=== PATIENT | female | born 1980 | race Caucasian/White ===

== ENCOUNTER 2022-12-28 08:02 | Emergency (ER) | payer OTHER, SELFPAY ==
[2022-12-28 08:14] VITALS: BP 117/76; PULSE 79; RESP 20; TEMP 36.6; O2SAT 96; BMI 24.5
[2022-12-28 09:24] LABS: Amphetamine Screen Urine Not Detected (Not Detect); Barbiturates, Urine Not Detected (Not Detect); Benzodiazepines Screen Urine Not Detected (Not Detect); Cannabinoid Screen Urine Not Detected (Not Detect); Cocaine Screen Urine POSITIVE (Not Detect); Fentanyl, urine POSITIVE (Not Detect); Opiate Screen Urine POSITIVE (Not Detect); Phencyclidine Screen Urine Not Detected (Not Detect)
[2022-12-28 09:25] LABS: COVID-19 Test Negative (Negative); IDNOW Serial# 55D5AD1C
[2022-12-28 09:34] LABS: Ethanol < 10 mg/dL
[2022-12-28] MEDS: Acetaminophen 325 MG TABLET 650 MG PO (10:26)
--- NOTE | 2022-12-28 10:33 | ED_ITS ---
HPI - Medical Clearance General Chief complaint: Medical Clearance Stated complaint: Medical clearance Time Seen by Provider: 12/28/22 10:23 Source: patient Mode of arrival: ambulatory Limitations: no limitations History of Present Illness HPI Narrative: Patient has a history of poly substance use. She tells me she is currently in a sober living home. Last night after a meeting she when out in used crack and he roin last night. She tells me that she was sent here for medical clearance prior to letting her return to her sober living facility. She has no complaints. Related Information Allergies Allergy/AdvReac Type Severity Reaction Status Date / Time amoxicillin Allergy Hives Verified 12/28/22 08:17 Review of Systems Review of Systems: Yes all other systems are reviewed and are negative Constitutional: Constitutional: Reports no additional constitutional complaints, Denies body ache(s), Denies chills, Denies fever(s), Denies headache(s) and Denies weakness Eyes: Eyes: Reports no additional eye complaints and Denies change in vision ENT: Reports system reviewed and no additional complaints, except as documented, Denies dizziness, Denies headache(s), Denies nasal congestion, Denies nasal discharge and Denies neck pain Cardiovascular: Cardiovascular: Reports no additional cardiovascular complaints, Denies chest pain, Denies leg edema and Denies dyspnea Respiratory: Respiratory: Reports no additional respiratory complaints, Denies cough and Denies dyspnea Gastrointestinal: Gastrointestinal: Reports no additional gastrointestinal complaints, Denies abdominal pain, Denies diarrhea, Denies nausea and Denies vomiting Genitourinary: Genitourinary: Reports no additional female genitourinary complaints and Denies urinary incontinence Musculoskeletal: Musculoskeletal: Reports no additional musculoskeletal complaints, Denies back pain, Denies arthralgias, Denies joint swelling, Denies neck pain, Denies numbness and Denies tingling Integumentary/Breasts: Skin/Breast: Reports system reviewed and no additional complaints, except as docu and Denies rash Neurologic: Reports system reviewed and no additional complaints, except as documented, Denies Abnormal speech present, Denies dizziness, Denies headache(s), Denies numbness, Denies tingling and Denies weakness PMFSH Past Medical History Attestation statement: The following information was validated with the patient. Source: old records reviewed and nursing notes reviewed Social History Social History Advance Directives: No Advance Directives Information Provided: Yes Physical Exam Vital Signs: Vital Signs: Last Vital Signs Temp 97.8 F 12/28/22 08:14 Pulse 79 12/28/22 08:14 Resp 20 12/28/22 08:14 BP 117/76 12/28/22 08:14 Pulse Ox 96 12/28/22 08:14 O2 Del Method Room Air 12/28/22 08:14 BMI result Body Mass Index 24.5 Const: General: cooperative, healthy appearing, comfortable and no acute distress Orientation/consciousness: patient oriented x3 Limitations: no limitations HEENT: Head: Yes normal to inspection Ears: hearing grossly normal bilaterally General nose exam: Normal external nose present Face and sinus: Yes normal facial exam Mouth: Normal oral and palatal mucosa present Throat: Yes posterior oropharynx normal Eyes: General: appearance normal, both eyes and all related structures Pupils: Equal, round and reactive pupils present Neck: Neck: Yes normal visual inspection Chest: Chest palpation & inspection: normal inspection of the chest Resp: Effort & Inspection: normal respiratory effort Auscultation: clear to auscultation bilaterally Cardio: Rate: regular rate Rhythm: regular rhythm Peripheral pulses: Peripheral pulses 2+ throughout GI: Inspection: Yes normal to inspection Palpation (GI): Soft to palpation and nontender Auscultation: normal bowel sounds Back/Spine/Pelvis: Thoracic/Lumbar Spine: thoracic and lumbar spine normal to inspection Skin: General skin exam: no rashes or lesions noted Neuro: General: patient oriented x3, no focal motor deficits and normal sensation to monofilament Cranial nerves: Yes Equal, round and reactive pupils present Cognition (Neuro): normal cognition Speech: No Abnormal speech present Gait exam (Neuro): Normal gait present Motor exam (neuro): 5/5 motor strength present throughout Extrem: General: Yes normal to inspection Course Course Course Narrative: Urine screen is positive for opiates (fentanyl), cocaine. Plan for discharge back to sober living Medications Administered Discontinued Medications Generic Name Dose Route Start Last Admin Trade Name Freq PRN Reason Stop Dose Admin Acetaminophen 650 mg 12/28/22 10:23 12/28/22 10:26 Acetaminophen 325 Mg Tablet PO 12/28/22 10:24 650 mg ONCE ONE Administration Medical Decision Making Medical Decision Making [facility] Narrative: 42-year-old female who is currently living in a sober living home who presents here for medical clearance Patient reports she needs drug screens prior to returning to her sober living Will obtain drug screen Differential Diagnosis Differential Diagnoses: The differential diagnosis associated with the presentation includes Lab Data MDM Lab Attestation statement: I reviewed the patient's lab results. Labs: Lab Results 12/28/22 12/28/22 12/28/22 Range/Units 08:53 08:53 08:53 Urine Opiates Screen POSITIVE H (Not Detect) Urine Fentanyl Screen POSITIVE H (Not Detect) Ur Barbiturates Screen Not Detected (Not Detect) Ur Phencyclidine Scrn Not Detected (Not Detect) Ur Amphetamines Screen Not Detected (Not Detect) U Benzodiazepines Scrn Not Detected (Not Detect) Urine Cocaine Screen POSITIVE H (Not Detect) U Marijuana (THC) Screen Not Detected (Not Detect) Ethyl Alcohol < 10 mg/dL COVID-19 (ESTELLA) Negative (Negative) COVID-19 Clin Com See Note Discharge Plan Discharge Clinical Impression: Polysubstance (including opioids) dependence, daily use Patient Disposition: Home, Self-Care Instructions: Cocaine Abuse (ED), Narcotic Use Disorder (ED) Additional Instructions: Your urine screen was positive for fentanyl and cocaine Referrals: Physician,None [Primary Care Provider] - Interventions: ED Discharge Assessment Last Done: 12/28/22 10:56 Discharge Date/Time: 12/28/22 10:56
== END 2022-12-28 10:56 | disposition home or self-care (01) ==
PROVIDERS: Emergency Provider Emergency Medicine
DX: F19.20 Other psychoactive substance dependence, uncomplicated (principal)
CPT/HCPCS: 36415; 80307; 82077; 87635; 99283

== ENCOUNTER 2023-03-13 13:02 | Inpatient (IN) | payer OTHER, SELFPAY ==
[2023-03-13 13:11] VITALS: BP 115/79; PULSE 100; RESP 18; TEMP 36.7; O2SAT 99; BMI 26.4
--- NOTE | 2023-03-13 13:29 | ED_ITS ---
HPI - General Adult General Chief complaint: Psychiatric Symptoms Stated complaint: medical clearence Time Seen by Provider: 03/13/23 16:49 Source: patient Mode of arrival: ambulatory Limitations: no limitations History of Present Illness HPI narrative: Patient with history of substance abuse cocaine came from the program where she lives for last 3 months is she feeling still depressed and has thought of SI with increased anxiety no current plan. She does not like the way she is staying as they are not helping her for depression patient used cocaine few days ago no current SI plan no hallucinations or delusions patient denies any urine complaints does have little discomfort in lower abdomen no fever no chills no hematuria no flank pain. Patient's feel more depressed as her daughter 2 months ago after overdosing herself Related Data Home Medications Medication Instructions Recorded Confirmed buspirone 10 mg tablet 10 mg PO BID 03/13/23 03/13/23 clonidine HCl 0.1 mg tablet 0.1 mg PO BID 03/13/23 03/13/23 methylphenidate HCl 20 mg tablet 60 mg PO USEASDIRECTD 03/13/23 03/13/23 (Ritalin) sertraline 100 mg tablet 200 mg PO QAM 03/13/23 03/13/23 trazodone 50 mg tablet 100 mg PO BEDTIME PRN Sleep 03/13/23 03/13/23 methadone 10 mg/mL oral 55 mg PO DAILY 03/14/23 03/14/23 concentrate (Methadone Intensol) Allergies Allergy/AdvReac Type Severity Reaction Status Date / Time amoxicillin Allergy Hives Verified 12/28/22 08:17 Review of Systems Review of Systems: Yes all other systems are reviewed and are negative PMFSH Past Medical History Medical History (Updated 03/15/23 @ 14:16 by Nagi Solano MD) Cocaine use disorder MDD (major depressive disorder), recurrent severe, without psychosis PTSD (post-traumatic stress disorder) Social History Social History Household Members: Other Housing: Assisted Living Facility Do you presently have visiting nurse or other home services: No Patient Tobacco Use Status: Never used Tobacco Smoked in Last 30 Days: No Use of substances other than those prescribed or required for medical reasons: Yes Substance Use Type: Crack/Cocaine and Heroin Substance Use Frequency: Daily Substance Use Frequency Other:: been 2 months since used last Last Used Substance: Days (ago) Currently Displaying Signs/Symptoms of Drug Intoxication Withdrawal: No Any prior treatment program specific to substance use: No Have you been hit, kicked, punched, or otherwise hurt by someone within the past year? If so, by whom?: No Do you feel safe in your current relationship?: No Current Relationship Is there a partner from a previous relationship who is making you feel unsafe now?: No Are you made to feel afraid or neglected: No Spiritual Healthcare Practices: N/A Worship Healthcare Practices: N/A Cultural Healthcare Practices: N/A Advance Directives: No Advance Directives Information Provided: No Healthcare Proxy: No Guardian: No Do you have thoughts of harming others: None Do you have a plan to hurt others: No Plan Recently lost weight without trying: No How much weight loss: Not applicable Eating poorly because of decreased appetite: No Nutrition screen score: 0 Nutrition Risks: No Nutritional Risk Patient : No : No Poor oral hygiene: No service: No Sexual orientation: Straight/Heterosexual Physical Exam ED Vital Signs: Vital Signs - 24 hr 03/13/23 22:28 03/14/23 06:49 03/14/23 08:44 Temperature 97.8 F 98.2 F 97.9 F Pulse Rate 68 69 64 Respiratory Rate 16 17 18 Blood Pressure 101/61 98/58 L 99/62 Pulse Oximetry 98 98 96 Oxygen Delivery Method Room Air Room Air Room Air BMI result Body Mass Index 26.4 Appearance: Alert. Oriented X3. No acute distress. Eyes: PERRLA, No Nystagmus ENT: Pharynx normal. Oral Mucosa moist Neck: Normal inspection. Neck supple. CVS: Normal heart rate and rhythm. Pulses normal. Respiratory: No respiratory distress. Equal air entry bilateral, no wheezing/rales/rhonchi Abdomen: Soft and nontender. Bowel sounds are present, no mass palpable, no CVA tenderness Skin: Skin warm and dry. Normal skin color. Normal skin turgor. Extremities: No lower extremity edema. No calf tenderness psych: Mood stable denied any current SI thoughts Neuro: Oriented X 3. No motor deficit. No sensory deficit.No cerebellar signs , cranial nerves II-XII intact Course Course Course Narrative: RME: patient is suicidal and hot homicidal. also wants drug test for detox progam. patient has no suicidal plan. labs ordered. care team ordered. 03/14/2023 1346: Patient to be admitted to our psychiatric unit. Reevaluation(s) Reevaluation #1: methadone dose confirmed, assumed care at 7 am, no other emergenct intervention needed at this time. Time: 09:26 Medications Administered Generic Name Dose Route Start Last Admin Trade Name Freq PRN Reason Stop Dose Admin Buspirone HCl 15 mg 03/20/23 15:00 03/23/23 20:04 Buspirone Hcl 5 Mg Tablet PO 15 mg TID ANGELA Administration Clonidine HCl 0.1 mg 03/15/23 11:28 03/23/23 20:04 Clonidine Hcl 0.1 Mg Tablet PO 0.1 mg Q4H PRN Administration anxiety Protocol Clonidine HCl 0.1 mg 03/21/23 09:00 03/23/23 08:37 Clonidine Hcl 0.1 Mg Tablet PO Not Given DAILY ANGELA Protocol Hydroxyzine HCl 25 mg 03/15/23 00:20 03/22/23 20:52 Hydroxyzine Hcl 25 Mg Tablet PO 25 mg Q6H PRN Administration Anxiety Methadone HCl 55 mg 03/14/23 09:30 03/23/23 08:28 Methadone Hcl 20 Mg/2 Ml Oral.Conc PO 55 mg DAILY ANGELA Administration Methylphenidate HCl 40 mg 03/15/23 11:25 03/23/23 08:28 Methylphenidate Hcl 10 Mg Tablet PO 40 mg DAILY ANGELA Administration Methylphenidate HCl 20 mg 03/15/23 13:00 03/23/23 13:14 Methylphenidate Hcl 10 Mg Tablet PO 20 mg DAILY@1300 ANGELA Administration Oxcarbazepine 150 mg 03/22/23 09:00 03/23/23 13:14 Oxcarbazepine 150 Mg Tablet PO 150 mg BID@0900,1400 ANGELA Administration Prazosin HCl 2 mg 03/21/23 21:00 03/23/23 20:04 Prazosin Hcl 1 Mg Capsule PO 2 mg BEDTIME ANGELA Administration Protocol Sertraline HCl 200 mg 03/14/23 09:00 03/23/23 08:29 Sertraline Hcl 100 Mg Tablet PO 200 mg DAILY ANGELA Administration Trazodone HCl 50 mg 03/15/23 00:20 03/23/23 20:04 Trazodone Hcl 50 Mg Tablet PO 50 mg BEDTIME MRX1 PRN Administration Insomnia Discontinued Medications Generic Name Dose Route Start Last Admin Trade Name Lilly PRN Reason Stop Dose Admin Buspirone HCl 10 mg 03/14/23 00:15 03/15/23 09:31 Buspirone Hcl 10 Mg Tablet PO 10 mg BID ANGELA Administration Buspirone HCl 10 mg 03/15/23 15:00 03/20/23 09:07 Buspirone Hcl 10 Mg Tablet PO 10 mg TID ANGELA Administration Cefuroxime Axetil 250 mg 03/13/23 21:00 03/19/23 08:29 Cefuroxime Axetil 250 Mg Tablet PO 03/19/23 20:59 250 mg BID ANGELA Administration Clonidine HCl 0.1 mg 03/14/23 00:15 03/15/23 09:31 Clonidine Hcl 0.1 Mg Tablet PO 0.1 mg BID ANGELA Administration Protocol Clonidine HCl 0.1 mg 03/18/23 21:00 03/18/23 19:30 Clonidine Hcl 0.1 Mg Tablet PO 0.1 mg BEDTIME ANGELA Administration Protocol Clonidine HCl 0.1 mg 03/20/23 12:30 03/20/23 14:34 Clonidine Hcl 0.1 Mg Tablet PO 03/20/23 12:31 0.1 mg ONCE ONE Administration Protocol Fluconazole 150 mg 03/20/23 13:22 03/20/23 14:34 Fluconazole 150 Mg Tablet PO 03/20/23 13:23 150 mg ONCE ONE Administration Lorazepam 1 mg 03/13/23 17:01 03/13/23 17:16 Lorazepam 1 Mg Tablet PO 03/13/23 17:02 1 mg ONCE ONE Administration Methylphenidate HCl 40 mg 03/14/23 09:00 03/14/23 09:59 Methylphenidate Hcl 10 Mg Tablet PO 40 mg DAILY ANGELA Administration Methylphenidate HCl 20 mg 03/14/23 13:00 03/14/23 15:28 Methylphenidate Hcl 10 Mg Tablet PO 20 mg DAILY@1300 ANGELA Administration Oxcarbazepine 150 mg 03/21/23 16:10 03/21/23 17:29 Oxcarbazepine 150 Mg Tablet PO 03/21/23 16:11 150 mg ONCE ONE Administration Prazosin HCl 1 mg 03/19/23 21:00 03/20/23 20:23 Prazosin Hcl 1 Mg Capsule PO 1 mg BEDTIME ANGELA Administration Protocol Quetiapine Fumarate 50 mg 03/20/23 21:00 03/20/23 20:23 Quetiapine Fumarate 50 Mg Tablet PO 50 mg BEDTIME ANGELA Administration Trazodone HCl 100 mg 03/13/23 23:53 03/19/23 19:48 Trazodone Hcl 100 Mg Tablet PO 100 mg BEDTIME PRN Administration Sleep Medical Decision Making Medical Decision Making [facility] Narrative: 1754 Patient with substance abuse and depression with SI thoughts no current plan will get care team evaluation. Patient denies any significant dysuria frequency but does have some mild suprapubic pain when she urinates urine showed nitrite positive with bacteria positive will treat her empirically with Ceftin pending urine culture Lab Data [facility] Lab Attestation statement: I reviewed the patient's lab results. 03/13/23 13:50 03/13/23 13:50 Labs: Lab Results 03/13/23 03/13/23 03/13/23 Range/Units 13:50 13:50 14:12 WBC 7.5 (4.8-10.8) X10*3/uL RBC 4.26 (4.20-5.50) X10*6/uL Hgb 12.9 (12.0-16.0) g/dl Hct 37.6 (37.0-47.0) % MCV 88.3 (80.0-98.0) fL MCH 30.3 (27.0-33.0) pg MCHC 34.3 (31.0-35.0) g/dl RDW 12.8 (11.0-16.0) % Plt Count 262 (160-400) X10*3/uL MPV 9.4 (9.4-12.3) fL Immature Gran % (Auto) 0.3 (0.0-0.4) % Neut % (Auto) 50.0 (45-73) % Lymph % (Auto) 36.2 (20-40) % [place] % (Auto) 6.4 (2-11) % Eos % (Auto) 6.3 H (0-4) % Baso % (Auto) 0.8 (0-2) % Lymph # (Auto) 2.7 (1.2-4.9) X10*3/uL [place] # (Auto) 0.5 (0.1-1.2) X10*3/uL Eos # (Auto) 0.5 H (0.0-0.4) X10*3/uL Baso # (Auto) 0.1 (0.0-0.2) X10*3/uL Abs Immat Gran (auto) 0.02 (0.00-0.03) X10*3/uL Absolute Neuts (auto) 3.7 (2.0-8.3) x10*3/uL Absolute Nucleated RBC 0.000 (0.0-0.012) X10*3/uL Nucleated RBC % (auto) 0.0 (0.0-0.2) /100WBC Sodium 145 (135-145) mmol/L Potassium 3.8 (3.3-5.1) mmol/L Chloride 108 (96-108) mmol/L Carbon Dioxide 27 (22-29) mmol/L Anion Gap 14 (12-20) BUN 14 (9-16) mg/dL Creatinine 0.82 (0.5-1.4) mg/dL Estim Creat Clear Calc 76.2 Estimated GFR > 60 Random Glucose 82 (60-115) mg/dL Calcium 9.2 (8.4-10.2) mg/dL Total Bilirubin 0.8 (0.0-1.0) mg/dL AST 15 (5-31) U/L ALT 10 (0-31) U/L Alkaline Phosphatase 51 (39-117) U/L Total Protein 7.5 (6.5-8.0) g/dL Albumin 4.3 (3.5-5.0) g/dL Urine Color Yellow Urine Appearance Cloudy Urine pH 5.5 (5.0-9.0) Ur Specific [place] 1.025 (1.005-1.025) Urine Protein Negative (Neg-Trace) mg/dL Urine Glucose (UA) Negative (Negative) mg/dL Urine Ketones Trace (Negative) mg/dL Urine Blood Negative (Negative) Urine Nitrite Positive H (Negative) Ur Leukocyte Esterase Trace H (Negative) Urine RBC 0-2 (0-2) /HPF Urine WBC 0-5 (0-5) /HPF Ur Squamous Epith Cells 0-2 (0-2) /HPF Urine Bacteria 4+ (None Seen) Hyaline Casts 0-2 (0-2) /LPF Urine Test (NEGATIVE) Urine Opiates Screen (Not Detect) Urine Fentanyl Screen (Not Detect) Ur Barbiturates Screen (Not Detect) Ur Phencyclidine Scrn (Not Detect) Ur Amphetamines Screen (Not Detect) U Benzodiazepines Scrn (Not Detect) Urine Cocaine Screen (Not Detect) U Marijuana (THC) Screen (Not Detect) Ethyl Alcohol < 10 mg/dL COVID-19 (ESTELLA) (Negative) COVID-19 Clin Com 03/13/23 03/13/23 03/14/23 Range/Units 14:12 14:12 11:39 WBC (4.8-10.8) X10*3/uL RBC (4.20-5.50) X10*6/uL Hgb (12.0-16.0) g/dl Hct (37.0-47.0) % MCV (80.0-98.0) fL MCH (27.0-33.0) pg MCHC (31.0-35.0) g/dl RDW (11.0-16.0) % Plt Count (160-400) X10*3/uL MPV (9.4-12.3) fL Immature Gran % (Auto) (0.0-0.4) % Neut % (Auto) (45-73) % Lymph % (Auto) (20-40) % [place] % (Auto) (2-11) % Eos % (Auto) (0-4) % Baso % (Auto) (0-2) % Lymph # (Auto) (1.2-4.9) X10*3/uL [place] # (Auto) (0.1-1.2) X10*3/uL Eos # (Auto) (0.0-0.4) X10*3/uL Baso # (Auto) (0.0-0.2) X10*3/uL Abs Immat Gran (auto) (0.00-0.03) X10*3/uL Absolute Neuts (auto) (2.0-8.3) x10*3/uL Absolute Nucleated RBC (0.0-0.012) X10*3/uL Nucleated RBC % (auto) (0.0-0.2) /100WBC Sodium (135-145) mmol/L Potassium (3.3-5.1) mmol/L Chloride (96-108) mmol/L Carbon Dioxide (22-29) mmol/L Anion Gap (12-20) BUN (9-16) mg/dL Creatinine (0.5-1.4) mg/dL Estim Creat Clear Calc Estimated GFR Random Glucose (60-115) mg/dL Calcium (8.4-10.2) mg/dL Total Bilirubin (0.0-1.0) mg/dL AST (5-31) U/L ALT (0-31) U/L Alkaline Phosphatase (39-117) U/L Total Protein (6.5-8.0) g/dL Albumin (3.5-5.0) g/dL Urine Color Urine Appearance Urine pH (5.0-9.0) Ur Specific [place] (1.005-1.025) Urine Protein (Neg-Trace) mg/dL Urine Glucose (UA) (Negative) mg/dL Urine Ketones (Negative) mg/dL Urine Blood (Negative) Urine Nitrite (Negative) Ur Leukocyte Esterase (Negative) Urine RBC (0-2) /HPF Urine WBC (0-5) /HPF Ur Squamous Epith Cells (0-2) /HPF Urine Bacteria (None Seen) Hyaline Casts (0-2) /LPF Urine Test NEGATIVE (NEGATIVE) Urine Opiates Screen Not Detected (Not Detect) Urine Fentanyl Screen POSITIVE H (Not Detect) Ur Barbiturates Screen Not Detected (Not Detect) Ur Phencyclidine Scrn Not Detected (Not Detect) Ur Amphetamines Screen Not Detected (Not Detect) U Benzodiazepines Scrn Not Detected (Not Detect) Urine Cocaine Screen POSITIVE H (Not Detect) U Marijuana (THC) Screen Not Detected (Not Detect) Ethyl Alcohol mg/dL COVID-19 (ESTELLA) Negative (Negative) COVID-19 Clin Com See Note Discharge Plan Discharge Clinical Impression: Polysubstance (including opioids) dependence, daily use, Suicidal ideation, Depression, UTI (urinary tract infection) Patient Disposition: Admitted As Inpatient Interventions: Admission Worksheet (ED) Last Done: 03/15/23 00:41 Discharge Date/Time: 03/15/23 00:42
[2023-03-13 13:55] LABS: MANUAL DIFF FLAG NO
[2023-03-13 13:57] LABS: Basophils Absolute Auto 0.1 X10*3/uL (0.0-0.2); Basophils Percent Auto 0.8 % (0-2); Eosinophils Absolute Auto 0.5 X10*3/uL (0.0-0.4); Eosinophils Percent Auto 6.3 % (0-4); Hematocrit 37.6 % (37.0-47.0); Hemoglobin 12.9 g/dl (12.0-16.0); Imm Gran Abs Auto 0.02 X10*3/uL (0.00-0.03); Imm Gran Pct Auto 0.3 % (0.0-0.4); Lymphocytes Absolute Auto 2.7 X10*3/uL (1.2-4.9); Lymphocytes Percent Auto 36.2 % (20-40); Mean Corpuscular HGB Conc 34.3 g/dl (31.0-35.0); Mean Corpuscular Hemoglobin 30.3 pg (27.0-33.0); Mean Corpuscular Volume 88.3 fL (80.0-98.0); Mean Platelet Volume 9.4 fL (9.4-12.3); Monocytes Absolute Auto 0.5 X10*3/uL (0.1-1.2); Monocytes Percent Auto 6.4 % (2-11); Neutrophils Absolute Auto 3.7 x10*3/uL (2.0-8.3); Platelet Count 262 X10*3/uL (160-400); Red Blood Count 4.26 X10*6/uL (4.20-5.50); Red Cell Distribution Width 12.8 % (11.0-16.0); White Blood Count 7.5 X10*3/uL (4.8-10.8)
[2023-03-13 14:20] LABS: Appearance Urine Cloudy; Color Urine Yellow; Glucose Urine UA Negative (Negative); Leukocyte Esterase Urine Trace (Negative); Nitrite Urine Positive (Negative); PH 5.5 (5.0-9.0); Specific Gravity - Urine 1.025 (1.005-1.025); UMIC TRIGGER UACC YES; Urine Blood Negative (Negative); Urine Ketones Trace mg/dL (Negative); Urine Protein Negative (Neg-Trace)
[2023-03-13 14:21] LABS: UPreg QC Valid YES; Urine Pregnancy NEGATIVE (NEGATIVE)
[2023-03-13 14:22] LABS: Bacteria Urine 4+ (None Seen); Hyaline Casts Urine 0-2 /LPF (0-2); RBC Urine 0-2 /HPF (0-2); Squamous Epithelial Cell Urine 0-2 /HPF (0-2); UACC Culture Trigger YES; WBC Urine 0-5 /HPF (0-5)
[2023-03-13 14:28] LABS: Alanine Aminotransferase 10 U/L (0-31); Albumin Level 4.3 g/dL (3.5-5.0); Alkaline Phosphatase 51 U/L (39-117); Anion Gap 14 (12-20); Aspartate Amino Transferase 15 U/L (5-31); Bilirubin Total 0.8 mg/dL (0.0-1.0); Blood Urea Nitrogen 14 mg/dL (9-16); Calcium 9.2 mg/dL (8.4-10.2); Carbon Dioxide 27 mmol/L (22-29); Chloride 108 mmol/L (96-108); Creatinine Clr Calc Pharmacy 76.2; Estimated Glomerular Filt Rate > 60; Ethanol < 10 mg/dL; Glucose Random 82 mg/dL (60-115); Potassium 3.8 mmol/L (3.3-5.1); Sodium 145 mmol/L (135-145); Total Protein 7.5 g/dL (6.5-8.0)
[2023-03-13 15:13] LABS: Amphetamine Screen Urine Not Detected (Not Detect); Barbiturates, Urine Not Detected (Not Detect); Benzodiazepines Screen Urine Not Detected (Not Detect); Cannabinoid Screen Urine Not Detected (Not Detect); Cocaine Screen Urine POSITIVE (Not Detect); Fentanyl, urine POSITIVE (Not Detect); Opiate Screen Urine Not Detected (Not Detect); Phencyclidine Screen Urine Not Detected (Not Detect)
[2023-03-13] MEDS: LORazepam 1 MG TABLET PO (17:16)
[2023-03-13 22:28] VITALS: BP 101/61; PULSE 68; RESP 16; TEMP 36.6; O2SAT 98
[2023-03-14] MEDS: cloNIDine HCL 0.1 MG TABLET PO ×3 (00:16→20:23)
[2023-03-14] MEDS: traZODone HCL 100 MG TABLET PO ×2 (00:16→20:23)
[2023-03-14] MEDS: busPIRone HCl 10 MG TABLET PO ×3 (00:16→20:23)
--- NOTE | 2023-03-14 02:48 | PC.NURSE ---
Pt sleeping at the bedside. No apparent distress noted. Breaths are even, regular, and unlabored with equal chest rises. Will continue to monitor.
[2023-03-14 06:49] VITALS: BP 98/58; PULSE 69; RESP 17; TEMP 36.8; O2SAT 98
--- NOTE | 2023-03-14 08:00 | PC.NURSE ---
Methadone Dose Verified with [facility] 55mg last dosed 03/07/23 [id number], faxed to MD Dary notified
--- NOTE | 2023-03-14 08:09 | HE.PHANOTE ---
Pharmacy has received patients methadone verification form. Confirmed at 55 mg with PB Euceda, last dose 03/07/23 but has take home bottles to take them till 03/14/23.
[2023-03-14 08:44] VITALS: BP 99/62; PULSE 64; RESP 18; TEMP 36.6; O2SAT 96
--- NOTE | 2023-03-14 09:49 | ECG_ITS ---
Test Reason : cocaine use Blood Pressure : / mmHG Vent. Rate : 066 BPM Atrial Rate : 066 BPM P-R Int : 130 ms QRS Dur : 078 ms QT Int : 446 ms P-R-T Axes : 026 044 024 degrees QTc Int : 467 ms Normal sinus rhythm with sinus arrhythmia Normal ECG No previous ECGs available Referred By: Jero Nelson Electronically Signed By:MATT CASAS MD
[2023-03-14] MEDS: methADONE HCl 20 MG/2 ML ORAL.CONC 55 MG PO (09:59)
[2023-03-14] MEDS: Methylphenidate HCl 10 MG TABLET 40 MG PO (09:59)
[2023-03-14] MEDS: Sertraline HCL 100 MG TABLET 200 MG PO (10:02)
[2023-03-14 12:09] LABS: COVID-19 Test Negative (Negative); IDNOW Serial# BCCEAD1C
--- NOTE | 2023-03-14 13:46 | MHC.EDTECH ---
Ur preg test ordered for wrong patient. RN aware
[2023-03-14] MEDS: Methylphenidate HCl 10 MG TABLET 20 MG PO (15:28)
[2023-03-14 20:42] VITALS: BP 107/72; PULSE 64; RESP 18; TEMP 36.4; O2SAT 98
[2023-03-15 00:45] VITALS: BMI 28.2
--- NOTE | 2023-03-15 01:32 | PC.ADMIT ---
Pt is a42 years old woman admitted on CV for SI with a plan to OD on substances. Pt reports that she has been increasingly depressed after her daughter from fentanyl overdose. Pt is currently living at [facility], a [facility] residential [facility] for women. Pt is alert and oriented X3. VSS, tox screen is positive for cocaine, and opioids. Speech is pressured, fast but low. Pt denies HI/AH/VH, endorsed SI with vague plan. Pt appeared tired during admission and wanted to go to bed. Admission orders obtained.
[2023-03-15 06:00] VITALS: BP 105/71; PULSE 83; RESP 16; TEMP 36.9; O2SAT 99
[2023-03-15] MEDS: cloNIDine HCL 0.1 MG TABLET PO ×2 (09:31→21:12)
[2023-03-15] MEDS: methADONE HCl 20 MG/2 ML ORAL.CONC 55 MG PO (09:31)
[2023-03-15] MEDS: busPIRone HCl 10 MG TABLET PO ×3 (09:31→21:12)
[2023-03-15] MEDS: Sertraline HCL 100 MG TABLET 200 MG PO (09:31)
--- NOTE | 2023-03-15 10:32 | HO.PSYADMNOT ---
HPI Date of Service: 03/15/23 Chief Complaint: Depression Sources of Information: patient interviewed, chart reviewed and crisis/core team assessment reviewed HPI Subjective Notes: Scales Warning and Conditional Voluntary Narrative: pt is a 42 yo female with hx of depression, PtSD, substance abuse, ADHD who self presents for worsening depression, anxiety with SI in the face coping with daughter's recent in November. Patient reports she was doing overall well at residential/program. Some situations are difficult there as there are people who were bullying, however she was coping until her daughter suddenly from an overdose this past November. Patient says she has had little time to mourn as there are mandatory groups from about 07:00 to 18:00 every day and there is no real place to be by 1 self. Patient said her depression has been increasing over the past months but got worse this past few weeks. Her outpatient doctor increased her Zoloft however this past weekend she got very distraught, not eating, feeling guilty and hopeless and felt like being . Patient relapsed with cocaine only but quickly self presented to the hospital to restabilize. Patient agrees with increasing BuSpar and adding clonidine for anxiety. Denies history of manic type episodes or behaviors; denies AVH. Past Psychiatric History: No history of previous psychiatric admissions No history of suicide attempts Medical Evaluation Reviewed: Yes [facility] Medical History (Updated 03/15/23 @ 14:16 by Nagi Solano MD) Cocaine use disorder MDD (major depressive disorder), recurrent severe, without psychosis PTSD (post-traumatic stress disorder) Family History: Both paternal and maternal family history mental illness and substance abuse Daughter: Substance abuse Social History: Single Daughter, November 2022 from accidental overdose Patient has 7-year-old son who lives with his father; patient remains in contact Substance History: History of polysubstance abuse; on methadone Crack cocaine, 1st at 16 years old Opiates 1st at 34 years old Trauma History: History of trauma; not discussed Diagnostics Vital Signs (24Hr): Vital Signs - 24 hr 03/14/23 20:42 Temperature 97.6 F Pulse Rate 64 Respiratory Rate 18 Blood Pressure 107/72 Pulse Oximetry 98 Oxygen Delivery Method Room Air BMI result Body Mass Index 28.2 Labs 03/13/23 13:50 03/13/23 13:50 Labs: Laboratory Results - last 48 hr 03/13/23 03/13/23 03/13/23 13:50 13:50 14:12 WBC 7.5 RBC 4.26 Hgb 12.9 Hct 37.6 MCV 88.3 MCH 30.3 MCHC 34.3 RDW 12.8 Plt Count 262 MPV 9.4 Immature Gran % (Auto) 0.3 Neut % (Auto) 50.0 Lymph % (Auto) 36.2 [place] % (Auto) 6.4 Eos % (Auto) 6.3 H Baso % (Auto) 0.8 Lymph # (Auto) 2.7 [place] # (Auto) 0.5 Eos # (Auto) 0.5 H Baso # (Auto) 0.1 Abs Immat Gran (auto) 0.02 Absolute Neuts (auto) 3.7 Absolute Nucleated RBC 0.000 Nucleated RBC % (auto) 0.0 Sodium 145 Potassium 3.8 Chloride 108 Carbon Dioxide 27 Anion Gap 14 BUN 14 Creatinine 0.82 Estim Creat Clear Calc 76.2 Estimated GFR > 60 Random Glucose 82 Calcium 9.2 Total Bilirubin 0.8 AST 15 ALT 10 Alkaline Phosphatase 51 Total Protein 7.5 Albumin 4.3 Urine Color Yellow Urine Appearance Cloudy Urine pH 5.5 Ur Specific [place] 1.025 Urine Protein Negative Urine Glucose (UA) Negative Urine Ketones Trace Urine Blood Negative Urine Nitrite Positive H Ur Leukocyte Esterase Trace H Urine RBC 0-2 Urine WBC 0-5 Ur Squamous Epith Cells 0-2 Urine Bacteria 4+ Hyaline Casts 0-2 Urine Test Urine Opiates Screen Urine Fentanyl Screen Ur Barbiturates Screen Ur Phencyclidine Scrn Ur Amphetamines Screen U Benzodiazepines Scrn Urine Cocaine Screen U Marijuana (THC) Screen Ethyl Alcohol < 10 COVID-19 ([facility]) COVID-19 Clin Com 03/13/23 03/13/23 03/14/23 14:12 14:12 11:39 WBC RBC Hgb Hct MCV MCH MCHC RDW Plt Count MPV Immature Gran % (Auto) Neut % (Auto) Lymph % (Auto) [place] % (Auto) Eos % (Auto) Baso % (Auto) Lymph # (Auto) [place] # (Auto) Eos # (Auto) Baso # (Auto) Abs Immat Gran (auto) Absolute Neuts (auto) Absolute Nucleated RBC Nucleated RBC % (auto) Sodium Potassium Chloride Carbon Dioxide Anion Gap BUN Creatinine Estim Creat Clear Calc Estimated GFR Random Glucose Calcium Total Bilirubin AST ALT Alkaline Phosphatase Total Protein Albumin Urine Color Urine Appearance Urine pH Ur Specific [place] Urine Protein Urine Glucose (UA) Urine Ketones Urine Blood Urine Nitrite Ur Leukocyte Esterase Urine RBC Urine WBC Ur Squamous Epith Cells Urine Bacteria Hyaline Casts Urine Test NEGATIVE Urine Opiates Screen Not Detected Urine Fentanyl Screen POSITIVE H Ur Barbiturates Screen Not Detected Ur Phencyclidine Scrn Not Detected Ur Amphetamines Screen Not Detected U Benzodiazepines Scrn Not Detected Urine Cocaine Screen POSITIVE H U Marijuana (THC) Screen Not Detected Ethyl Alcohol COVID-19 ([facility]) Negative COVID-19 Clin Com See Note Meds/Allergies Meds Home Medications Medication Instructions Recorded Confirmed Type buspirone 10 mg tablet 10 mg PO BID 03/13/23 03/13/23 History clonidine HCl 0.1 mg tablet 0.1 mg PO BID 03/13/23 03/13/23 History methylphenidate HCl 20 mg tablet 60 mg PO USEASDIRECTD 03/13/23 03/13/23 History (Ritalin) sertraline 100 mg tablet 200 mg PO QAM 03/13/23 03/13/23 History trazodone 50 mg tablet 100 mg PO BEDTIME PRN Sleep 03/13/23 03/13/23 History methadone 10 mg/mL oral 55 mg PO DAILY 03/14/23 03/14/23 History concentrate (Methadone Intensol) Allergies Allergies Allergy/AdvReac Type Severity Reaction Status Date / Time amoxicillin Allergy Hives Verified 12/28/22 08:17 Mental Status Exam Mental Status Exam Narrative: Pt is alert and oriented; behavior is cooperative, teaful; patient is in emotional distress; dressed in casual attire with unkempt hair, edentulous; adequate hygiene; mood is described as depressed and affect congruent, downcast, tearful; limited eye contact; Speech is normal rate, volume and prosody and not pressured; some psychomotor retardation present; thought process is organized and goal directed; Thought content is on sadness over her daughter's ; tx; otherwise pertinent to relevant topics and without any delusional content, paranoid ideations or grandiosity; passive intermittent SI; no HI. There is no evidence of perceptual disturbance. Patients insight and judgment are impaired Assessment & Plan Assessment & Plan (1) MDD (major depressive disorder), recurrent severe, without psychosis: Status: Acute Code(s): F33.2 - Major depressive disorder, recurrent severe without psychotic features (2) Grief at loss of child: Status: Acute Code(s): F43.21 - Adjustment disorder with depressed mood; Z63.4 - Disappearance and of family member (3) PTSD (post-traumatic stress disorder): Status: Acute Code(s): F43.10 - Post-traumatic stress disorder, unspecified (4) Cocaine use disorder: Status: Acute Code(s): F14.10 - Cocaine abuse, uncomplicated (5) Opioid use disorder, severe, in sustained remission, dependence: Status: Acute Code(s): F11.21 - Opioid dependence, in remission (6) UTI (urinary tract infection): Status: Acute Code(s): N39.0 - Urinary tract infection, site not specified Plan HPI: pt is a 42 yo female with hx of depression, PtSD, substance abuse, ADHD who self presents for worsening depression, anxiety with SI in the face coping with daughter's recent in November. Patient reports she was doing overall well at residential/program. Some situations are difficult there as there are people who were bullying, however she was coping until her daughter suddenly from an overdose this past November. Patient says she has had little time to mourn as there are mandatory groups from about 07:00 to 18:00 every day and there is no real place to be by 1 self. Patient said her depression has been increasing over the past months but got worse this past few weeks. Her outpatient doctor increased her Zoloft however this past weekend she got very distraught, not eating, feeling guilty and hopeless and felt like being . Patient relapsed with cocaine only but quickly self presented to the hospital to restabilize. Patient agrees with increasing BuSpar and adding clonidine for anxiety. Denies history of manic type episodes or behaviors; denies AVH. Admit for medication management and stability; Zoloft recently increased so will keep as is however will increase BuSpar to t.i.d.. Also adding clonidine for anxiety. Patient reported that taking clonidine did seem to resolve nightmare last night. Will continue methylphenidate IR as patient says she has been getting it for the past 14 years. She is not sure why it is immediate release other than to say that is the way it has always been prescribed Currently being treated for UTI Plan: CV Q 15 minute checks Continue Zoloft 200 mg; recently increased Increase BuSpar to 10 mg t.i.d.; up from b.i.d. Add clonidine 0.1 mg q.4 H p.r.n. for anxiety/insomnia Continue methadone Continue methylphenidate IR 40 mg daily Continue methylphenidate IR 20 mg 13:00 Milieu therapy; gather collateral Patient educated on: diagnosis, medication risk/benefits, substance abuse and therapeutic strategies Informed Consent: understands Reason for continued inpatient stay Substantial Risk for: rapid decompensation Statement Statement: I have reviewed the history and physical and performed a pertinent examination on my patient. No changes have occurred unless specified. If the History and Physical was not performed prior to admission, the Hospitalist's service will be consulted for completing the admission physical. Time Spent With Patient Time: Total time managing care of this patient today ____ minutes.
[2023-03-15] MEDS: Methylphenidate HCl 10 MG TABLET 40 MG PO (11:58)
[2023-03-15] MEDS: Methylphenidate HCl 10 MG TABLET 20 MG PO (15:15)
[2023-03-15 18:00] VITALS: BP 108/69; PULSE 76; RESP 18; TEMP 36.6; O2SAT 99
[2023-03-15] MEDS: traZODone HCL 100 MG TABLET PO (21:11)
[2023-03-16 06:00] VITALS: BP 104/65; PULSE 68; RESP 16; TEMP 36.2
[2023-03-16] MEDS: methADONE HCl 20 MG/2 ML ORAL.CONC 55 MG PO (09:34)
[2023-03-16] MEDS: Methylphenidate HCl 10 MG TABLET 40 MG PO (09:36)
[2023-03-16] MEDS: busPIRone HCl 10 MG TABLET PO ×3 (09:36→20:51)
[2023-03-16] MEDS: Sertraline HCL 100 MG TABLET 200 MG PO (09:36)
--- NOTE | 2023-03-16 10:24 | P.PNPSI_ITS ---
Subjective Subjective Date of Service: 03/16/23 Reason For Visit: Depression Interim History: Met with patient; discussed with team Patient reports that she is overall feeling better. She says she is more up today and that depression seems to have abated. Feels less anxious and more able to be social. Patient upset feeling that someone communicated information to her shelter director without her permission; senior copywriter reassured patient that it was known on her current team that did so which she accepts. Patient said that her director said that she can go to a [facility] and then can return to the program. Mental Status Exam Mental Status Exam Narrative: Pt is alert and oriented; behavior is cooperative, calm; patient is not in distress; dressed in casual attire with unkempt hair, edentulous; adequate hygiene; mood is described as more up and affect congruent, brighter; appropriate eye contact; Speech is normal rate, volume and prosody and not pressured; no psychomotor retardation present; thought process is organized and goal directed; Thought content is on situation at shelter, aftercare, treatment; otherwise pertinent to relevant topics and without any delusional content, paranoid ideations or grandiosity; no SI; no HI. There is no evidence of perceptual disturbance. Patients insight and judgment are fair. Diagnostics Vital Signs (24Hr): Vital Signs - 24 hr 03/15/23 18:00 Temperature 97.8 F Pulse Rate 76 Respiratory Rate 18 Blood Pressure 108/69 Pulse Oximetry 99 Oxygen Delivery Method Room Air BMI result Body Mass Index 28.2 Labs 03/13/23 13:50 03/13/23 13:50 Labs: Laboratory Results - last 48 hr 03/14/23 11:39 COVID-19 ([facility]) Negative COVID-19 Clin Com See Note Medications Medications Current Medications Acetaminophen (Acetaminophen 325 Mg Tablet) 650 mg PO Q6H PRN PRN Reason: Headache/Pain Mild Scale (1-3) Al Hydroxide/Mg Hydroxide (Magnesium Hydrox/Alum Hydrox 30 Ml Oral.Susp) 30 ml PO Q6H PRN PRN Reason: Heartburn/Nausea Buspirone HCl (Buspirone Hcl 10 Mg Tablet) 10 mg PO TID [facility] Last Admin: 03/16/23 09:36 Dose: 10 mg Cefuroxime Axetil (Cefuroxime Axetil 250 Mg Tablet) 250 mg PO BID [facility] Stop: 03/19/23 20:59 Last Admin: 03/16/23 09:36 Dose: 250 mg Clonidine HCl (Clonidine Hcl 0.1 Mg Tablet) 0.1 mg PO Q4H PRN; Protocol PRN Reason: anxiety Last Admin: 03/15/23 21:12 Dose: 0.1 mg Hydroxyzine HCl (Hydroxyzine Hcl 25 Mg Tablet) 25 mg PO Q6H PRN PRN Reason: Anxiety Magnesium Hydroxide (Milk Of Magnesia 30 Ml Oral.Susp) 30 ml PO DAILY PRN PRN Reason: Constipation Methadone HCl (Methadone Hcl 20 Mg/2 Ml Oral.Conc) 55 mg PO DAILY [facility] Last Admin: 03/16/23 09:34 Dose: 55 mg Methylphenidate HCl (Methylphenidate Hcl 10 Mg Tablet) 40 mg PO DAILY [facility] Last Admin: 03/16/23 09:36 Dose: 40 mg Methylphenidate HCl (Methylphenidate Hcl 10 Mg Tablet) 20 mg PO DAILY@1300 [facility] Last Admin: 03/15/23 15:15 Dose: 20 mg Nicotine Polacrilex (Nicotine Polacrilex 2 Mg Gum) 4 mg BUCCAL Q2H PRN PRN Reason: Nicotine Cravings Olanzapine (Olanzapine 5 Mg Tablet) 5 mg PO TID PRN PRN Reason: agitation Sertraline HCl (Sertraline Hcl 100 Mg Tablet) 200 mg PO DAILY [facility] Last Admin: 03/16/23 09:36 Dose: 200 mg Trazodone HCl (Trazodone Hcl 100 Mg Tablet) 100 mg PO BEDTIME PRN PRN Reason: Sleep Last Admin: 03/15/23 21:11 Dose: 100 mg Trazodone HCl (Trazodone Hcl 50 Mg Tablet) 50 mg PO BEDTIME MRX1 PRN PRN Reason: Insomnia Allergies Allergies Allergy/AdvReac Type Severity Reaction Status Date / Time amoxicillin Allergy Hives Verified 12/28/22 08:17 Assessment & Plan Assessment & Plan (1) MDD (major depressive disorder), recurrent severe, without psychosis: Status: Acute Code(s): F33.2 - Major depressive disorder, recurrent severe without psychotic features (2) Grief at loss of child: Status: Acute Code(s): F43.21 - Adjustment disorder with depressed mood; Z63.4 - Disappearance and of family member (3) PTSD (post-traumatic stress disorder): Status: Acute Code(s): F43.10 - Post-traumatic stress disorder, unspecified (4) Cocaine use disorder: Status: Acute Code(s): F14.10 - Cocaine abuse, uncomplicated (5) Opioid use disorder, severe, in sustained remission, dependence: Status: Acute Code(s): F11.21 - Opioid dependence, in remission (6) UTI (urinary tract infection): Status: Acute Code(s): N39.0 - Urinary tract infection, site not specified Plan HPI: pt is a 42 yo female with hx of depression, PtSD, substance abuse, ADHD who self presents for worsening depression, anxiety with SI in the face coping with claudio medina's recent in November. Patient reports she was doing overall well at shelter/program. Some situations are difficult there as there are people who were bullying, however she was coping until her daughter suddenly from an overdose this past November. Patient says she has had little time to mourn as there are mandatory groups from about 07:00 to 18:00 every day and there is no real place to be by 1 self. Patient said her depression has been increasing over the past months but got worse this past few weeks. Her outpatient doctor increased her Zoloft however this past weekend she got very distraught, not eating, feeling guilty and hopeless and felt like being . Patient relapsed with cocaine only but quickly self presented to the hospital to restabilize. Patient agrees with increasing BuSpar and adding clonidine for anxiety. Denies history of manic type episodes or behaviors; denies AVH. Admit for medication management and stability; Zoloft recently increased so will keep as is however will increase BuSpar to t.i.d.. Also adding clonidine for anxiety. Patient reported that taking clonidine did seem to resolve nightmare last night. Will continue methylphenidate IR as patient says she has been getting it for the past 14 years. She is not sure why it is immediate release other than to say that is the way it has always been prescribed Currently being treated for UTI Hospital course: 03/16 patient reports mood is little better and anxiety under better control with medication changes. Plan is for her to go to a [facility] and then return to shelter. Plan: CV Q 15 minute checks Continue Zoloft 200 mg; recently increased Continue BuSpar to 10 mg t.i.d.; up from b.i.d. Add clonidine 0.1 mg q.4 H p.r.n. for anxiety/insomnia Continue methadone Continue methylphenidate IR 40 mg daily Continue methylphenidate IR 20 mg 13:00 Milieu therapy; gather collateral Patient educated on: diagnosis, medication risk/benefits and substance abuse Informed Consent: understands Reason for continued inpatient stay Substantial Risk for: stable for discharge Time Spent With Patient Time: Total time managing care of this patient today ____ minutes.
[2023-03-16] MEDS: cloNIDine HCL 0.1 MG TABLET PO ×2 (13:12→20:51)
[2023-03-16] MEDS: Methylphenidate HCl 10 MG TABLET 20 MG PO (13:13)
[2023-03-16 16:47] VITALS: BP 102/67; PULSE 60; TEMP 36.1; O2SAT 95
[2023-03-16] MEDS: traZODone HCL 100 MG TABLET PO (20:51)
[2023-03-17] MEDS: Methylphenidate HCl 10 MG TABLET 40 MG PO (09:16)
[2023-03-17] MEDS: methADONE HCl 20 MG/2 ML ORAL.CONC 55 MG PO (09:16)
[2023-03-17] MEDS: Sertraline HCL 100 MG TABLET 200 MG PO (09:17)
[2023-03-17] MEDS: busPIRone HCl 10 MG TABLET PO ×3 (09:17→19:59)
[2023-03-17 09:41] VITALS: BP 111/65; PULSE 75; RESP 16; TEMP 36.7; O2SAT 97
--- NOTE | 2023-03-17 09:42 | P.PNPSI_ITS ---
Subjective Subjective Date of Service: 03/17/23 Reason For Visit: Depression Interim History: Met with patient; discussed with team Patient reports overall mood remains better; she says she is sleeping well and anxiety is lower and she is having less near panic attacks. Patient talked ab out her sobriety and how it is important to her. She is taking responsibility for her actions and agrees to go to [facility]. Of note patient reiterated to field underwriter that when she 1st came to the emergency room she never said she was planning to commit suicide with drug overdose; rather she said she had some suicidal thoughts but no intent or plans and just needed some time to let them down. Mental Status Exam Mental Status Exam Narrative: Pt is alert and oriented; behavior is cooperative, calm; patient is not in distress; dressed in casual attire with unkempt hair, edentulous; adequate hygiene; mood is described as better and affect congruent, brighter; appropriate eye contact; Speech is normal rate, volume and prosody and not pressured; no psychomotor retardation present; thought process is organized and goal directed; Thought content is on situation at nursing home, aftercare, treatment; otherwise pertinent to relevant topics and without any delusional content, paranoid ideations or grandiosity; no SI; no HI. There is no evidence of perceptual disturbance. Patients insight and judgment are fair. Diagnostics Vital Signs (24Hr): Vital Signs - 24 hr 03/16/23 16:47 Temperature 97 F Pulse Rate 60 Blood Pressure 102/67 Pulse Oximetry 95 Oxygen Delivery Method Room Air BMI result Body Mass Index 28.2 Labs 03/13/23 13:50 03/13/23 13:50 Medications Medications Current Medications Acetaminophen (Acetaminophen 325 Mg Tablet) 650 mg PO Q6H PRN PRN Reason: Headache/Pain Mild Scale (1-3) Al Hydroxide/Mg Hydroxide (Magnesium Hydrox/Alum Hydrox 30 Ml Oral.Susp) 30 ml PO Q6H PRN PRN Reason: Heartburn/Nausea Buspirone HCl (Buspirone Hcl 10 Mg Tablet) 10 mg PO TID [facility] Last Admin: 03/17/23 09:17 Dose: 10 mg Cefuroxime Axetil (Cefuroxime Axetil 250 Mg Tablet) 250 mg PO BID [facility] Stop: 03/19/23 20:59 Last Admin: 03/17/23 09:17 Dose: 250 mg Clonidine HCl (Clonidine Hcl 0.1 Mg Tablet) 0.1 mg PO Q4H PRN; Protocol PRN Reason: anxiety Last Admin: 03/16/23 20:51 Dose: 0.1 mg Hydroxyzine HCl (Hydroxyzine Hcl 25 Mg Tablet) 25 mg PO Q6H PRN PRN Reason: Anxiety Magnesium Hydroxide (Milk Of Magnesia 30 Ml Oral.Susp) 30 ml PO DAILY PRN PRN Reason: Constipation Methadone HCl (Methadone Hcl 20 Mg/2 Ml Oral.Conc) 55 mg PO DAILY [facility] Last Admin: 03/17/23 09:16 Dose: 55 mg Methylphenidate HCl (Methylphenidate Hcl 10 Mg Tablet) 40 mg PO DAILY [facility] Last Admin: 03/17/23 09:16 Dose: 40 mg Methylphenidate HCl (Methylphenidate Hcl 10 Mg Tablet) 20 mg PO DAILY@1300 [facility] Last Admin: 03/16/23 13:13 Dose: 20 mg Nicotine Polacrilex (Nicotine Polacrilex 2 Mg Gum) 4 mg BUCCAL Q2H PRN PRN Reason: Nicotine Cravings Olanzapine (Olanzapine 5 Mg Tablet) 5 mg PO TID PRN PRN Reason: agitation Sertraline HCl (Sertraline Hcl 100 Mg Tablet) 200 mg PO DAILY [facility] Last Admin: 03/17/23 09:17 Dose: 200 mg Trazodone HCl (Trazodone Hcl 100 Mg Tablet) 100 mg PO BEDTIME PRN PRN Reason: Sleep Last Admin: 03/16/23 20:51 Dose: 100 mg Trazodone HCl (Trazodone Hcl 50 Mg Tablet) 50 mg PO BEDTIME MRX1 PRN PRN Reason: Insomnia Allergies Allergies Allergy/AdvReac Type Severity Reaction Status Date / Time amoxicillin Allergy Hives Verified 12/28/22 08:17 Assessment & Plan Assessment & Plan (1) MDD (major depressive disorder), recurrent severe, without psychosis: Status: Acute Code(s): F33.2 - Major depressive disorder, recurrent severe without psychotic features (2) Grief at loss of child: Status: Acute Code(s): F43.21 - Adjustment disorder with depressed mood; Z63.4 - Disappearance and of family member (3) PTSD (post-traumatic stress disorder): Status: Acute Code(s): F43.10 - Post-traumatic stress disorder, unspecified (4) Cocaine use disorder: Status: Acute Code(s): F14.10 - Cocaine abuse, uncomplicated (5) Opioid use disorder, severe, in sustained remission, dependence: Status: Acute Code(s): F11.21 - Opioid dependence, in remission (6) UTI (urinary tract infection): Status: Acute Code(s): N39.0 - Urinary tract infection, site not specified Plan HPI: pt is a 42 yo female with hx of depression, PtSD, substance abuse, ADHD who self presents for worsening depression, anxiety with SI in the face coping with daughter's recent in November. Patient reports she was doing overall well at nursing home/program. Some situations are difficult there as there are people who were bullying, however she was coping until her daughter suddenly from an overdose this past November. Patient says she has had little time to mourn as there are mandatory groups from about 07:00 to 18:00 every day and there is no real place to be by 1 self. Patient said her depression has been increasing over the past months but got worse this past few weeks. Her outpatient doctor increased her Zoloft however this past weekend she got very distraught, not eating, feeling guilty and hopeless and felt like being . Patient relapsed with cocaine only but quickly self presented to the hospital to restabilize. Patient agrees with increasing BuSpar and adding clonidine for anxiety. Denies history of manic type episodes or behaviors; denies AVH. Admit for medication management and stability; Zoloft recently increased so will keep as is however will increase BuSpar to t.i.d.. Also adding clonidine for anxiety. Patient reported that taking clonidine did seem to resolve nightmare last night. Will continue methylphenidate IR as patient says she has been get ting it for the past 14 years. She is not sure why it is immediate release other than to say that is the way it has always been prescribed Currently being treated for UTI Hospital course: 03/16 patient reports mood is little better and anxiety under better control with medication changes. Plan is for her to go to a [facility] and then return to nursing home. 03/17 continue current treatment plan; patient remains stable, improved mood and decreased anxiety; no SI. Feels good about plan going forward Plan: CV Q 15 minute checks Continue Zoloft 200 mg; recently increased Continue BuSpar to 10 mg t.i.d.; up from b.i.d. Continue clonidine 0.1 mg q.4 H p.r.n. for anxiety/insomnia Continue methadone Continue methylphenidate IR 40 mg daily Continue methylphenidate IR 20 mg 13:00 Milieu therapy; gather collateral Patient educated on: diagnosis, medication risk/benefits, substance abuse and therapeutic strategies Informed Consent: understands Reason for continued inpatient stay Substantial Risk for: stable for discharge Time Spent With Patient Time: Total time managing care of this patient today ____ minutes.
[2023-03-17] MEDS: Methylphenidate HCl 10 MG TABLET 20 MG PO (13:25)
[2023-03-17] MEDS: cloNIDine HCL 0.1 MG TABLET PO (14:05)
[2023-03-17 16:55] VITALS: BP 96/60; PULSE 90; TEMP 36.1
[2023-03-17] MEDS: traZODone HCL 100 MG TABLET PO (20:03)
[2023-03-18 08:36] VITALS: BP 125/69; PULSE 71; RESP 16; TEMP 36.6; O2SAT 99
[2023-03-18] MEDS: Methylphenidate HCl 10 MG TABLET 40 MG PO (08:41)
[2023-03-18] MEDS: busPIRone HCl 10 MG TABLET PO ×3 (08:41→19:30)
[2023-03-18] MEDS: methADONE HCl 20 MG/2 ML ORAL.CONC 55 MG PO (08:41)
[2023-03-18] MEDS: Sertraline HCL 100 MG TABLET 200 MG PO (08:41)
--- NOTE | 2023-03-18 09:27 | HO.PSYCHPN ---
Subjective Subjective Date of Service: 03/18/23 Reason For Visit: Depression Interim History: Met with patient; discussed with team Patient says she is coming out of her shell more and getting more comfortable with being around other people; anxiety overall remains improved. Patient reports nightmare last night and asks for clonidine to be scheduled at bedtime. Shares she continues to drug dreams. Patient remains proactive in her treatment, in touch with good are staff and filling out paperwork for TSS Mental Status Exam Mental Status Exam Narrative: Pt is alert and oriented; behavior is cooperative, calm; patient is not in distress; dressed in casual attire with unkempt hair, edentulous; adequate hygiene; mood is described as better and affect congruent, brighter; appropriate eye contact; Speech is normal rate, volume and prosody and not pressured; no psychomotor retardation present; thought process is organized and goal directed; Thought content is on situation at care home, aftercare, treatment; otherwise pertinent to relevant topics and without any delusional content, paranoid ideations or grandiosity; no SI; no HI. There is no evidence of perceptual disturbance. Patients insight and judgment are fair. Diagnostics Vital Signs (24Hr): Vital Signs - 24 hr 03/17/23 09:41 03/17/23 16:55 03/18/23 08:36 Temperature 98.1 F 96.9 F 97.8 F Pulse Rate 75 90 71 Respiratory Rate 16 16 Blood Pressure 111/65 96/60 125/69 Pulse Oximetry 97 99 Oxygen Delivery Method Room Air Room Air BMI result Body Mass Index 28.2 Labs 03/13/23 13:50 03/13/23 13:50 Medications Medications Current Medications Acetaminophen (Acetaminophen 325 Mg Tablet) 650 mg PO Q6H PRN PRN Reason: Headache/Pain Mild Scale (1-3) Al Hydroxide/Mg Hydroxide (Magnesium Hydrox/Alum Hydrox 30 Ml Oral.Susp) 30 ml PO Q6H PRN PRN Reason: Heartburn/Nausea Buspirone HCl (Buspirone Hcl 10 Mg Tablet) 10 mg PO TID [facility] Last Admin: 03/18/23 08:41 Dose: 10 mg Cefuroxime Axetil (Cefuroxime Axetil 250 Mg Tablet) 250 mg PO BID [facility] Stop: 03/19/23 20:59 Last Admin: 03/18/23 08:41 Dose: 250 mg Clonidine HCl (Clonidine Hcl 0.1 Mg Tablet) 0.1 mg PO Q4H PRN; Protocol PRN Reason: anxiety Last Admin: 03/17/23 14:05 Dose: 0.1 mg Hydroxyzine HCl (Hydroxyzine Hcl 25 Mg Tablet) 25 mg PO Q6H PRN PRN Reason: Anxiety Magnesium Hydroxide (Milk Of Magnesia 30 Ml Oral.Susp) 30 ml PO DAILY PRN PRN Reason: Constipation Methadone HCl (Methadone Hcl 20 Mg/2 Ml Oral.Conc) 55 mg PO DAILY [facility] Last Admin: 03/18/23 08:41 Dose: 55 mg Methylphenidate HCl (Methylphenidate Hcl 10 Mg Tablet) 40 mg PO DAILY [facility] Last Admin: 03/18/23 08:41 Dose: 40 mg Methylphenidate HCl (Methylphenidate Hcl 10 Mg Tablet) 20 mg PO DAILY@1300 [facility] Last Admin: 03/17/23 13:25 Dose: 20 mg Nicotine Polacrilex (Nicotine Polacrilex 2 Mg Gum) 4 mg BUCCAL Q2H PRN PRN Reason: Nicotine Cravings Olanzapine (Olanzapine 5 Mg Tablet) 5 mg PO TID PRN PRN Reason: agitation Sertraline HCl (Sertraline Hcl 100 Mg Tablet) 200 mg PO DAILY [facility] Last Admin: 03/18/23 08:41 Dose: 200 mg Trazodone HCl (Trazodone Hcl 100 Mg Tablet) 100 mg PO BEDTIME PRN PRN Reason: Sleep Last Admin: 03/17/23 20:03 Dose: 100 mg Trazodone HCl (Trazodone Hcl 50 Mg Tablet) 50 mg PO BEDTIME MRX1 PRN PRN Reason: Insomnia Allergies Allergies Allergy/AdvReac Type Severity Reaction Status Date / Time amoxicillin Allergy Hives Verified 12/28/22 08:17 Assessment & Plan Assessment & Plan (1) MDD (major depressive disorder), recurrent severe, without psychosis: Status: Acute Code(s): F33.2 - Major depressive disorder, recurrent severe without psychotic features (2) Grief at loss of child: Status: Acute Code(s): F43.21 - Adjustment disorder with depressed mood; Z63.4 - Disappearance and of family member (3) PTSD (post-traumatic stress disorder): Status: Acute Code(s): F43.10 - Post-traumatic stress disorder, unspecified (4) Cocaine use disorder: Status: Acute Code(s): F14.10 - Cocaine abuse, uncomplicated (5) Opioid use disorder, severe, in sustained remission, dependence: Status: Acute Code(s): F11.21 - Opioid dependence, in remission (6) UTI (urinary tract infection): Status: Acute Code(s): N39.0 - Urinary tract infection, site not specified Plan HPI: pt is a 42 yo female with hx of depression, PtSD, substance abuse, ADHD who self presents for worsening depression, anxiety with SI in the face coping with daughter's recent in November. Patient reports she was doing overall well at care home/program. Some situations are difficult there as there are people who were bullying, however she was coping until her daughter suddenly from an overdose this past November. Patient says she has had little time to mourn as there are mandatory groups from about 07:00 to 18:00 every day and there is no real place to be by 1 self. Patient said her depression has been increasing over the past months but got worse this past few weeks. Her outpatient doctor increased her Zoloft however this past weekend she got very distraught, not eating, feeling guilty and hopeless and felt like being . Patient relapsed with cocaine only but quickly self presented to the hospital to restabilize. Patient agrees with increasing BuSpar and adding clonidine for anxiety. Denies history of manic type episodes or behaviors; denies AVH. Admit for medication management and stability; Zoloft recently increased so will keep as is however will increase BuSpar to t.i.d.. Also adding clonidine for anxiety. Patient reported that taking clonidine did seem to resolve nightmare last night. Will continue methylphenidate IR as patient says she has been getting it for the past 14 years. She is not sure why it is immediate release other than to say that is the way it has always been prescribed Currently being treated for UTI Hospital course: 03/16 patient reports mood is little better and anxiety under better control with medication changes. Plan is for her to go to a [facility] and then return to care home. 03/17 continue current treatment plan; patient remains stable, improved mood and decreased anxiety; no SI. Feels good about plan going forward 03/18 continues to stabilize; asked for clonidine to be scheduled at bedtime due to nightmares Plan: CV Q 15 minute checks Schedule clonidine 0.1 mg q.h.s. for nightmares Continue Zoloft 200 mg; recently increased Continue BuSpar to 10 mg t.i.d.; up from b.i.d. Continue clonidine 0.1 mg q.4 H p.r.n. for anxiety/insomnia Continue methadone Continue methylphenidate IR 40 mg daily Continue methylphenidate IR 20 mg 13:00 Milieu therapy; gather collateral Patient educated on: diagnosis and medication risk/benefits Informed Consent: understands Reason for continued inpatient stay Substantial Risk for: stable for discharge Time Spent With Patient Time: Total time managing care of this patient today ____ minutes.
[2023-03-18] MEDS: Methylphenidate HCl 10 MG TABLET 20 MG PO (14:13)
[2023-03-18 18:00] VITALS: BP 128/68; PULSE 81; RESP 16; TEMP 36.1; O2SAT 98
[2023-03-18] MEDS: cloNIDine HCL 0.1 MG TABLET PO ×2 (18:21→19:30)
[2023-03-18] MEDS: traZODone HCL 50 MG TABLET PO (19:31)
[2023-03-19 08:16] VITALS: BP 100/56; PULSE 65; RESP 18; TEMP 36.1; O2SAT 96
[2023-03-19] MEDS: busPIRone HCl 10 MG TABLET PO ×3 (08:29→19:35)
[2023-03-19] MEDS: Sertraline HCL 100 MG TABLET 200 MG PO (08:29)
[2023-03-19] MEDS: methADONE HCl 20 MG/2 ML ORAL.CONC 55 MG PO (08:29)
[2023-03-19] MEDS: Methylphenidate HCl 10 MG TABLET 40 MG PO (08:30)
--- NOTE | 2023-03-19 09:40 | P.PNPSI_ITS ---
Subjective Subjective Date of Service: 03/19/23 Reason For Visit: Depression Interim History: met with patient; discussed with team Patient reports nightmare last night. Patient says she has been having them for several months. Agrees to try prazosin instead of clonidine. Otherwise reports she is feeling stable hopeful about continued sobriety. Mental Status Exam Mental Status Exam Narrative: Pt is alert and oriented; behavior is cooperative, calm; patient is not in di stress; dressed in casual attire with unkempt hair, edentulous; adequate hygiene; mood is described as okay and affect congruent, overall brighter; appropriate eye contact; Speech is normal rate, volume and prosody and not pressured; no psychomotor retardation present; thought process is organized and goal directed; Thought content is on situation at longterm, aftercare, treatment; otherwise pertinent to relevant topics and without any delusional content, paranoid ideations or grandiosity; no SI; no HI. There is no evidence of perceptual disturbance. Patients insight and judgment are fair. Diagnostics Vital Signs (24Hr): Vital Signs - 24 hr 03/18/23 18:00 03/19/23 08:16 Temperature 97 F 97.0 F Pulse Rate 81 65 Respiratory Rate 16 18 Blood Pressure 128/68 100/56 L Pulse Oximetry 98 96 Oxygen Delivery Method Room Air Nasal Cannula BMI result Body Mass Index 28.2 Labs 03/13/23 13:50 03/13/23 13:50 Medications Medications Current Medications Acetaminophen (Acetaminophen 325 Mg Tablet) 650 mg PO Q6H PRN PRN Reason: Headache/Pain Mild Scale (1-3) Al Hydroxide/Mg Hydroxide (Magnesium Hydrox/Alum Hydrox 30 Ml Oral.Susp) 30 ml PO Q6H PRN PRN Reason: Heartburn/Nausea Buspirone HCl (Buspirone Hcl 10 Mg Tablet) 10 mg PO TID [facility] Last Admin: 03/19/23 08:29 Dose: 10 mg Cefuroxime Axetil (Cefuroxime Axetil 250 Mg Tablet) 250 mg PO BID [facility] Stop: 03/19/23 20:59 Last Admin: 03/19/23 08:29 Dose: 250 mg Clonidine HCl (Clonidine Hcl 0.1 Mg Tablet) 0.1 mg PO Q4H PRN; Protocol PRN Reason: anxiety Last Admin: 03/18/23 18:21 Dose: 0.1 mg Clonidine HCl (Clonidine Hcl 0.1 Mg Tablet) 0.1 mg PO BEDTIME [facility]; Protocol Last Admin: 03/18/23 19:30 Dose: 0.1 mg Hydroxyzine HCl (Hydroxyzine Hcl 25 Mg Tablet) 25 mg PO Q6H PRN PRN Reason: Anxiety Magnesium Hydroxide (Milk Of Magnesia 30 Ml Oral.Susp) 30 ml PO DAILY PRN PRN Reason: Constipation Methadone HCl (Methadone Hcl 20 Mg/2 Ml Oral.Conc) 55 mg PO DAILY [facility] Last Admin: 03/19/23 08:29 Dose: 55 mg Methylphenidate HCl (Methylphenidate Hcl 10 Mg Tablet) 40 mg PO DAILY [facility] Last Admin: 03/19/23 08:30 Dose: 40 mg Methylphenidate HCl (Methylphenidate Hcl 10 Mg Tablet) 20 mg PO DAILY@1300 [facility] Last Admin: 03/18/23 14:13 Dose: 20 mg Nicotine Polacrilex (Nicotine Polacrilex 2 Mg Gum) 4 mg BUCCAL Q2H PRN PRN Reason: Nicotine Cravings Olanzapine (Olanzapine 5 Mg Tablet) 5 mg PO TID PRN PRN Reason: agitation Sertraline HCl (Sertraline Hcl 100 Mg Tablet) 200 mg PO DAILY [facility] Last Admin: 03/19/23 08:29 Dose: 200 mg Trazodone HCl (Trazodone Hcl 100 Mg Tablet) 100 mg PO BEDTIME PRN PRN Reason: Sleep Last Admin: 03/17/23 20:03 Dose: 100 mg Trazodone HCl (Trazodone Hcl 50 Mg Tablet) 50 mg PO BEDTIME MRX1 PRN PRN Reason: Insomnia Last Admin: 03/18/23 19:31 Dose: 50 mg Allergies Allergies Allergy/AdvReac Type Severity Reaction Status Date / Time amoxicillin Allergy Hives Verified 12/28/22 08:17 Assessment & Plan Assessment & Plan (1) MDD (major depressive disorder), recurrent severe, without psychosis: Status: Acute Code(s): F33.2 - Major depressive disorder, recurrent severe without psychotic features (2) Grief at loss of child: Status: Acute Code(s): F43.21 - Adjustment disorder with depressed mood; Z63.4 - Disappearance and of family member (3) PTSD (post-traumatic stress disorder): Status: Acute Code(s): F43.10 - Post-traumatic stress disorder, unspecified (4) Cocaine use disorder: Status: Acute Code(s): F14.10 - Cocaine abuse, uncomplicated (5) Opioid use disorder, severe, in sustained remission, dependence: Status: Acute Code(s): F11.21 - Opioid dependence, in remission (6) UTI (urinary tract infection): Status: Acute Code(s): N39.0 - Urinary tract infection, site not specified Plan HPI: pt is a 42 yo female with hx of depression, PtSD, substance abuse, ADHD who self presents for worsening depression, anxiety with SI in the face coping with daughter's recent in November. Patient reports she was doing overall well at longterm/program. Some situations are difficult there as there are people who were bullying, however she was coping until her daughter suddenly from an overdose this past November. Patient says she has had little time to mourn as there are mandatory groups from about 07:00 to 18:00 every day and there is no real place to be by 1 self. Patient said her depression has been increasing over the past months but got worse this past few weeks. Her outpatient doctor increased her Zoloft however this past weekend she got very distraught, not eating, feeling guilty and hopeless and felt like being . Patient relapsed with cocaine only but quickly self presented to the hospital to restabilize. Patient agrees with increasing BuSpar and adding clonidine for anxiety. Denies history of manic type episodes or behaviors; denies AVH. Admit for medication management and stability; Zoloft recently increased so will keep as is however will increase BuSpar to t.i.d.. Also adding clonidine for anxiety. Patient reported that taking clonidine did seem to resolve nightmare last night. Will continue methylphenidate IR as patient says she has been getting it for the past 14 years. She is not sure why it is immediate release other than to say that is the way it has always been prescribed Currently being treated for UTI Hospital course: 03/16 patient reports mood is little better and anxiety under better control with medication changes. Plan is for her to go to a [facility] and then return to longterm. 03/17 continue current treatment plan; patient remains stable, improved mood and decreased anxiety; no SI. Feels good about plan going forward 03/18 continues to stabilize; asked for clonidine to be scheduled at bedtime due to nightmares Plan: CV Q 15 minute checks Schedule prazosin 1 mg q.h.s. for ongoing nightmares Continue Zoloft 200 mg; recently increased Continue BuSpar to 10 mg t.i.d.; up from b.i.d. Continue clonidine 0.1 mg q.4 H p.r.n. for anxiety/insomnia Continue methadone Continue methylphenidate IR 40 mg daily Continue methylphenidate IR 20 mg 13:00 Milieu therapy; gather collateral Patient educated on: diagnosis and medication risk/benefits Informed Consent: understands Reason for continued inpatient stay Substantial Risk for: stable for discharge and med/psych decompensation Time Spent With Patient Time: Total time managing care of this patient today ____ minutes.
[2023-03-19] MEDS: Methylphenidate HCl 10 MG TABLET 20 MG PO (13:55)
[2023-03-19] MEDS: hydrOXYzine HCL 25 MG TABLET PO ×2 (14:50→19:48)
[2023-03-19] MEDS: Prazosin HCL 1 MG CAPSULE PO (19:34)
[2023-03-19] MEDS: traZODone HCL 100 MG TABLET PO (19:48)
[2023-03-19] MEDS: cloNIDine HCL 0.1 MG TABLET PO (19:48)
[2023-03-20] MEDS: methADONE HCl 20 MG/2 ML ORAL.CONC 55 MG PO (09:06)
[2023-03-20] MEDS: Methylphenidate HCl 10 MG TABLET 40 MG PO (09:07)
[2023-03-20] MEDS: Sertraline HCL 100 MG TABLET 200 MG PO (09:07)
[2023-03-20] MEDS: busPIRone HCl 10 MG TABLET PO (09:07)
[2023-03-20 09:23] VITALS: BP 104/61; PULSE 69; RESP 18; TEMP 36.1; O2SAT 99
--- NOTE | 2023-03-20 12:03 | HO.PSYCHPN ---
Subjective Subjective Date of Service: 03/20/23 Reason For Visit: Depression Interim History: Met with patient; discussed with team Patient reports no nightmares last night and grateful for prazosin. However she does say her anxiety has been kicking up and she has been feeling much more panicky lately. Agreed to increase in BuSpar and also to add scheduled clonidine in the morning. Patient feels that trazodone is causing dry mouth and asks to be restarted on Seroquel 50 mg at bedtime; teletypewriter operator reviewed risks/side effects of Seroquel which patient understood but wants to continue with anyway. Patient reports that in itchiness started in her genitourinary area, few days after she started on antibiotics and similar to past [place] infections; agrees to fluconazole; says there is somewhat of a burning sensation when she urinates. Discussed patient's work on recovery, dealing with substance abuse, dealing with impulsivity and other behaviors; patient acknowledges that she has worked hard to get to this level of stability Mental Status Exam Mental Status Exam Narrative: Pt is alert and oriented; behavior is cooperative, calm; patient is not in distress; dressed in casual attire with unkempt hair, edentulous; adequate hygiene; mood is described as okay and affect congruent, overall brighter; appropriate eye contact; Speech is normal rate, volume and prosody and not pressured; no psychomotor retardation present; thought process is organized and goal directed; Thought content is on situation at long-term, aftercare, treatment; otherwise pertinent to relevant topics and without any delusional content, paranoid ideations or grandiosity; no SI; no HI. There is no evidence of perceptual disturbance. Patients insight and judgment are fair. Diagnostics Vital Signs (24Hr): Vital Signs - 24 hr 03/20/23 09:23 Temperature 96.9 F Pulse Rate 69 Respiratory Rate 18 Blood Pressure 104/61 Pulse Oximetry 99 Oxygen Delivery Method Room Air BMI result Body Mass Index 28.2 Labs 03/13/23 13:50 03/13/23 13:50 Medications Medications Current Medications Acetaminophen (Acetaminophen 325 Mg Tablet) 650 mg PO Q6H PRN PRN Reason: Headache/Pain Mild Scale (1-3) Al Hydroxide/Mg Hydroxide (Magnesium Hydrox/Alum Hydrox 30 Ml Oral.Susp) 30 ml PO Q6H PRN PRN Reason: Heartburn/Nausea Buspirone HCl (Buspirone Hcl 10 Mg Tablet) 10 mg PO TID [facility] Last Admin: 03/20/23 09:07 Dose: 10 mg Clonidine HCl (Clonidine Hcl 0.1 Mg Tablet) 0.1 mg PO Q4H PRN; Protocol PRN Reason: anxiety Last Admin: 03/19/23 19:48 Dose: 0.1 mg Hydroxyzine HCl (Hydroxyzine Hcl 25 Mg Tablet) 25 mg PO Q6H PRN PRN Reason: Anxiety Last Admin: 03/19/23 19:48 Dose: 25 mg Magnesium Hydroxide (Milk Of Magnesia 30 Ml Oral.Susp) 30 ml PO DAILY PRN PRN Reason: Constipation Methadone HCl (Methadone Hcl 20 Mg/2 Ml Oral.Conc) 55 mg PO DAILY [facility] Last Admin: 03/20/23 09:06 Dose: 55 mg Methylphenidate HCl (Methylphenidate Hcl 10 Mg Tablet) 40 mg PO DAILY [facility] Last Admin: 03/20/23 09:07 Dose: 40 mg Methylphenidate HCl (Methylphenidate Hcl 10 Mg Tablet) 20 mg PO DAILY@1300 [facility] Last Admin: 03/19/23 13:55 Dose: 20 mg Nicotine Polacrilex (Nicotine Polacrilex 2 Mg Gum) 4 mg BUCCAL Q2H PRN PRN Reason: Nicotine Cravings Olanzapine (Olanzapine 5 Mg Tablet) 5 mg PO TID PRN PRN Reason: agitation Prazosin HCl (Prazosin Hcl 1 Mg Capsule) 1 mg PO BEDTIME [facility]; Protocol Last Admin: 03/19/23 19:34 Dose: 1 mg Sertraline HCl (Sertraline Hcl 100 Mg Tablet) 200 mg PO DAILY [facility] Last Admin: 03/20/23 09:07 Dose: 200 mg Trazodone HCl (Trazodone Hcl 100 Mg Tablet) 100 mg PO BEDTIME PRN PRN Reason: Sleep Last Admin: 03/19/23 19:48 Dose: 100 mg Trazodone HCl (Trazodone Hcl 50 Mg Tablet) 50 mg PO BEDTIME MRX1 PRN PRN Reason: Insomnia Last Admin: 03/18/23 19:31 Dose: 50 mg Allergies Allergies Allergy/AdvReac Type Severity Reaction Status Date / Time amoxicillin Allergy Hives Verified 12/28/22 08:17 Assessment & Plan Assessment & Plan (1) MDD (major depressive disorder), recurrent severe, without psychosis: Status: Acute Code(s): F33.2 - Major depressive disorder, recurrent severe without psychotic features (2) Grief at loss of child: Status: Acute Code(s): F43.21 - Adjustment disorder with depressed mood; Z63.4 - Disappearance and of family member (3) PTSD (post-traumatic stress disorder): Status: Acute Code(s): F43.10 - Post-traumatic stress disorder, unspecified (4) Cocaine use disorder: Status: Acute Code(s): F14.10 - Cocaine abuse, uncomplicated (5) Opioid use disorder, severe, in sustained remission, dependence: Status: Acute Code(s): F11.21 - Opioid dependence, in remission (6) UTI (urinary tract infection): Status: Acute Code(s): N39.0 - Urinary tract infection, site not specified Plan HPI: pt is a 42 yo female with hx of depression, PtSD, substance abuse, ADHD who self presents for worsening depression, anxiety with SI in the face coping with daughter's recent in November. Patient reports she was doing overall well at long-term/program. Some situations are difficult there as there are people who were bullying, however she was coping until her daughter suddenly from an overdose this past November. Patient says she has had little time to mourn as there are mandatory groups from about 07:00 to 18:00 every day and there is no real place to be by 1 self. Patient said her depression has been increasing over the past months but got worse this past few weeks. Her outpatient doctor increased her Zoloft however this past weekend she got very distraught, not eating, feeling guilty and hopeless and felt like being . Patient relapsed with cocaine only but quickly self presented to the hospital to restabilize. Patient agrees with increasing BuSpar and adding clonidine for anxiety. Denies history of manic type episodes or behaviors; denies AVH. Admit for medication management and stability; Zoloft recently increased so will keep as is however will increase BuSpar to t.i.d.. Also adding clonidine for anxiety. Patient reported that taking clonidine did seem to resolve nightmare last night. Will continue methylphenidate IR as patient says she has been getting it for the past 14 years. She is not sure why it is immediate release other than to say that is the way it has always been prescribed Currently being treated for UTI Hospital course: 03/16 patient reports mood is little better and anxiety under better control with medication changes. Plan is for her to go to a [facility] and then return to long-term. 03/17 continue current treatment plan; patient remains stable, improved mood and decreased anxiety; no SI. Feels good about plan going forward 03/18 continues to stabilize; asked for clonidine to be scheduled at bedtime due to nightmares 03/20Patient reports no nightmares last night and grateful for prazosin. However she does say her anxiety has been kicking up and she has been feeling much more panicky lately. Agreed to increase in BuSpar and also to add scheduled clonidine in the morning. Patient feels that trazodone is causing dry mouth and asks to be restarted on Seroquel 50 mg at bedtime; teletypewriter operator reviewed risks/side effects of Seroquel which patient understood but wants to continue with anyway. Patient reports that in itchiness started in her genitourinary area, few days after she started on antibiotics and similar to past [place] infections; agrees to fluconazole; says there is somewhat of a burning sensation when she urinates. Plan: CV Q 15 minute checks Fluconazole 150 mg 1 time dose for yeast infection Repeat UA clean-catch; patient reports some burning sensation on urination; denies any frequency urgency; denies any recent sexual activity in the past year Start Seroquel 50 mg q.h.s. p.r.n. for insomnia; patient says she prefers this to trazodone Schedule prazosin 1 mg q.h.s. for ongoing nightmares Continue Zoloft 200 mg; recently increased INCREASE TO BuSpar to 15 mg t.i.d.; Continue clonidine 0.1 mg q.4 H p.r.n. for anxiety/insomnia Continue methadone Continue methylphenidate IR 40 mg daily Continue methylphenidate IR 20 mg 13:00 Milieu therapy; gather collateral Patient educated on: diagnosis, medication risk/benefits, substance abuse, therapeutic strategies and medical condition Informed Consent: understands Reason for continued inpatient stay Substantial Risk for: stable for discharge Time Spent With Patient Time: Total time managing care of this patient today ____ minutes.
[2023-03-20] MEDS: busPIRone HCl 5 MG TABLET 15 MG PO ×2 (14:34→20:22)
[2023-03-20] MEDS: Fluconazole 150 MG TABLET PO (14:34)
[2023-03-20] MEDS: cloNIDine HCL 0.1 MG TABLET PO (14:34)
[2023-03-20] MEDS: Methylphenidate HCl 10 MG TABLET 20 MG PO (14:34)
[2023-03-20 14:36] VITALS: BP 108/66; PULSE 79; O2SAT 94
[2023-03-20 15:35] LABS: Appearance Urine Cloudy; Color Urine Yellow; Glucose Urine UA Negative (Negative); Leukocyte Esterase Urine Large (3+) (Negative); Nitrite Urine Negative (Negative); PH 5.5 (5.0-9.0); Specific Gravity - Urine 1.025 (1.005-1.025); UMIC TRIGGER UACC YES; Urine Blood Negative (Negative); Urine Ketones Trace mg/dL (Negative); Urine Protein Negative (Neg-Trace)
[2023-03-20 15:37] LABS: Bacteria Urine 1+ (None Seen); Hyaline Casts Urine 0-2 /LPF (0-2); RBC Urine 0-2 /HPF (0-2); Squamous Epithelial Cell Urine >20 /HPF (0-2); UACC Culture Trigger YES; WBC Urine 21-50 /HPF (0-5)
[2023-03-20 18:05] VITALS: BP 99/60; PULSE 89; RESP 18; TEMP 36.7; O2SAT 97
[2023-03-20] MEDS: hydrOXYzine HCL 25 MG TABLET PO (18:08)
[2023-03-20] MEDS: Prazosin HCL 1 MG CAPSULE PO (20:23)
[2023-03-20] MEDS: QUEtiapine Fumarate 50 MG TABLET PO (20:23)
[2023-03-20] MEDS: traZODone HCL 50 MG TABLET PO (21:42)
[2023-03-21 08:00] VITALS: BP 113/66; PULSE 66; RESP 18; TEMP 36.1; O2SAT 97
[2023-03-21] MEDS: methADONE HCl 20 MG/2 ML ORAL.CONC 55 MG PO (09:04)
[2023-03-21] MEDS: Sertraline HCL 100 MG TABLET 200 MG PO (09:06)
[2023-03-21] MEDS: cloNIDine HCL 0.1 MG TABLET PO (09:06)
[2023-03-21] MEDS: Methylphenidate HCl 10 MG TABLET 40 MG PO (09:07)
[2023-03-21] MEDS: busPIRone HCl 5 MG TABLET 15 MG PO ×3 (09:08→20:42)
--- NOTE | 2023-03-21 09:39 | HO.PSYCHPN ---
Subjective Subjective Date of Service: 03/21/23 Reason For Visit: Depression Interim History: Met with patient; discussed with team Patient reports she return of anxiety saying that she is having more near panic attacks; she agrees that situational since she is not sure where she is get and up after discharge however she would like to add a medication and agrees to restart Trileptal which she has been on in the past. Patient talked about working on sobriety and different aspects of treatment plan Mental Status Exam Mental Status Exam Narrative: Pt is alert and oriented; behavior is cooperative, calm; patient is not in distress; dressed in casual attire with unkempt hair, edentulous; adequate hygiene; mood is described as anxious and affect congruent; appropriate eye contact; Speech is normal rate, volume and prosody and not pressured; no psychomotor retardation present; thought process is organized and goal directed; Thought content is on situation at intermediate, aftercare, treatment; otherwise pertinent to relevant topics and without any delusional content, paranoid ideations or grandiosity; no SI; no HI. There is no evidence of perceptual disturbance. Patients insight and judgment are fair. Diagnostics Vital Signs (24Hr): Vital Signs - 24 hr 03/20/23 14:36 03/20/23 18:05 Temperature 98.0 F Pulse Rate 79 89 Respiratory Rate 18 Blood Pressure 108/66 99/60 Pulse Oximetry 94 97 Oxygen Delivery Method Room Air Room Air BMI result Body Mass Index 28.2 Labs 03/13/23 13:50 03/13/23 13:50 Labs: Laboratory Results - last 48 hr 03/20/23 14:50 Urine Color Yellow Urine Appearance Cloudy Urine pH 5.5 Ur Specific [place] 1.025 Urine Protein Negative Urine Glucose (UA) Negative Urine Ketones Trace Urine Blood Negative Urine Nitrite Negative Ur Leukocyte Esterase Large (3+) H Urine RBC 0-2 Urine WBC 21-50 H Ur Squamous Epith Cells >20 Urine Bacteria 1+ Hyaline Casts 0-2 Medications Medications Current Medications Acetaminophen (Acetaminophen 325 Mg Tablet) 650 mg PO Q6H PRN PRN Reason: Headache/Pain Mild Scale (1-3) Al Hydroxide/Mg Hydroxide (Magnesium Hydrox/Alum Hydrox 30 Ml Oral.Susp) 30 ml PO Q6H PRN PRN Reason: Heartburn/Nausea Buspirone HCl (Buspirone Hcl 5 Mg Tablet) 15 mg PO TID [facility] Last Admin: 03/21/23 09:08 Dose: 15 mg Clonidine HCl (Clonidine Hcl 0.1 Mg Tablet) 0.1 mg PO Q4H PRN; Protocol PRN Reason: anxiety Last Admin: 03/19/23 19:48 Dose: 0.1 mg Clonidine HCl (Clonidine Hcl 0.1 Mg Tablet) 0.1 mg PO DAILY [facility]; Protocol Last Admin: 03/21/23 09:06 Dose: 0.1 mg Hydroxyzine HCl (Hydroxyzine Hcl 25 Mg Tablet) 25 mg PO Q6H PRN PRN Reason: Anxiety Last Admin: 03/20/23 18:08 Dose: 25 mg Magnesium Hydroxide (Milk Of Magnesia 30 Ml Oral.Susp) 30 ml PO DAILY PRN PRN Reason: Constipation Methadone HCl (Methadone Hcl 20 Mg/2 Ml Oral.Conc) 55 mg PO DAILY [facility] Last Admin: 03/21/23 09:04 Dose: 55 mg Methylphenidate HCl (Methylphenidate Hcl 10 Mg Tablet) 40 mg PO DAILY [facility] Last Admin: 03/21/23 09:07 Dose: 40 mg Methylphenidate HCl (Methylphenidate Hcl 10 Mg Tablet) 20 mg PO DAILY@1300 [facility] Last Admin: 03/20/23 14:34 Dose: 20 mg Nicotine Polacrilex (Nicotine Polacrilex 2 Mg Gum) 4 mg BUCCAL Q2H PRN PRN Reason: Nicotine Cravings Prazosin HCl (Prazosin Hcl 1 Mg Capsule) 1 mg PO BEDTIME [facility]; Protocol Last Admin: 03/20/23 20:23 Dose: 1 mg Quetiapine Fumarate (Quetiapine Fumarate 50 Mg Tablet) 50 mg PO BEDTIME [facility] Last Admin: 03/20/23 20:23 Dose: 50 mg Sertraline HCl (Sertraline Hcl 100 Mg Tablet) 200 mg PO DAILY [facility] Last Admin: 03/21/23 09:06 Dose: 200 mg Trazodone HCl (Trazodone Hcl 50 Mg Tablet) 50 mg PO BEDTIME MRX1 PRN PRN Reason: Insomnia Last Admin: 03/20/23 21:42 Dose: 50 mg Allergies Allergies Allergy/AdvReac Type Severity Reaction Status Date / Time amoxicillin Allergy Hives Verified 12/28/22 08:17 Assessment & Plan Assessment & Plan (1) MDD (major depressive disorder), recurrent severe, without psychosis: Status: Acute Code(s): F33.2 - Major depressive disorder, recurrent severe without psychotic features (2) Grief at loss of child: Status: Acute Code(s): F43.21 - Adjustment disorder with depressed mood; Z63.4 - Disappearance and of family member (3) PTSD (post-traumatic stress disorder): Status: Acute Code(s): F43.10 - Post-traumatic stress disorder, unspecified (4) Cocaine use disorder: Status: Acute Code(s): F14.10 - Cocaine abuse, uncomplicated (5) Opioid use disorder, severe, in sustained remission, dependence: Status: Acute Code(s): F11.21 - Opioid dependence, in remission (6) UTI (urinary tract infection): Status: Acute Code(s): N39.0 - Urinary tract infection, site not specified Plan HPI: pt is a 42 yo female with hx of depression, PtSD, substance abuse, ADHD who self presents for worsening depression, anxiety with SI in the face coping with daughter's recent in November. Patient reports she was doing overall well at intermediate/program. Some situations are difficult there as there are people who were bullying, however she was coping until her daughter suddenly from an overdose this past November. Patient says she has had little time to mourn as there are mandatory groups from about 07:00 to 18:00 every day and there is no real place to be by 1 self. Patient said her depression has been increasing over the past months but got worse this past few weeks. Her outpatient doctor increased her Zoloft however this past weekend she got very distraught, not eating, feeling guilty and hopeless and felt like being . Patient relapsed with cocaine only but quickly self presented to the hospital to restabilize. Patient agrees with increasing BuSpar and adding clonidine for anxiety. Denies history of manic type episodes or behaviors; denies AVH. Admit for medication management and stability; Zoloft recently increased so will keep as is however will increase BuSpar to t.i.d.. Also adding clonidine for anxiety. Patient reported that taking clonidine did seem to resolve nightmare last night. Will continue methylphenidate IR as patient says she has been getting it for the past 14 years. She is not sure why it is immediate release other than to say that is the way it has always been prescribed Currently being treated for UTI Hospital course: 03/16 patient reports mood is little better and anxiety under better control with medication changes. Plan is for her to go to a [facility] and then return to intermediate. 03/17 continue current treatment plan; patient remains stable, improved mood and decreased anxiety; no SI. Feels good about plan going forward 03/18 continues to stabilize; asked for clonidine to be scheduled at bedtime due to nightmares 03/20Patient reports no nightmares last night and grateful for prazosin. However she does say her anxiety has been kicking up and she has been feeling much more panicky lately. Agreed to increase in BuSpar and also to add scheduled clonidine in the morning. Patient feels that trazodone is causing dry mouth and asks to be restarted on Seroquel 50 mg at bedtime; freelance writer reviewed risks/side effects of Seroquel which patient understood but wants to continue with anyway. Patient reports that in itchiness started in her genitourinary area, few days after she started on antibiotics and similar to past [place] infections; agrees to fluconazole; says there is somewhat of a burning sensation when she urinates. 03/21 will start Trileptal for anxiety; UDS return however not clean-catch; ordered repeat Plan: CV Q 15 minute checks Start Trileptal 150 mg b.i.d.; for continued anxiety; patient has been on before Patient received Fluconazole 150 mg 1 time dose for yeast infection Repeat UA clean-catch; patient reports some burning sensation on urination; denies any frequency urgency; denies any recent sexual activity in the past year DC Seroquel at bedtime; not helpful; rather use trazodone Schedule prazosin 1 mg q.h.s. for ongoing nightmares Continue Zoloft 200 mg; recently increased Continue BuSpar to 15 mg t.i.d.; Continue clonidine 0.1 mg q.4 H p.r.n. for anxiety/insomnia Continue methadone Continue methylphenidate IR 40 mg daily Continue methylphenidate IR 20 mg 13:00 Milieu therapy; gather collateral Patient educated on: diagnosis, medication risk/benefits and substance abuse Informed Consent: understands Reason for continued inpatient stay Substantial Risk for: stable for discharge Time Spent With Patient Time: Total time managing care of this patient today ____ minutes.
[2023-03-21 10:55] LABS: Appearance Urine Cloudy; Color Urine Yellow; Glucose Urine UA Negative (Negative); Leukocyte Esterase Urine Moderate (2+) (Negative); Nitrite Urine Negative (Negative); PH 5.5 (5.0-9.0); UMIC TRIGGER UACC YES; Urine Blood Negative (Negative); Urine Ketones Negative (Negative); Urine Protein Negative (Neg-Trace)
[2023-03-21 11:04] LABS: Bacteria Urine Trace (None Seen); Hyaline Casts Urine 0-2 /LPF (0-2); RBC Urine 0-2 /HPF (0-2); Squamous Epithelial Cell Urine >20 /HPF (0-2); UACC Culture Trigger YES
[2023-03-21] MEDS: hydrOXYzine HCL 25 MG TABLET PO ×2 (13:43→20:38)
[2023-03-21] MEDS: Methylphenidate HCl 10 MG TABLET 20 MG PO (13:46)
[2023-03-21] MEDS: OXcarbazepine 150 MG TABLET PO (17:29)
[2023-03-21 20:35] VITALS: BP 103/63; PULSE 75; TEMP 36.6
[2023-03-21] MEDS: traZODone HCL 50 MG TABLET PO (20:38)
[2023-03-21] MEDS: Prazosin HCL 1 MG CAPSULE 2 MG PO (20:39)
[2023-03-22 06:00] VITALS: BP 110/60; PULSE 64; RESP 18
[2023-03-22] MEDS: OXcarbazepine 150 MG TABLET PO ×2 (09:25→13:09)
[2023-03-22] MEDS: cloNIDine HCL 0.1 MG TABLET PO ×2 (09:25→20:56)
[2023-03-22] MEDS: busPIRone HCl 5 MG TABLET 15 MG PO ×3 (09:25→20:52)
[2023-03-22] MEDS: Sertraline HCL 100 MG TABLET 200 MG PO (09:26)
[2023-03-22] MEDS: methADONE HCl 20 MG/2 ML ORAL.CONC 55 MG PO (09:26)
[2023-03-22] MEDS: Methylphenidate HCl 10 MG TABLET 40 MG PO (09:26)
--- NOTE | 2023-03-22 09:48 | HO.PSYCHPN ---
Subjective Subjective Date of Service: 03/22/23 Reason For Visit: Depression Interim History: Met with patient; discussed with team Patient says she is doing better today and feeling less anxious. Resigned to go to [facility] or [facility]. Feels medications are helpful. No nightmares Mental Status Exam Mental Status Exam Narrative: Pt is alert and oriented; behavior is cooperative, calm; patient is not in distress; dressed in casual attire with unkempt hair, edentulous; adequate hygiene; mood is described as better today and affect congruent; appropriate eye contact; Speech is normal rate, volume and prosody and not pressured; no psychomotor retardation present; thought process is organized and goal directed; Thought content is on situation at skilled nursing, aftercare, treatment; otherwise pertinent to relevant topics and without any delusional content, paranoid ideations or grandiosity; no SI; no HI. There is no evidence of perceptual disturbance. Patients insight and judgment are fair. Diagnostics Vital Signs (24Hr): Vital Signs - 24 hr 03/21/23 20:35 03/22/23 06:00 Temperature 97.9 F Pulse Rate 75 64 Respiratory Rate 18 Blood Pressure 103/63 110/60 Oxygen Delivery Method Room Air BMI result Body Mass Index 28.2 Labs 03/13/23 13:50 03/13/23 13:50 Labs: Laboratory Results - last 48 hr 03/20/23 03/21/23 14:50 10:44 Urine Color Yellow Yellow Urine Appearance Cloudy Cloudy Urine pH 5.5 5.5 Ur Specific [place] 1.025 1.020 Urine Protein Negative Negative Urine Glucose (UA) Negative Negative Urine Ketones Trace Negative Urine Blood Negative Negative Urine Nitrite Negative Negative Ur Leukocyte Esterase Large (3+) H Moderate (2+) H Urine RBC 0-2 0-2 Urine WBC 21-50 H 11-20 H Ur Squamous Epith Cells >20 >20 Urine Bacteria 1+ Trace Hyaline Casts 0-2 0-2 Medications Medications Current Medications Acetaminophen (Acetaminophen 325 Mg Tablet) 650 mg PO Q6H PRN PRN Reason: Headache/Pain Mild Scale (1-3) Al Hydroxide/Mg Hydroxide (Magnesium Hydrox/Alum Hydrox 30 Ml Oral.Susp) 30 ml PO Q6H PRN PRN Reason: Heartburn/Nausea Buspirone HCl (Buspirone Hcl 5 Mg Tablet) 15 mg PO TID [facility] Last Admin: 03/22/23 09:25 Dose: 15 mg Clonidine HCl (Clonidine Hcl 0.1 Mg Tablet) 0.1 mg PO Q4H PRN; Protocol PRN Reason: anxiety Last Admin: 03/19/23 19:48 Dose: 0.1 mg Clonidine HCl (Clonidine Hcl 0.1 Mg Tablet) 0.1 mg PO DAILY [facility]; Protocol Last Admin: 03/22/23 09:25 Dose: 0.1 mg Hydroxyzine HCl (Hydroxyzine Hcl 25 Mg Tablet) 25 mg PO Q6H PRN PRN Reason: Anxiety Last Admin: 03/21/23 20:38 Dose: 25 mg Magnesium Hydroxide (Milk Of Magnesia 30 Ml Oral.Susp) 30 ml PO DAILY PRN PRN Reason: Constipation Methadone HCl (Methadone Hcl 20 Mg/2 Ml Oral.Conc) 55 mg PO DAILY [facility] Last Admin: 03/22/23 09:26 Dose: 55 mg Methylphenidate HCl (Methylphenidate Hcl 10 Mg Tablet) 40 mg PO DAILY [facility] Last Admin: 03/22/23 09:26 Dose: 40 mg Methylphenidate HCl (Methylphenidate Hcl 10 Mg Tablet) 20 mg PO DAILY@1300 [facility] Last Admin: 03/21/23 13:46 Dose: 20 mg Nicotine Polacrilex (Nicotine Polacrilex 2 Mg Gum) 4 mg BUCCAL Q2H PRN PRN Reason: Nicotine Cravings Oxcarbazepine (Oxcarbazepine 150 Mg Tablet) 150 mg PO BID@0900,1400 [facility] Last Admin: 03/22/23 09:25 Dose: 150 mg Prazosin HCl (Prazosin Hcl 1 Mg Capsule) 2 mg PO BEDTIME [facility]; Protocol Last Admin: 03/21/23 20:39 Dose: 2 mg Sertraline HCl (Sertraline Hcl 100 Mg Tablet) 200 mg PO DAILY [facility] Last Admin: 03/22/23 09:26 Dose: 200 mg Trazodone HCl (Trazodone Hcl 50 Mg Tablet) 50 mg PO BEDTIME MRX1 PRN PRN Reason: Insomnia Last Admin: 03/21/23 20:38 Dose: 50 mg Allergies Allergies Allergy/AdvReac Type Severity Reaction Status Date / Time amoxicillin Allergy Hives Verified 12/28/22 08:17 Assessment & Plan Assessment & Plan (1) MDD (major depressive disorder), recurrent severe, without psychosis: Status: Acute Code(s): F33.2 - Major depressive disorder, recurrent severe without psychotic features (2) Grief at loss of child: Status: Acute Code(s): F43.21 - Adjustment disorder with depressed mood; Z63.4 - Disappearance and of family member (3) PTSD (post-traumatic stress disorder): Status: Acute Code(s): F43.10 - Post-traumatic stress disorder, unspecified (4) Cocaine use disorder: Status: Acute Code(s): F14.10 - Cocaine abuse, uncomplicated (5) Opioid use disorder, severe, in sustained remission, dependence: Status: Acute Code(s): F11.21 - Opioid dependence, in remission (6) UTI (urinary tract infection): Status: Acute Code(s): N39.0 - Urinary tract infection, site not specified Plan HPI: pt is a 42 yo female with hx of depression, PtSD, substance abuse, ADHD who self presents for worsening depression, anxiety with SI in the face coping with daughter's recent in November. Patient reports she was doing overall well at skilled nursing/program. Some situations are difficult there as there are people who were bullying, however she was coping until her daughter suddenly from an overdose this past November. Patient says she has had little time to mourn as there are mandatory groups from about 07:00 to 18:00 every day and there is no real place to be by 1 self. Patient said her depression has been increasing over the past months but got worse this past few weeks. Her outpatient doctor increased her Zoloft however this past weekend she got very distraught, not eating, feeling guilty and hopeless and felt like being . Patient relapsed with cocaine only but quickly self presented to the hospital to restabilize. Patient agrees with increasing BuSpar and adding clonidine for anxiety. Denies history of manic type episodes or behaviors; denies AVH. Admit for medication management and stability; Zoloft recently increased so will keep as is however will increase BuSpar to t.i.d.. Also adding clonidine for anxiety. Patient reported that taking clonidine did seem to resolve nightmare last night. Will continue methylphenidate IR as patient says she has been getting it for the past 14 years. She is not sure why it is immediate release other than to say that is the way it has always been prescribed Currently being treated for UTI Hospital course: 03/16 patient reports mood is little better and anxiety under better control with medication changes. Plan is for her to go to a [facility] and then return to skilled nursing. 03/17 continue current treatment plan; patient remains stable, improved mood and decreased anxiety; no SI. Feels good about plan going forward 03/18 continues to stabilize; asked for clonidine to be scheduled at bedtime due to nightmares 03/20Patient reports no nightmares last night and grateful for prazosin. However she does say her anxiety has been kicking up and she has been feeling much more panicky lately. Agreed to increase in BuSpar and also to add scheduled clonidine in the morning. Patient feels that trazodone is causing dry mouth and asks to be restarted on Seroquel 50 mg at bedtime; information writer reviewed risks/side effects of Seroquel which patient understood but wants to continue with anyway. Patient reports that in itchiness started in her genitourinary area, few days after she started on antibiotics and similar to past [place] infections; agrees to fluconazole; says there is somewhat of a burning sensation when she urinates. 03/21 will start Trileptal for anxiety; UDS return however not clean-catch; ordered repeat 03/22 continue current treatment plan Reviewed hospitalist PA note and currently no recommendations for further antibiotic treatment; repeat fluconazole in 72hours if symptoms persist Plan: CV Q 15 minute checks continue Trileptal 150 mg b.i.d.; for continued anxiety; patient has been on before Patient received Fluconazole 150 mg 1 time dose for yeast infection Repeat UA clean-catch; patient reports some burning sensation on urination; denies any frequency urgency; denies any recent sexual activity in the past year DC Seroquel at bedtime; not helpful; rather use trazodone Schedule prazosin 1 mg q.h.s. for ongoing nightmares Continue Zoloft 200 mg; recently increased Continue BuSpar to 15 mg t.i.d.; Continue clonidine 0.1 mg q.4 H p.r.n. for anxiety/insomnia Continue methadone Continue methylphenidate IR 40 mg daily Continue methylphenidate IR 20 mg 13:00 Milieu therapy; gather collateral Patient educated on: diagnosis and medication risk/benefits Informed Consent: understands Reason for continued inpatient stay Substantial Risk for: stable for discharge Time Spent With Patient Time: Total time managing care of this patient today ____ minutes.
[2023-03-22] MEDS: Methylphenidate HCl 10 MG TABLET 20 MG PO (13:09)
--- NOTE | 2023-03-22 15:10 | PM.EVENT ---
Event Note Date of Service: 03/22/23 Event Note: Pt recently treated with ceftin for UTI dx 03/13. Patient continues to experience vulvovaginal irritation and itch. NO vaginal d/c bleeding, increased frequency of urinary, or urgency. Repeat U/A, UC consistent with contamination, no UTI. Given single dose diflucan 150mg with some improvement in symptoms. Can repeat diflucan 150mg at 72 hours if needed if symptoms persist. Time Spent With Patient Time: Total time managing care of this patient today ____ minutes.
[2023-03-22 20:45] VITALS: BP 105/62; PULSE 71; TEMP 36.3; O2SAT 97
[2023-03-22] MEDS: Prazosin HCL 1 MG CAPSULE 2 MG PO (20:51)
[2023-03-22] MEDS: traZODone HCL 50 MG TABLET PO (20:51)
[2023-03-22] MEDS: hydrOXYzine HCL 25 MG TABLET PO (20:52)
[2023-03-23] MEDS: methADONE HCl 20 MG/2 ML ORAL.CONC 55 MG PO (08:28)
[2023-03-23] MEDS: busPIRone HCl 5 MG TABLET 15 MG PO ×3 (08:28→20:04)
[2023-03-23] MEDS: Methylphenidate HCl 10 MG TABLET 40 MG PO (08:28)
[2023-03-23] MEDS: OXcarbazepine 150 MG TABLET PO ×2 (08:29→13:14)
[2023-03-23] MEDS: Sertraline HCL 100 MG TABLET 200 MG PO (08:29)
[2023-03-23 08:35] VITALS: BP 96/55; PULSE 69; RESP 18; TEMP 36.4; O2SAT 98
--- NOTE | 2023-03-23 09:54 | HO.PSYCHPN ---
Subjective Subjective Date of Service: 03/23/23 Reason For Visit: Depression Interim History: Met with patient; discussed with team Patient reports that she slept well and no nightmares; she says she is definitely feeling anxious today but it situational and because she is not sure what is going to happen after discharge. 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 She says she still try and get into a TSS/[facility]. Reviewed medications and patient does not want any med changes. Otherwise she remains in good behavioral and impulse control, appropriate with peers and staff and engaged in treatment, attending all groups. Mental Status Exam Mental Status Exam Narrative: Pt is alert and oriented; behavior is cooperative, calm; patient is not in distress; dressed in casual attire; edentulous; adequate hygiene; mood is described as anxious and affect congruent; appropriate eye contact; Speech is normal rate, volume and prosody and not pressured; no psychomotor retardation present; thought process is organized and goal directed; Thought content is on situation at nursing home, aftercare, treatment; otherwise pertinent to relevant topics and without any delusional content, paranoid ideations or grandiosity; no SI; no HI. There is no evidence of perceptual disturbance. Patients insight and judgment are fair. Diagnostics Vital Signs (24Hr): Vital Signs - 24 hr 03/22/23 20:45 03/23/23 08:35 Temperature 97.3 F 97.5 F Pulse Rate 71 69 Respiratory Rate 18 Blood Pressure 105/62 96/55 L Pulse Oximetry 97 98 Oxygen Delivery Method Room Air Room Air BMI result Body Mass Index 28.2 Labs 03/13/23 13:50 03/13/23 13:50 Labs: Laboratory Results - last 48 hr 03/21/23 10:44 Urine Color Yellow Urine Appearance Cloudy Urine pH 5.5 Ur Specific [place] 1.020 Urine Protein Negative Urine Glucose (UA) Negative Urine Ketones Negative Urine Blood Negative Urine Nitrite Negative Ur Leukocyte Esterase Moderate (2+) H Urine RBC 0-2 Urine WBC 11-20 H Ur Squamous Epith Cells >20 Urine Bacteria Trace Hyaline Casts 0-2 Medications Medications Current Medications Acetaminophen (Acetaminophen 325 Mg Tablet) 650 mg PO Q6H PRN PRN Reason: Headache/Pain Mild Scale (1-3) Al Hydroxide/Mg Hydroxide (Magnesium Hydrox/Alum Hydrox 30 Ml Oral.Susp) 30 ml PO Q6H PRN PRN Reason: Heartburn/Nausea Buspirone HCl (Buspirone Hcl 5 Mg Tablet) 15 mg PO TID [facility] Last Admin: 03/23/23 08:28 Dose: 15 mg Clonidine HCl (Clonidine Hcl 0.1 Mg Tablet) 0.1 mg PO Q4H PRN; Protocol PRN Reason: anxiety Last Admin: 03/22/23 20:56 Dose: 0.1 mg Clonidine HCl (Clonidine Hcl 0.1 Mg Tablet) 0.1 mg PO DAILY [facility]; Protocol Last Admin: 03/23/23 08:37 Dose: Not Given Hydroxyzine HCl (Hydroxyzine Hcl 25 Mg Tablet) 25 mg PO Q6H PRN PRN Reason: Anxiety Last Admin: 03/22/23 20:52 Dose: 25 mg Magnesium Hydroxide (Milk Of Magnesia 30 Ml Oral.Susp) 30 ml PO DAILY PRN PRN Reason: Constipation Methadone HCl (Methadone Hcl 20 Mg/2 Ml Oral.Conc) 55 mg PO DAILY [facility] Last Admin: 03/23/23 08:28 Dose: 55 mg Methylphenidate HCl (Methylphenidate Hcl 10 Mg Tablet) 40 mg PO DAILY [facility] Last Admin: 03/23/23 08:28 Dose: 40 mg Methylphenidate HCl (Methylphenidate Hcl 10 Mg Tablet) 20 mg PO DAILY@1300 [facility] Last Admin: 03/22/23 13:09 Dose: 20 mg Nicotine Polacrilex (Nicotine Polacrilex 2 Mg Gum) 4 mg BUCCAL Q2H PRN PRN Reason: Nicotine Cravings Oxcarbazepine (Oxcarbazepine 150 Mg Tablet) 150 mg PO BID@0900,1400 [facility] Last Admin: 03/23/23 08:29 Dose: 150 mg Prazosin HCl (Prazosin Hcl 1 Mg Capsule) 2 mg PO BEDTIME [facility]; Protocol Last Admin: 03/22/23 20:51 Dose: 2 mg Sertraline HCl (Sertraline Hcl 100 Mg Tablet) 200 mg PO DAILY [facility] Last Admin: 03/23/23 08:29 Dose: 200 mg Trazodone HCl (Trazodone Hcl 50 Mg Tablet) 50 mg PO BEDTIME MRX1 PRN PRN Reason: Insomnia Last Admin: 03/22/23 20:51 Dose: 50 mg Allergies Allergies Allergy/AdvReac Type Severity Reaction Status Date / Time amoxicillin Allergy Hives Verified 12/28/22 08:17 Assessment & Plan Assessment & Plan (1) MDD (major depressive disorder), recurrent severe, without psychosis: Status: Acute Code(s): F33.2 - Major depressive disorder, recurrent severe without psychotic features (2) Grief at loss of child: Status: Acute Code(s): F43.21 - Adjustment disorder with depressed mood; Z63.4 - Disappearance and of family member (3) PTSD (post-traumatic stress disorder): Status: Acute Code(s): F43.10 - Post-traumatic stress disorder, unspecified (4) Cocaine use disorder: Status: Acute Code(s): F14.10 - Cocaine abuse, uncomplicated (5) Opioid use disorder, severe, in sustained remission, dependence: Status: Acute Code(s): F11.21 - Opioid dependence, in remission (6) UTI (urinary tract infection): Status: Acute Code(s): N39.0 - Urinary tract infection, site not specified Plan HPI: pt is a 42 yo female with hx of depression, PtSD, substance abuse, ADHD who self presents for worsening depression, anxiety with SI in the face coping with daughter's recent in November. Patient reports she was doing overall well at nursing home/program. Some situations are difficult there as there are people who were bullying, however she was coping until her daughter suddenly from an overdose this past November. Patient says she has had little time to mourn as there are mandatory groups from about 07:00 to 18:00 every day and there is no real place to be by 1 self. Patient said her depression has been increasing over the past months but got worse this past few weeks. Her outpatient doctor increased her Zoloft however this past weekend she got very distraught, not eating, feeling guilty and hopeless and felt like being . Patient relapsed with cocaine only but quickly self presented to the hospital to restabilize. Patient agrees with increasing BuSpar and adding clonidine for anxiety. Denies history of manic type episodes or behaviors; denies AVH. Admit for medication management and stability; Zoloft recently increased so will keep as is however will increase BuSpar to t.i.d.. Also adding clonidine for anxiety. Patient reported that taking clonidine did seem to resolve nightmare last night. Will continue methylphenidate IR as patient says she has been getting it for the past 14 years. She is not sure why it is immediate release other than to say that is the way it has always been prescribed Currently being treated for UTI Hospital course: 03/16 patient reports mood is little better and anxiety under better control with medication changes. Plan is for her to go to a [facility] and then return to nursing home. 03/17 continue current treatment plan; patient remains stable, improved mood and decreased anxiety; no SI. Feels good about plan going forward 03/18 continues to stabilize; asked for clonidine to be scheduled at bedtime due to nightmares 03/20Patient reports no nightmares last night and grateful for prazosin. However she does say her anxiety has been kicking up and she has been feeling much more panicky lately. Agreed to increase in BuSpar and also to add scheduled clonidine in the morning. Patient feels that trazodone is causing dry mouth and asks to be restarted on Seroquel 50 mg at bedtime; insurance writer reviewed risks/side effects of Seroquel which patient understood but wants to continue with anyway. Patient reports that in itchiness started in her genitourinary area, few days after she started on antibiotics and similar to past [place] infections; agrees to fluconazole; says there is somewhat of a burning sensation when she urinates. 03/21 will start Trileptal for anxiety; UDS return however not clean-catch; ordered repeat 03/22 continue current treatment plan Reviewed hospitalist PA note and currently no recommendations for further antibiotic treatment; repeat fluconazole in 72hours if symptoms persist 03/23 continue current treatment plan; working on aftercare options; remains in good behavioral and impulse control, appropriate with peers and staff and engaged in treatment, attending all groups. Plan: CV Q 15 minute checks continue Trileptal 150 mg b.i.d.; for continued anxiety; patient has been on before Patient received Fluconazole 150 mg 1 time dose for yeast infection Repeat UA clean-catch; patient reports some burning sensation on urination; denies any frequency urgency; denies any recent sexual activity in the past year DC Seroquel at bedtime; not helpful; rather use trazodone Schedule prazosin 1 mg q.h.s. for ongoing nightmares Continue Zoloft 200 mg; recently increased Continue BuSpar to 15 mg t.i.d.; Continue clonidine 0.1 mg q.4 H p.r.n. for anxiety/insomnia Continue methadone Continue methylphenidate IR 40 mg daily Continue methylphenidate IR 20 mg 13:00 Milieu therapy; gather collateral Patient educated on: diagnosis and medication risk/benefits Informed Consent: understands Reason for continued inpatient stay Substantial Risk for: stable for discharge Time Spent With Patient Time: Total time managing care of this patient today ____ minutes.
[2023-03-23] MEDS: Methylphenidate HCl 10 MG TABLET 20 MG PO (13:14)
[2023-03-23 18:00] VITALS: BP 122/78; PULSE 84; RESP 16; TEMP 36.6; O2SAT 98
[2023-03-23] MEDS: cloNIDine HCL 0.1 MG TABLET PO (20:04)
[2023-03-23] MEDS: Prazosin HCL 1 MG CAPSULE 2 MG PO (20:04)
[2023-03-23] MEDS: traZODone HCL 50 MG TABLET PO (20:04)
[2023-03-24] MEDS: methADONE HCl 20 MG/2 ML ORAL.CONC 55 MG PO (08:23)
[2023-03-24] MEDS: Sertraline HCL 100 MG TABLET 200 MG PO (08:24)
[2023-03-24] MEDS: OXcarbazepine 150 MG TABLET PO ×2 (08:25→14:40)
[2023-03-24] MEDS: Methylphenidate HCl 10 MG TABLET 40 MG PO (08:26)
[2023-03-24 08:31] VITALS: BP 91/65; PULSE 68; RESP 16; TEMP 37.2; O2SAT 98
[2023-03-24] MEDS: busPIRone HCl 5 MG TABLET 15 MG PO ×3 (08:40→19:53)
[2023-03-24] MEDS: hydrOXYzine HCL 25 MG TABLET PO (08:40)
--- NOTE | 2023-03-24 09:55 | HO.PSYCHPN ---
Subjective Subjective Date of Service: 03/24/23 Reason For Visit: Depression Interim History: Met with patient; discussed with team Patient reports doing well today; said she slept well and no nightmares; anxiety and depression under control. She did however ask for trazodone to be at 50 mg and if she can have a lidocaine patch for her lower back. Patient excited about getting into TSS program and plans to discharge once bed is available. Mental Status Exam Mental Status Exam Narrative: Pt is alert and oriented; behavior is cooperative, calm; patient is not in distress; dressed in casual attire; edentulous; adequate hygiene; mood is described as good and affect congruent; appropriate eye contact; Speech is normal rate, volume and prosody and not pressured; no psychomotor retardation present; thought process is organized and goal directed; Thought content is on situation at detention, aftercare, treatment; otherwise pertinent to relevant topics and without any delusional content, paranoid ideations or grandiosity; no SI; no HI. There is no evidence of perceptual disturbance. Patients insight and judgment are fair. Diagnostics Vital Signs (24Hr): Vital Signs - 24 hr 03/23/23 18:00 03/24/23 08:31 Temperature 97.9 F 98.9 F Pulse Rate 84 68 Respiratory Rate 16 16 Blood Pressure 122/78 91/65 Pulse Oximetry 98 98 Oxygen Delivery Method Room Air Room Air BMI result Body Mass Index 28.2 Labs 03/13/23 13:50 03/13/23 13:50 Medications Medications Current Medications Acetaminophen (Acetaminophen 325 Mg Tablet) 650 mg PO Q6H PRN PRN Reason: Headache/Pain Mild Scale (1-3) Al Hydroxide/Mg Hydroxide (Magnesium Hydrox/Alum Hydrox 30 Ml Oral.Susp) 30 ml PO Q6H PRN PRN Reason: Heartburn/Nausea Buspirone HCl (Buspirone Hcl 5 Mg Tablet) 15 mg PO TID [facility] Last Admin: 03/24/23 08:40 Dose: 15 mg Clonidine HCl (Clonidine Hcl 0.1 Mg Tablet) 0.1 mg PO Q4H PRN; Protocol PRN Reason: anxiety Last Admin: 03/23/23 20:04 Dose: 0.1 mg Clonidine HCl (Clonidine Hcl 0.1 Mg Tablet) 0.1 mg PO DAILY [facility]; Protocol Last Admin: 03/24/23 08:46 Dose: Not Given Hydroxyzine HCl (Hydroxyzine Hcl 25 Mg Tablet) 25 mg PO Q6H PRN PRN Reason: Anxiety Last Admin: 03/24/23 08:40 Dose: 25 mg Magnesium Hydroxide (Milk Of Magnesia 30 Ml Oral.Susp) 30 ml PO DAILY PRN PRN Reason: Constipation Methadone HCl (Methadone Hcl 20 Mg/2 Ml Oral.Conc) 55 mg PO DAILY [facility] Last Admin: 03/24/23 08:23 Dose: 55 mg Methylphenidate HCl (Methylphenidate Hcl 10 Mg Tablet) 40 mg PO DAILY [facility] Last Admin: 03/24/23 08:26 Dose: 40 mg Methylphenidate HCl (Methylphenidate Hcl 10 Mg Tablet) 20 mg PO DAILY@1300 [facility] Last Admin: 03/23/23 13:14 Dose: 20 mg Nicotine Polacrilex (Nicotine Polacrilex 2 Mg Gum) 4 mg BUCCAL Q2H PRN PRN Reason: Nicotine Cravings Oxcarbazepine (Oxcarbazepine 150 Mg Tablet) 150 mg PO BID@0900,1400 [facility] Last Admin: 03/24/23 08:25 Dose: 150 mg Prazosin HCl (Prazosin Hcl 1 Mg Capsule) 2 mg PO BEDTIME [facility]; Protocol Last Admin: 03/23/23 20:04 Dose: 2 mg Sertraline HCl (Sertraline Hcl 100 Mg Tablet) 200 mg PO DAILY [facility] Last Admin: 03/24/23 08:24 Dose: 200 mg Trazodone HCl (Trazodone Hcl 50 Mg Tablet) 50 mg PO BEDTIME MRX1 PRN PRN Reason: Insomnia Last Admin: 03/23/23 20:04 Dose: 50 mg Allergies Allergies Allergy/AdvReac Type Severity Reaction Status Date / Time amoxicillin Allergy Hives Verified 12/28/22 08:17 Assessment & Plan Assessment & Plan (1) MDD (major depressive disorder), recurrent severe, without psychosis: Status: Acute Code(s): F33.2 - Major depressive disorder, recurrent severe without psychotic features (2) Grief at loss of child: Status: Acute Code(s): F43.21 - Adjustment disorder with depressed mood; Z63.4 - Disappearance and of family member (3) PTSD (post-traumatic stress disorder): Status: Acute Code(s): F43.10 - Post-traumatic stress disorder, unspecified (4) Cocaine use disorder: Status: Acute Code(s): F14.10 - Cocaine abuse, uncomplicated (5) Opioid use disorder, severe, in sustained remission, dependence: Status: Acute Code(s): F11.21 - Opioid dependence, in remission (6) UTI (urinary tract infection): Status: Acute Code(s): N39.0 - Urinary tract infection, site not specified Plan HPI: pt is a 42 yo female with hx of depression, PtSD, substance abuse, ADHD who self presents for worsening depression, anxiety with SI in the face coping with daughter's recent in November. Patient reports she was doing overall well at detention/program. Some situations are difficult there as there are people who were bullying, however she was coping until her daughter suddenly from an overdose this past November. Patient says she has had little time to mourn as there are mandatory groups from about 07:00 to 18:00 every day and there is no real place to be by 1 self. Patient said her depression has been increasing over the past months but got worse this past few weeks. Her outpatient doctor increased her Zoloft however this past weekend she got very distraught, not eating, feeling guilty and hopeless and felt like being . Patient relapsed with cocaine only but quickly self presented to the hospital to restabilize. Patient agrees with increasing BuSpar and adding clonidine for anxiety. Denies history of manic type episodes or behaviors; denies AVH. Admit for medication management and stability; Zoloft recently increased so will keep as is however will increase BuSpar to t.i.d.. Also adding clonidine for anxiety. Patient reported that taking clonidine did seem to resolve nightmare last night. Will continue methylphenidate IR as patient says she has been getting it for the past 14 years. She is not sure why it is immediate release other than to say that is the way it has always been prescribed Currently being treated for UTI Hospital course: 03/16 patient reports mood is little better and anxiety under better control with medication changes. Plan is for her to go to a [facility] and then return to detention. 03/17 continue current treatment plan; patient remains stable, improved mood and decreased anxiety; no SI. Feels good about plan going forward 03/18 continues to stabilize; asked for clonidine to be scheduled at bedtime due to nightmares 03/20Patient reports no nightmares last night and grateful for prazosin. However she does say her anxiety has been kicking up and she has been feeling much more panicky lately. Agreed to increase in BuSpar and also to add scheduled clonidine in the morning. Patient feels that trazodone is causing dry mouth and asks to be restarted on Seroquel 50 mg at bedtime; video game script writer reviewed risks/side effects of Seroquel which patient understood but wants to continue with anyway. Patient reports that in itchiness started in her genitourinary area, few days after she started on antibiotics and similar to past [place] infections; agrees to fluconazole; says there is somewhat of a burning sensation when she urinates. 03/21 will start Trileptal for anxiety; UDS return however not clean-catch; ordered repeat 03/22 continue current treatment plan Reviewed hospitalist PA note and currently no recommendations for further antibiotic treatment; repeat fluconazole in 72hours if symptoms persist 03/23 continue current treatment plan; working on aftercare options; remains in good behavioral and impulse control, appropriate with peers and staff and engaged in treatment, attending all groups. 03/24 good mood, future oriented and feeling that anxiety depression are under control. Except TSS program and will discharge once bed is available, likely Tuesday morning. Patient has remained stable, is future oriented and appropriate to continue treatment in the community. Depression and SI fully resolved. She is optimistic about staying sober and will discharge to structured environment. Patient is not in imminent risk for harm to self or others. Plan: CV Q 15 minute checks continue Trileptal 150 mg b.i.d.; for continued anxiety; patient has been on before Patient received Fluconazole 150 mg 1 time dose for yeast infection Repeat UA clean-catch; patient reports some burning sensation on urination; denies any frequency urgency; denies any recent sexual activity in the past year DC Seroquel at bedtime; not helpful; rather use trazodone Schedule prazosin 1 mg q.h.s. for ongoing nightmares Continue Zoloft 200 mg; recently increased Continue BuSpar to 15 mg t.i.d.; Continue clonidine 0.1 mg q.4 H p.r.n. for anxiety/insomnia Continue methadone Continue methylphenidate IR 40 mg daily Continue methylphenidate IR 20 mg 13:00 Milieu therapy; gather collateral Add lidocaine patch for lower back Patient educated on: diagnosis, medication risk/benefits and medical condition Informed Consent: understands Reason for continued inpatient stay Substantial Risk for: stable for discharge Time Spent With Patient Time: Total time managing care of this patient today ____ minutes.
[2023-03-24] MEDS: Methylphenidate HCl 10 MG TABLET 20 MG PO (12:34)
--- NOTE | 2023-03-24 16:22 | PM.PSYDC ---
DS: Providers Provider Date of Service: 03/28/23 Date of admission: 03/15/23 00:17 Date of discharge: 03/28/23 Primary care physician: None Physician Attending physician on admission: Nagi Solano Consults: 03/21/23 16:44 Consult to Hospitalist Routine Comment: still dysuria s/p abx for UTI Consulting Provider: Hospitalist Reason For Exam: Curb side recs +repeat UA, but w/ squamous cells Attending physician on discharge: Nagi Solano DS: Diagnosis Discharge Diagnosis (1) MDD (major depressive disorder), recurrent severe, without psychosis: Status: Acute (2) Grief at loss of child: Status: Acute (3) PTSD (post-traumatic stress disorder): Status: Acute (4) Cocaine use disorder: Status: Acute (5) Opioid use disorder, severe, in sustained remission, dependence: Status: Acute (6) UTI (urinary tract infection): Status: Acute DS: Medications Discharge Medications Home Medications: Home Medications Medication Instructions Recorded Confirmed methadone 10 mg/mL oral 55 mg PO DAILY 03/14/23 03/14/23 concentrate (Methadone Intensol) Previous Rx's Medication Instructions Recorded Ritalin 20 mg tablet See Rx Instructions .Route 03/24/23 (methylphenidate HCl) .COMPLEX 30 days #90 tabs buspirone 15 mg tablet 15 mg PO TID 30 days #90 tabs 03/24/23 clonidine HCl 0.1 mg tablet 0.1 mg PO DAILY 30 days #30 tabs 03/24/23 clonidine HCl 0.1 mg tablet 0.1 mg PO Q4H PRN anxiety 30 days 03/24/23 #90 tabs hydroxyzine HCl 25 mg tablet 25 mg PO Q6H PRN Anxiety 30 days 03/24/23 #90 tabs oxcarbazepine 150 mg tablet 150 mg PO BID@0900,1400 30 days 03/24/23 #60 tabs prazosin 2 mg capsule 2 mg PO BEDTIME 30 days #30 caps 03/24/23 sertraline 100 mg tablet 200 mg PO QAM 30 days #60 tabs 03/24/23 trazodone 50 mg tablet See Rx Instructions .Route 03/24/23 .COMPLEX PRN Sleep 30 days #60 tabs Mental Status Exam Mental Status Exam Narrative: Pt is alert and oriented; behavior is cooperative, calm; patient is not in distress; dressed in casual attire; edentulous; adequate hygiene; mood is described as good and affect congruent; appropriate eye contact; Speech is normal rate, volume and prosody and not pressured; no psychomotor retardation present; thought process is organized and goal directed; Thought content is on situation at senior living, aftercare, treatment; otherwise pertinent to relevant topics and without any delusional content, paranoid ideations or grandiosity; no SI; no HI. There is no evidence of perceptual disturbance. Patients insight and judgment are fair. Data Data Completed and Pending Completed studies during hospitalization [Text1]: 03/20/23 03/21/23 14:50 10:44 Urine Color Yellow Yellow Urine Appearance Cloudy Cloudy Urine pH 5.5 5.5 Ur Specific Moss 1.025 1.020 Urine Protein Negative Negative Urine Glucose (UA) Negative Negative Urine Ketones Trace Negative Urine Blood Negative Negative Urine Nitrite Negative Negative Ur Leukocyte Esterase Large (3+) H Moderate (2+) H Urine RBC 0-2 0-2 Urine WBC 21-50 H 11-20 H Ur Squamous Epith Cells >20 >20 Urine Bacteria 1+ Trace Hyaline Casts 0-2 0-2 03/20/23 14:50 Urine clean catch - Urine gonzáles top Urine Culture - Final 03/13/23 22:38 Urine clean catch - Urine gonzáles top Urine Culture - Final Escherichia coli DS: Summary Hospital Course Hospital Course: pt is a 42 yo female with hx of depression, PtSD, substance abuse, and opiate dependence, on methadone, ADHD who self presents for worsening depression, anxiety with SI in the face coping with daughter's recent in November.? Patient reports she was doing overall well at senior living/program.? Some situations are difficult there as there are people who were bullying, however she was coping until her daughter suddenly from an overdose this past November.? Patient says she has had little time to mourn as there are mandatory groups from about 07:00 to 18:00 every day and there is no real place to be by 1 self.? Patient said her depression has been increasing over the past months but got worse this past few weeks.?This past weekend she got very distraught, not eating, feeling guilty and hopeless and felt like being .? Patient relapsed with cocaine only but self presented to the hospital to restabilize.?Denies history of manic type episodes or behaviors; denies AV. Hospital course: On admission patient was depressed and anxious however SI fully resolved. Her Zoloft recently increased to 200mg so will keep as is however increased BuSpar to t.i.d..? Also added clonidine for anxiety.?Eventually added Prazosin for nightmares, to good effect. -she was Continued methylphenidate IR as patient says she has been getting it for the past 14 years.? She is not sure why it is immediate release other than to say that is the way it has always been prescribed -treated for UTI with abx and then for East infection. -patient soon stabilized and overall anxiety significantly reduced. However she would continue to have near panic attacks and so agreed to start Trileptal which proved helpful. Patient was engaged in treatment, attending all groups, forthcoming in individual sessions and proactive in helping set up aftercare. She was appropriate with peers and staff and demonstrated good behaviors and impulse control throughout her stay on the unit. Patient was accepted to a TSS program for which she was grateful and afterwards was invited to return back to the [facility]. Patient was future oriented, in a good mood, symptoms significantly reduced and optimistic about her staying stable and pursuing sobriety. Patient was not in imminent risk for harm to self or others and was appropriate to continue treatment in the outpatient community. Time spent discussing smoking cessation with patient: 3 to 10 minutes Status at Discharge Functional status at discharge: independent ambulation Overall status at discharge: patient is back to baseline Time Spent with Patient Time attestation: Total time managing care of this patient today ____ minutes. Time spent: Less than 30 minutes Discharge Plan Discharge Anticipated Discharge Date/Time: 03/28/23 10:00 Patient Disposition: Home, Self-Care Discharge Diagnosis: MDD, recurrent, severe w/out psychosis in full remission Referrals: Physician,None [Primary Care Provider] - 1 Week Discharge Medications: New clonidine HCl 0.1 mg Tablet 0.1 mg PO DAILY 30 Days Qty: 30 0RF Protocol: Hold for SBP< HOLD for SBP < : 90 prazosin 2 mg capsule 2 mg PO BEDTIME 30 Days Qty: 30 0RF buspirone 15 mg tablet 15 mg PO TID 30 Days Qty: 90 0RF hydroxyzine HCl 25 mg Tablet 25 mg PO Q6H PRN (Reason: Anxiety) 30 Days Qty: 90 0RF oxcarbazepine 150 mg Tablet 150 mg PO BID@0900,1400 30 Days Qty: 60 0RF lidocaine 4 % Adhesive Patch,Medicated 1 patch transdermal Q24H PRN (Reason: lower back pain) 30 Days Qty: 30 1RF Protocol: Apply to: Apply to: lower back Rx Instructions: apply to lower back as needed Continued methadone [Methadone Intensol] 10 mg/mL Concentrate 55 mg PO DAILY sertraline 100 mg tablet 200 mg PO QAM 30 Days Qty: 60 0RF Changed clonidine HCl 0.1 mg tablet 0.1 mg PO Q4H PRN (Reason: anxiety) 30 Days Qty: 90 0RF trazodone 50 mg tablet See Rx Instructions .ROUTE .COMPLEX PRN (Reason: Sleep) 30 Days Qty: 60 0RF Rx Instructions: take 1-2 tabs at bedtime as needed for insomnia methylphenidate HCl [Ritalin] 20 mg tablet See Rx Instructions .ROUTE .COMPLEX 30 Days Qty: 90 0RF Rx Instructions: take 2 tabs in the AM and take 1 tab at 3pm Discontinued buspirone 10 mg tablet 10 mg PO BID Discharge Orders: Discharge Order (Routine); Ordered 03/28/23 Ordered By: Nagi Solano Diet: Regular diet Activity on Discharge: As tolerated Stand Alone Forms: Patient Portal Discharge page, Community Support Care Plan Goals: Maintain mood and safe behaviors Take medications as prescribed Continue to pursue sobriety Practice coping skills Continue with outpatient providers and reach out to them as needed Health Concerns: Mood stability and behaviors Sobriety Plan of Treatment: Follow up with your PCP, psychiatric provider and other outpatient providers regarding above concerns Take medications as prescribed Assessment: Risk assessment at time of discharge:? Patient was interviewed prior to discharge and found to be fully oriented and without any SI or HI. Patient has insight and demonstrates good judgment in terms of wanting to pursue treatment. Patient is not in imminent risk of harm to self or others and has a safety plan that includes presenting to the closest ER or calling 911 if feeling unsafe.? Patient has been observed closely by nursing and unit staff throughout admission; patient has not engaged in any behaviors that suggest dangerousness to self or others and has demonstrated appropriate behaviors and impulse control
[2023-03-24 18:00] VITALS: BP 109/58; PULSE 78; RESP 16; TEMP 36.6; O2SAT 99
[2023-03-24] MEDS: Prazosin HCL 1 MG CAPSULE 2 MG PO (19:53)
[2023-03-24] MEDS: cloNIDine HCL 0.1 MG TABLET PO (20:05)
[2023-03-24] MEDS: traZODone HCL 50 MG TABLET PO (20:06)
[2023-03-25] MEDS: Methylphenidate HCl 10 MG TABLET 40 MG PO (08:46)
[2023-03-25] MEDS: Sertraline HCL 100 MG TABLET 200 MG PO (08:46)
[2023-03-25] MEDS: methADONE HCl 20 MG/2 ML ORAL.CONC 55 MG PO (08:46)
[2023-03-25] MEDS: OXcarbazepine 150 MG TABLET PO ×2 (08:46→13:23)
[2023-03-25] MEDS: busPIRone HCl 5 MG TABLET 15 MG PO ×3 (08:46→20:03)
[2023-03-25 08:50] VITALS: BP 106/64; PULSE 75; RESP 16; TEMP 36.7; O2SAT 97
--- NOTE | 2023-03-25 09:28 | P.PNPSI_ITS ---
Subjective Subjective Date of Service: 03/24/23 Reason For Visit: Depression Subjective Notes: Conditional Voluntary Interim History: Met with patient; discussed with team Pt reports feeling less depressed. She reports still struggling with panic attacks and understand that benzo not prescribed as she continues to work on recovery. Pt has been visible on the unit, no behavioral concerns. will be discharged to dual residential tx this coming Tuesday. Medication Compliance: Yes Side effects from medications: No Review of Systems Review of Systems Yes all other systems are reviewed and are negative Mental Status Exam Mental Status Exam Narrative: Pt is alert and oriented; behavior is cooperative, calm; patient is not in distress; dressed in casual attire; edentulous; adequate hygiene; mood is described as good and affect congruent; appropriate eye contact; Speech is normal rate, volume and prosody and not pressured; no psychomotor retardation present; thought process is organized and goal directed; Thought content is on situation at shelter, aftercare, treatment; otherwise pertinent to relevant topics and without any delusional content, paranoid ideations or grandiosity; no SI; no HI. There is no evidence of perceptual disturbance. Patients insight and judgment are fair. Diagnostics Vital Signs (24Hr): Vital Signs - 24 hr 03/24/23 18:00 03/25/23 08:50 Temperature 97.8 F 98.0 F Pulse Rate 78 75 Respiratory Rate 16 16 Blood Pressure 109/58 L 106/64 Pulse Oximetry 99 97 Oxygen Delivery Method Room Air Room Air BMI result Body Mass Index 28.2 Labs 03/13/23 13:50 03/13/23 13:50 Medications Medications Current Medications Acetaminophen (Acetaminophen 325 Mg Tablet) 650 mg PO Q6H PRN PRN Reason: Headache/Pain Mild Scale (1-3) Al Hydroxide/Mg Hydroxide (Magnesium Hydrox/Alum Hydrox 30 Ml Oral.Susp) 30 ml PO Q6H PRN PRN Reason: Heartburn/Nausea Buspirone HCl (Buspirone Hcl 5 Mg Tablet) 15 mg PO TID ANGELA Last Admin: 03/25/23 08:46 Dose: 15 mg Clonidine HCl (Clonidine Hcl 0.1 Mg Tablet) 0.1 mg PO Q4H PRN; Protocol PRN Reason: anxiety Last Admin: 03/24/23 20:05 Dose: 0.1 mg Clonidine HCl (Clonidine Hcl 0.1 Mg Tablet) 0.1 mg PO DAILY ANGELA; Protocol Last Admin: 03/25/23 09:11 Dose: Not Given Hydroxyzine HCl (Hydroxyzine Hcl 25 Mg Tablet) 25 mg PO Q6H PRN PRN Reason: Anxiety Last Admin: 03/24/23 08:40 Dose: 25 mg Lidocaine (Lidocaine 4 % Patch Adh..Patch) 1 patch TRANSDERMA DAILY PRN; Pro tocol PRN Reason: lower back pain Magnesium Hydroxide (Milk Of Magnesia 30 Ml Oral.Susp) 30 ml PO DAILY PRN PRN Reason: Constipation Methadone HCl (Methadone Hcl 20 Mg/2 Ml Oral.Conc) 55 mg PO DAILY [facility] Last Admin: 03/25/23 08:46 Dose: 55 mg Methylphenidate HCl (Methylphenidate Hcl 10 Mg Tablet) 40 mg PO DAILY [facility] Last Admin: 03/25/23 08:46 Dose: 40 mg Methylphenidate HCl (Methylphenidate Hcl 10 Mg Tablet) 20 mg PO DAILY@1300 [facility] Last Admin: 03/24/23 12:34 Dose: 20 mg Naloxone HCl (Naloxone Hcl Nasal Take Home 4 Mg [place]) 8 mg NOSTRILALT ONCE ONE Stop: 03/28/23 09:01 Nicotine Polacrilex (Nicotine Polacrilex 2 Mg Gum) 4 mg BUCCAL Q2H PRN PRN Reason: Nicotine Cravings Oxcarbazepine (Oxcarbazepine 150 Mg Tablet) 150 mg PO BID@0900,1400 [facility] Last Admin: 03/25/23 08:46 Dose: 150 mg Prazosin HCl (Prazosin Hcl 1 Mg Capsule) 2 mg PO BEDTIME [facility]; Protocol Last Admin: 03/24/23 19:53 Dose: 2 mg Sertraline HCl (Sertraline Hcl 100 Mg Tablet) 200 mg PO DAILY [facility] Last Admin: 03/25/23 08:46 Dose: 200 mg Trazodone HCl (Trazodone Hcl 50 Mg Tablet) 50 mg PO BEDTIME MRX1 PRN PRN Reason: Insomnia Last Admin: 03/24/23 20:06 Dose: 50 mg Allergies Allergies Allergy/AdvReac Type Severity Reaction Status Date / Time amoxicillin Allergy Hives Verified 12/28/22 08:17 Assessment & Plan Assessment & Plan (1) MDD (major depressive disorder), recurrent severe, without psychosis: Status: Acute Code(s): F33.2 - Major depressive disorder, recurrent severe without psychotic features (2) Grief at loss of child: Status: Acute Code(s): F43.21 - Adjustment disorder with depressed mood; Z63.4 - Disappearance and of family member (3) PTSD (post-traumatic stress disorder): Status: Acute Code(s): F43.10 - Post-traumatic stress disorder, unspecified (4) Cocaine use disorder: Status: Acute Code(s): F14.10 - Cocaine abuse, uncomplicated (5) Opioid use disorder, severe, in sustained remission, dependence: Status: Acute Code(s): F11.21 - Opioid dependence, in remission (6) UTI (urinary tract infection): Status: Acute Code(s): N39.0 - Urinary tract infection, site not specified Plan HPI: pt is a 42 yo female with hx of depression, PtSD, substance abuse, ADHD who self presents for worsening depression, anxiety with SI in the face coping with daughter's recent in November. Patient reports she was doing overall well at shelter/program. Some situations are difficult there as there are people who were bullying, however she was coping until her daughter suddenly from an overdose this past November. Patient says she has had little time to mourn as there are mandatory groups from about 07:00 to 18:00 every day and there is no real place to be by 1 self. Patient said her depression has been increasing over the past months but got worse this past few weeks. Her outpatient doctor increased her Zoloft however this past weekend she got very distraught, not eating, feeling guilty and hopeless and felt like being . Patient relapsed with cocaine only but quickly self presented to the hospital to restabilize. Patient agrees with increasing BuSpar and adding clonidine for anxiety. Denies history of manic type episodes or behaviors; denies AVH. Admit for medication management and stability; Zoloft recently increased so will keep as is however will increase BuSpar to t.i.d.. Also adding clonidine for anxiety. Patient reported that taking clonidine did seem to resolve nightmare last night. Will continue methylphenidate IR as patient says she has been getting it for the past 14 years. She is not sure why it is immediate release other than to say that is the way it has always been prescribed Currently being treated for UTI Hospital course: 03/16 patient reports mood is little better and anxiety under better control with medication changes. Plan is for her to go to a [facility] and then return to shelter. 03/17 continue current treatment plan; patient remains stable, improved mood and decreased anxiety; no SI. Feels good about plan going forward 03/18 continues to stabilize; asked for clonidine to be scheduled at bedtime due to nightmares 03/20Patient reports no nightmares last night and grateful for prazosin. However she does say her anxiety has been kicking up and she has been feeling much more panicky lately. Agreed to increase in BuSpar and also to add scheduled clonidine in the morning. Patient feels that trazodone is causing dry mouth and asks to be restarted on Seroquel 50 mg at bedtime; com writer reviewed risks/side effects of Seroquel which patient understood but wants to continue with anyway. Patient reports that in itchiness started in her genitourinary area, few days after she started on antibiotics and similar to past East infections; agrees to fluconazole; says there is somewhat of a burning sensation when she urinates. 03/21 will start Trileptal for anxiety; UDS return however not clean-catch; ord ered repeat 03/22 continue current treatment plan Reviewed hospitalist PA note and currently no recommendations for further antibiotic treatment; repeat fluconazole in 72hours if symptoms persist 03/23 continue current treatment plan; working on aftercare options; remains in good behavioral and impulse control, appropriate with peers and staff and engaged in treatment, attending all groups. 03/24 good mood, future oriented and feeling that anxiety depression are under control. Except TSS program and will discharge once bed is available, likely Tuesday. Patient has remained stable, is future oriented and appropriate to continue treatment in the community. Depression and SI fully resolved. She is optimistic about staying sober and will discharge to structured environment. Patient is not in imminent risk for harm to self or others. 03/25 continue tx. Plan: CV Q 15 minute checks continue Trileptal 150 mg b.i.d.; for continued anxiety; patient has been on before Patient received Fluconazole 150 mg 1 time dose for yeast infection Repeat UA clean-catch; patient reports some burning sensation on urination; denies any frequency urgency; denies any recent sexual activity in the past year DC Seroquel at bedtime; not helpful; rather use trazodone Schedule prazosin 1 mg q.h.s. for ongoing nightmares Continue Zoloft 200 mg; recently increased Continue BuSpar to 15 mg t.i.d.; Continue clonidine 0.1 mg q.4 H p.r.n. for anxiety/insomnia Continue methadone Continue methylphenidate IR 40 mg daily Continue methylphenidate IR 20 mg 13:00 Milieu therapy; gather collateral Add lidocaine patch for lower back Reason for continued inpatient stay Substantial Risk for: inability to function Time Spent With Patient Time: Total time managing care of this patient today ____ minutes.
[2023-03-25] MEDS: Methylphenidate HCl 10 MG TABLET 20 MG PO (13:24)
[2023-03-25] MEDS: hydrOXYzine HCL 25 MG TABLET PO (14:14)
[2023-03-25] MEDS: cloNIDine HCL 0.1 MG TABLET PO (17:28)
[2023-03-25 17:30] VITALS: BP 128/58; PULSE 94; TEMP 36.2; O2SAT 96
[2023-03-25] MEDS: Prazosin HCL 1 MG CAPSULE 2 MG PO (20:03)
[2023-03-25] MEDS: traZODone HCL 50 MG TABLET PO (20:03)
[2023-03-25] MEDS: Lidocaine 4 % Patch ADH..PATCH 1 PATCH TRANSDERMA (20:04)
--- NOTE | 2023-03-25 20:34 | MHC.RECOVSUP ---
? Reason for consult:OPI o? Current location:[facility]? o? Identified substance use concern:? -? Support ? Intervention: o? Community resources provided o? Harm reduction discussion ? Plan:Pt wants to go to a [facility] treatment then try to get back in to [facility] on [facility] in [place]. ? Additional information:[facility] met with this pt and discussed harm reduction strategies as well as treatment options. Pt stated she has a bed at a [facility] and wants to continue with her recovery at the [facility] is currently receiving treatment in. TIFF provided this pt with recovery resources also business card and pamphlet.
[2023-03-26 08:25] VITALS: BP 100/57; PULSE 74; RESP 16; TEMP 36.8; O2SAT 95
[2023-03-26] MEDS: Methylphenidate HCl 10 MG TABLET 40 MG PO (08:27)
[2023-03-26] MEDS: busPIRone HCl 5 MG TABLET 15 MG PO ×3 (08:27→19:53)
[2023-03-26] MEDS: OXcarbazepine 150 MG TABLET PO ×2 (08:28→14:15)
[2023-03-26] MEDS: Sertraline HCL 100 MG TABLET 200 MG PO (08:28)
[2023-03-26] MEDS: methADONE HCl 20 MG/2 ML ORAL.CONC 55 MG PO (08:28)
--- NOTE | 2023-03-26 11:34 | HO.PSYCHPN ---
Subjective Subjective Date of Service: 03/26/23 Reason For Visit: Depression Interim History: Met with patient; discussed with team She continues to feel improved since admission. Says the Lidocaine patches helped and wants to continue wearing at bedtime. Asking for flonase for her allergies. She sounds a bit nasal when speaking. Visible on the unit. Denies SI. Denies AVH. Review of Systems Review of Systems Yes all other systems are reviewed and are negative Mental Status Exam Mental Status Exam Narrative: Pt is alert and oriented; behavior is cooperative, calm; patient is not in distress; dressed in casual attire; edentulous; adequate hygiene; mood is described as good and affect congruent; appropriate eye contact; Speech is normal rate, volume and prosody and not pressured; no psychomotor retardation present; thought process is organized and goal directed; Thought content is on situation at care home, aftercare, treatment; otherwise pertinent to relevant topics and without any delusional content, paranoid ideations or grandiosity; no SI; no HI. There is no evidence of perceptual disturbance. Patients insight and judgment are fair. Diagnostics Vital Signs (24Hr): Vital Signs - 24 hr 03/25/23 17:30 03/26/23 08:25 Temperature 97.1 F 98.2 F Pulse Rate 94 74 Respiratory Rate 16 Blood Pressure 128/58 L 100/57 L Pulse Oximetry 96 95 Oxygen Delivery Method Room Air Room Air BMI result Body Mass Index 28.2 Labs 03/13/23 13:50 03/13/23 13:50 Medications Medications Current Medications Acetaminophen (Acetaminophen 325 Mg Tablet) 650 mg PO Q6H PRN PRN Reason: Headache/Pain Mild Scale (1-3) Al Hydroxide/Mg Hydroxide (Magnesium Hydrox/Alum Hydrox 30 Ml Oral.Susp) 30 ml PO Q6H PRN PRN Reason: Heartburn/Nausea Buspirone HCl (Buspirone Hcl 5 Mg Tablet) 15 mg PO TID ANGELA Last Admin: 03/26/23 08:27 Dose: 15 mg Clonidine HCl (Clonidine Hcl 0.1 Mg Tablet) 0.1 mg PO Q4H PRN; Protocol PRN Reason: anxiety Last Admin: 03/25/23 17:28 Dose: 0.1 mg Clonidine HCl (Clonidine Hcl 0.1 Mg Tablet) 0.1 mg PO DAILY ANGELA; Protocol Last Admin: 03/26/23 08:30 Dose: Not Given Hydroxyzine HCl (Hydroxyzine Hcl 25 Mg Tablet) 25 mg PO Q6H PRN PRN Reason: Anxiety Last Admin: 03/25/23 14:14 Dose: 25 mg Lidocaine (Lidocaine 4 % Patch Adh..Patch) 1 patch TRANSDERMA DAILY PRN; Protocol PRN Reason: lower back pain Last Admin: 03/25/23 20:04 Dose: 1 patch Magnesium Hydroxide (Milk Of Magnesia 30 Ml Oral.Susp) 30 ml PO DAILY PRN PRN Reason: Constipation Methadone HCl (Methadone Hcl 20 Mg/2 Ml Oral.Conc) 55 mg PO DAILY [facility] Last Admin: 03/26/23 08:28 Dose: 55 mg Methylphenidate HCl (Methylphenidate Hcl 10 Mg Tablet) 40 mg PO DAILY [facility] Last Admin: 03/26/23 08:27 Dose: 40 mg Methylphenidate HCl (Methylphenidate Hcl 10 Mg Tablet) 20 mg PO DAILY@1300 [facility] Last Admin: 03/25/23 13:24 Dose: 20 mg Naloxone HCl (Naloxone Hcl Nasal Take Home 4 Mg [place]) 8 mg NOSTRILALT ONCE ONE Stop: 03/28/23 09:01 Nicotine Polacrilex (Nicotine Polacrilex 2 Mg Gum) 4 mg BUCCAL Q2H PRN PRN Reason: Nicotine Cravings Oxcarbazepine (Oxcarbazepine 150 Mg Tablet) 150 mg PO BID@0900,1400 [facility] Last Admin: 03/26/23 08:28 Dose: 150 mg Prazosin HCl (Prazosin Hcl 1 Mg Capsule) 2 mg PO BEDTIME [facility]; Protocol Last Admin: 03/25/23 20:03 Dose: 2 mg Sertraline HCl (Sertraline Hcl 100 Mg Tablet) 200 mg PO DAILY [facility] Last Admin: 03/26/23 08:28 Dose: 200 mg Trazodone HCl (Trazodone Hcl 50 Mg Tablet) 50 mg PO BEDTIME MRX1 PRN PRN Reason: Insomnia Last Admin: 03/25/23 20:03 Dose: 50 mg Allergies Allergies Allergy/AdvReac Type Severity Reaction Status Date / Time amoxicillin Allergy Hives Verified 12/28/22 08:17 Assessment & Plan Assessment & Plan (1) MDD (major depressive disorder), recurrent severe, without psychosis: Status: Acute Code(s): F33.2 - Major depressive disorder, recurrent severe without psychotic features (2) Grief at loss of child: Status: Acute Code(s): F43.21 - Adjustment disorder with depressed mood; Z63.4 - Disappearance and of family member (3) PTSD (post-traumatic stress disorder): Status: Acute Code(s): F43.10 - Post-traumatic stress disorder, unspecified (4) Cocaine use disorder: Status: Acute Code(s): F14.10 - Cocaine abuse, uncomplicated (5) Opioid use disorder, severe, in sustained remission, dependence: Status: Acute Code(s): F11.21 - Opioid dependence, in remission (6) UTI (urinary tract infection): Status: Acute Code(s): N39.0 - Urinary tract infection, site not specified Plan HPI: pt is a 42 yo female with hx of depression, PtSD, substance abuse, ADHD who self presents for worsening depression, anxiety with SI in the face coping with daughter's recent in November. Patient reports she was doing overall well at care home/program. Some situations are difficult there as there are people who were bullying, however she was coping until her daughter suddenly from an overdose this past November. Patient says she has had little time to mourn as there are mandatory groups from about 07:00 to 18:00 every day and there is no real place to be by 1 self. Patient said her depression has been increasing over the past months but got worse this past few weeks. Her outpatient doctor increased her Zoloft however this past weekend she got very distraught, not eating, feeling guilty and hopeless and felt like being . Patient relapsed with cocaine only but quickly self presented to the hospital to restabilize. Patient agrees with increasing BuSpar and adding clonidine for anxiety. Denies history of manic type episodes or behaviors; denies AVH. Admit for medication management and stability; Zoloft recently increased so will keep as is however will increase BuSpar to t.i.d.. Also adding clonidine for anxiety. Patient reported that taking clonidine did seem to resolve nightmare last night. Will continue methylphenidate IR as patient says she has been getting it for the past 14 years. She is not sure why it is immediate release other than to say that is the way it has always been prescribed Currently being treated for UTI Hospital course: 03/16 patient reports mood is little better and anxiety under better control with medication changes. Plan is for her to go to a TSS and then return to care home. 03/17 continue current treatment plan; patient remains stable, improved mood and decreased anxiety; no SI. Feels good about plan going forward 03/18 continues to stabilize; asked for clonidine to be scheduled at bedtime due to nightmares 03/20Patient reports no nightmares last night and grateful for prazosin. However she does say her anxiety has been kicking up and she has been feeling much more panicky lately. Agreed to increase in BuSpar and also to add scheduled clonidine in the morning. Patient feels that trazodone is causing dry mouth and asks to be restarted on Seroquel 50 mg at bedtime; magazine writer reviewed risks/side effects of Seroquel which patient understood but wants to continue with anyway. Patient reports that in itchiness started in her genitourinary area, few days after she started on antibiotics and similar to past [place] infections; agrees to fluconazole; says there is somewhat of a burning sensation when she urinates. 03/21 will start Trileptal for anxiety; UDS return however not clean-catch; ordered repeat 03/22 continue current treatment plan Reviewed hospitalist PA note and currently no recommendations for further antibiotic treatment; repeat fluconazole in 72hours if symptoms persist 03/23 continue current treatment plan; working on aftercare options; remains in good behavioral and impulse control, appropriate with peers and staff and engaged in treatment, attending all groups. 03/24 good mood, future oriented and feeling that anxiety depression are under control. Except TSS program and will discharge once bed is available, likely Tuesday. Patient has remained stable, is future oriented and appropriate to continue treatment in the community. Depression and SI fully resolved. She is optimistic about staying sober and will discharge to structured environment. Patient is not in imminent risk for harm to self or others. 03/25 continue tx. 03/26: Continue current plan of care. Flonase added. Lidocaine ordered as scheduled rather than PRN. Plan: CV Q 15 minute checks continue Trileptal 150 mg b.i.d.; for continued anxiety; patient has been on before Patient received Fluconazole 150 mg 1 time dose for yeast infection Repeat UA clean-catch; patient reports some burning sensation on urination; denies any frequency urgency; denies any recent sexual activity in the past year DC Seroquel at bedtime; not helpful; rather use trazodone Schedule prazosin 1 mg q.h.s. for ongoing nightmares Continue Zoloft 200 mg; recently increased Continue BuSpar to 15 mg t.i.d.; Continue clonidine 0.1 mg q.4 H p.r.n. for anxiety/insomnia Continue methadone Continue methylphenidate IR 40 mg daily Continue methylphenidate IR 20 mg 13:00 Milieu therapy; gather collateral Add lidocaine patch for lower back Reason for continued inpatient stay Substantial Risk for: harm to self, inability to function and rapid decompensation Time Spent With Patient Time: Total time managing care of this patient today ____ minutes.
[2023-03-26] MEDS: Methylphenidate HCl 10 MG TABLET 20 MG PO (12:49)
[2023-03-26] MEDS: Fluticasone Propionate Nasal 16 GM SPRAY 1 SPRAY NOSTRIL-B (18:39)
[2023-03-26] MEDS: traZODone HCL 50 MG TABLET PO (19:53)
[2023-03-26] MEDS: cloNIDine HCL 0.1 MG TABLET PO (19:53)
[2023-03-26 19:54] VITALS: BP 111/63; PULSE 80
[2023-03-26] MEDS: Prazosin HCL 1 MG CAPSULE 2 MG PO (19:54)
[2023-03-26] MEDS: Lidocaine 4 % Patch ADH..PATCH 1 PATCH TRANSDERMA (19:54)
[2023-03-27 06:00] VITALS: BP 100/61; PULSE 71; RESP 18
[2023-03-27] MEDS: methADONE HCl 20 MG/2 ML ORAL.CONC 55 MG PO (08:43)
[2023-03-27] MEDS: Methylphenidate HCl 10 MG TABLET 40 MG PO (08:44)
[2023-03-27] MEDS: Sertraline HCL 100 MG TABLET 200 MG PO (08:44)
[2023-03-27] MEDS: OXcarbazepine 150 MG TABLET PO ×2 (08:44→13:57)
[2023-03-27] MEDS: busPIRone HCl 5 MG TABLET 15 MG PO ×3 (08:44→20:32)
[2023-03-27] MEDS: cloNIDine HCL 0.1 MG TABLET PO ×2 (08:44→20:38)
[2023-03-27] MEDS: Fluticasone Propionate Nasal 16 GM SPRAY 1 SPRAY NOSTRIL-B (08:48)
[2023-03-27] MEDS: LORazepam 1 MG TABLET PO (12:31)
[2023-03-27] MEDS: Methylphenidate HCl 10 MG TABLET 20 MG PO (13:57)
[2023-03-27] MEDS: Acetaminophen 325 MG TABLET 650 MG PO (17:35)
--- NOTE | 2023-03-27 19:39 | P.PNPSI_ITS ---
Subjective Subjective Date of Service: 03/27/23 Reason For Visit: Depression Interim History: Met with patient; discussed with team Patient has been experiencing increased anxiety today. She was seen in bed and was on 4's. She was under the covers. She had a hard time explaining her anxiety but said she had a nightmare about her sister. She received an ice pack which helped. She received Ativan 1 mg x 1. Both interventions were helpful. Denies SI. Denies AVH. Review of Systems Review of Systems Yes all other systems are reviewed and are negative Mental Status Exam Mental Status Exam Narrative: Pt is alert and oriented; behavior is cooperative, calm; patient is not in distress; dressed in casual attire; edentulous; adequate hygiene; mood is described as good and affect congruent; appropriate eye contact; Speech is normal rate, volume and prosody and not pressured; no psychomotor retardation present; thought process is organized and goal directed; Thought content is on situation at snf, aftercare, treatment; otherwise pertinent to relevant topics and without any delusional content, paranoid ideations or grandiosity; no SI; no HI. There is no evidence of perceptual disturbance. Patients insight and judgment are fair. Diagnostics Vital Signs (24Hr): Vital Signs - 24 hr 03/26/23 19:54 03/27/23 06:00 Pulse Rate 80 71 Respiratory Rate 18 Blood Pressure 111/63 100/61 BMI result Body Mass Index 28.2 Labs 03/13/23 13:50 03/13/23 13:50 Medications Medications Current Medications Acetaminophen (Acetaminophen 325 Mg Tablet) 650 mg PO Q6H PRN PRN Reason: Headache/Pain Mild Scale (1-3) Last Admin: 03/27/23 17:35 Dose: 650 mg Al Hydroxide/Mg Hydroxide (Magnesium Hydrox/Alum Hydrox 30 Ml Oral.Susp) 30 ml PO Q6H PRN PRN Reason: Heartburn/Nausea Buspirone HCl (Buspirone Hcl 5 Mg Tablet) 15 mg PO TID ANGELA Last Admin: 03/27/23 13:58 Dose: 15 mg Clonidine HCl (Clonidine Hcl 0.1 Mg Tablet) 0.1 mg PO Q4H PRN; Protocol PRN Reason: anxiety Last Admin: 03/26/23 19:53 Dose: 0.1 mg Clonidine HCl (Clonidine Hcl 0.1 Mg Tablet) 0.1 mg PO DAILY ANGELA; Protocol Last Admin: 03/27/23 08:44 Dose: 0.1 mg Fluticasone Propionate (Fluticasone Propionate Nasal 16 Gm [place]) 1 spray NOSTRIL-B DAILY [facility] Last Admin: 03/27/23 08:48 Dose: 1 spray Hydroxyzine HCl (Hydroxyzine Hcl 50 Mg Tablet) 50 mg PO Q6H PRN PRN Reason: Anxiety Lidocaine (Lidocaine 4 % Patch Adh..Patch) 1 patch TRANSDERMA BEDTIME [facility]; Protocol Last Admin: 03/26/23 19:54 Dose: 1 patch Magnesium Hydroxide (Milk Of Magnesia 30 Ml Oral.Susp) 30 ml PO DAILY PRN PRN Reason: Constipation Methadone HCl (Methadone Hcl 20 Mg/2 Ml Oral.Conc) 55 mg PO DAILY [facility] Last Admin: 03/27/23 08:43 Dose: 55 mg Methylphenidate HCl (Methylphenidate Hcl 10 Mg Tablet) 40 mg PO DAILY [facility] Last Admin: 03/27/23 08:44 Dose: 40 mg Methylphenidate HCl (Methylphenidate Hcl 10 Mg Tablet) 20 mg PO DAILY@1300 [facility] Last Admin: 03/27/23 13:57 Dose: 20 mg Naloxone HCl (Naloxone Hcl Nasal Take Home 4 Mg [place]) 8 mg NOSTRILALT ONCE ONE Stop: 03/28/23 09:01 Nicotine Polacrilex (Nicotine Polacrilex 2 Mg Gum) 4 mg BUCCAL Q2H PRN PRN Reason: Nicotine Cravings Oxcarbazepine (Oxcarbazepine 150 Mg Tablet) 150 mg PO BID@0900,1400 [facility] Last Admin: 03/27/23 13:57 Dose: 150 mg Prazosin HCl (Prazosin Hcl 1 Mg Capsule) 2 mg PO BEDTIME [facility]; Protocol Last Admin: 03/26/23 19:54 Dose: 2 mg Sertraline HCl (Sertraline Hcl 100 Mg Tablet) 200 mg PO DAILY [facility] Last Admin: 03/27/23 08:44 Dose: 200 mg Trazodone HCl (Trazodone Hcl 50 Mg Tablet) 50 mg PO BEDTIME MRX1 PRN PRN Reason: Insomnia Last Admin: 03/26/23 19:53 Dose: 50 mg Allergies Allergies Allergy/AdvReac Type Severity Reaction Status Date / Time amoxicillin Allergy Hives Verified 12/28/22 08:17 Assessment & Plan Assessment & Plan (1) MDD (major depressive disorder), recurrent severe, without psychosis: Status: Acute Code(s): F33.2 - Major depressive disorder, recurrent severe without psychotic features (2) Grief at loss of child: Status: Acute Code(s): F43.21 - Adjustment disorder with depressed mood; Z63.4 - Disappearance and of family member (3) PTSD (post-traumatic stress disorder): Status: Acute Code(s): F43.10 - Post-traumatic stress disorder, unspecified (4) Cocaine use disorder: Status: Acute Code(s): F14.10 - Cocaine abuse, uncomplicated (5) Opioid use disorder, severe, in sustained remission, dependence: Status: Acute Code(s): F11.21 - Opioid dependence, in remission (6) UTI (urinary tract infection): Status: Acute Code(s): N39.0 - Urinary tract infection, site not specified Plan HPI: pt is a 42 yo female with hx of depression, PtSD, substance abuse, ADHD who self presents for worsening depression, anxiety with SI in the face coping with daughter's recent in November. Patient reports she was doing overall well at snf/program. Some situations are difficult there as there are people who were bullying, however she was coping until her daughter suddenly from an overdose this past November. Patient says she has had little time to mourn as there are mandatory groups from about 07:00 to 18:00 every day and there is no real place to be by 1 self. Patient said her depression has been increasing over the past months but got worse this past few weeks. Her outpatient doctor increased her Zoloft however this past weekend she got very distraught, not eating, feeling guilty and hopeless and felt like being . Patient relapsed with cocaine only but quickly self presented to the hospital to restabilize. Patient agrees with increasing BuSpar and adding clonidine for anxiety. Denies history of manic type episodes or behaviors; denies AVH. Admit for medication management and stability; Zoloft recently increased so will keep as is however will increase BuSpar to t.i.d.. Also adding clonidine for anxiety. Patient reported that taking clonidine did seem to resolve nightmare last night. Will continue methylphenidate IR as patient says she has been getting it for the past 14 years. She is not sure why it is immediate release other than to say that is the way it has always been prescribed Currently being treated for UTI Hospital course: 03/16 patient reports mood is little better and anxiety under better control with medication changes. Plan is for her to go to a TSS and then return to snf. 03/17 continue current treatment plan; patient remains stable, improved mood and decreased anxiety; no SI. Feels good about plan going forward 03/18 continues to stabilize; asked for clonidine to be scheduled at bedtime due to nightmares 03/20Patient reports no nightmares last night and grateful for prazosin. However she does say her anxiety has been kicking up and she has been feeling much more panicky lately. Agreed to increase in BuSpar and also to add scheduled clon idine in the morning. Patient feels that trazodone is causing dry mouth and asks to be restarted on Seroquel 50 mg at bedtime; literary writer reviewed risks/side effects of Seroquel which patient understood but wants to continue with anyway. Patient reports that in itchiness started in her genitourinary area, few days after she started on antibiotics and similar to past [place] infections; agrees to fluconazole; says there is somewhat of a burning sensation when she urinates. 03/21 will start Trileptal for anxiety; UDS return however not clean-catch; ordered repeat 03/22 continue current treatment plan Reviewed hospitalist PA note and currently no recommendations for further antibiotic treatment; repeat fluconazole in 72hours if symptoms persist 03/23 continue current treatment plan; working on aftercare options; remains in good behavioral and impulse control, appropriate with peers and staff and eng aged in treatment, attending all groups. 03/24 good mood, future oriented and feeling that anxiety depression are under control. Except TSS program and will discharge once bed is available, likely Tuesday. Patient has remained stable, is future oriented and appropriate to continue treatment in the community. Depression and SI fully resolved. She is optimistic about staying sober and will discharge to structured environment. Patient is not in imminent risk for harm to self or others. 03/25 continue tx. 03/26: Continue current plan of care. Flonase added. Lidocaine ordered as scheduled rather than PRN. 03/27: Increased Hydroxyzine to 50 mg PRN. Continue current treatment plan. Plan: CV Q 15 minute checks continue Trileptal 150 mg b.i.d.; for continued anxiety; patient has been on before Patient received Fluconazole 150 mg 1 time dose for yeast infection Repeat UA clean-catch; patient reports some burning sensation on urination; denies any frequency urgency; denies any recent sexual activity in the past year DC Seroquel at bedtime; not helpful; rather use trazodone Schedule prazosin 1 mg q.h.s. for ongoing nightmares Continue Zoloft 200 mg; recently increased Continue BuSpar to 15 mg t.i.d.; Continue clonidine 0.1 mg q.4 H p.r.n. for anxiety/insomnia Continue methadone Continue methylphenidate IR 40 mg daily Continue methylphenidate IR 20 mg 13:00 Milieu therapy; gather collateral Add lidocaine patch for lower back Reason for continued inpatient stay Substantial Risk for: inability to function and rapid decompensation Time Spent With Patient Time: Total time managing care of this patient today ____ minutes.
[2023-03-27 20:05] VITALS: BP 108/64; PULSE 89
[2023-03-27] MEDS: Prazosin HCL 1 MG CAPSULE 2 MG PO (20:32)
[2023-03-27] MEDS: Lidocaine 4 % Patch ADH..PATCH 1 PATCH TRANSDERMA (20:33)
[2023-03-27] MEDS: traZODone HCL 50 MG TABLET PO (20:33)
[2023-03-28] MEDS: Naloxone HCl Nasal TAKE HOME 4 MG SPRAY 8 MG NOSTRILALT (08:19)
[2023-03-28] MEDS: busPIRone HCl 5 MG TABLET 15 MG PO (08:55)
[2023-03-28] MEDS: methADONE HCl 20 MG/2 ML ORAL.CONC 55 MG PO (08:55)
[2023-03-28] MEDS: Methylphenidate HCl 10 MG TABLET 40 MG PO (08:56)
[2023-03-28] MEDS: OXcarbazepine 150 MG TABLET PO (08:56)
[2023-03-28] MEDS: Sertraline HCL 100 MG TABLET 200 MG PO (08:56)
[2023-03-28] MEDS: Fluticasone Propionate Nasal 16 GM SPRAY 1 SPRAY NOSTRIL-B (09:06)
[2023-03-28 09:10] VITALS: BP 103/58; PULSE 82; RESP 18; O2SAT 98
[2023-03-28 09:25] LABS: COVID-19 Test Negative (Negative); IDNOW Serial# BCCEAD1C
== END 2023-03-28 10:30 | disposition home or self-care (01) | DRG 751 ==
LOC: HO.ED 03-14 17:24 → HO.PM5 03-15 00:20
PROVIDERS: Emergency Medicine; Physician Assistant; Admitting Provider Psychiatry & Neurology Psychiatry; Emergency Provider Internal Medicine; Visit Provider Psychiatry & Neurology Psychiatry
DX: F33.2 Major depressive disorder, recurrent severe without psychotic features (principal); F11.20 Opioid dependence, uncomplicated; F90.9 Attention-deficit hyperactivity disorder, unspecified type; F43.10 Post-traumatic stress disorder, unspecified; Z20.822 Contact with and (suspected) exposure to COVID-19; N39.0 Urinary tract infection, site not specified; F14.10 Cocaine abuse, uncomplicated; F43.21 Adjustment disorder with depressed mood; Z63.4 Disappearance and death of family member
CPT/HCPCS: 36415; 80053; 80307; 81001; 81025; 85025; 87086; 87088; 87186; 87635; 93005; 99285; S9485

== ENCOUNTER 2023-06-20 22:01 | Inpatient (IN) | payer OTHER, SELFPAY ==
[2023-06-20 22:12] VITALS: BP 136/73; PULSE 72; RESP 16; TEMP 36.4; O2SAT 98; BMI 25.5
[2023-06-20 23:16] LABS: Hematocrit 35.1 % (37.0-47.0); Hemoglobin 12.1 g/dl (12.0-16.0); Mean Corpuscular HGB Conc 34.5 g/dl (31.0-35.0); Mean Corpuscular Hemoglobin 29.4 pg (27.0-33.0); Mean Corpuscular Volume 85.4 fL (80.0-98.0); Mean Platelet Volume 9.9 fL (9.4-12.3); Platelet Count 284 X10*3/uL (160-400); Red Blood Count 4.11 X10*6/uL (4.20-5.50); Red Cell Distribution Width 12.8 % (11.0-16.0); White Blood Count 8.4 X10*3/uL (4.8-10.8)
[2023-06-20 23:24] LABS: COVID-19 Test Negative (Negative); IDNOW Serial# 08D9AD1C
[2023-06-20 23:30] LABS: Alanine Aminotransferase 11 U/L (0-31); Albumin Level 3.8 g/dL (3.5-5.0); Alkaline Phosphatase 40 U/L (39-117); Anion Gap 15 (12-20); Aspartate Amino Transferase 17 U/L (5-31); Bilirubin Total 0.6 mg/dL (0.0-1.0); Blood Urea Nitrogen 12 mg/dL (9-16); Calcium 8.8 mg/dL (8.4-10.2); Carbon Dioxide 27 mmol/L (22-29); Chloride 102 mmol/L (96-108); Creatinine Clr Calc Pharmacy 84.2; Estimated Glomerular Filt Rate > 60; Ethanol < 10 mg/dL; Glucose Random 86 mg/dL (60-115); Potassium 2.9 mmol/L (3.3-5.1); Sodium 141 mmol/L (135-145)
[2023-06-20 23:35] VITALS: BP 107/69; PULSE 70; RESP 16; O2SAT 97
--- NOTE | 2023-06-20 23:36 | MHC.EDTECH ---
Pt given crackers juice and turkey sandwich
[2023-06-21 01:23] LABS: Amphetamine Screen Urine Not Detected (Not Detect); Barbiturates, Urine Not Detected (Not Detect); Benzodiazepines Screen Urine POSITIVE (Not Detect); Cannabinoid Screen Urine Not Detected (Not Detect); Cocaine Screen Urine POSITIVE (Not Detect); Fentanyl, urine POSITIVE (Not Detect); Opiate Screen Urine POSITIVE (Not Detect); Phencyclidine Screen Urine Not Detected (Not Detect)
--- NOTE | 2023-06-21 01:56 | ED_ITS ---
HPI - Psych General Chief Complaint: Psychiatric Symptoms Stated Complaint: Crisis Time Seen by Provider: 06/21/23 01:50 Source: patient Mode of arrival: ambulatory Limitations: no limitations History of Present Illness HPI Narrative: Patient has history of depression substance abuse cocaine and heroin was in rehab just released, comes here as feeling more depressed and wants to kill herself by slicing her wrist thinking of her mother says that she has a bad week Related Data Home Medications Medication Instructions Recorded Confirmed methadone 10 mg/mL oral 55 mg PO DAILY 03/14/23 03/14/23 concentrate (Methadone Intensol) Previous Rx's Medication Instructions Recorded Ritalin 20 mg tablet See Rx Instructions .Route 03/24/23 (methylphenidate HCl) .COMPLEX 30 days #90 tabs buspirone 15 mg tablet 15 mg PO TID 30 days #90 tabs 03/24/23 clonidine HCl 0.1 mg tablet 0.1 mg PO DAILY 30 days #30 tabs 03/24/23 clonidine HCl 0.1 mg tablet 0.1 mg PO Q4H PRN anxiety 30 days 03/24/23 #90 tabs hydroxyzine HCl 25 mg tablet 25 mg PO Q6H PRN Anxiety 30 days 03/24/23 #90 tabs oxcarbazepine 150 mg tablet 150 mg PO BID@0900,1400 30 days 03/24/23 #60 tabs prazosin 2 mg capsule 2 mg PO BEDTIME 30 days #30 caps 03/24/23 sertraline 100 mg tablet 200 mg (2 x 100 mg) PO QAM 30 days 03/24/23 #60 tabs trazodone 50 mg tablet See Rx Instructions .Route 03/24/23 .COMPLEX PRN Sleep 30 days #60 tabs lidocaine 4 % topical patch 1 patch transdermal Q24H PRN lower 03/28/23 back pain 30 days #30 ea Allergies Allergy/AdvReac Type Severity Reaction Status Date / Time amoxicillin Allergy Hives Verified 12/28/22 08:17 Review of Systems 2 Review of Systems: Yes all other systems are reviewed and are negative PMFSH Past Medical History Medical History (Updated 06/21/23 @ 02:03 by Luis Fernando Berkowitz MD) Cocaine use disorder PTSD (post-traumatic stress disorder) MDD (major depressive disorder), recurrent severe, without psychosis Polysubstance (including opioids) dependence, daily use Social History Social History Household Members: Other Housing: Assisted Living Facility Do you presently have visiting nurse or other home services: No Patient Tobacco Use Status: Never used Tobacco Substance Use Type: Crack/Cocaine and Heroin Advance Directives: No Advance Directives Information Provided: No service: No Sexual orientation: Straight/Heterosexual Physical Exam 2 Vital Signs: Vital Signs: Last Vital Signs Temp 97.6 F 06/20/23 22:12 Pulse 70 06/20/23 23:35 Resp 16 06/20/23 23:35 BP 107/69 06/20/23 23:35 Pulse Ox 97 06/20/23 23:35 O2 Del Method Room Air 06/20/23 23:35 BMI result Body Mass Index 25.5 Appearance: Alert. Oriented X3. No acute distress. Eyes: PERRLA, No Nystagmus ENT: Pharynx normal. Oral Mucosa moist Neck: Normal inspection. Neck supple. CVS: Normal heart rate and rhythm. Pulses normal. Respiratory: No respiratory distress. Equal air entry bilateral, no wheezing/rales/rhonchi Abdomen: Soft and nontender. Bowel sounds are present, no mass palpable, no CVA tenderness Skin: Skin warm and dry. Normal skin color. Normal skin turgor. Extremities: No lower extremity edema. No calf tenderness psych: Depressed mood with suicidal ideation with plan no hallucination delusion Neuro: Oriented X 3. No motor deficit. No sensory deficit.No cerebellar signs , cranial nerves II-XII intact Medical Decision Making Medical Decision Making MDM Narrative: Patient polysubstance abuse depression SI will get care team evaluation also noticed to have incidental potassium of 2.9 will replace potassium recheck the level Lab Data 06/20/23 23:03 06/20/23 23:03 Labs: Lab Results 06/20/23 06/21/23 Range/Units 23:03 01:09 WBC 8.4 (4.8-10.8) X10*3/uL RBC 4.11 L (4.20-5.50) X10*6/uL Hgb 12.1 (12.0-16.0) g/dl Hct 35.1 L (37.0-47.0) % MCV 85.4 (80.0-98.0) fL MCH 29.4 (27.0-33.0) pg MCHC 34.5 (31.0-35.0) g/dl RDW 12.8 (11.0-16.0) % Plt Count 284 (160-400) X10*3/uL MPV 9.9 (9.4-12.3) fL Absolute Nucleated RBC 0.000 (0.0-0.012) X10*3/uL Nucleated RBC % (auto) 0.0 (0.0-0.2) /100WBC Sodium 141 (135-145) mmol/L Potassium 2.9 L D (3.3-5.1) mmol/L Chloride 102 (96-108) mmol/L Carbon Dioxide 27 (22-29) mmol/L Anion Gap 15 (12-20) BUN 12 (9-16) mg/dL Creatinine 0.73 (0.5-1.4) mg/dL Estim Creat Clear Calc 84.2 Estimated GFR > 60 Random Glucose 86 (60-115) mg/dL Calcium 8.8 (8.4-10.2) mg/dL Total Bilirubin 0.6 (0.0-1.0) mg/dL AST 17 (5-31) U/L ALT 11 (0-31) U/L Alkaline Phosphatase 40 (39-117) U/L Total Protein 7.0 (6.5-8.0) g/dL Albumin 3.8 (3.5-5.0) g/dL Urine Opiates Screen POSITIVE H (Not Detect) Urine Fentanyl Screen POSITIVE H (Not Detect) Ur Barbiturates Screen Not Detected (Not Detect) Ur Phencyclidine Scrn Not Detected (Not Detect) Ur Amphetamines Screen Not Detected (Not Detect) U Benzodiazepines Scrn POSITIVE H (Not Detect) Urine Cocaine Screen POSITIVE H (Not Detect) U Marijuana (THC) Screen Not Detected (Not Detect) Ethyl Alcohol < 10 mg/dL COVID-19 ([facility]) Negative (Negative) COVID-19 Clin Com See Note Discharge Plan Discharge Clinical Impression: PTSD (post-traumatic stress disorder), Suicidal ideation, Depression, Polysubstance abuse, Acute hypokalemia Patient Disposition: Still a Patient Prescriptions: No Action methadone [Methadone Intensol] 10 mg/mL Concentrate 55 mg PO DAILY clonidine HCl 0.1 mg Tablet 0.1 mg PO DAILY 30 Days Qty: 30 0RF Protocol: Hold for SBP< HOLD for SBP < : 90 prazosin 2 mg capsule 2 mg PO BEDTIME 30 Days Qty: 30 0RF buspirone 15 mg tablet 15 mg PO TID 30 Days Qty: 90 0RF hydroxyzine HCl 25 mg Tablet 25 mg PO Q6H PRN (Reason: Anxiety) 30 Days Qty: 90 0RF oxcarbazepine 150 mg Tablet 150 mg PO BID@0900,1400 30 Days Qty: 60 0RF clonidine HCl 0.1 mg tablet 0.1 mg PO Q4H PRN (Reason: anxiety) 30 Days Qty: 90 0RF trazodone 50 mg tablet See Rx Instructions .ROUTE .COMPLEX PRN (Reason: Sleep) 30 Days Qty: 60 0RF Rx Instructions: take 1-2 tabs at bedtime as needed for insomnia methylphenidate HCl [Ritalin] 20 mg tablet See Rx Instructions .ROUTE .COMPLEX 30 Days Qty: 90 0RF Rx Instructions: take 2 tabs in the AM and take 1 tab at 3pm sertraline 100 mg tablet 200 mg PO QAM 30 Days Qty: 60 0RF lidocaine 4 % Adhesive Patch,Medicated 1 patch transdermal Q24H PRN (Reason: lower back pain) 30 Days Qty: 30 1RF Protocol: Apply to: Apply to: lower back Rx Instructions: apply to lower back as needed Interventions: [place]-Suicide Risk Severity Scale Last Done: 06/21/23 00:20
--- NOTE | 2023-06-21 02:02 | ECG_ITS ---
Test Reason : LOW K Blood Pressure : / mmHG Vent. Rate : 051 BPM Atrial Rate : 051 BPM P-R Int : 114 ms QRS Dur : 086 ms QT Int : 516 ms P-R-T Axes : 021 033 029 degrees QTc Int : 475 ms Sinus bradycardia Otherwise normal ECG When compared with ECG of 14-MAR-2023 10:16, Heart rate has decreased Referred By: Luis Fernando Berkowitz Electronically Signed By:WANDER VARGAS
[2023-06-21 02:25] VITALS: BP 116/64; PULSE 62; RESP 17; O2SAT 96
[2023-06-21] MEDS: diphenhydrAMINE HCL 25 MG CAPSULE 50 MG PO (03:39)
[2023-06-21] MEDS: Potassium Bicarbonate/Cit AC 25 MEQ TABLET.EFF 50 MEQ PO (03:44)
[2023-06-21 05:15] VITALS: BP 103/65; PULSE 51; RESP 16; O2SAT 97
[2023-06-21 05:23] LABS: Anion Gap 12 (12-20); Carbon Dioxide 29 mmol/L (22-29); Chloride 106 mmol/L (96-108); Potassium 3.4 mmol/L (3.3-5.1); Sodium 144 mmol/L (135-145)
--- NOTE | 2023-06-21 09:30 | PC.NURSE ---
care team at bedside in private room to speak with pt.
[2023-06-21 09:56] VITALS: BP 110/78; PULSE 62; RESP 18; TEMP 36.4; O2SAT 99
--- NOTE | 2023-06-21 10:00 | PC.NURSE ---
pt a&ox3. respirations even and unlabored. pt denies chest pain and shortness of breath. lung sounds clear bilaterally. pt denies abdominal pain. abdomen soft non tender to touch. pt skin warm pink and moist. pt reports doing crack/cocaine last night and is now not feeling well. pt reports thoughts of self harm but expresses she has no plan. pt states i just don't want to be here when asked about SI thoughts. pt reports the conversation she had with care team was great . pt states she feels safe here in the ED. pt requesting food, this RN gave pt ice cream. pt reports SI but no HI. pt has 1:1 sitter present.
[2023-06-21 15:30] VITALS: BP 121/72; PULSE 56; RESP 16; TEMP 36.8; O2SAT 98
--- NOTE | 2023-06-21 15:30 | PC.NURSE ---
During skin check pt noted to have a cut at the base of her left great toe, bruises on the backs of her legs, 2 cuts on her right leg, and an infected cut on her left lower cheek
--- NOTE | 2023-06-21 15:33 | PC.NURSE ---
this rn came on- pt was admitted by robson raphael rn. this rn taking out of system.
[2023-06-21 18:00] VITALS: BP 135/71; PULSE 61; RESP 16; TEMP 36.7; O2SAT 98
--- NOTE | 2023-06-21 20:56 | PM.EVENT ---
Event Note Date of Service: 06/21/23 Event Note: 42-year-old female with history of polysubstance abuse, opioid dependence on methadone admitted to Psychiatry consult placed to hospitalist service for evaluation of ulceration on the left side of the face. While there is no known history of MRSA, she does have history of IV drug abuse. She reports of 3 days ago she developed a lesion on the left side of the face. She is unsure how this appeared but she does report picking at her skin at times. On exam, there is a superficial ulceration at the left lower jaw line measuring about 1 cm x 8 mm without any active purulent drainage. There is faint surrounding erythema. She has been afebrile vital signs were stable. Will treat mild cellulitis with Keflex 500 mg q.i.d. and doxycycline 100 mg b.i.d. x7 days. Administer medications with plenty of water and food. She is advised to keep the wound covered with the bandage during waking hours and wash her hands frequently and avoid touching the lesion. Thank you for allowing me to participate in this consult. Signing off at this time. Please do not hesitate to call for further questions. Time Spent With Patient Time: Total time managing care of this patient today ____ minutes.
[2023-06-21] MEDS: Cyclobenzaprine HCl 5 MG TABLET PO (21:14)
[2023-06-21] MEDS: cloNIDine HCL 0.1 MG TABLET PO (21:14)
[2023-06-21] MEDS: Doxycycline Monohydrate 100 MG CAPSULE PO (21:14)
[2023-06-21] MEDS: cephALEXin 500 MG CAPSULE PO (21:14)
[2023-06-21] MEDS: methADONE HCl 20 MG/2 ML ORAL.CONC PO (21:40)
[2023-06-21] MEDS: traZODone HCL 50 MG TABLET PO (21:44)
--- NOTE | 2023-06-21 23:29 | PC.ADMIT ---
Patient is a 42 yyear old Greek speaking single female admitted as a CV admissiobn t
--- NOTE | 2023-06-21 23:30 | PC.ADMIT ---
Patient is a 42 year old [facility] Mongolian speaking female, admitted as a CV admission to at 1520 and placed on 15 minute safety checks. Patient was medically cleared in the [facility], evaluated by CARE tem and deemed in need of IPLOC secondary to reporting a relapse on heroin and cocaine after leaving rehab last week. She said she had SI with a plan to cut her wrists. Precip appears to be that she is currently homeless and does not have any providers. She has a long history of substance use and has not been compliant with medications. Patient repr
--- NOTE | 2023-06-21 23:36 | PC.ADMIT ---
Patient is a 42 year old British speaking single female admitted as a CV admission to at 1520 and put on 15 minute safety checks. Patient had apparently relapsed on heroin and cocaine after being discharged from rehab last week. She is currently homeless and has been staying with friends. She has no providers and a long history of substance use and noncompliance with medications. She was medically cleared, evaluated by the CARE team and deemed in need of IPLOC, secondary to her SI to cut her wrists or jump in front of a car. Patient reported that she was having withdrawal symptoms during her admission assessment but denied any SI or HI. She did admit to a lot of anxiety and depression. She was able to sign legals and answer admission questions. Diane Otoole, provider test automation architect was notified of patient's admission and her withdrawal symptoms as well as the red swollen area on her left jaw line. Order for a routine hospitalist was done and patient was seen tonight. Antibiotics, two different ones were ordered. A one time dose of Methadone 20 mg po was also ordered for patient's withdrawals. Patient resting in NAD at shift change.
[2023-06-22] MEDS: cephALEXin 500 MG CAPSULE PO ×3 (06:16→17:55)
[2023-06-22 08:00] VITALS: PULSE 72
[2023-06-22 08:14] LABS: Alanine Aminotransferase 8 U/L (0-31); Albumin Level 3.1 g/dL (3.5-5.0); Alkaline Phosphatase 37 U/L (39-117); Anion Gap 12 (12-20); Aspartate Amino Transferase 11 U/L (5-31); Bilirubin Total 0.3 mg/dL (0.0-1.0); Blood Urea Nitrogen 17 mg/dL (9-16); Calcium 8.7 mg/dL (8.4-10.2); Carbon Dioxide 26 mmol/L (22-29); Chloride 108 mmol/L (96-108); Cholesterol 110 mg/dL (<200); Creatinine Clr Calc Pharmacy 84.2; Estimated Glomerular Filt Rate > 60; Glucose Fasting 119 mg/dL (60-99); HDL Cholesterol 38 mg/dL (>40); LDL Cholesterol Calculated 55 mg/dL (<100); Potassium 3.7 mmol/L (3.3-5.1); Sodium 142 mmol/L (135-145); Total Protein 5.8 g/dL (6.5-8.0); Triglycerides 87 mg/dL (<150)
[2023-06-22 08:38] VITALS: BP 84/50; PULSE 60; RESP 16; TEMP 36.7; O2SAT 97
[2023-06-22 08:52] VITALS: BP 103/57
[2023-06-22] MEDS: Doxycycline Monohydrate 100 MG CAPSULE PO ×2 (09:07→21:17)
--- NOTE | 2023-06-22 13:10 | HO.PSYADMNOT ---
HPI Date of Service: 06/22/23 Chief Complaint: si depression abuse Sources of Information: patient interviewed, chart reviewed and crisis/core team assessment reviewed HPI Subjective Notes: Conditional Voluntary and 3 Day Narrative: pt is a 42 yo female with hx of depression, PtSD, substance abuse, opioid dependence on methadone, ADHD who self presents for worsening depression, anxiety with SI in the face coping with mother's's recent this past week. Patient was last admitted following her daughter's overdose . Patient reports she has remained at the program, [facility] and was doing well, taking her medications, sober, engaged and only got distraught when she found her mother had passed. Patient became very depressed and relapsed with cocaine and opiates and stop taking her medications. Patient became suicidal with plan to overdose and wanting to engage in self-harm, however she asked a friend to bring her to the emergency room, wanting to stay safe and return to sobriety. Patient has been off her medications for a week but said there were helpful and wants to get back on them. Wants to have methadone titrated back as well since she found it helpful. Patient still endorses intermittent SI however said she is trying to process her feelings and become future oriented again. Past Psychiatric History: No history of previous psychiatric admissions No history of suicide attempts Medical Evaluation Reviewed: Yes [facility] Medical History (Updated 06/23/23 @ 11:53 by Nagi Solano MD) Cocaine use disorder PTSD (post-traumatic stress disorder) MDD (major depressive disorder), recurrent severe, without psychosis Polysubstance (including opioids) dependence, daily use Family History: Both paternal and maternal family history mental illness and substance abuse Daughter: Substance abuse Social History: Single Daughter, November 2022 from accidental overdose Patient has 7-year-old son who lives with his father; patient remains in contact Substance History: Opioid dependence, on methadone; relapse this past week; relapsed with cocaine Trauma History: History of trauma; not discussed Diagnostics Vital Signs (24Hr): Vital Signs - 24 hr 06/21/23 15:30 06/21/23 18:00 06/22/23 08:38 Temperature 98.2 F 98.1 F 98.0 F Pulse Rate 56 61 60 Respiratory Rate 16 16 16 Blood Pressure 121/72 135/71 84/50 L Pulse Oximetry 98 98 97 Oxygen Delivery Method Room Air Room Air Room Air 06/22/23 08:52 Temperature Pulse Rate Respiratory Rate Blood Pressure 103/57 L Pulse Oximetry Oxygen Delivery Method BMI result Body Mass Index 25.5 Labs 06/20/23 23:03 06/22/23 07:08 Labs: Laboratory Results - last 48 hr 06/20/23 06/21/23 06/21/23 23:03 01:09 05:08 WBC 8.4 RBC 4.11 L Hgb 12.1 Hct 35.1 L MCV 85.4 MCH 29.4 MCHC 34.5 RDW 12.8 Plt Count 284 MPV 9.9 Absolute Nucleated RBC 0.000 Nucleated RBC % (auto) 0.0 Sodium 141 144 Potassium 2.9 L D 3.4 Chloride 102 106 Carbon Dioxide 27 29 Anion Gap 15 12 BUN 12 Creatinine 0.73 Estim Creat Clear Calc 84.2 Estimated GFR > 60 Random Glucose 86 Fasting Glucose Calcium 8.8 Total Bilirubin 0.6 AST 17 ALT 11 Alkaline Phosphatase 40 Total Protein 7.0 Albumin 3.8 Triglycerides Cholesterol LDL Cholesterol, Calc HDL Cholesterol Urine Opiates Screen POSITIVE H Urine Fentanyl Screen POSITIVE H Ur Barbiturates Screen Not Detected Ur Phencyclidine Scrn Not Detected Ur Amphetamines Screen Not Detected U Benzodiazepines Scrn POSITIVE H Urine Cocaine Screen POSITIVE H U Marijuana (THC) Screen Not Detected Ethyl Alcohol < 10 COVID-19 ([facility]) Negative COVID-19 [employer] See Note 06/22/23 07:08 WBC RBC Hgb Hct MCV MCH MCHC RDW Plt Count MPV Absolute Nucleated RBC Nucleated RBC % (auto) Sodium 142 Potassium 3.7 Chloride 108 Carbon Dioxide 26 Anion Gap 12 BUN 17 H Creatinine 0.73 Estim Creat Clear Calc 84.2 Estimated GFR > 60 Random Glucose Fasting Glucose 119 H Calcium 8.7 Total Bilirubin 0.3 AST 11 ALT 8 Alkaline Phosphatase 37 L Total Protein 5.8 L Albumin 3.1 L Triglycerides 87 Cholesterol 110 LDL Cholesterol, Calc 55 HDL Cholesterol 38 L Urine Opiates Screen Urine Fentanyl Screen Ur Barbiturates Screen Ur Phencyclidine Scrn Ur Amphetamines Screen U Benzodiazepines Scrn Urine Cocaine Screen U Marijuana (THC) Screen Ethyl Alcohol COVID-19 ([facility]) COVID-19 [employer] Meds/Allergies Meds Home Medications Medication Instructions Recorded Confirmed Type methadone 10 mg/mL oral 55 mg PO DAILY 03/14/23 03/14/23 History concentrate (Methadone Intensol) Allergies Allergies Allergy/AdvReac Type Severity Reaction Status Date / Time amoxicillin Allergy Hives Verified 12/28/22 08:17 Mental Status Exam Mental Status Exam Narrative: Pt is alert and oriented; behavior is cooperative, but reticent, tearful, isolative; patient is not in distress; dressed in casual attire with unkempt hair, disheveled; mood is described as depressed and affect congruent, downcast and tearful; eye contact limited; Speech is a little slowed rate, soft volume, normal prosody; psychomotor retardation present; thought process is organized and goal directed; Thought content is on mourning the loss of her mother; otherwise pertinent to relevant topics and without any delusional content, paranoid ideations or grandiosity; intermittent SI; no HI. There is no evidence of perceptual disturbance. Denies AVH Patients insight and judgment impaired Assessment & Plan Assessment & Plan (1) MDD (major depressive disorder), recurrent severe, without psychosis: Status: Acute Code(s): F33.2 - Major depressive disorder, recurrent severe without psychotic features (2) PTSD (post-traumatic stress disorder): Status: Acute Code(s): F43.10 - Post-traumatic stress disorder, unspecified (3) Cocaine use disorder: Status: Acute Code(s): F14.10 - Cocaine abuse, uncomplicated (4) Opioid use disorder, severe, in sustained remission, dependence: Status: Acute Code(s): F11.21 - Opioid dependence, in remission (5) Cellulitis: Status: Acute Code(s): L03.90 - Cellulitis, unspecified Plan pt is a 42 yo female with hx of depression, PtSD, substance abuse, opioid dependence on methadone, ADHD who self presents for worsening depression, anxiety with SI in the face coping with mother's's recent this past week. Patient was last admitted following her daughter's overdose . Patient reports she has remained at the program, [facility] and was doing well, taking her medications, sober, engaged and only got distraught when she found her mother had passed. Patient became very depressed and relapsed with cocaine and opiates and stop taking her medications. Patient became suicidal with plan to overdose and wanting to engage in self-harm, however she asked a friend to bring her to the emergency room, wanting to stay safe and return to sobriety. Patient has been off her medications for a week but said there were helpful and wants to get back on them. Wants to have methadone titrated back as well since she found it helpful. Patient still endorses intermittent SI however said she is trying to process her feelings and become future oriented again. Plan: CV Q 15 minute checks Restart home medication Patient no longer taking Trileptal Will titrate methadone; patient only off methadone for week and is much more stable on home dose. Hospitalist AMY saw patient: She reports of 3 days ago she developed a lesion on the left side of the face. superficial ulceration at the left lower jaw line measuring about 1 cm x 8 mm without any active purulent drainage. faint surrounding erythema; afebrile; vital signs stable. Plan: Will treat mild cellulitis with Keflex 500 mg q.i.d. and doxycycline 100 mg b.i.d. x7 days. -keep the wound covered with the bandage during waking hours and wash her hands frequently and avoid touching the lesion. Patient educated on: diagnosis, medication risk/benefits, substance abuse and therapeutic strategies Informed Consent: understands Reason for continued inpatient stay Substantial Risk for: harm to self and rapid decompensation Statement Statement: I have reviewed the history and physical and performed a pertinent examination on my patient. No changes have occurred unless specified. If the History and Physical was not performed prior to admission, the Hospitalist's service will be consulted for completing the admission physical. Time Spent With Patient Time: Total time managing care of this patient today ____ minutes.
[2023-06-22 16:00] VITALS: PULSE 73
[2023-06-22] MEDS: busPIRone HCl 5 MG TABLET 15 MG PO ×2 (16:40→21:14)
[2023-06-22] MEDS: Methylphenidate HCl 10 MG TABLET 40 MG PO (16:41)
[2023-06-22] MEDS: methADONE HCl 20 MG/2 ML ORAL.CONC 5 MG PO (16:43)
[2023-06-22 21:15] VITALS: BP 145/70; PULSE 77; TEMP 36.7
[2023-06-22] MEDS: Cyclobenzaprine HCl 5 MG TABLET PO (21:15)
[2023-06-22] MEDS: traZODone HCL 50 MG TABLET PO (21:15)
[2023-06-22] MEDS: Prazosin HCL 1 MG CAPSULE 2 MG PO (21:16)
[2023-06-22] MEDS: cloNIDine HCL 0.1 MG TABLET PO (21:17)
[2023-06-23] MEDS: cephALEXin 500 MG CAPSULE PO ×4 (01:20→18:10)
[2023-06-23 08:00] VITALS: PULSE 67
[2023-06-23] MEDS: methADONE HCl 20 MG/2 ML ORAL.CONC 35 MG PO (08:32)
[2023-06-23] MEDS: Doxycycline Monohydrate 100 MG CAPSULE PO ×2 (08:34→19:52)
[2023-06-23] MEDS: Methylphenidate HCl 10 MG TABLET 40 MG PO (08:34)
[2023-06-23] MEDS: cloNIDine HCL 0.1 MG TABLET PO ×2 (08:34→19:50)
[2023-06-23] MEDS: busPIRone HCl 5 MG TABLET 15 MG PO ×3 (08:35→19:51)
[2023-06-23] MEDS: Sertraline HCL 100 MG TABLET 200 MG PO (08:37)
[2023-06-23 08:50] VITALS: BP 111/70; PULSE 67; RESP 18; TEMP 36.3; O2SAT 96
--- NOTE | 2023-06-23 11:54 | P.PNPSI_ITS ---
Subjective Subjective Date of Service: 06/23/23 Reason For Visit: si depression abuse Interim History: Met with patient; discussed with team Patient continues to lie in bed and remains isolative. She says she still very depressed but then adds I will get over it... Patient asks to have Abilify restarted. She said it was started a few months ago but she never refilled it however found it helpful for her mood. Mental Status Exam Mental Status Exam Narrative: Pt is alert and oriented; behavior is cooperative, but reticent, tearful, isolative; patient is not in distress; dressed in casual attire with unkempt hair, disheveled; mood is described as depressed and affect congruent, downcast and tearful; eye contact limited; Speech is a little slowed rate, soft volume, normal prosody; psychomotor retardation present; thought process is organized and goal directed; Thought content is on mourning the loss of her mother; otherwise pertinent to relevant topics and without any delusional content, paranoid ideations or grandiosity; no SI; no HI. There is no evidence of perceptual disturbance. Denies AVH Patients insight and judgment impaired but improving Diagnostics Vital Signs (24Hr): Vital Signs - 24 hr 06/22/23 21:15 06/23/23 08:50 Temperature 98.1 F 97.4 F Pulse Rate 77 67 Respiratory Rate 18 Blood Pressure 145/70 H 111/70 Pulse Oximetry 96 Oxygen Delivery Method Room Air BMI result Body Mass Index 25.5 Labs 06/20/23 23:03 06/22/23 07:08 Labs: Laboratory Results - last 48 hr 06/22/23 07:08 Sodium 142 Potassium 3.7 Chloride 108 Carbon Dioxide 26 Anion Gap 12 BUN 17 H Creatinine 0.73 Estim Creat Clear Calc 84.2 Estimated GFR > 60 Fasting Glucose 119 H Calcium 8.7 Total Bilirubin 0.3 AST 11 ALT 8 Alkaline Phosphatase 37 L Total Protein 5.8 L Albumin 3.1 L Triglycerides 87 Cholesterol 110 LDL Cholesterol, Calc 55 HDL Cholesterol 38 L Medications Medications Current Medications Acetaminophen (Acetaminophen 325 Mg Tablet) 650 mg PO Q6H PRN PRN Reason: Headache/Pain Mild Scale (1-3) Al Hydroxide/Mg Hydroxide (Magnesium Hydrox/Alum Hydrox 30 Ml Oral.Susp) 30 ml PO Q6H PRN PRN Reason: Heartburn/Nausea Buspirone HCl (Buspirone Hcl 5 Mg Tablet) 15 mg PO TID ANGELA Last Admin: 06/23/23 08:35 Dose: 15 mg Cephalexin HCl (Cephalexin 500 Mg Capsule) 500 mg PO Q6H ANGELA Stop: 06/28/23 18:01 Last Admin: 06/23/23 11:10 Dose: 500 mg Clonidine HCl (Clonidine Hcl 0.1 Mg Tablet) 0.1 mg PO TID PRN; Protocol PRN Reason: opioid withdrawal Last Admin: 06/22/23 21:17 Dose: 0.1 mg Clonidine HCl (Clonidine Hcl 0.1 Mg Tablet) 0.1 mg PO DAILY ANGELA; Protocol Last Admin: 06/23/23 08:34 Dose: 0.1 mg Clonidine HCl (Clonidine Hcl 0.1 Mg Tablet) 0.1 mg PO Q4H PRN; Protocol PRN Reason: anxiety Cyclobenzaprine HCl (Cyclobenzaprine Hcl 5 Mg Tablet) 5 mg PO TID PRN PRN Reason: muscle cramps Last Admin: 06/22/23 21:15 Dose: 5 mg Doxycycline Monohydrate (Doxycycline Monohydrate 100 Mg Capsule) 100 mg PO Q12H ANGELA Stop: 06/28/23 09:16 Last Admin: 06/23/23 08:34 Dose: 100 mg Lidocaine (Lidocaine 4 % Patch Adh..Patch) 1 patch TRANSDERMA DAILY PRN; Protocol PRN Reason: musculoskelteal pain Loperamide HCl (Loperamide Hcl 2 Mg Capsule) 2 mg PO Q4H PRN PRN Reason: Loose Stool Magnesium Hydroxide (Milk Of Magnesia 30 Ml Oral.Susp) 30 ml PO DAILY PRN PRN Reason: Constipation Methadone HCl (Methadone Hcl 20 Mg/2 Ml Oral.Conc) 35 mg PO DAILY COUNTS INCLUDE 234 BEDS AT THE [facility] Last Admin: 06/23/23 08:32 Dose: 35 mg Methylphenidate HCl (Methylphenidate Hcl 10 Mg Tablet) 40 mg PO DAILY ANGELA Last Admin: 06/23/23 08:34 Dose: 40 mg Methylphenidate HCl (Methylphenidate Hcl 10 Mg Tablet) 20 mg PO DAILY@1300 ANGELA Prazosin HCl (Prazosin Hcl 1 Mg Capsule) 2 mg PO BEDTIME ANGELA; Protocol Last Admin: 06/22/23 21:16 Dose: 2 mg Sertraline HCl (Sertraline Hcl 100 Mg Tablet) 200 mg PO DAILY COUNTS INCLUDE 234 BEDS AT THE [facility] Last Admin: 06/23/23 08:37 Dose: 200 mg Trazodone HCl (Trazodone Hcl 50 Mg Tablet) 50 mg PO BEDTIME MRX1 PRN PRN Reason: Insomnia Last Admin: 06/22/23 21:15 Dose: 50 mg Allergies Allergies Allergy/AdvReac Type Severity Reaction Status Date / Time amoxicillin Allergy Hives Verified 12/28/22 08:17 Assessment & Plan Assessment & Plan (1) MDD (major depressive disorder), recurrent severe, without psychosis: Status: Acute Code(s): F33.2 - Major depressive disorder, recurrent severe without psychotic features (2) PTSD (post-traumatic stress disorder): Status: Acute Code(s): F43.10 - Post-traumatic stress disorder, unspecified (3) Cocaine use disorder: Status: Acute Code(s): F14.10 - Cocaine abuse, uncomplicated (4) Opioid use disorder, severe, in sustained remission, dependence: Status: Acute Code(s): F11.21 - Opioid dependence, in remission (5) Cellulitis: Status: Acute Code(s): L03.90 - Cellulitis, unspecified Plan pt is a 42 yo female with hx of depression, PtSD, substance abuse, opioid dependence on methadone, ADHD who self presents for worsening depression, anxiety with SI in the face coping with mother's's recent this past week. Patient was last admitted following her daughter's overdose . Patient reports she has remained at the program, [facility] and was doing well, taking her medications, sober, engaged and only got distraught when she found her mother had passed. Patient became very depressed and relapsed with cocaine and opiates and stop taking her medications. Patient became suicidal with plan to overdose and wanting to engage in self-harm, however she asked a friend to bring her to the emergency room, wanting to stay safe and return to sobriety. Patient has been off her medications for a week but said there were helpful and wants to get back on them. Wants to have methadone titrated back as well since she found it helpful. Patient still endorses intermittent SI however said she is trying to process her feelings and become future oriented again. Hospital course: 06/22 patient remains depressed, tearful and isolative however she is regaining some hope that she will overcome this. In her life. Asks to be restarted on Abilify. Plan: CV Q 15 minute checks Add Abilify 5 mg daily; patient said it was started few months ago which she found helpful for her mood Restart home medication Patient no longer taking Trileptal Increase methadone to 50 mg daily; patient only off methadone for week and is much more stable on home dose. Hospitalist AMY saw patient: She reports of 3 days ago she developed a lesion on the left side of the face. superficial ulceration at the left lower jaw line measuring about 1 cm x 8 mm without any active purulent drainage. faint surrounding erythema; afebrile; vital signs stable. Plan: Will treat mild cellulitis with Keflex 500 mg q.i.d. and doxycycline 100 mg b.i.d. x7 days. -keep the wound covered with the bandage during waking hours and wash her hands frequently and avoid touching the lesion. Patient educated on: diagnosis, medication risk/benefits, substance abuse and therapeutic strategies Informed Consent: understands Reason for continued inpatient stay Substantial Risk for: rapid decompensation Time Spent With Patient Time: Total time managing care of this patient today ____ minutes.
[2023-06-23] MEDS: Methylphenidate HCl 10 MG TABLET 20 MG PO (14:12)
[2023-06-23 16:00] VITALS: PULSE 72
[2023-06-23 18:00] VITALS: BP 104/51; PULSE 62; RESP 17; TEMP 36.6; O2SAT 97
[2023-06-23] MEDS: Prazosin HCL 1 MG CAPSULE 2 MG PO (19:49)
[2023-06-23] MEDS: methADONE HCl 20 MG/2 ML ORAL.CONC 5 MG PO (19:50)
[2023-06-23] MEDS: traZODone HCL 50 MG TABLET PO (19:52)
[2023-06-23] MEDS: Cyclobenzaprine HCl 5 MG TABLET PO (19:52)
[2023-06-23 23:55] VITALS: PULSE 60
[2023-06-24] MEDS: cephALEXin 500 MG CAPSULE PO ×4 (00:55→18:06)
[2023-06-24 08:00] VITALS: PULSE 73
[2023-06-24 08:30] VITALS: BP 126/68; PULSE 73; RESP 18; TEMP 36.4; O2SAT 97
[2023-06-24] MEDS: methADONE HCl 20 MG/2 ML ORAL.CONC 50 MG PO (08:39)
[2023-06-24] MEDS: Sertraline HCL 100 MG TABLET 200 MG PO (08:40)
[2023-06-24] MEDS: cloNIDine HCL 0.1 MG TABLET PO ×2 (08:41→20:46)
[2023-06-24] MEDS: Doxycycline Monohydrate 100 MG CAPSULE PO ×2 (08:41→20:45)
[2023-06-24] MEDS: busPIRone HCl 5 MG TABLET 15 MG PO ×3 (08:41→20:45)
[2023-06-24] MEDS: Methylphenidate HCl 10 MG TABLET 40 MG PO (08:42)
--- NOTE | 2023-06-24 10:04 | HO.PSYCHPN ---
Subjective Subjective Date of Service: 06/24/23 Reason For Visit: si depression abuse Interim History: met with patient; discussed with team pt remains depressed but no SI. not attending to ADL's and malodorous but says she knows it's time to bath and start attending to ADL's. Pt having trouble sleeping. Mental Status Exam Mental Status Exam Narrative: Pt is alert and oriented; behavior is cooperative, but reticent, less tearful but isolative; patient is not in distress; dressed in casual attire with unkempt hair, disheveled and malodorous; mood is described as depressed and affect congruent, downcast; eye contact limited; Speech is a little slowed rate, soft volume, normal prosody; psychomotor retardation present; thought process is organized and goal directed; Thought content is on mourning the loss of her mother; otherwise pertinent to relevant topics and without any delusional content, paranoid ideations or grandiosity; no SI; no HI. There is no evidence of perceptual disturbance. Denies AVH Patients insight and judgment impaired but improving Diagnostics Vital Signs (24Hr): Vital Signs - 24 hr 06/23/23 18:00 06/24/23 08:30 Temperature 97.8 F 97.5 F Pulse Rate 62 73 Respiratory Rate 17 18 Blood Pressure 104/51 L 126/68 Pulse Oximetry 97 97 Oxygen Delivery Method Room Air Room Air BMI result Body Mass Index 25.5 Labs 06/20/23 23:03 06/22/23 07:08 Medications Medications Current Medications Acetaminophen (Acetaminophen 325 Mg Tablet) 650 mg PO Q6H PRN PRN Reason: Headache/Pain Mild Scale (1-3) Al Hydroxide/Mg Hydroxide (Magnesium Hydrox/Alum Hydrox 30 Ml Oral.Susp) 30 ml PO Q6H PRN PRN Reason: Heartburn/Nausea Buspirone HCl (Buspirone Hcl 5 Mg Tablet) 15 mg PO TID ANGELA Last Admin: 06/24/23 08:41 Dose: 15 mg Cephalexin HCl (Cephalexin 500 Mg Capsule) 500 mg PO Q6H ANGELA Stop: 06/28/23 18:01 Last Admin: 06/24/23 06:10 Dose: 500 mg Clonidine HCl (Clonidine Hcl 0.1 Mg Tablet) 0.1 mg PO TID PRN; Protocol PRN Reason: opioid withdrawal Last Admin: 06/23/23 19:50 Dose: 0.1 mg Clonidine HCl (Clonidine Hcl 0.1 Mg Tablet) 0.1 mg PO DAILY ANGELA; Protocol Last Admin: 06/24/23 08:41 Dose: 0.1 mg Clonidine HCl (Clonidine Hcl 0.1 Mg Tablet) 0.1 mg PO Q4H PRN; Protocol PRN Reason: anxiety Cyclobenzaprine HCl (Cyclobenzaprine Hcl 5 Mg Tablet) 5 mg PO TID PRN PRN Reason: muscle cramps Last Admin: 06/23/23 19:52 Dose: 5 mg Doxycycline Monohydrate (Doxycycline Monohydrate 100 Mg Capsule) 100 mg PO Q12H ANGELA Stop: 06/28/23 09:16 Last Admin: 06/24/23 08:41 Dose: 100 mg Lidocaine (Lidocaine 4 % Patch Adh..Patch) 1 patch TRANSDERMA DAILY PRN; Protocol PRN Reason: musculoskelteal pain Loperamide HCl (Loperamide Hcl 2 Mg Capsule) 2 mg PO Q4H PRN PRN Reason: Loose Stool Magnesium Hydroxide (Milk Of Magnesia 30 Ml Oral.Susp) 30 ml PO DAILY PRN PRN Reason: Constipation Methadone HCl (Methadone Hcl 20 Mg/2 Ml Oral.Conc) 50 mg PO DAILY ANGELA Last Admin: 06/24/23 08:39 Dose: 50 mg Methylphenidate HCl (Methylphenidate Hcl 10 Mg Tablet) 40 mg PO DAILY ANGELA Last Admin: 06/24/23 08:42 Dose: 40 mg Methylphenidate HCl (Methylphenidate Hcl 10 Mg Tablet) 20 mg PO DAILY@[facility] Last Admin: 06/23/23 14:12 Dose: 20 mg Prazosin HCl (Prazosin Hcl 1 Mg Capsule) 2 mg PO BEDTIME ANGELA; Protocol Last Admin: 06/23/23 19:49 Dose: 2 mg Sertraline HCl (Sertraline Hcl 100 Mg Tablet) 200 mg PO DAILY [facility] Last Admin: 06/24/23 08:40 Dose: 200 mg Trazodone HCl (Trazodone Hcl 50 Mg Tablet) 50 mg PO BEDTIME MRX1 PRN PRN Reason: Insomnia Last Admin: 06/23/23 19:52 Dose: 50 mg Allergies Allergies Allergy/AdvReac Type Severity Reaction Status Date / Time amoxicillin Allergy Hives Verified 12/28/22 08:17 Assessment & Plan Assessment & Plan (1) MDD (major depressive disorder), recurrent severe, without psychosis: Status: Acute Code(s): F33.2 - Major depressive disorder, recurrent severe without psychotic features (2) PTSD (post-traumatic stress disorder): Status: Acute Code(s): F43.10 - Post-traumatic stress disorder, unspecified (3) Cocaine use disorder: Status: Acute Code(s): F14.10 - Cocaine abuse, uncomplicated (4) Opioid use disorder, severe, in sustained remission, dependence: Status: Acute Code(s): F11.21 - Opioid dependence, in remission (5) Cellulitis: Status: Acute Code(s): L03.90 - Cellulitis, unspecified Plan pt is a 42 yo female with hx of depression, PtSD, substance abuse, opioid dependence on methadone, ADHD who self presents for worsening depression, anxiety with SI in the face coping with mother's's recent this past week. Patient was last admitted following her daughter's overdose . Patient reports she has remained at the program, [facility] and was doing well, taking her medications, sober, engaged and only got distraught when she found her mother had passed. Patient became very depressed and relapsed with cocaine and opiates and stop taking her medications. Patient became suicidal with plan to overdose and wanting to engage in self-harm, however she asked a friend to bring her to the emergency room, wanting to stay safe and return to sobriety. Patient has been off her medications for a week but said there were helpful and wants to get back on them. Wants to have methadone titrated back as well since she found it helpful. Patient still endorses intermittent SI however said she is trying to process her feelings and become future oriented again. Hospital course: 06/22 patient remains depressed, tearful and isolative however she is regaining some hope that she will overcome this. In her life. Asks to be restarted on Abilify. 06/24 pt remains depressed but no SI. not attending to ADL's and malodorous but says she knows it's time to bath and start attending to ADL's. Pt having trouble sleeping; increased Trazodone (Seroquel not helpful last admission). Plan: CV Q 15 minute checks continue Abilify 5 mg daily; patient said it was started few months ago which she found helpful for her mood Increased Trazodone to 100mg for continued insomnia (Seroquel not effective last time took) Restart home medication Patient no longer taking Trileptal Increase methadone to 60 mg daily; patient only off methadone for week and is much more stable on home dose. Hospitalist AMY saw patient: She reports of 3 days ago she developed a lesion on the left side of the face. superficial ulceration at the left lower jaw line measuring about 1 cm x 8 mm without any active purulent drainage. faint surrounding erythema; afebrile; vital signs stable. Plan: Will treat mild cellulitis with Keflex 500 mg q.i.d. and doxycycline 100 mg b.i.d. x7 days. -keep the wound covered with the bandage during waking hours and wash her hands frequently and avoid touching the lesion. Patient educated on: diagnosis, medication risk/benefits and substance abuse Informed Consent: understands Reason for continued inpatient stay Substantial Risk for: rapid decompensation Time Spent With Patient Time: Total time managing care of this patient today ____ minutes.
[2023-06-24] MEDS: Methylphenidate HCl 10 MG TABLET 20 MG PO (13:05)
[2023-06-24] MEDS: ARIPiprazole 5 MG TABLET PO (13:05)
[2023-06-24 16:00] VITALS: PULSE 73
[2023-06-24 20:00] VITALS: BP 107/60; PULSE 64; RESP 18; TEMP 36.4; O2SAT 98
[2023-06-24] MEDS: Prazosin HCL 1 MG CAPSULE 2 MG PO (20:44)
[2023-06-24] MEDS: methADONE HCl 20 MG/2 ML ORAL.CONC 5 MG PO (20:44)
[2023-06-24] MEDS: Cyclobenzaprine HCl 5 MG TABLET PO (20:45)
[2023-06-24] MEDS: traZODone HCL 50 MG TABLET PO (20:45)
[2023-06-24] MEDS: traZODone HCL 100 MG TABLET PO (20:45)
[2023-06-25] MEDS: cephALEXin 500 MG CAPSULE PO ×4 (00:39→18:55)
[2023-06-25 08:00] VITALS: PULSE 62
[2023-06-25 08:20] VITALS: BP 101/51; PULSE 62; RESP 18; TEMP 36; O2SAT 95
[2023-06-25] MEDS: methADONE HCl 20 MG/2 ML ORAL.CONC 60 MG PO (09:09)
[2023-06-25] MEDS: Doxycycline Monohydrate 100 MG CAPSULE PO ×2 (09:09→20:36)
[2023-06-25] MEDS: Sertraline HCL 100 MG TABLET 200 MG PO (09:10)
[2023-06-25] MEDS: ARIPiprazole 5 MG TABLET PO (09:10)
[2023-06-25] MEDS: busPIRone HCl 5 MG TABLET 15 MG PO ×3 (09:11→20:35)
[2023-06-25] MEDS: Methylphenidate HCl 10 MG TABLET 40 MG PO (09:11)
--- NOTE | 2023-06-25 11:19 | P.PNPSI_ITS ---
Subjective Subjective Date of Service: 06/25/23 Reason For Visit: si depression abuse Interim History: met with patient; discussed with team pt remains depressed but no SI. She is hopeful restarting her antidepressants will be helpful. She denies side effects. Remains mostly isolative. Reports she would like to restart Seroquel to help with sleep and her mood. Reports she is eating well. Denies other complaints. Review of Systems Review of Systems Yes all other systems are reviewed and are negative Mental Status Exam Mental Status Exam Narrative: Pt is alert and oriented; behavior is cooperative, but reticent, less tearful but isolative; patient is not in distress; dressed in casual attire with unkempt hair, disheveled and malodorous; mood is described as depressed and affect congruent, downcast; eye contact limited; Speech is a little slowed rate, soft volume, normal prosody; psychomotor retardation present; thought process is organized and goal directed; Thought content is on mourning the loss of her mother; otherwise pertinent to relevant topics and without any delusional content, paranoid ideations or grandiosity; no SI; no HI. There is no evidence of perceptual disturbance. Denies AVH Patients insight and judgment impaired but improving Diagnostics Vital Signs (24Hr): Vital Signs - 24 hr 06/24/23 20:00 06/25/23 08:20 Temperature 97.6 F 96.8 F Pulse Rate 64 62 Respiratory Rate 18 18 Blood Pressure 107/60 101/51 L Pulse Oximetry 98 95 Oxygen Delivery Method Room Air Room Air BMI result Body Mass Index 25.5 Labs 06/20/23 23:03 06/22/23 07:08 Medications Medications Current Medications Acetaminophen (Acetaminophen 325 Mg Tablet) 650 mg PO Q6H PRN PRN Reason: Headache/Pain Mild Scale (1-3) Al Hydroxide/Mg Hydroxide (Magnesium Hydrox/Alum Hydrox 30 Ml Oral.Susp) 30 ml PO Q6H PRN PRN Reason: Heartburn/Nausea Aripiprazole (Aripiprazole 5 Mg Tablet) 5 mg PO DAILY [facility] Last Admin: 06/25/23 09:10 Dose: 5 mg Buspirone HCl (Buspirone Hcl 5 Mg Tablet) 15 mg PO TID ANGELA Last Admin: 06/25/23 09:11 Dose: 15 mg Cephalexin HCl (Cephalexin 500 Mg Capsule) 500 mg PO Q6H ANGELA Stop: 06/28/23 18:01 Last Admin: 06/25/23 06:23 Dose: 500 mg Clonidine HCl (Clonidine Hcl 0.1 Mg Tablet) 0.1 mg PO TID PRN; Protocol PRN Reason: opioid withdrawal Last Admin: 06/24/23 20:46 Dose: 0.1 mg Clonidine HCl (Clonidine Hcl 0.1 Mg Tablet) 0.1 mg PO DAILY ANGELA; Protocol Last Admin: 06/25/23 09:12 Dose: Not Given Clonidine HCl (Clonidine Hcl 0.1 Mg Tablet) 0.1 mg PO Q4H PRN; Protocol PRN Reason: anxiety Cyclobenzaprine HCl (Cyclobenzaprine Hcl 5 Mg Tablet) 5 mg PO TID PRN PRN Reason: muscle cramps Last Admin: 06/24/23 20:45 Dose: 5 mg Doxycycline Monohydrate (Doxycycline Monohydrate 100 Mg Capsule) 100 mg PO Q12H ANGELA Stop: 06/28/23 09:16 Last Admin: 06/25/23 09:09 Dose: 100 mg Lidocaine (Lidocaine 4 % Patch Adh..Patch) 1 patch TRANSDERMA DAILY PRN; Protocol PRN Reason: musculoskelteal pain Loperamide HCl (Loperamide Hcl 2 Mg Capsule) 2 mg PO Q4H PRN PRN Reason: Loose Stool Magnesium Hydroxide (Milk Of Magnesia 30 Ml Oral.Susp) 30 ml PO DAILY PRN PRN Reason: Constipation Methadone HCl (Methadone Hcl 20 Mg/2 Ml Oral.Conc) 60 mg PO DAILY [facility] Last Admin: 06/25/23 09:09 Dose: 60 mg Methylphenidate HCl (Methylphenidate Hcl 10 Mg Tablet) 40 mg PO DAILY [facility] Last Admin: 06/25/23 09:11 Dose: 40 mg Methylphenidate HCl (Methylphenidate Hcl 10 Mg Tablet) 20 mg PO DAILY@1300 [facility] Last Admin: 06/24/23 13:05 Dose: 20 mg Prazosin HCl (Prazosin Hcl 1 Mg Capsule) 2 mg PO BEDTIME ANGELA; Protocol Last Admin: 06/24/23 20:44 Dose: 2 mg Sertraline HCl (Sertraline Hcl 100 Mg Tablet) 200 mg PO DAILY [facility] Last Admin: 06/25/23 09:10 Dose: 200 mg Trazodone HCl (Trazodone Hcl 100 Mg Tablet) 100 mg PO BEDTIME ANGELA Last Admin: 06/24/23 20:45 Dose: 100 mg Trazodone HCl (Trazodone Hcl 50 Mg Tablet) 50 mg PO BEDTIME PRN PRN Reason: continued insomnia Last Admin: 06/24/23 20:45 Dose: 50 mg Allergies Allergies Allergy/AdvReac Type Severity Reaction Status Date / Time amoxicillin Allergy Hives Verified 12/28/22 08:17 Assessment & Plan Assessment & Plan (1) MDD (major depressive disorder), recurrent severe, without psychosis: Status: Acute Code(s): F33.2 - Major depressive disorder, recurrent severe without psychotic features (2) PTSD (post-traumatic stress disorder): Status: Acute Code(s): F43.10 - Post-traumatic stress disorder, unspecified (3) Cocaine use disorder: Status: Acute Code(s): F14.10 - Cocaine abuse, uncomplicated (4) Opioid use disorder, severe, in sustained remission, dependence: Status: Acute Code(s): F11.21 - Opioid dependence, in remission (5) Cellulitis: Status: Acute Code(s): L03.90 - Cellulitis, unspecified Plan pt is a 42 yo female with hx of depression, PtSD, substance abuse, opioid dependence on methadone, ADHD who self presents for worsening depression, anxiety with SI in the face coping with mother's's recent this past week. Patient was last admitted following her daughter's overdose . Patient reports she has remained at the program, [facility] and was doing well, taking her medications, sober, engaged and only got distraught when she found her mother had passed. Patient became very depressed and relapsed with cocaine and opiates and stop taking her medications. Patient became suicidal with plan to overdose and wanting to engage in self-harm, however she asked a friend to bring her to the emergency room, wanting to stay safe and return to sobriety. Patient has been off her medications for a week but said there were helpful and wants to get back on them. Wants to have methadone titrated back as well since she found it helpful. Patient still endorses intermittent SI however said she is trying to process her feelings and become future oriented again. Hospital course: 06/22 patient remains depressed, tearful and isolative however she is regaining some hope that she will overcome this. In her life. Asks to be restarted on Abilify. 06/24 pt remains depressed but no SI. not attending to ADL's and malodorous but says she knows it's time to bath and start attending to ADL's. Pt having trouble sleeping; increased Trazodone (Seroquel not helpful last admission). 06/25: Seroquel 50 mg HS. Plan: CV Q 15 minute checks continue Abilify 5 mg daily; patient said it was started few months ago which she found helpful for her mood Increased Trazodone to 100mg for continued insomnia (Seroquel not effective last time took) Restart home medication Patient no longer taking Trileptal Increase methadone to 60 mg daily; patient only off methadone for week and is much more stable on home dose. Hospitalist AMY saw patient: She reports of 3 days ago she developed a lesion on the left side of the face. superficial ulceration at the left lower jaw line measuring about 1 cm x 8 mm without any active purulent drainage. faint surrounding erythema; afebrile; vital signs stable. Plan: Will treat mild cellulitis with Keflex 500 mg q.i.d. and doxycycline 100 mg b.i.d. x7 days. -keep the wound covered with the bandage during waking hours and wash her hands frequently and avoid touching the lesion. Reason for continued inpatient stay Substantial Risk for: harm to self, inability to function and rapid decompensation Time Spent With Patient Time: Total time managing care of this patient today ____ minutes.
[2023-06-25] MEDS: Methylphenidate HCl 10 MG TABLET 20 MG PO (13:23)
[2023-06-25] MEDS: QUEtiapine Fumarate 50 MG TABLET PO (20:35)
[2023-06-25] MEDS: Prazosin HCL 1 MG CAPSULE 2 MG PO (20:35)
[2023-06-25] MEDS: cloNIDine HCL 0.1 MG TABLET PO (20:39)
[2023-06-26] MEDS: cephALEXin 500 MG CAPSULE PO ×5 (00:15→23:50)
[2023-06-26 07:55] VITALS: BP 91/52; PULSE 62; RESP 18; TEMP 37.2; O2SAT 96
[2023-06-26] MEDS: methADONE HCl 20 MG/2 ML ORAL.CONC 60 MG PO (08:14)
[2023-06-26] MEDS: Sertraline HCL 100 MG TABLET 200 MG PO (08:15)
[2023-06-26] MEDS: Doxycycline Monohydrate 100 MG CAPSULE PO ×2 (08:15→20:31)
[2023-06-26] MEDS: busPIRone HCl 5 MG TABLET 15 MG PO (08:16)
[2023-06-26] MEDS: ARIPiprazole 5 MG TABLET PO (08:16)
[2023-06-26] MEDS: Methylphenidate HCl 10 MG TABLET 40 MG PO (08:16)
--- NOTE | 2023-06-26 13:15 | HO.PSYCHPN ---
Subjective Subjective Date of Service: 06/26/23 Reason For Visit: si depression abuse Interim History: met with patient; discussed with team Patient reports she slept better and is thankful for restarting the Seroquel. She denied side effects with her medications. pt remains depressed but no SI. She is hopeful restarting her antidepressants will be helpful. Remains mostly isolative. Reports she is eating well. Denies other complaints. Review of Systems Review of Systems Yes all other systems are reviewed and are negative Mental Status Exam Mental Status Exam Narrative: Pt is alert and oriented; behavior is cooperative, but reticent, less tearful but isolative; patient is not in distress; dressed in casual attire with unkempt hair, disheveled and malodorous; mood is described as depressed and affect congruent, downcast; eye contact limited; Speech is a little slowed rate, soft volume, normal prosody; psychomotor retardation present; thought process is organized and goal directed; Thought content is on mourning the loss of her mother; otherwise pertinent to relevant topics and without any delusional content, paranoid ideations or grandiosity; no SI; no HI. There is no evidence of perceptual disturbance. Denies AVH Patients insight and judgment impaired but improving Diagnostics Vital Signs (24Hr): Vital Signs - 24 hr 06/26/23 07:55 Temperature 98.9 F Pulse Rate 62 Respiratory Rate 18 Blood Pressure 91/52 L Pulse Oximetry 96 Oxygen Delivery Method Room Air BMI result Body Mass Index 25.5 Labs 06/20/23 23:03 06/22/23 07:08 Medications Medications Current Medications Acetaminophen (Acetaminophen 325 Mg Tablet) 650 mg PO Q6H PRN PRN Reason: Headache/Pain Mild Scale (1-3) Al Hydroxide/Mg Hydroxide (Magnesium Hydrox/Alum Hydrox 30 Ml Oral.Susp) 30 ml PO Q6H PRN PRN Reason: Heartburn/Nausea Aripiprazole (Aripiprazole 5 Mg Tablet) 5 mg PO DAILY [facility] Last Admin: 06/26/23 08:16 Dose: 5 mg Buspirone HCl (Buspirone Hcl 5 Mg Tablet) 15 mg PO TID [facility] Last Admin: 06/26/23 08:16 Dose: 15 mg Cephalexin HCl (Cephalexin 500 Mg Capsule) 500 mg PO Q6H [facility] Stop: 06/28/23 18:01 Last Admin: 06/26/23 11:31 Dose: 500 mg Clonidine HCl (Clonidine Hcl 0.1 Mg Tablet) 0.1 mg PO TID PRN; Protocol PRN Reason: opioid withdrawal Last Admin: 06/25/23 20:39 Dose: 0.1 mg Clonidine HCl (Clonidine Hcl 0.1 Mg Tablet) 0.1 mg PO DAILY [facility]; Protocol Last Admin: 06/26/23 08:17 Dose: Not Given Clonidine HCl (Clonidine Hcl 0.1 Mg Tablet) 0.1 mg PO Q4H PRN; Protocol PRN Reason: anxiety Cyclobenzaprine HCl (Cyclobenzaprine Hcl 5 Mg Tablet) 5 mg PO TID PRN PRN Reason: muscle cramps Last Admin: 06/24/23 20:45 Dose: 5 mg Doxycycline Monohydrate (Doxycycline Monohydrate 100 Mg Capsule) 100 mg PO Q12H [facility] Stop: 06/28/23 09:16 Last Admin: 06/26/23 08:15 Dose: 100 mg Lidocaine (Lidocaine 4 % Patch Adh..Patch) 1 patch TRANSDERMA DAILY PRN; Protocol PRN Reason: musculoskelteal pain Loperamide HCl (Loperamide Hcl 2 Mg Capsule) 2 mg PO Q4H PRN PRN Reason: Loose Stool Magnesium Hydroxide (Milk Of Magnesia 30 Ml Oral.Susp) 30 ml PO DAILY PRN PRN Reason: Constipation Methadone HCl (Methadone Hcl 20 Mg/2 Ml Oral.Conc) 60 mg PO DAILY [facility] Last Admin: 06/26/23 08:14 Dose: 60 mg Methylphenidate HCl (Methylphenidate Hcl 10 Mg Tablet) 40 mg PO DAILY [facility] Last Admin: 06/26/23 08:16 Dose: 40 mg Methylphenidate HCl (Methylphenidate Hcl 10 Mg Tablet) 20 mg PO DAILY@1300 [facility] Last Admin: 06/25/23 13:23 Dose: 20 mg Prazosin HCl (Prazosin Hcl 1 Mg Capsule) 2 mg PO BEDTIME [facility]; Protocol Last Admin: 06/25/23 20:35 Dose: 2 mg Quetiapine Fumarate (Quetiapine Fumarate 50 Mg Tablet) 50 mg PO BEDTIME [facility] Last Admin: 06/25/23 20:35 Dose: 50 mg Sertraline HCl (Sertraline Hcl 100 Mg Tablet) 200 mg PO DAILY [facility] Last Admin: 06/26/23 08:15 Dose: 200 mg Trazodone HCl (Trazodone Hcl 100 Mg Tablet) 100 mg PO BEDTIME [facility] Last Admin: 06/25/23 20:36 Dose: Not Given Trazodone HCl (Trazodone Hcl 50 Mg Tablet) 50 mg PO BEDTIME PRN PRN Reason: continued insomnia Last Admin: 06/24/23 20:45 Dose: 50 mg Allergies Allergies Allergy/AdvReac Type Severity Reaction Status Date / Time amoxicillin Allergy Hives Verified 12/28/22 08:17 Assessment & Plan Assessment & Plan (1) MDD (major depressive disorder), recurrent severe, without psychosis: Status: Acute Code(s): F33.2 - Major depressive disorder, recurrent severe without psychotic features (2) PTSD (post-traumatic stress disorder): Status: Acute Code(s): F43.10 - Post-traumatic stress disorder, unspecified (3) Cocaine use disorder: Status: Acute Code(s): F14.10 - Cocaine abuse, uncomplicated (4) Opioid use disorder, severe, in sustained remission, dependence: Status: Acute Code(s): F11.21 - Opioid dependence, in remission (5) Cellulitis: Status: Acute Code(s): L03.90 - Cellulitis, unspecified Plan pt is a 42 yo female with hx of depression, PtSD, substance abuse, opioid dependence on methadone, ADHD who self presents for worsening depression, anxiety with SI in the face coping with mother's's recent this past week. Patient was last admitted following her daughter's overdose . Patient reports she has remained at the program, [facility] and was doing well, taking her medications, sober, engaged and only got distraught when she found her mother had passed. Patient became very depressed and relapsed with cocaine and opiates and stop taking her medications. Patient became suicidal with plan to overdose and wanting to engage in self-harm, however she asked a friend to bring her to the emergency room, wanting to stay safe and return to sobriety. Patient has been off her medications for a week but said there were helpful and wants to get back on them. Wants to have methadone titrated back as well since she found it helpful. Patient still endorses intermittent SI however said she is trying to process her feelings and become future oriented again. Hospital course: 06/22 patient remains depressed, tearful and isolative however she is regaining some hope that she will overcome this. In her life. Asks to be restarted on Abilify. 06/24 pt remains depressed but no SI. not attending to ADL's and malodorous but says she knows it's time to bath and start attending to ADL's. Pt having trouble sleeping; increased Trazodone (Seroquel not helpful last admission). 06/25: Seroquel 50 mg HS. 06/26: Continue current treatment plan Plan: CV Q 15 minute checks continue Abilify 5 mg daily; patient said it was started few months ago which she found helpful for her mood Increased Trazodone to 100mg for continued insomnia (Seroquel not effective last time took) Restart home medication Patient no longer taking Trileptal Increase methadone to 60 mg daily; patient only off methadone for week and is much more stable on home dose. Hospitalist AMY saw patient: She reports of 3 days ago she developed a lesion on the left side of the face. superficial ulceration at the left lower jaw line measuring about 1 cm x 8 mm without any active purulent drainage. faint surrounding erythema; afebrile; vital signs stable. Plan: Will treat mild cellulitis with Keflex 500 mg q.i.d. and doxycycline 100 mg b.i.d. x7 days. -keep the wound covered with the bandage during waking hours and wash her hands frequently and avoid touching the lesion. Reason for continued inpatient stay Substantial Risk for: inability to function and rapid decompensation Time Spent With Patient Time: Total time managing care of this patient today ____ minutes.
[2023-06-26] MEDS: Methylphenidate HCl 10 MG TABLET 20 MG PO (13:54)
[2023-06-26] MEDS: busPIRone HCl 10 MG TABLET 15 MG PO ×2 (15:59→20:28)
[2023-06-26 18:00] VITALS: BP 105/59; PULSE 99; TEMP 36.6; O2SAT 97
[2023-06-26] MEDS: cloNIDine HCL 0.1 MG TABLET PO (20:27)
[2023-06-26] MEDS: Prazosin HCL 1 MG CAPSULE 2 MG PO (20:29)
[2023-06-26] MEDS: QUEtiapine Fumarate 50 MG TABLET PO (20:32)
[2023-06-27 06:00] VITALS: BP 102/65; PULSE 95; RESP 18; TEMP 37; O2SAT 96
[2023-06-27] MEDS: cephALEXin 500 MG CAPSULE PO ×3 (06:08→17:15)
[2023-06-27] MEDS: methADONE HCl 20 MG/2 ML ORAL.CONC 60 MG PO (08:39)
[2023-06-27] MEDS: cloNIDine HCL 0.1 MG TABLET PO (08:40)
[2023-06-27] MEDS: ARIPiprazole 5 MG TABLET PO (08:40)
[2023-06-27] MEDS: Doxycycline Monohydrate 100 MG CAPSULE PO ×2 (08:41→21:09)
[2023-06-27] MEDS: Sertraline HCL 100 MG TABLET 200 MG PO (08:41)
[2023-06-27] MEDS: Methylphenidate HCl 10 MG TABLET 40 MG PO (08:42)
[2023-06-27] MEDS: busPIRone HCl 10 MG TABLET 15 MG PO ×3 (08:42→21:09)
--- NOTE | 2023-06-27 10:10 | P.PNPSI_ITS ---
Subjective Subjective Date of Service: 06/27/23 Reason For Visit: si depression abuse Interim History: met with patient; discussed with team; reviewed notes pt says not a lot of anxiety, but still feels very depressed; she is wondering if Zoloft is no longer working however agrees that it's probably been at least partially helpful. Discussed med hx and pt agrees to start trial of Wellbutrin (discussed risks/side-effects including with stimulant). Mental Status Exam Mental Status Exam Narrative: Pt is alert and oriented; behavior is cooperative, calm, polite; less isolative; patient is not in distress; dressed in casual attire with unkempt hair, but improved hygiene; mood is described as depressed and affect congruent, downcast; eye contact appropriate; Speech is regular rate, volume and prosody; some psychomotor retardation present; thought process is organized and goal directed; Thought content is on mourning the loss of her mother dealing with depression, aftercare options; otherwise pertinent to relevant topics and without any delusional content, paranoid ideations or grandiosity; no SI; no HI. There is no evidence of perceptual disturbance. Denies AVH Patients insight and judgment fair. Diagnostics Vital Signs (24Hr): Vital Signs - 24 hr 06/26/23 18:00 06/27/23 06:00 Temperature 98 F 98.6 F Pulse Rate 99 95 Respiratory Rate 18 Blood Pressure 105/59 L 102/65 Pulse Oximetry 97 96 Oxygen Delivery Method Room Air Room Air BMI result Body Mass Index 25.5 Labs 06/20/23 23:03 06/22/23 07:08 Medications Medications Current Medications Acetaminophen (Acetaminophen 325 Mg Tablet) 650 mg PO Q6H PRN PRN Reason: Headache/Pain Mild Scale (1-3) Al Hydroxide/Mg Hydroxide (Magnesium Hydrox/Alum Hydrox 30 Ml Oral.Susp) 30 ml PO Q6H PRN PRN Reason: Heartburn/Nausea Aripiprazole (Aripiprazole 5 Mg Tablet) 5 mg PO DAILY [facility] Last Admin: 06/27/23 08:40 Dose: 5 mg Buspirone HCl (Buspirone Hcl 10 Mg Tablet) 15 mg PO TID [facility] Last Admin: 06/27/23 08:42 Dose: 15 mg Cephalexin HCl (Cephalexin 500 Mg Capsule) 500 mg PO Q6H [facility] Stop: 06/28/23 18:01 Last Admin: 06/27/23 06:08 Dose: 500 mg Clonidine HCl (Clonidine Hcl 0.1 Mg Tablet) 0.1 mg PO TID PRN; Protocol PRN Reason: opioid withdrawal Last Admin: 06/25/23 20:39 Dose: 0.1 mg Clonidine HCl (Clonidine Hcl 0.1 Mg Tablet) 0.1 mg PO DAILY [facility]; Protocol Last Admin: 06/27/23 08:40 Dose: 0.1 mg Clonidine HCl (Clonidine Hcl 0.1 Mg Tablet) 0.1 mg PO Q4H PRN; Protocol PRN Reason: anxiety Last Admin: 06/26/23 20:27 Dose: 0.1 mg Cyclobenzaprine HCl (Cyclobenzaprine Hcl 5 Mg Tablet) 5 mg PO TID PRN PRN Reason: muscle cramps Last Admin: 06/24/23 20:45 Dose: 5 mg Doxycycline Monohydrate (Doxycycline Monohydrate 100 Mg Capsule) 100 mg PO Q12H [facility] Stop: 06/28/23 09:16 Last Admin: 06/27/23 08:41 Dose: 100 mg Lidocaine (Lidocaine 4 % Patch Adh..Patch) 1 patch TRANSDERMA DAILY PRN; Protocol PRN Reason: musculoskelteal pain Loperamide HCl (Loperamide Hcl 2 Mg Capsule) 2 mg PO Q4H PRN PRN Reason: Loose Stool Magnesium Hydroxide (Milk Of Magnesia 30 Ml Oral.Susp) 30 ml PO DAILY PRN PRN Reason: Constipation Methadone HCl (Methadone Hcl 20 Mg/2 Ml Oral.Conc) 60 mg PO DAILY [facility] Last Admin: 06/27/23 08:39 Dose: 60 mg Methylphenidate HCl (Methylphenidate Hcl 10 Mg Tablet) 40 mg PO DAILY [facility] Last Admin: 06/27/23 08:42 Dose: 40 mg Methylphenidate HCl (Methylphenidate Hcl 10 Mg Tablet) 20 mg PO DAILY@1300 [facility] Last Admin: 06/26/23 13:54 Dose: 20 mg Prazosin HCl (Prazosin Hcl 1 Mg Capsule) 2 mg PO BEDTIME [facility]; Protocol Last Admin: 06/26/23 20:29 Dose: 2 mg Quetiapine Fumarate (Quetiapine Fumarate 50 Mg Tablet) 50 mg PO BEDTIME [facility] Last Admin: 06/26/23 20:32 Dose: 50 mg Sertraline HCl (Sertraline Hcl 100 Mg Tablet) 200 mg PO DAILY [facility] Last Admin: 06/27/23 08:41 Dose: 200 mg Trazodone HCl (Trazodone Hcl 100 Mg Tablet) 100 mg PO BEDTIME [facility] Last Admin: 06/26/23 20:32 Dose: Not Given Trazodone HCl (Trazodone Hcl 50 Mg Tablet) 50 mg PO BEDTIME PRN PRN Reason: continued insomnia Last Admin: 06/24/23 20:45 Dose: 50 mg Allergies Allergies Allergy/AdvReac Type Severity Reaction Status Date / Time amoxicillin Allergy Hives Verified 12/28/22 08:17 Assessment & Plan Assessment & Plan (1) MDD (major depressive disorder), recurrent severe, without psychosis: Status: Acute Code(s): F33.2 - Major depressive disorder, recurrent severe without psychotic features (2) PTSD (post-traumatic stress disorder): Status: Acute Code(s): F43.10 - Post-traumatic stress disorder, unspecified (3) Cocaine use disorder: Status: Acute Code(s): F14.10 - Cocaine abuse, uncomplicated (4) Opioid use disorder, severe, in sustained remission, dependence: Status: Acute Code(s): F11.21 - Opioid dependence, in remission (5) Cellulitis: Status: Acute Code(s): L03.90 - Cellulitis, unspecified Plan pt is a 42 yo female with hx of depression, PtSD, substance abuse, opioid dependence on methadone, ADHD who self presents for worsening depression, anxiety with SI in the face coping with mother's's recent this past week. Patient was last admitted following her daughter's overdose . Patient reports she has remained at the program, [facility] and was doing well, taking her medications, sober, engaged and only got distraught when she found her mother had passed. Patient became very depressed and relapsed with cocaine and opiates and stop taking her medications. Patient became suicidal with plan to overdose and wanting to engage in self-harm, however she asked a friend to bring her to the emergency room, wanting to stay safe and return to sobriety. Patient has been off her medications for a week but said there were helpful and wants to get back on them. Wants to have methadone titrated back as well since she found it helpful. Patient still endorses intermittent SI however said she is trying to process her feelings and become future oriented again. Hospital course: 06/22 patient remains depressed, tearful and isolative however she is regaining some hope that she will overcome this. In her life. Asks to be restarted on Abilify. 06/24 pt remains depressed but no SI. not attending to ADL's and malodorous but says she knows it's time to bath and start attending to ADL's. Pt having trouble sleeping; increased Trazodone (Seroquel not helpful last admission). 06/25: Seroquel 50 mg HS. 06/26: Continue current treatment plan 06/27 pt improving but still quite depressed; agrees to trial of Wellbutrin. -says trazodone not so helpful, only wants 50mg as prn; prefers seroquel for sleep Plan: CV Q 15 minute checks Conitnue Zoloft 200mg daily START Wellbutrin XL 150mg daily for continued depression continue Abilify 5 mg daily; patient said it was started few months ago which she found helpful for her mood decrease back to Trazodon 50mg prn for continued insomnia (Seroquel not effective last time took) continue SEroquel 50mg qhs for insomnia Continue methadone to 60 mg daily continue Stimulant/methylphenidate Continue Prazosin continue Buspirone HCl 15 mg PO TID [facility] Cephalexin HCl 500 mg PO Q6H [facility] Doxycycline Monohydrate 100 mg PO Q12H [facility] Patient no longer taking Trileptal Hospitalist AMY saw patient: She reports of 3 days ago she developed a lesion on the left side of the face. superficial ulceration at the left lower jaw line measuring about 1 cm x 8 mm without any active purulent drainage. faint surrounding erythema; afebrile; vital signs stable. Plan: Will treat mild cellulitis with Keflex 500 mg q.i.d. and doxycycline 100 mg b.i.d. x7 days. -keep the wound covered with the bandage during waking hours and wash her hands frequently and avoid touching the lesion. Patient educated on: diagnosis and medication risk/benefits Informed Consent: understands Reason for continued inpatient stay Substantial Risk for: rapid decompensation Time Spent With Patient Time: Total time managing care of this patient today ____ minutes.
[2023-06-27] MEDS: Methylphenidate HCl 10 MG TABLET 20 MG PO (12:30)
[2023-06-27 18:00] VITALS: BP 110/70; PULSE 83; RESP 16; TEMP 36.2; O2SAT 94
[2023-06-27] MEDS: Prazosin HCL 1 MG CAPSULE 2 MG PO (21:08)
[2023-06-27] MEDS: QUEtiapine Fumarate 50 MG TABLET PO (21:09)
[2023-06-28] MEDS: cephALEXin 500 MG CAPSULE PO ×4 (01:31→17:55)
[2023-06-28 08:25] VITALS: BP 102/60; PULSE 81; RESP 16; TEMP 36.6; O2SAT 100
[2023-06-28] MEDS: methADONE HCl 20 MG/2 ML ORAL.CONC 60 MG PO (08:45)
[2023-06-28] MEDS: Methylphenidate HCl 10 MG TABLET 40 MG PO (08:46)
[2023-06-28] MEDS: Doxycycline Monohydrate 100 MG CAPSULE PO (08:47)
[2023-06-28] MEDS: Sertraline HCL 100 MG TABLET 200 MG PO (08:47)
[2023-06-28] MEDS: ARIPiprazole 5 MG TABLET PO (08:47)
[2023-06-28] MEDS: busPIRone HCl 10 MG TABLET 15 MG PO ×3 (08:48→21:12)
[2023-06-28] MEDS: buPROPion HCl XL 150 MG TAB.ER.24H PO (08:48)
--- NOTE | 2023-06-28 09:52 | P.PNPSI_ITS ---
Subjective Subjective Date of Service: 06/28/23 Reason For Visit: si depression abuse Interim History: Met with patient; discussed with team Patient reports he still depressed and and not sure yet if Wellbutrin is helping since today is a 1st day; denies any side effects Mental Status Exam Mental Status Exam Narrative: Pt is alert and oriented; behavior is cooperative, calm, polite; less isolative; patient is not in distress; dressed in casual attire with unkempt hair, but improved hygiene; mood is described as depressed and affect congruent, downcast; eye contact appropriate; Speech is regular rate, volume and prosody; some psychomotor retardation present; thought process is organized and goal directed; Thought content is on mourning the loss of her mother dealing with depression, aftercare options; otherwise pertinent to relevant topics and without any delusional content, paranoid ideations or grandiosity; no SI; no HI. There is no evidence of perceptual disturbance. Denies AVH Patients insight and judgment fair. Diagnostics Vital Signs (24Hr): Vital Signs - 24 hr 06/27/23 18:00 06/28/23 08:25 Temperature 97.1 F 97.9 F Pulse Rate 83 81 Respiratory Rate 16 16 Blood Pressure 110/70 102/60 Pulse Oximetry 94 100 Oxygen Delivery Method Room Air Room Air BMI result Body Mass Index 25.5 Labs 06/20/23 23:03 06/22/23 07:08 Medications Medications Current Medications Acetaminophen (Acetaminophen 325 Mg Tablet) 650 mg PO Q6H PRN PRN Reason: Headache/Pain Mild Scale (1-3) Al Hydroxide/Mg Hydroxide (Magnesium Hydrox/Alum Hydrox 30 Ml Oral.Susp) 30 ml PO Q6H PRN PRN Reason: Heartburn/Nausea Aripiprazole (Aripiprazole 5 Mg Tablet) 5 mg PO DAILY [facility] Last Admin: 06/28/23 08:47 Dose: 5 mg Bupropion HCl (Bupropion Hcl Xl 150 Mg Tab.Er.24h) 150 mg PO DAILY [facility] Last Admin: 06/28/23 08:48 Dose: 150 mg Buspirone HCl (Buspirone Hcl 10 Mg Tablet) 15 mg PO TID [facility] Last Admin: 06/28/23 08:48 Dose: 15 mg Cephalexin HCl (Cephalexin 500 Mg Capsule) 500 mg PO Q6H [facility] Stop: 06/28/23 18:01 Last Admin: 06/28/23 06:17 Dose: 500 mg Clonidine HCl (Clonidine Hcl 0.1 Mg Tablet) 0.1 mg PO TID PRN; Protocol PRN Reason: opioid withdrawal Last Admin: 06/25/23 20:39 Dose: 0.1 mg Clonidine HCl (Clonidine Hcl 0.1 Mg Tablet) 0.1 mg PO DAILY [facility]; Protocol Last Admin: 06/28/23 08:51 Dose: Not Given Clonidine HCl (Clonidine Hcl 0.1 Mg Tablet) 0.1 mg PO Q4H PRN; Protocol PRN Reason: anxiety Last Admin: 06/26/23 20:27 Dose: 0.1 mg Cyclobenzaprine HCl (Cyclobenzaprine Hcl 5 Mg Tablet) 5 mg PO TID PRN PRN Reason: muscle cramps Last Admin: 06/24/23 20:45 Dose: 5 mg Lidocaine (Lidocaine 4 % Patch Adh..Patch) 1 patch TRANSDERMA DAILY PRN; Protocol PRN Reason: musculoskelteal pain Loperamide HCl (Loperamide Hcl 2 Mg Capsule) 2 mg PO Q4H PRN PRN Reason: Loose Stool Magnesium Hydroxide (Milk Of Magnesia 30 Ml Oral.Susp) 30 ml PO DAILY PRN PRN Reason: Constipation Methadone HCl (Methadone Hcl 20 Mg/2 Ml Oral.Conc) 60 mg PO DAILY [facility] Last Admin: 06/28/23 08:45 Dose: 60 mg Methylphenidate HCl (Methylphenidate Hcl 10 Mg Tablet) 40 mg PO DAILY [facility] Last Admin: 06/28/23 08:46 Dose: 40 mg Methylphenidate HCl (Methylphenidate Hcl 10 Mg Tablet) 20 mg PO DAILY@1300 [facility] Last Admin: 06/27/23 12:30 Dose: 20 mg Prazosin HCl (Prazosin Hcl 1 Mg Capsule) 2 mg PO BEDTIME [facility]; Protocol Last Admin: 06/27/23 21:08 Dose: 2 mg Quetiapine Fumarate (Quetiapine Fumarate 50 Mg Tablet) 50 mg PO BEDTIME [facility] Last Admin: 06/27/23 21:09 Dose: 50 mg Sertraline HCl (Sertraline Hcl 100 Mg Tablet) 200 mg PO DAILY [facility] Last Admin: 06/28/23 08:47 Dose: 200 mg Trazodone HCl (Trazodone Hcl 50 Mg Tablet) 50 mg PO BEDTIME PRN PRN Reason: continued insomnia Last Admin: 06/24/23 20:45 Dose: 50 mg Allergies Allergies Allergy/AdvReac Type Severity Reaction Status Date / Time amoxicillin Allergy Hives Verified 12/28/22 08:17 Assessment & Plan Assessment & Plan (1) MDD (major depressive disorder), recurrent severe, without psychosis: Status: Acute Code(s): F33.2 - Major depressive disorder, recurrent severe without psychotic features (2) PTSD (post-traumatic stress disorder): Status: Acute Code(s): F43.10 - Post-traumatic stress disorder, unspecified (3) Cocaine use disorder: Status: Acute Code(s): F14.10 - Cocaine abuse, uncomplicated (4) Opioid use disorder, severe, in sustained remission, dependence: Status: Acute Code(s): F11.21 - Opioid dependence, in remission (5) Cellulitis: Status: Acute Code(s): L03.90 - Cellulitis, unspecified Plan pt is a 42 yo female with hx of depression, PtSD, substance abuse, opioid dependence on methadone, ADHD who self presents for worsening depression, anxiety with SI in the face coping with mother's's recent this past week. Patient was last admitted following her daughter's overdose . Patient reports she has remained at the program, [facility] and was doing well, taking her medications, sober, engaged and only got distraught when she found her mother had passed. Patient became very depressed and relapsed with cocaine and opiates and stop taking her medications. Patient became suicidal with plan to overdose and wanting to engage in self-harm, however she asked a friend to bring her to the emergency room, wanting to stay safe and return to sobriety. Patient has been off her medications for a week but said there were helpful and wants to get back on them. Wants to have methadone titrated back as well since she found it helpful. Patient still endorses intermittent SI however said she is trying to process her feelings and become future oriented again. Hospital course: 06/22 patient remains depressed, tearful and isolative however she is regaining some hope that she will overcome this. In her life. Asks to be restarted on Abilify. 06/24 pt remains depressed but no SI. not attending to ADL's and malodorous but says she knows it's time to bath and start attending to ADL's. Pt having trouble sleeping; increased Trazodone (Seroquel not helpful last admission). 06/25: Seroquel 50 mg HS. 06/26: Continue current treatment plan 06/27 pt improving but still quite depressed; agrees to trial of Wellbutrin. -says trazodone not so helpful, only wants 50mg as prn; prefers seroquel for sleep 06/28 still depressed Plan: CV Q 15 minute checks Conitnue Zoloft 200mg daily Continue Wellbutrin XL 150mg daily for continued depression continue Abilify 5 mg daily; patient said it was started few months ago which she found helpful for her mood decrease back to Trazodon 50mg prn for continued insomnia (Seroquel not effective last time took) continue SEroquel 50mg qhs for insomnia Continue methadone to 60 mg daily continue Stimulant/methylphenidate Continue Prazosin continue Buspirone HCl 15 mg PO TID [facility] Cephalexin HCl 500 mg PO Q6H [facility] Doxycycline Monohydrate 100 mg PO Q12H [facility] Patient no longer taking Trileptal Hospitalist AMY saw patient: She reports of 3 days ago she developed a lesion on the left side of the face. superficial ulceration at the left lower jaw line measuring about 1 cm x 8 mm without any active purulent drainage. faint surrounding erythema; afebrile; vital signs stable. Plan: Will treat mild cellulitis with Keflex 500 mg q.i.d. and doxycycline 100 mg b.i.d. x7 days. -keep the wound covered with the bandage during waking hours and wash her hands frequently and avoid touching the lesion. Patient educated on: diagnosis and medication risk/benefits Informed Consent: understands Reason for continued inpatient stay Substantial Risk for: rapid decompensation Time Spent With Patient Time: Total time managing care of this patient today ____ minutes.
[2023-06-28] MEDS: Methylphenidate HCl 10 MG TABLET 20 MG PO (13:30)
[2023-06-28] MEDS: Prazosin HCL 1 MG CAPSULE 2 MG PO (21:13)
[2023-06-28] MEDS: QUEtiapine Fumarate 50 MG TABLET PO (21:14)
[2023-06-28 21:40] VITALS: BP 122/66; PULSE 75; TEMP 35.9
[2023-06-29] MEDS: Methylphenidate HCl 10 MG TABLET 40 MG PO (08:37)
[2023-06-29] MEDS: Sertraline HCL 100 MG TABLET 200 MG PO (08:37)
[2023-06-29] MEDS: ARIPiprazole 5 MG TABLET PO (08:38)
[2023-06-29] MEDS: busPIRone HCl 10 MG TABLET 15 MG PO ×3 (08:38→20:03)
[2023-06-29] MEDS: buPROPion HCl XL 150 MG TAB.ER.24H PO (08:38)
[2023-06-29] MEDS: methADONE HCl 20 MG/2 ML ORAL.CONC 60 MG PO (08:39)
[2023-06-29 10:57] VITALS: BP 100/55; PULSE 68; RESP 16; TEMP 36.7; O2SAT 99
[2023-06-29] MEDS: Methylphenidate HCl 10 MG TABLET 20 MG PO (14:01)
--- NOTE | 2023-06-29 16:08 | HO.PSYCHPN ---
Subjective Subjective Date of Service: 06/29/23 Reason For Visit: si depression abuse Interim History: Met with patient; discussed with team Patient reports she is feeling much better today and she thinks Wellbutrin is making a significant difference. She says she has much more energy and has found herself out of bed, interacting with others, even going to groups and coloring which she says she only does when she is feeling better. She did not have insomnia last night but did have a nightmare. She said that she would like to leave prazosin at current dose and see if he gets any better. Mental Status Exam Mental Status Exam Narrative: Pt is alert and oriented; behavior is cooperative, calm, polite; patient is not in distress; dressed in casual attire with unkempt hair, but improved hygiene; mood is described as better and affect congruent, brighter; eye contact appropriate; Speech is regular rate, volume and prosody; no psychomotor retardation present; thought process is organized and goal directed; Thought content is on mourning the loss of her mother dealing with depression, aftercare options; otherwise pertinent to relevant topics and without any delusional content, paranoid ideations or grandiosity; no SI; no HI. There is no evidence of perceptual disturbance. Denies [facility] Patients insight and judgment fair. Diagnostics Vital Signs (24Hr): Vital Signs - 24 hr 06/28/23 21:40 06/29/23 10:57 Temperature 96.6 F L 98.1 F Pulse Rate 75 68 Respiratory Rate 16 Blood Pressure 122/66 100/55 L Pulse Oximetry 99 Oxygen Delivery Method Room Air BMI result Body Mass Index 25.5 Labs 06/20/23 23:03 06/22/23 07:08 Medications Medications Current Medications Acetaminophen (Acetaminophen 325 Mg Tablet) 650 mg PO Q6H PRN PRN Reason: Headache/Pain Mild Scale (1-3) Al Hydroxide/Mg Hydroxide (Magnesium Hydrox/Alum Hydrox 30 Ml Oral.Susp) 30 ml PO Q6H PRN PRN Reason: Heartburn/Nausea Aripiprazole (Aripiprazole 5 Mg Tablet) 5 mg PO DAILY [facility] Last Admin: 06/29/23 08:38 Dose: 5 mg Bupropion HCl (Bupropion Hcl Xl 150 Mg Tab.Er.24h) 150 mg PO DAILY [facility] Last Admin: 06/29/23 08:38 Dose: 150 mg Buspirone HCl (Buspirone Hcl 10 Mg Tablet) 15 mg PO TID [facility] Last Admin: 06/29/23 14:01 Dose: 15 mg Clonidine HCl (Clonidine Hcl 0.1 Mg Tablet) 0.1 mg PO TID PRN; Protocol PRN Reason: opioid withdrawal Last Admin: 06/25/23 20:39 Dose: 0.1 mg Clonidine HCl (Clonidine Hcl 0.1 Mg Tablet) 0.1 mg PO DAILY [facility]; Protocol Last Admin: 06/29/23 10:46 Dose: Not Given Clonidine HCl (Clonidine Hcl 0.1 Mg Tablet) 0.1 mg PO Q4H PRN; Protocol PRN Reason: anxiety Last Admin: 06/26/23 20:27 Dose: 0.1 mg Cyclobenzaprine HCl (Cyclobenzaprine Hcl 5 Mg Tablet) 5 mg PO TID PRN PRN Reason: muscle cramps Last Admin: 06/24/23 20:45 Dose: 5 mg Lidocaine (Lidocaine 4 % Patch Adh..Patch) 1 patch TRANSDERMA DAILY PRN; Protocol PRN Reason: musculoskelteal pain Loperamide HCl (Loperamide Hcl 2 Mg Capsule) 2 mg PO Q4H PRN PRN Reason: Loose Stool Magnesium Hydroxide (Milk Of Magnesia 30 Ml Oral.Susp) 30 ml PO DAILY PRN PRN Reason: Constipation Methadone HCl (Methadone Hcl 20 Mg/2 Ml Oral.Conc) 60 mg PO DAILY [facility] Last Admin: 06/29/23 08:39 Dose: 60 mg Methylphenidate HCl (Methylphenidate Hcl 10 Mg Tablet) 40 mg PO DAILY [facility] Last Admin: 06/29/23 08:37 Dose: 40 mg Methylphenidate HCl (Methylphenidate Hcl 10 Mg Tablet) 20 mg PO DAILY@1300 [facility] Last Admin: 06/29/23 14:01 Dose: 20 mg Prazosin HCl (Prazosin Hcl 1 Mg Capsule) 2 mg PO BEDTIME [facility]; Protocol Last Admin: 06/28/23 21:13 Dose: 2 mg Quetiapine Fumarate (Quetiapine Fumarate 50 Mg Tablet) 50 mg PO BEDTIME [facility] Last Admin: 06/28/23 21:14 Dose: 50 mg Sertraline HCl (Sertraline Hcl 100 Mg Tablet) 200 mg PO DAILY [facility] Last Admin: 06/29/23 08:37 Dose: 200 mg Trazodone HCl (Trazodone Hcl 50 Mg Tablet) 50 mg PO BEDTIME PRN PRN Reason: continued insomnia Last Admin: 06/24/23 20:45 Dose: 50 mg Allergies Allergies Allergy/AdvReac Type Severity Reaction Status Date / Time amoxicillin Allergy Hives Verified 12/28/22 08:17 Assessment & Plan Assessment & Plan (1) MDD (major depressive disorder), recurrent severe, without psychosis: Status: Acute Code(s): F33.2 - Major depressive disorder, recurrent severe without psychotic features (2) PTSD (post-traumatic stress disorder): Status: Acute Code(s): F43.10 - Post-traumatic stress disorder, unspecified (3) Cocaine use disorder: Status: Acute Code(s): F14.10 - Cocaine abuse, uncomplicated (4) Opioid use disorder, severe, in sustained remission, dependence: Status: Acute Code(s): F11.21 - Opioid dependence, in remission (5) Cellulitis: Status: Acute Code(s): L03.90 - Cellulitis, unspecified Plan pt is a 42 yo female with hx of depression, PtSD, substance abuse, opioid dependence on methadone, ADHD who self presents for worsening depression, anxiety with SI in the face coping with mother's's recent this past week. Patient was last admitted following her daughter's overdose . Patient reports she has remained at the program, [facility] and was doing well, taking her medications, sober, engaged and only got distraught when she found her mother had passed. Patient became very depressed and relapsed with cocaine and opiates and stop taking her medications. Patient became suicidal with plan to overdose and wanting to engage in self-harm, however she asked a friend to bring her to the emergency room, wanting to stay safe and return to sobriety. Patient has been off her medications for a week but said there were helpful and wants to get back on them. Wants to have methadone titrated back as well since she found it helpful. Patient still endorses intermittent SI however said she is trying to process her feelings and become future oriented again. Hospital course: 06/22 patient remains depressed, tearful and isolative however she is regaining some hope that she will overcome this. In her life. Asks to be restarted on Abilify. 06/24 pt remains depressed but no SI. not attending to ADL's and malodorous but says she knows it's time to bath and start attending to ADL's. Pt having trouble sleeping; increased Trazodone (Seroquel not helpful last admission). 06/25: Seroquel 50 mg HS. 06/26: Continue current treatment plan 06/27 pt improving but still quite depressed; agrees to trial of Wellbutrin. -says trazodone not so helpful, only wants 50mg as prn; prefers seroquel for sleep 06/28 still depressed 06/29 depression seems to be improved with having added Wellbutrin; patient able to sleep at night although still with some nightmares. Will continue monitoring. Plan: CV Q 15 minute checks Conitnue Zoloft 200mg daily Continue Wellbutrin XL 150mg daily for continued depression continue Abilify 5 mg daily; patient said it was started few months ago which she found helpful for her mood decrease back to Trazodon 50mg prn for continued insomnia (Seroquel not effective last time took) continue SEroquel 50mg qhs for insomnia Continue methadone to 60 mg daily continue Stimulant/methylphenidate Continue Prazosin continue Buspirone HCl 15 mg PO TID [facility] Cephalexin HCl 500 mg PO Q6H [facility] Doxycycline Monohydrate 100 mg PO Q12H [facility] Patient no longer taking Trileptal Hospitalist AMY saw patient: She reports of 3 days ago she developed a lesion on the left side of the face. superficial ulceration at the left lower jaw line measuring about 1 cm x 8 mm without any active purulent drainage. faint surrounding erythema; afebrile; vital signs stable. Plan: Will treat mild cellulitis with Keflex 500 mg q.i.d. and doxycycline 100 mg b.i.d. x7 days. -keep the wound covered with the bandage during waking hours and wash her hands frequently and avoid touching the lesion. Patient educated on: diagnosis and medication risk/benefits Informed Consent: understands Reason for continued inpatient stay Substantial Risk for: rapid decompensation Time Spent With Patient Time: Total time managing care of this patient today ____ minutes.
[2023-06-29] MEDS: QUEtiapine Fumarate 50 MG TABLET PO (20:03)
[2023-06-29] MEDS: Prazosin HCL 1 MG CAPSULE 2 MG PO (20:03)
[2023-06-29] MEDS: cloNIDine HCL 0.1 MG TABLET PO (20:03)
[2023-06-29 20:04] VITALS: BP 101/61; PULSE 74; RESP 16; TEMP 36.6; O2SAT 99
[2023-06-30 07:00] VITALS: BMI 26.5
[2023-06-30 08:00] VITALS: BP 97/54; PULSE 63; RESP 16; TEMP 36.6; O2SAT 98
[2023-06-30] MEDS: methADONE HCl 20 MG/2 ML ORAL.CONC 60 MG PO (08:48)
[2023-06-30] MEDS: busPIRone HCl 10 MG TABLET 15 MG PO ×3 (08:50→21:36)
[2023-06-30] MEDS: buPROPion HCl XL 150 MG TAB.ER.24H PO (08:50)
[2023-06-30] MEDS: ARIPiprazole 5 MG TABLET PO (08:51)
[2023-06-30] MEDS: Sertraline HCL 100 MG TABLET 200 MG PO (08:51)
[2023-06-30] MEDS: Methylphenidate HCl 10 MG TABLET 40 MG PO (08:51)
[2023-06-30 11:54] LABS: COVID-19 Test Negative (Negative); IDNOW Serial# 9DB6401D
[2023-06-30] MEDS: Methylphenidate HCl 10 MG TABLET 20 MG PO (12:46)
--- NOTE | 2023-06-30 13:14 | HO.PSYCHPN ---
Subjective Subjective Date of Service: 06/30/23 Reason For Visit: si depression abuse Interim History: Met?with?patient;?discussed?with?team? Patient?was?accepted?to?[facility]?program?which?starts?tomorrow.??She?said?she?is?anxious?about?it,?thinking?she?needed?a?few?more?days On?the?unit?however,?does?not?want?to?lose?the?open?bed?opportunity?and?says?she?will?be?able?to?manage.??Overall?her?depression?is?better And?she?feels?that?the?medications?have?been?working?well. Mental Status Exam Mental Status Exam Narrative: Pt is alert and oriented; behavior is cooperative, calm, polite; patient is not in distress; dressed in casual attire with unkempt hair, but improved hygiene; mood is described as anxious and affect congruent; eye contact appropriate; Speech is regular rate, volume and prosody; no psychomotor retardation present; thought process is organized and goal directed; Thought content is discharging?to?new?program;mourning the loss of her mother; aftercare options; otherwise pertinent to relevant topics and without any delusional content, paranoid ideations or grandiosity; no SI; no HI. There is no evidence of perceptual disturbance. Denies [facility] Patients insight and judgment fair. Diagnostics Vital Signs (24Hr): Vital Signs - 24 hr 06/29/23 20:04 06/30/23 08:00 Temperature 97.9 F 98 F Pulse Rate 74 63 Respiratory Rate 16 16 Blood Pressure 101/61 97/54 L Pulse Oximetry 99 98 Oxygen Delivery Method Room Air Room Air BMI result Body Mass Index 26.5 Labs 06/20/23 23:03 06/22/23 07:08 Labs: Laboratory Results - last 48 hr 06/30/23 10:52 COVID-19 ([facility]) Negative COVID-19 Clin Com See Note Medications Medications Current Medications Acetaminophen (Acetaminophen 325 Mg Tablet) 650 mg PO Q6H PRN PRN Reason: Headache/Pain Mild Scale (1-3) Al Hydroxide/Mg Hydroxide (Magnesium Hydrox/Alum Hydrox 30 Ml Oral.Susp) 30 ml PO Q6H PRN PRN Reason: Heartburn/Nausea Aripiprazole (Aripiprazole 5 Mg Tablet) 5 mg PO DAILY [facility] Last Admin: 06/30/23 08:51 Dose: 5 mg Bupropion HCl (Bupropion Hcl Xl 150 Mg Tab.Er.24h) 150 mg PO DAILY [facility] Last Admin: 06/30/23 08:50 Dose: 150 mg Buspirone HCl (Buspirone Hcl 10 Mg Tablet) 15 mg PO TID [facility] Last Admin: 06/30/23 08:50 Dose: 15 mg Clonidine HCl (Clonidine Hcl 0.1 Mg Tablet) 0.1 mg PO TID PRN; Protocol PRN Reason: opioid withdrawal Last Admin: 06/29/23 20:03 Dose: 0.1 mg Clonidine HCl (Clonidine Hcl 0.1 Mg Tablet) 0.1 mg PO DAILY [facility]; Protocol Last Admin: 06/30/23 08:52 Dose: Not Given Clonidine HCl (Clonidine Hcl 0.1 Mg Tablet) 0.1 mg PO Q4H PRN; Protocol PRN Reason: anxiety Last Admin: 06/26/23 20:27 Dose: 0.1 mg Cyclobenzaprine HCl (Cyclobenzaprine Hcl 5 Mg Tablet) 5 mg PO TID PRN PRN Reason: muscle cramps Last Admin: 06/24/23 20:45 Dose: 5 mg Lidocaine (Lidocaine 4 % Patch Adh..Patch) 1 patch TRANSDERMA DAILY PRN; Protocol PRN Reason: musculoskelteal pain Loperamide HCl (Loperamide Hcl 2 Mg Capsule) 2 mg PO Q4H PRN PRN Reason: Loose Stool Magnesium Hydroxide (Milk Of Magnesia 30 Ml Oral.Susp) 30 ml PO DAILY PRN PRN Reason: Constipation Methadone HCl (Methadone Hcl 20 Mg/2 Ml Oral.Conc) 60 mg PO DAILY [facility] Last Admin: 06/30/23 08:48 Dose: 60 mg Methylphenidate HCl (Methylphenidate Hcl 10 Mg Tablet) 40 mg PO DAILY [facility] Last Admin: 06/30/23 08:51 Dose: 40 mg Methylphenidate HCl (Methylphenidate Hcl 10 Mg Tablet) 20 mg PO DAILY@1300 [facility] Last Admin: 06/30/23 12:46 Dose: 20 mg Prazosin HCl (Prazosin Hcl 1 Mg Capsule) 2 mg PO BEDTIME [facility]; Protocol Last Admin: 06/29/23 20:03 Dose: 2 mg Quetiapine Fumarate (Quetiapine Fumarate 50 Mg Tablet) 50 mg PO BEDTIME [facility] Last Admin: 06/29/23 20:03 Dose: 50 mg Sertraline HCl (Sertraline Hcl 100 Mg Tablet) 200 mg PO DAILY [facility] Last Admin: 06/30/23 08:51 Dose: 200 mg Trazodone HCl (Trazodone Hcl 50 Mg Tablet) 50 mg PO BEDTIME PRN PRN Reason: continued insomnia Last Admin: 06/24/23 20:45 Dose: 50 mg Allergies Allergies Allergy/AdvReac Type Severity Reaction Status Date / Time amoxicillin Allergy Hives Verified 12/28/22 08:17 Assessment & Plan Assessment & Plan (1) MDD (major depressive disorder), recurrent severe, without psychosis: Status: Acute Code(s): F33.2 - Major depressive disorder, recurrent severe without psychotic features (2) PTSD (post-traumatic stress disorder): Status: Acute Code(s): F43.10 - Post-traumatic stress disorder, unspecified (3) Cocaine use disorder: Status: Acute Code(s): F14.10 - Cocaine abuse, uncomplicated (4) Opioid use disorder, severe, in sustained remission, dependence: Status: Acute Code(s): F11.21 - Opioid dependence, in remission (5) Cellulitis: Status: Acute Code(s): L03.90 - Cellulitis, unspecified Plan pt is a 42 yo female with hx of depression, PtSD, substance abuse, opioid dependence on methadone, ADHD who self presents for worsening depression, anxiety with SI in the face coping with mother's's recent this past week. Patient was last admitted following her daughter's overdose . Patient reports she has remained at the program, [facility] and was doing well, taking her medications, sober, engaged and only got distraught when she found her mother had passed. Patient became very depressed and relapsed with cocaine and opiates and stop taking her medications. Patient became suicidal with plan to overdose and wanting to engage in self-harm, however she asked a friend to bring her to the emergency room, wanting to stay safe and return to sobriety. Patient has been off her medications for a week but said there were helpful and wants to get back on them. Wants to have methadone titrated back as well since she found it helpful. Patient still endorses intermittent SI however said she is trying to process her feelings and become future oriented again. Hospital course: 06/22 patient remains depressed, tearful and isolative however she is regaining some hope that she will overcome this. In her life. Asks to be restarted on Abilify. 06/24 pt remains depressed but no SI. not attending to ADL's and malodorous but says she knows it's time to bath and start attending to ADL's. Pt having trouble sleeping; increased Trazodone (Seroquel not helpful last admission). 06/25: Seroquel 50 mg HS. 06/26: Continue current treatment plan 06/27 pt improving but still quite depressed; agrees to trial of Wellbutrin. -says trazodone not so helpful, only wants 50mg as prn; prefers seroquel for sleep 06/28 still depressed 06/29 depression seems to be improved with having added Wellbutrin; patient able to sleep at night although still with some nightmares. Will continue monitoring. 06/30?patient?remains?with?improved?mood;?she?is?anxious?about?going?to?this?new?program?tomorrow,?wishing?she?could?stay On?the?unit?a?little?longer?however?she?feels?stable?and?safe?and?does?not?want?to?lose?the?bed?at?this?time?[facility]?program.??She?agrees?depression?is?much?better?and She?is?optimistic?about?getting?back?to?being?sober.??Patient?is?not?in?imminent?risk?for?harm?to?self?or?others?and?appropriate?to?return?to?the?community?for?treatment. Plan: CV Q 15 minute checks Conitnue Zoloft 200mg daily Continue Wellbutrin XL 150mg daily for continued depression continue Abilify 5 mg daily; patient said it was started few months ago which she found helpful for her mood decrease back to Trazodon 50mg prn for continued insomnia (Seroquel not effective last time took) continue SEroquel 50mg qhs for insomnia Continue methadone to 60 mg daily continue Stimulant/methylphenidate Continue Prazosin continue Buspirone HCl 15 mg PO TID [facility] Cephalexin HCl 500 mg PO Q6H [facility] Doxycycline Monohydrate 100 mg PO Q12H [facility] Patient no longer taking Trileptal Hospitalist AMY saw patient: She reports of 3 days ago she developed a lesion on the left side of the face. superficial ulceration at the left lower jaw line measuring about 1 cm x 8 mm without any active purulent drainage. faint surrounding erythema; afebrile; vital signs stable. Plan: Will treat mild cellulitis with Keflex 500 mg q.i.d. and doxycycline 100 mg b.i.d. x7 days. -keep the wound covered with the bandage during waking hours and wash her hands frequently and avoid touching the lesion. Patient educated on: diagnosis, medication risk/benefits and therapeutic strategies Informed Consent: understands Reason for continued inpatient stay Substantial Risk for: stable for discharge Time Spent With Patient Time: Total time managing care of this patient today ____ minutes.
--- NOTE | 2023-06-30 18:00 | P.DS_ITS ---
DS: Providers Provider Date of Service: 07/01/23 Date of admission: 06/21/23 15:15 Date of discharge: 07/01/23 Primary care physician: Unknown Physician Attending physician on admission: Nagi Solano Consults: 06/21/23 20:14 Consult to Hospitalist Routine Comment: Consulting Provider: Hospitalist Reason For Exam: ulcer on face Attending physician on discharge: Nagi Solano DS: Diagnosis Discharge Diagnosis (1) MDD (major depressive disorder), recurrent severe, without psychosis: Status: Acute (2) PTSD (post-traumatic stress disorder): Status: Acute (3) Cocaine use disorder: Status: Acute (4) Opioid use disorder, severe, in sustained remission, dependence: Status: Acute (5) Cellulitis: Status: Resolved DS: Medications Discharge Medications Home Medications: Previous Rx's Medication Instructions Recorded Ritalin 20 mg tablet See Rx Instructions .Route 06/30/23 (methylphenidate HCl) .COMPLEX 30 days #90 tabs aripiprazole 5 mg tablet (Abilify) 5 mg PO DAILY 30 days #30 tabs 06/30/23 bupropion HCl 150 mg 24 hr tablet, 150 mg PO DAILY 30 days #30 tabs 06/30/23 extended release buspirone 15 mg tablet 15 mg PO TID 30 days #90 tabs 06/30/23 clonidine HCl 0.1 mg tablet 0.1 mg PO DAILY 30 days #30 tabs 06/30/23 clonidine HCl 0.1 mg tablet 0.1 mg PO Q4H PRN anxiety 30 days 06/30/23 #90 tabs methadone 10 mg/mL oral 60 mg (6 mL) PO DAILY #0 mL 06/30/23 concentrate (Methadose) prazosin 2 mg capsule 2 mg PO BEDTIME 30 days #30 caps 06/30/23 quetiapine 50 mg tablet 50 mg PO BEDTIME PRN insomnia 30 06/30/23 days #30 tabs sertraline 100 mg tablet 200 mg (2 x 100 mg) PO QAM 30 days 06/30/23 #60 tabs trazodone 50 mg tablet 50 mg PO BEDTIME PRN continued 06/30/23 insomnia 30 days #30 tabs Mental Status Exam Mental Status Exam Narrative: Pt is alert and oriented; behavior is cooperative, calm, polite; patient is not in distress; dressed in casual attire with unkempt hair, but improved hygiene; mood is described as ok and affect congruent; eye contact appropriate; Speech is regular rate, volume and prosody; no psychomotor retardation present; thought process is organized and goal directed; Thought content is on discharging?to?new?program; mourning the loss of her mother; otherwise pertinent to relevant topics and without any delusional content, paranoid ideations or grandiosity; no SI; no HI. There is no evidence of perceptual disturbance. Denies [facility] Patients insight and judgment fair. Data Data Completed and Pending Completed studies during hospitalization [Text1]: 06/30/23 10:52 COVID-19 (ESTELLA) Negative COVID-19 Clin Com See Note DS: Summary Hospital Course Hospital Course: HPI: pt is a 42 yo female with hx of depression, PtSD, substance abuse, opioid dependence on methadone, ADHD who self presents for worsening depression, anxiety with SI in the face coping with mother's's recent this past week. Patient was last admitted following her daughter's overdose . Patient reports she has remained at the program, [facility] and was doing well, taking her medications, sober, engaged and only got distraught when she found her mother had passed. Patient became very depressed and relapsed with cocaine and opiates and stop taking her medications. Patient became suicidal with plan to overdose and wanting to engage in self-harm, however she asked a friend to bring her to the emergency room, wanting to stay safe and return to sobriety. Patient has been off her medications for a week but said there were helpful and wants to get back on them. Wants to have methadone titrated back as well since she found it helpful. Patient still endorses intermittent SI however said she is trying to process her feelings and become future oriented again. -on admission, hospitalist called to examine lesion on left side of face. Patient treated with antibiotics without incident. Hospital course: 06/22 patient remains depressed, tearful and isolative however she is regaining some hope that she will overcome this. In her life. Asks to be restarted on Abilify. 06/24 pt remains depressed but no SI. not attending to ADL's and malodorous but says she knows it's time to bath and start attending to ADL's. Pt having trouble sleeping; increased Trazodone (Seroquel not helpful last admission). 06/25: Seroquel 50 mg HS. 06/26: Continue current treatment plan 06/27 pt improving but still quite depressed; agrees to trial of Wellbutrin. -says trazodone not so helpful, only wants 50mg as prn; prefers seroquel for sleep 06/28 still depressed 06/29 depression seems to be improved with having added Wellbutrin; patient able to sleep at night although still with some nightmares. Will continue monitoring. 06/30?patient?remains?with?improved?mood;?she?is?anxious?about?going?to?this?new? program?tomorrow,?wishing?she?could?stay on?the?unit?a?little?longer?however?she?feels?stable?and?safe?and?does?not?want? to?lose?the?bed?at?this?time?TSS?program.??She?agrees?depression?is?much?better? and She?is?optimistic?about?getting?back?to?being?sober.??Patient has demonstrated good behavioral and impulse control throughout her time in the unit; she has remained engaged in treatment, attending groups and getting a chance to process her grief; she has remained appropriate with peers and staff getting along well with others. While she remains at risk for relapse and decompensation, this is a chronic issue that will not resolve with longer inpatient stay and one of which patient is well aware and continues to work on in the outpatient setting. Patient?is?not?in?imminent?risk?for?harm?to?self?or?others?and?appropriate ?to?return?to?the?community?for?treatment. Time spent discussing smoking cessation with patient: 3 to 10 minutes Status at Discharge Functional status at discharge: independent ambulation Overall status at discharge: patient is progressing back to baseline Time Spent with Patient Time attestation: Total time managing care of this patient today ____ minutes. Time spent: Less than 30 minutes Discharge Plan Discharge Anticipated Discharge Date/Time: 07/01/23 09:00 Patient Disposition: Xfer to Respite Facility Discharge Diagnosis: MDD, recurrent, severe w/out psychosis, in partial remission Referrals: [facility] [Other] (walk in if needed) Discharge Medications: New aripiprazole [Abilify] 5 mg Tablet 5 mg PO DAILY 30 Days Qty: 30 1RF bupropion HCl 150 mg Tablet Extended Release 24 Hr 150 mg PO DAILY 30 Days Qty: 30 1RF methadone [Methadose] 10 mg/mL Concentrate 60 mg PO DAILY Qty: 0 0RF Rx Instructions: Partial Fill upon patient request. quetiapine 50 mg Tablet 50 mg PO BEDTIME PRN (Reason: insomnia) 30 Days Qty: 30 1RF trazodone 50 mg Tablet 50 mg PO BEDTIME PRN (Reason: continued insomnia) 30 Days Qty: 30 1RF Continued clonidine HCl 0.1 mg tablet 0.1 mg PO Q4H PRN (Reason: anxiety) 30 Days Qty: 90 1RF clonidine HCl 0.1 mg Tablet 0.1 mg PO DAILY 30 Days Qty: 30 1RF Protocol: Hold for SBP< HOLD for SBP < : 90 sertraline 100 mg tablet 200 mg PO QAM 30 Days Qty: 60 1RF prazosin 2 mg capsule 2 mg PO BEDTIME 30 Days Qty: 30 1RF buspirone 15 mg tablet 15 mg PO TID 30 Days Qty: 90 1RF Changed methylphenidate HCl [Ritalin] 20 mg tablet See Rx Instructions .ROUTE .COMPLEX 30 Days Qty: 90 0RF Rx Instructions: take 2 tabs in the AM and take 1 tab at 1pm Discontinued methadone [Methadone Intensol] 10 mg/mL Concentrate 55 mg PO DAILY hydroxyzine HCl 25 mg Tablet 25 mg PO Q6H PRN (Reason: Anxiety) 30 Days Qty: 90 0RF oxcarbazepine 150 mg Tablet 150 mg PO BID@0900,1400 30 Days Qty: 60 0RF trazodone 50 mg tablet See Rx Instructions .ROUTE .COMPLEX PRN (Reason: Sleep) 30 Days Qty: 60 0RF Rx Instructions: take 1-2 tabs at bedtime as needed for insomnia lidocaine 4 % Adhesive Patch,Medicated 1 patch transdermal Q24H PRN (Reason: lower back pain) 30 Days Qty: 30 1RF Protocol: Apply to: Apply to: lower back Rx Instructions: apply to lower back as needed Discharge Orders: Discharge Order (Routine); Ordered 07/01/23 Ordered By: Nagi Solano Diet: Regular diet Activity on Discharge: As tolerated Stand Alone Forms: Patient Portal Discharge page, Community Support Care Plan Goals: Maintain mood and safe behaviors Take medications as prescribed Continue to pursue sobriety Practice coping skills Continue with outpatient providers and reach out to them as needed Health Concerns: Mood stability and behaviors Sobriety Plan of Treatment: Follow up with your PCP, psychiatric provider and other outpatient providers regarding above concerns Take medications as prescribed Assessment: Risk assessment at time of discharge:? Patient was interviewed prior to discharge and found to be fully oriented and without any SI or HI. Patient has insight and demonstrates good judgment in terms of wanting to pursue treatment. Patient is not in imminent risk of harm to self or others and has a safety plan that includes presenting to the closest ER or calling 911 if feeling unsafe.? Patient has been observed closely by nursing and unit staff throughout admission; patient has not engaged in any behaviors that suggest dangerousness to self or others and has demonstrated appropriate behaviors and impulse control Discharge Date/Time: 07/01/23 10:16
[2023-06-30 20:52] VITALS: BP 104/71; PULSE 62; RESP 16; TEMP 36.1; O2SAT 100
[2023-06-30] MEDS: Prazosin HCL 1 MG CAPSULE 2 MG PO (21:36)
[2023-06-30] MEDS: QUEtiapine Fumarate 50 MG TABLET PO (21:36)
[2023-06-30] MEDS: cloNIDine HCL 0.1 MG TABLET PO (21:37)
[2023-07-01] MEDS: methADONE HCl 20 MG/2 ML ORAL.CONC 60 MG PO (08:37)
[2023-07-01] MEDS: buPROPion HCl XL 150 MG TAB.ER.24H PO (08:38)
[2023-07-01] MEDS: ARIPiprazole 5 MG TABLET PO (08:38)
[2023-07-01] MEDS: Methylphenidate HCl 10 MG TABLET 40 MG PO (08:38)
[2023-07-01] MEDS: Sertraline HCL 100 MG TABLET 200 MG PO (08:38)
[2023-07-01] MEDS: cloNIDine HCL 0.1 MG TABLET PO (08:38)
[2023-07-01] MEDS: busPIRone HCl 10 MG TABLET 15 MG PO (08:38)
[2023-07-01] MEDS: Naloxone HCl Nasal TAKE HOME 4 MG SPRAY 8 MG NOSTRILALT (08:39)
[2023-07-01 08:43] VITALS: BP 104/59; PULSE 72; RESP 18; TEMP 37.1; O2SAT 99
== END 2023-07-01 10:16 | DRG 751 ==
LOC: HO.ED 06-21 14:27 → HO.PM5 06-21 15:16
PROVIDERS: Admitting Provider Psychiatry & Neurology Psychiatry; Emergency Provider Internal Medicine; Visit Provider Psychiatry & Neurology Psychiatry
DX: F33.2 Major depressive disorder, recurrent severe without psychotic features (principal); R45.851 Suicidal ideations; F90.9 Attention-deficit hyperactivity disorder, unspecified type; L03.211 Cellulitis of face; F11.20 Opioid dependence, uncomplicated; E87.6 Hypokalemia; F14.10 Cocaine abuse, uncomplicated; F43.10 Post-traumatic stress disorder, unspecified; Z20.822 Contact with and (suspected) exposure to COVID-19; Z79.899 Other long term (current) drug therapy
CPT/HCPCS: 36415; 80051; 80053; 80061; 80307; 85027; 87635; 93005; 99285; S9485

== ENCOUNTER → 2023-06-21 15:15 | Outpatient (BNV) | payer OTHER, SELFPAY | PROVIDERS: Admitting Provider Psychiatry & Neurology Psychiatry; Emergency Provider Internal Medicine; Visit Provider Psychiatry & Neurology Psychiatry | DX: F33.2 Major depressive disorder, recurrent severe without psychotic features (principal); F43.11 Post-traumatic stress disorder, acute; F14.10 Cocaine abuse, uncomplicated; F11.21 Opioid dependence, in remission; L03.90 Cellulitis, unspecified | CPT/HCPCS: 99231; 99232 ==

== ENCOUNTER 2023-09-26 13:21 | Inpatient (IN) | payer OTHER, SELFPAY ==
--- NOTE | 2023-09-26 | ECG_ITS ---
Test Reason : TACHYCARDIA Blood Pressure : / mmHG Vent. Rate : 078 BPM Atrial Rate : 078 BPM P-R Int : 122 ms QRS Dur : 084 ms QT Int : 394 ms P-R-T Axes : 046 054 028 degrees QTc Int : 449 ms Normal sinus rhythm with sinus arrhythmia Normal ECG When compared with ECG of 21-JUN-2023 02:14, Vent. rate has increased BY 27 BPM T inversion no longer seen in V2 Referred By: Generic ED Physician Electronically Signed By:LORI GONZALEZ
[2023-09-26 13:31] VITALS: BP 168/89; PULSE 129; RESP 18; TEMP 36.6; O2SAT 99; BMI 29.3
--- NOTE | 2023-09-26 13:56 | PC.NURSE ---
pt arrived agitated, elopement risk from waiting room, elevated HR, other vss. pt a&ox4, reports SI thoughts w plan to OD, pt reports that she had been clean for a few months relapsed today due to increased life stressors d/t first [place] alone since mother and daughter passed. pt used crack and heroin shortly before arriving in ED. pt denies ETOH use. pt gets methadone from [facility] in [place], has been taking 65mg. labs ordered per standing protocol. pt pending ED provider. no new orders at this time.
--- NOTE | 2023-09-26 14:35 | ED.GENADULT ---
HPI - General Adult General Chief complaint: Psychiatric Symptoms Stated complaint: crisis Time Seen by Provider: 09/26/23 14:27 History of Present Illness HPI narrative: The patient is a 42-year-old woman with a history of substance use disorder and mental health issues. She says that she spent the last 3 months at a program called [facility] which is associated with [facility]. She says that she ?graduated? from the program 2 days ago on Tuesday. She says the program was intended to get her into some kind of a senior living house or other longer-term program but no facilities were available and so she was discharged from the program to return home. She says that since she has she left the program she resumed substance use including crack and heroin. She says that she also feels very depressed because it is [place] and she says this will be the 1st [place] since her mother and her daughter . She therefore came to the emergency department because she was feeling depressed. Related Data Home Medications Medication Instructions Recorded Confirmed buspirone 10 mg tablet 10 mg PO TID 09/26/23 09/26/23 trazodone 50 mg tablet 100 mg PO BEDTIME PRN Insomnia 09/26/23 09/26/23 Previous Rx's Medication Instructions Recorded Ritalin 20 mg tablet See Rx Instructions .Route 06/30/23 (methylphenidate HCl) .COMPLEX 30 days #90 tabs aripiprazole 5 mg tablet (Abilify) 5 mg PO DAILY 30 days #30 tabs 06/30/23 bupropion HCl 150 mg 24 hr tablet, 150 mg PO DAILY 30 days #30 tabs 06/30/23 extended release clonidine HCl 0.1 mg tablet 0.1 mg PO DAILY 30 days #30 tabs 06/30/23 methadone 10 mg/mL oral 60 mg (6 mL) PO DAILY #0 mL 06/30/23 concentrate (Methadose) prazosin 2 mg capsule 2 mg PO BEDTIME 30 days #30 caps 06/30/23 quetiapine 50 mg tablet 50 mg PO BEDTIME PRN insomnia 30 06/30/23 days #30 tabs sertraline 100 mg tablet 200 mg (2 x 100 mg) PO QAM 30 days 06/30/23 #60 tabs Allergies Allergy/AdvReac Type Severity Reaction Status Date / Time amoxicillin Allergy Hives Verified 12/28/22 08:17 Review of Systems Review of Systems: Yes all other systems are reviewed and are negative [facility] Past Medical History Medical History (Updated 09/26/23 @ 20:51 by Daniel Gallego MD) Cocaine use disorder PTSD (post-traumatic stress disorder) MDD (major depressive disorder), recurrent severe, without psychosis Polysubstance (including opioids) dependence, daily use Social History Social History Household Members: Other Housing: Homeless Do you presently have visiting nurse or other home services: No Alcohol intake: current Alcohol intake frequency: does not drink Comment: prior rn admitted Patient Tobacco Use Status: Never used Tobacco Smoked in Last 30 Days: No Use of substances other than those prescribed or required for medical reasons: Yes Substance Use Type: Crack/Cocaine and Heroin Substance Use Frequency: Recent Binge Advance Directives: No Advance Directives Information Provided: No Healthcare Proxy: No Guardian: No Patient : No service: No Sexual orientation: Straight/Heterosexual Physical Exam ED Vital Signs: Vital Signs - 24 hr 09/26/23 13:31 09/26/23 19:55 Temperature 97.8 F 97.3 F Pulse Rate 129 H 66 Respiratory Rate 18 16 Blood Pressure 168/89 H 94/53 L Pulse Oximetry 99 96 Oxygen Delivery Method Room Air Room Air BMI result Body Mass Index 29.3 Const Other: Patient is awake and alert. The patient is pleasant cooperative. The patient does not seem acutely ill or in distress. HENMT Other: Mucous membranes are moist. Face is symmetrical. Eyes Other: Pupils are round equal, conjunctivae are clear, extraocular movements were intact Neck Other: Moving her neck easily without discomfort. Neck is benign. Resp Other: Lungs are clear bilaterally. No respiratory embarrassment Cardio Other: The patient has a regular rate and rhythm no murmur GI Other: Abdomen is soft and nontender Skin Other: Skin is dry and unremarkable Neuro Other: The patient is awake, alert, oriented, appropriate. Cranial nerves are intact. Moving all 4 extremities symmetrically. Grossly neurologically intact. Extrem Other: No calf swelling or tenderness. No asymmetry. Medications Administered Generic Name Dose Route Start Last Admin Trade Name Freq PRN Reason Stop Dose Admin Aripiprazole 5 mg 09/26/23 14:45 09/26/23 14:59 Aripiprazole 5 Mg Tablet PO 5 mg DAILY ANGELA Administration Buspirone HCl 10 mg 09/26/23 15:00 09/26/23 14:59 Buspirone Hcl 10 Mg Tablet PO 10 mg TID ANGELA Administration Clonidine HCl 0.1 mg 09/26/23 14:45 09/26/23 14:59 Clonidine Hcl 0.1 Mg Tablet PO 0.1 mg DAILY ANGELA Administration Protocol Sertraline HCl 200 mg 09/26/23 14:45 09/26/23 14:59 Sertraline Hcl 100 Mg Tablet PO 200 mg DAILY ANGELA Administration Discontinued Medications Generic Name Dose Route Start Last Admin Trade Name Lilly PRN Reason Stop Dose Admin Diphenhydramine HCl 25 mg 09/26/23 17:32 09/26/23 17:35 Diphenhydramine Hcl 25 Mg Capsule PO 09/26/23 17:33 25 mg ONCE ONE Administration Medical Decision Making Medical Decision Making [facility] Narrative: The patient is a 42-year-old female with a history of substance use disorder who recently got out of a drug rehab program and relapsed on cocaine and narcotics. She is feeling depressed. Her workup today is positive for cocaine and fentanyl. Labs are otherwise unremarkable and I think the patient is medically clear for evaluation and disposition according to the crisis team. Patient will therefore be signed out to the oncoming provider. Lab Data 09/26/23 14:54 09/26/23 14:54 Labs: Lab Results 09/26/23 09/26/23 Range/Units 14:54 17:05 WBC 12.2 H (4.8-10.8) X10*3/uL RBC 4.01 L (4.20-5.50) X10*6/uL Hgb 12.3 (12.0-16.0) g/dl Hct 34.6 L (37.0-47.0) % MCV 86.3 (80.0-98.0) fL MCH 30.7 (27.0-33.0) pg MCHC 35.5 H (31.0-35.0) g/dl RDW 13.3 (11.0-16.0) % Plt Count 285 (160-400) X10*3/uL MPV 9.5 (9.4-12.3) fL Immature Gran % (Auto) 0.3 (0.0-0.4) % Neut % (Auto) 56.1 (45-73) % Lymph % (Auto) 30.0 (20-40) % [place] % (Auto) 7.5 (2-11) % Eos % (Auto) 5.4 H (0-4) % Baso % (Auto) 0.7 (0-2) % Lymph # (Auto) 3.7 (1.2-4.9) X10*3/uL [place] # (Auto) 0.9 (0.1-1.2) X10*3/uL Eos # (Auto) 0.7 H (0.0-0.4) X10*3/uL Baso # (Auto) 0.1 (0.0-0.2) X10*3/uL Abs Immat Gran (auto) 0.04 H (0.00-0.03) X10*3/uL Absolute Neuts (auto) 6.9 (2.0-8.3) x10*3/uL Absolute Nucleated RBC 0.000 (0.0-0.012) X10*3/uL Nucleated RBC % (auto) 0.0 (0.0-0.2) /100WBC Sodium 142 (135-145) mmol/L Potassium 3.2 L (3.3-5.1) mmol/L Chloride 109 H (96-108) mmol/L Carbon Dioxide 24 (22-29) mmol/L Anion Gap 12 (12-20) BUN 26 H (9-16) mg/dL Creatinine 0.90 (0.5-1.4) mg/dL Estim Creat Clear Calc 73.0 Estimated GFR > 60 Random Glucose 156 H (60-115) mg/dL Calcium 8.5 (8.4-10.2) mg/dL Total Bilirubin 0.7 (0.0-1.0) mg/dL AST 30 (5-31) U/L ALT 14 (0-31) U/L Alkaline Phosphatase 50 (39-117) U/L Total Protein 7.2 (6.5-8.0) g/dL Albumin 4.1 (3.5-5.0) g/dL Urine Color Dark Yellow Urine Appearance Cloudy Urine pH 5.5 (5.0-9.0) Ur Specific [place] >= 1.030 H (1.005-1.025) Urine Protein 30 (1+) H (Neg-Trace) mg/dL Urine Glucose (UA) Negative (Negative) mg/dL Urine Ketones Negative (Negative) mg/dL Urine Blood Large (3+) H (Negative) Urine Nitrite Negative (Negative) Ur Leukocyte Esterase Small (1+) H (Negative) Urine RBC 6-10 H (0-2) /HPF Urine WBC 11-20 H (0-5) /HPF Ur Squamous Epith Cells >20 (0-2) /HPF Urine Bacteria 4+ (None Seen) Hyaline Casts 0-2 (0-2) /LPF Urine Opiates Screen Not Detected (Not Detect) Urine Fentanyl Screen POSITIVE H (Not Detect) Ur Barbiturates Screen Not Detected (Not Detect) Ur Phencyclidine Scrn Not Detected (Not Detect) Ur Amphetamines Screen Not Detected (Not Detect) U Benzodiazepines Scrn Not Detected (Not Detect) Urine Cocaine Screen POSITIVE H (Not Detect) U Marijuana (THC) Screen Not Detected (Not Detect) Ethyl Alcohol < 10 mg/dL COVID-19 (ESTELLA) Negative (Negative) COVID-19 Clin Com See Note Discharge Plan Discharge Clinical Impression: Depression, Substance use disorder Patient Disposition: Still a Patient Prescriptions: No Action aripiprazole [Abilify] 5 mg Tablet 5 mg PO DAILY 30 Days Qty: 30 1RF bupropion HCl 150 mg Tablet Extended Release 24 Hr 150 mg PO DAILY 30 Days Qty: 30 1RF methadone [Methadose] 10 mg/mL Concentrate 60 mg PO DAILY Qty: 0 0RF Rx Instructions: Partial Fill upon patient request. quetiapine 50 mg Tablet 50 mg PO BEDTIME PRN (Reason: insomnia) 30 Days Qty: 30 1RF clonidine HCl 0.1 mg Tablet 0.1 mg PO DAILY 30 Days Qty: 30 1RF Protocol: Hold for SBP< HOLD for SBP < : 90 sertraline 100 mg tablet 200 mg PO QAM 30 Days Qty: 60 1RF prazosin 2 mg capsule 2 mg PO BEDTIME 30 Days Qty: 30 1RF methylphenidate HCl [Ritalin] 20 mg tablet See Rx Instructions .ROUTE .COMPLEX 30 Days Qty: 90 0RF Rx Instructions: take 2 tabs in the AM and take 1 tab at 1pm trazodone 50 mg tablet 100 mg PO BEDTIME PRN (Reason: Insomnia) buspirone 10 mg tablet 10 mg PO TID Interventions: [place]-Suicide Risk Severity Scale Last Done: 09/26/23 13:43
--- NOTE | 2023-09-26 14:54 | PC.NURSE ---
attempted to verify pt's methadone from [facility], per call center it is unlikely that anyone will be available today to verify but will leave a message for them to call the ED with information.
[2023-09-26 14:58] LABS: MANUAL DIFF FLAG NO
[2023-09-26 14:59] LABS: Basophils Absolute Auto 0.1 X10*3/uL (0.0-0.2); Basophils Percent Auto 0.7 % (0-2); Eosinophils Absolute Auto 0.7 X10*3/uL (0.0-0.4); Eosinophils Percent Auto 5.4 % (0-4); Hematocrit 34.6 % (37.0-47.0); Hemoglobin 12.3 g/dl (12.0-16.0); Imm Gran Abs Auto 0.04 X10*3/uL (0.00-0.03); Imm Gran Pct Auto 0.3 % (0.0-0.4); Lymphocytes Absolute Auto 3.7 X10*3/uL (1.2-4.9); Mean Corpuscular HGB Conc 35.5 g/dl (31.0-35.0); Mean Corpuscular Hemoglobin 30.7 pg (27.0-33.0); Mean Corpuscular Volume 86.3 fL (80.0-98.0); Mean Platelet Volume 9.5 fL (9.4-12.3); Monocytes Absolute Auto 0.9 X10*3/uL (0.1-1.2); Monocytes Percent Auto 7.5 % (2-11); Neutrophils Absolute Auto 6.9 x10*3/uL (2.0-8.3); Neutrophils Percent Auto 56.1 % (45-73); Platelet Count 285 X10*3/uL (160-400); Red Blood Count 4.01 X10*6/uL (4.20-5.50); Red Cell Distribution Width 13.3 % (11.0-16.0); White Blood Count 12.2 X10*3/uL (4.8-10.8)
[2023-09-26] MEDS: busPIRone HCl 10 MG TABLET PO ×2 (14:59→20:58)
[2023-09-26] MEDS: ARIPiprazole 5 MG TABLET PO (14:59)
[2023-09-26] MEDS: cloNIDine HCL 0.1 MG TABLET PO (14:59)
[2023-09-26] MEDS: Sertraline HCL 100 MG TABLET 200 MG PO (14:59)
--- NOTE | 2023-09-26 15:01 | PC.NURSE ---
pt medicated per MAR.
[2023-09-26 15:15] LABS: COVID-19 Test Negative (Negative); IDNOW Serial# BCCEAD1C
[2023-09-26 15:22] LABS: Alanine Aminotransferase 14 U/L (0-31); Albumin Level 4.1 g/dL (3.5-5.0); Alkaline Phosphatase 50 U/L (39-117); Anion Gap 12 (12-20); Aspartate Amino Transferase 30 U/L (5-31); Bilirubin Total 0.7 mg/dL (0.0-1.0); Blood Urea Nitrogen 26 mg/dL (9-16); Calcium 8.5 mg/dL (8.4-10.2); Carbon Dioxide 24 mmol/L (22-29); Chloride 109 mmol/L (96-108); Estimated Glomerular Filt Rate > 60; Ethanol < 10 mg/dL; Glucose Random 156 mg/dL (60-115); Potassium 3.2 mmol/L (3.3-5.1); Sodium 142 mmol/L (135-145); Total Protein 7.2 g/dL (6.5-8.0)
[2023-09-26 17:15] LABS: Appearance Urine Cloudy; Color Urine Dark Yellow; Glucose Urine UA Negative (Negative); Leukocyte Esterase Urine Small (1+) (Negative); Nitrite Urine Negative (Negative); PH 5.5 (5.0-9.0); Specific Gravity - Urine >= 1.030 (1.005-1.025); UMIC TRIGGER UACC YES; Urine Blood Large (3+) (Negative); Urine Ketones Negative (Negative); Urine Protein 30 (1+) mg/dL (Neg-Trace)
[2023-09-26 17:17] LABS: Bacteria Urine 4+ (None Seen); Hyaline Casts Urine 0-2 /LPF (0-2); Squamous Epithelial Cell Urine >20 /HPF (0-2); UACC Culture Trigger YES
[2023-09-26 17:20] LABS: Amphetamine Screen Urine Not Detected (Not Detect); Barbiturates, Urine Not Detected (Not Detect); Benzodiazepines Screen Urine Not Detected (Not Detect); Cannabinoid Screen Urine Not Detected (Not Detect); Cocaine Screen Urine POSITIVE (Not Detect); Fentanyl, urine POSITIVE (Not Detect); Opiate Screen Urine Not Detected (Not Detect); Phencyclidine Screen Urine Not Detected (Not Detect)
[2023-09-26] MEDS: diphenhydrAMINE HCL 25 MG CAPSULE PO (17:35)
--- NOTE | 2023-09-26 19:04 | PC.NURSE ---
patient appears to remain at rest at present respirations are even and unlabored patient appears in no distress.
[2023-09-26 19:55] VITALS: BP 94/53; PULSE 66; RESP 16; TEMP 36.3; O2SAT 96
[2023-09-26] MEDS: traZODone HCL 100 MG TABLET PO (20:58)
[2023-09-26] MEDS: QUEtiapine Fumarate 50 MG TABLET PO (20:58)
[2023-09-26 23:33] VITALS: BP 94/56; PULSE 78; RESP 16
--- NOTE | 2023-09-27 08:59 | HE.PHANOTE ---
METHADONE CONFIRMATION FORM 65 MG LAST TAKEN 09/24 FROM VIOLETTE WARD
[2023-09-27] MEDS: methADONE HCl 20 MG/2 ML ORAL.CONC 65 MG PO (09:18)
[2023-09-27] MEDS: busPIRone HCl 10 MG TABLET PO ×3 (09:19→21:12)
[2023-09-27] MEDS: buPROPion HCl XL 150 MG TAB.ER.24H PO (09:19)
[2023-09-27] MEDS: cloNIDine HCL 0.1 MG TABLET PO (09:19)
[2023-09-27] MEDS: Methylphenidate HCl 10 MG TABLET 40 MG PO (09:19)
[2023-09-27] MEDS: Sertraline HCL 100 MG TABLET 200 MG PO (09:19)
[2023-09-27] MEDS: ARIPiprazole 5 MG TABLET PO (09:19)
[2023-09-27 09:24] VITALS: BP 101/62; PULSE 66; RESP 16; TEMP 36.2; O2SAT 98
--- NOTE | 2023-09-27 09:25 | PC.NURSE ---
Methadone verified and administered. Pt is asleep but awakes easily. Ate breakfast. Pt admits to continues depression with SI treasure, plan to use a knife. Last attempt 5 months ago per pt. Pt not offering much information when asked, quickly laying back down during this writers interaction. Calm and cooperative. Denies A/V hallucinations. Denies pain. VSS. Dispo pending
--- NOTE | 2023-09-27 12:20 | PHA.MEDREC ---
Pharmacy Consult ? Medication Reconciliation Pharmacy has reviewed the medication reconciliation done by RN.
[2023-09-27] MEDS: Methylphenidate HCl 10 MG TABLET 20 MG PO (13:25)
[2023-09-27 14:53] VITALS: BP 94/48; PULSE 67; RESP 16; TEMP 36.4; O2SAT 98
[2023-09-27] MEDS: Prazosin HCL 1 MG CAPSULE 2 MG PO (21:12)
[2023-09-27 21:18] VITALS: BP 108/67; PULSE 61; TEMP 36.4; O2SAT 98
[2023-09-27 23:35] VITALS: BP 119/63; PULSE 71; RESP 18; TEMP 36.1; O2SAT 99
[2023-09-28] MEDS: traZODone HCL 100 MG TABLET PO ×2 (00:27→21:13)
[2023-09-28] MEDS: QUEtiapine Fumarate 50 MG TABLET PO ×2 (00:27→21:13)
[2023-09-28 01:33] VITALS: BMI 30.4
--- NOTE | 2023-09-28 05:02 | PC.ADMIT ---
Maryan Mcgowan is a 42yo female, admitted to the unit from ED [facility] [facility] on CV for treatment of SI, Unspecified mood disorder and MANJEET. She self presented to [facility] ED due to SI with a plan to OD on opiates. Pt recently d/c from [facility] and relapsed the same day.She states that I am triggered by the of my Mom and daughter. Pt continues to endorses SI with no plan. She reports that she has been noncompliant with her Meds for 3 days. Pt was calm and cooperative, affect is anxious and mood is flat during the admission process. She reports taking cocaine and heroine, states that I am homeless and hopeless , all her belongings[6 bags] are in [place] . She denies any medical conditions, denies HI but endorses SI and AH, said she hears voices telling her to hurt herself but reported safe on the unit. She declined to sign authorization forms, skin check done. Treatment plan and safety tools initiated but yet to be sign.
[2023-09-28 08:09] VITALS: BP 94/51; PULSE 93; RESP 14; TEMP 36.7; O2SAT 97
[2023-09-28] MEDS: methADONE HCl 20 MG/2 ML ORAL.CONC 65 MG PO (08:33)
[2023-09-28] MEDS: Sertraline HCL 100 MG TABLET 200 MG PO (08:35)
[2023-09-28] MEDS: busPIRone HCl 10 MG TABLET PO ×3 (08:35→21:11)
[2023-09-28] MEDS: buPROPion HCl XL 150 MG TAB.ER.24H PO (08:35)
[2023-09-28] MEDS: ARIPiprazole 5 MG TABLET PO (08:36)
[2023-09-28] MEDS: Methylphenidate HCl 10 MG TABLET 40 MG PO (08:36)
--- NOTE | 2023-09-28 09:44 | P.HPPS_ITS ---
HPI Date of Service: 09/28/23 Chief Complaint: PTSD, Major Depression, Polysubstance Use Disorder Sources of Information: patient interviewed, chart reviewed and crisis/core team assessment reviewed HPI Subjective Notes: Scales Warning and Conditional Voluntary Narrative: Patient is a 42 year old female with hx of MDD, PTSD, Cocaine abuse, Opiate abuse with hx of multiple inpatient hospitalizations who self presented to ER d/t suicidal ideation with plan to overdose on opiates secondary to increased depression, mediation non-compliance and relapse on substances. During admission assessment, pt presents calm and cooperative. Pt reports feeling depressed ; pt stated, I was having suicidal thoughts because of the holidays. This is the first one without my mom and daughter. I just got out of [facility] and relapsed on heroin and crack. I didn't take my meds for three days and then came here . Patient reports she would like help to get back on track and would like to return to a program once discharged from hospital. pt reports suicidal ideation with no plan at this time. denies HI/VH/AH. pt denies any withdrawal symptoms. Past Psychiatric History: [facility] [place] and 03/2023 [facility] Unit- 06/2023 Prescriber/therapist: Maria Guadalupe Steiner) [facility] program Medical Evaluation Reviewed: Yes [facility] [place] Medical History (Updated 09/26/23 @ 20:51 by Daniel Gallego MD) Cocaine use disorder PTSD (post-traumatic stress disorder) MDD (major depressive disorder), recurrent severe, without psychosis Polysubstance (including opioids) dependence, daily use Family History: Both paternal and maternal family history mental illness and substance abuse Daughter: Substance abuse Social History: Single Daughter, November 2022 from accidental overdose Patient has 7-year-old son who lives with his father; patient remains in contact Substance History: hx of crack and heroin use. Trauma History: History of trauma; not discussed Diagnostics Vital Signs (24Hr): Vital Signs - 24 hr 09/27/23 14:53 09/27/23 21:18 09/27/23 23:35 Temperature 97.5 F 97.6 F 97 F Pulse Rate 67 61 71 Respiratory Rate 16 18 Blood Pressure 94/48 L 108/67 119/63 Pulse Oximetry 98 98 99 Oxygen Delivery Method Room Air Room Air Room Air 09/28/23 08:09 Temperature 98.1 F Pulse Rate 93 Respiratory Rate 14 Blood Pressure 94/51 L Pulse Oximetry 97 Oxygen Delivery Method Room Air BMI result Body Mass Index 30.4 Labs 09/26/23 14:54 09/26/23 14:54 Labs: Laboratory Results - last 48 hr 09/26/23 09/26/23 14:54 17:05 WBC 12.2 H RBC 4.01 L Hgb 12.3 Hct 34.6 L MCV 86.3 MCH 30.7 MCHC 35.5 H RDW 13.3 Plt Count 285 MPV 9.5 Immature Gran % (Auto) 0.3 Neut % (Auto) 56.1 Lymph % (Auto) 30.0 [place] % (Auto) 7.5 Eos % (Auto) 5.4 H Baso % (Auto) 0.7 Lymph # (Auto) 3.7 [place] # (Auto) 0.9 Eos # (Auto) 0.7 H Baso # (Auto) 0.1 Abs Immat Gran (auto) 0.04 H Absolute Neuts (auto) 6.9 Absolute Nucleated RBC 0.000 Nucleated RBC % (auto) 0.0 Sodium 142 Potassium 3.2 L Chloride 109 H Carbon Dioxide 24 Anion Gap 12 BUN 26 H Creatinine 0.90 Estim Creat Clear Calc 73.0 Estimated GFR > 60 Random Glucose 156 H Calcium 8.5 Total Bilirubin 0.7 AST 30 ALT 14 Alkaline Phosphatase 50 Total Protein 7.2 Albumin 4.1 Urine Color Dark Yellow Urine Appearance Cloudy Urine pH 5.5 Ur Specific Cranks >= 1.030 H Urine Protein 30 (1+) H Urine Glucose (UA) Negative Urine Ketones Negative Urine Blood Large (3+) H Urine Nitrite Negative Ur Leukocyte Esterase Small (1+) H Urine RBC 6-10 H Urine WBC 11-20 H Ur Squamous Epith Cells >20 Urine Bacteria 4+ Hyaline Casts 0-2 Urine Opiates Screen Not Detected Urine Fentanyl Screen POSITIVE H Ur Barbiturates Screen Not Detected Ur Phencyclidine Scrn Not Detected Ur Amphetamines Screen Not Detected U Benzodiazepines Scrn Not Detected Urine Cocaine Screen POSITIVE H U Marijuana (THC) Screen Not Detected Ethyl Alcohol < 10 COVID-19 ([facility]) Negative COVID-19 Clin Com See Note Meds/Allergies Meds Home Medications Medication Instructions Recorded Confirmed Type buspirone 10 mg tablet 10 mg PO TID 09/26/23 09/26/23 History trazodone 50 mg tablet 100 mg PO BEDTIME PRN Insomnia 12/25/23 12/25/23 History methadone 10 mg/mL oral 65 mg PO DAILY 09/27/23 09/27/23 History concentrate (Methadose) Allergies Allergies Allergy/AdvReac Type Severity Reaction Status Date / Time amoxicillin Allergy Hives Verified 12/28/22 08:17 Mental Status Exam Mental Status Exam Narrative: Pt is alert and oriented; behavior is cooperative and calm; dressed in casual attire; mood is described as depressed ; eye contact appropriate; Speech is normal rate, volume and prosody and not pressured; thought process is organized and goal directed; Thought content is on tx; otherwise pertinent to relevant topics and without any delusional content, paranoid ideations or grandiosity; denies HI. Pt reports suicidal ideation with no plan. There is no evidence of perceptual disturbance. Patients insight and judgment are poor. Assessment & Plan Assessment & Plan (1) MDD (major depressive disorder), recurrent severe, without psychosis: Status: Acute Code(s): F33.2 - Major depressive disorder, recurrent severe without psychotic features (2) PTSD (post-traumatic stress disorder): Status: Acute Code(s): F43.10 - Post-traumatic stress disorder, unspecified (3) Cocaine use disorder: Status: Acute Code(s): F14.10 - Cocaine abuse, uncomplicated (4) Opioid use disorder, severe, in sustained remission, dependence: Status: Acute Code(s): F11.21 - Opioid dependence, in remission Plan Patient is a 42 year old female with hx of MDD, PTSD, Cocaine abuse, Opiate abuse with hx of multiple inpatient hospitalizations who self presented to ER d/t suicidal ideation with plan to overdose on opiates secondary to increased depression, mediation non-compliance and relapse on substances. Plan: CV 15 minute safety checks Continue home medications Possible referral to outpatient program Discharge planning Patient educated on: diagnosis, medication risk/benefits, substance abuse and therapeutic strategies Informed Consent: understands Reason for continued inpatient stay Substantial Risk for: harm to self and med/psych decompensation Statement Statement: I have reviewed the history and physical and performed a pertinent examination on my patient. No changes have occurred unless specified. If the History and Physical was not performed prior to admission, the Hospitalist's service will be consulted for completing the admission physical. Time Spent With Patient Time: Total time managing care of this patient today _60___ minutes.
[2023-09-28] MEDS: Methylphenidate HCl 10 MG TABLET 20 MG PO (14:23)
[2023-09-28 18:00] VITALS: BP 117/60; PULSE 59; RESP 18; TEMP 36.6; O2SAT 99
[2023-09-28] MEDS: Prazosin HCL 1 MG CAPSULE 2 MG PO (21:11)
[2023-09-29 07:00] VITALS: BMI 30.6
[2023-09-29 08:08] VITALS: BP 100/65; PULSE 62; RESP 18; TEMP 36.8; O2SAT 95
[2023-09-29] MEDS: methADONE HCl 20 MG/2 ML ORAL.CONC 65 MG PO (09:03)
[2023-09-29] MEDS: Methylphenidate HCl 10 MG TABLET 40 MG PO (09:04)
[2023-09-29] MEDS: busPIRone HCl 10 MG TABLET PO ×3 (09:05→21:19)
[2023-09-29] MEDS: ARIPiprazole 5 MG TABLET PO (09:05)
[2023-09-29] MEDS: Sertraline HCL 100 MG TABLET 200 MG PO (09:05)
[2023-09-29] MEDS: buPROPion HCl XL 150 MG TAB.ER.24H PO (09:05)
--- NOTE | 2023-09-29 09:19 | P.PNPSI_ITS ---
Subjective Subjective Date of Service: 09/29/23 Reason For Visit: PTSD, Major Depression, Polysubstance Use Disorder Subjective Notes: Conditional Voluntary Interim History: Reviewed with . Pt reports feeling anxious and depressed today; pt stated, I'm just used to being on M5 and not down here. I'm waiting to see if I can get back into a program . pt denies SI/HI/VH/AH. Medication Compliance: Yes Side effects from medications: No Attending Groups: Yes Review of Systems Constitutional: Reports as per HPI Eyes: Reports as per HPI Reports as per HPI Cardiovascular: Reports as per HPI Respiratory: Reports as per HPI Gastrointestinal: Reports as per HPI Genitourinary: Reports as per HPI Musculoskeletal: Reports as per HPI Skin/Breast: Reports as per HPI Reports as per HPI Psychiatric: Reports as per HPI Endocrine: Reports as per HPI Hematologic/Lymphatic: Reports as per HPI Allergic/Immunologic: Reports as per HPI Mental Status Exam Mental Status Exam Narrative: Pt is alert and oriented; behavior is cooperative and calm; dressed in casual attire; mood is described as depressed ; eye contact appropriate; Speech is normal rate, volume and prosody and not pressured; thought process is organized and goal directed; Thought content is on tx; otherwise pertinent to relevant topics and without any delusional content, paranoid ideations or grandiosity; denies SI/HI. There is no evidence of perceptual disturbance. Diagnostics Vital Signs (24Hr): Vital Signs - 24 hr 09/28/23 18:00 09/29/23 08:08 Temperature 97.8 F 98.3 F Pulse Rate 59 62 Respiratory Rate 18 18 Blood Pressure 117/60 100/65 Pulse Oximetry 99 95 Oxygen Delivery Method Room Air Room Air BMI result Body Mass Index 30.4 Labs 09/26/23 14:54 09/26/23 14:54 Medications Medications Current Medications Acetaminophen (Acetaminophen 325 Mg Tablet) 650 mg PO Q6H PRN PRN Reason: Headache/Pain Mild Scale (1-3) Al Hydroxide/Mg Hydroxide (Magnesium Hydrox/Alum Hydrox 30 Ml Oral.Susp) 30 ml PO Q6H PRN PRN Reason: Heartburn/Nausea Aripiprazole (Aripiprazole 5 Mg Tablet) 5 mg PO DAILY [facility] Last Admin: 09/29/23 09:05 Dose: 5 mg Bupropion HCl (Bupropion Hcl Xl 150 Mg Tab.Er.24h) 150 mg PO DAILY [facility] Last Admin: 09/29/23 09:05 Dose: 150 mg Buspirone HCl (Buspirone Hcl 10 Mg Tablet) 10 mg PO TID [facility] Last Admin: 09/29/23 09:05 Dose: 10 mg Clonidine HCl (Clonidine Hcl 0.1 Mg Tablet) 0.1 mg PO DAILY [facility]; Protocol Last Admin: 09/29/23 09:08 Dose: Not Given Hydroxyzine HCl (Hydroxyzine Hcl 25 Mg Tablet) 25 mg PO Q6H PRN PRN Reason: Anxiety Magnesium Hydroxide (Milk Of Magnesia 30 Ml Oral.Susp) 30 ml PO DAILY PRN PRN Reason: Constipation Methadone HCl (Methadone Hcl 20 Mg/2 Ml Oral.Conc) 65 mg PO DAILY [facility] Last Admin: 09/29/23 09:03 Dose: 65 mg Methylphenidate HCl (Methylphenidate Hcl 10 Mg Tablet) 40 mg PO DAILY [facility] Last Admin: 09/29/23 09:04 Dose: 40 mg Methylphenidate HCl (Methylphenidate Hcl 10 Mg Tablet) 20 mg PO DAILY@1300 [facility] Last Admin: 09/28/23 14:23 Dose: 20 mg Prazosin HCl (Prazosin Hcl 1 Mg Capsule) 2 mg PO BEDTIME [facility]; Protocol Last Admin: 09/28/23 21:11 Dose: 2 mg Quetiapine Fumarate (Quetiapine Fumarate 50 Mg Tablet) 50 mg PO BEDTIME PRN PRN Reason: insomnia Last Admin: 09/28/23 21:13 Dose: 50 mg Sertraline HCl (Sertraline Hcl 100 Mg Tablet) 200 mg PO DAILY [facility] Last Admin: 09/29/23 09:05 Dose: 200 mg Trazodone HCl (Trazodone Hcl 100 Mg Tablet) 100 mg PO BEDTIME PRN PRN Reason: Insomnia Last Admin: 09/28/23 21:13 Dose: 100 mg Allergies Allergies Allergy/AdvReac Type Severity Reaction Status Date / Time amoxicillin Allergy Hives Verified 12/28/22 08:17 Assessment & Plan Assessment & Plan (1) MDD (major depressive disorder), recurrent severe, without psychosis: Status: Acute Code(s): F33.2 - Major depressive disorder, recurrent severe without psychotic features (2) PTSD (post-traumatic stress disorder): Status: Acute Code(s): F43.10 - Post-traumatic stress disorder, unspecified (3) Cocaine use disorder: Status: Acute Code(s): F14.10 - Cocaine abuse, uncomplicated (4) Opioid use disorder, severe, in sustained remission, dependence: Status: Acute Code(s): F11.21 - Opioid dependence, in remission Plan Patient is a 42 year old female with hx of MDD, PTSD, Cocaine abuse, Opiate abuse with hx of multiple inpatient hospitalizations who self presented to ER d/t suicidal ideation with plan to overdose on opiates secondary to increased depression, mediation non-compliance and relapse on substances. Plan: CV 15 minute safety checks Continue home medications Possible referral to outpatient program Discharge planning 09/29: Pt reports feeling anxious and depressed today; pt stated, I'm just used to being on M5 and not down here. I'm waiting to see if I can get back into a program . pt denies SI/HI/VH/AH. Continue current tx plan. Patient educated on: diagnosis, medication risk/benefits, substance abuse and therapeutic strategies Informed Consent: understands Reason for continued inpatient stay Substantial Risk for: med/psych decompensation Time Spent With Patient Time: Total time managing care of this patient today _30___ minutes.
[2023-09-29] MEDS: Methylphenidate HCl 10 MG TABLET 20 MG PO (14:04)
[2023-09-29 20:40] VITALS: BP 109/58; PULSE 87; RESP 18; TEMP 36.8; O2SAT 98
[2023-09-29] MEDS: Prazosin HCL 1 MG CAPSULE 2 MG PO (21:19)
[2023-09-29] MEDS: QUEtiapine Fumarate 50 MG TABLET PO (21:22)
[2023-09-29] MEDS: traZODone HCL 100 MG TABLET PO (21:22)
[2023-09-30 07:35] VITALS: BP 87/50; PULSE 53; RESP 16; TEMP 36.8; O2SAT 95
[2023-09-30] MEDS: methADONE HCl 20 MG/2 ML ORAL.CONC 65 MG PO (08:37)
[2023-09-30] MEDS: Sertraline HCL 100 MG TABLET 200 MG PO (08:39)
[2023-09-30] MEDS: busPIRone HCl 10 MG TABLET PO ×3 (08:39→20:52)
[2023-09-30] MEDS: ARIPiprazole 5 MG TABLET PO (08:40)
[2023-09-30] MEDS: buPROPion HCl XL 150 MG TAB.ER.24H PO (08:40)
[2023-09-30] MEDS: Methylphenidate HCl 10 MG TABLET 40 MG PO (08:58)
--- NOTE | 2023-09-30 09:12 | P.PNPSI_ITS ---
Subjective Subjective Date of Service: 09/30/23 Reason For Visit: PTSD, Major Depression, Polysubstance Use Disorder Subjective Notes: Conditional Voluntary Interim History: Reviewed with . Pt reports feeling better today; pt stated, I'm not so depressed and my anxiety went down . showered. keeping to self. Hoping to get into program. denies SI/HI/VH/AH. Medication Compliance: Yes Side effects from medications: No Review of Systems Constitutional: Reports as per HPI Eyes: Reports as per HPI Reports as per HPI Cardiovascular: Reports as per HPI Respiratory: Reports as per HPI Gastrointestinal: Reports as per HPI Genitourinary: Reports as per HPI Musculoskeletal: Reports as per HPI Skin/Breast: Reports as per HPI Reports as per HPI Psychiatric: Reports as per HPI Endocrine: Reports as per HPI Hematologic/Lymphatic: Reports as per HPI Allergic/Immunologic: Reports as per HPI Mental Status Exam Mental Status Exam Narrative: Pt is alert and oriented; behavior is cooperative and calm; dressed in casual attire; mood is described as better ; eye contact appropriate; Speech is normal rate, volume and prosody and not pressured; thought process is organized and goal directed; Thought content is on tx; otherwise pertinent to relevant topics and without any delusional content, paranoid ideations or grandiosity; denies SI/HI. There is no evidence of perceptual disturbance. Diagnostics Vital Signs (24Hr): Vital Signs - 24 hr 09/29/23 20:40 09/30/23 07:35 Temperature 98.2 F 98.3 F Pulse Rate 87 53 Respiratory Rate 18 16 Blood Pressure 109/58 L 87/50 L Pulse Oximetry 98 95 Oxygen Delivery Method Room Air Room Air BMI result Body Mass Index 30.6 Labs 09/26/23 14:54 09/26/23 14:54 Medications Medications Current Medications Acetaminophen (Acetaminophen 325 Mg Tablet) 650 mg PO Q6H PRN PRN Reason: Headache/Pain Mild Scale (1-3) Al Hydroxide/Mg Hydroxide (Magnesium Hydrox/Alum Hydrox 30 Ml Oral.Susp) 30 ml PO Q6H PRN PRN Reason: Heartburn/Nausea Aripiprazole (Aripiprazole 5 Mg Tablet) 5 mg PO DAILY [facility] Last Admin: 09/30/23 08:40 Dose: 5 mg Bupropion HCl (Bupropion Hcl Xl 150 Mg Tab.Er.24h) 150 mg PO DAILY [facility] Last Admin: 09/30/23 08:40 Dose: 150 mg Buspirone HCl (Buspirone Hcl 10 Mg Tablet) 10 mg PO TID [facility] Last Admin: 09/30/23 08:39 Dose: 10 mg Clonidine HCl (Clonidine Hcl 0.1 Mg Tablet) 0.1 mg PO DAILY [facility]; Protocol Last Admin: 09/30/23 08:42 Dose: Not Given Hydroxyzine HCl (Hydroxyzine Hcl 25 Mg Tablet) 25 mg PO Q6H PRN PRN Reason: Anxiety Magnesium Hydroxide (Milk Of Magnesia 30 Ml Oral.Susp) 30 ml PO DAILY PRN PRN Reason: Constipation Methadone HCl (Methadone Hcl 20 Mg/2 Ml Oral.Conc) 65 mg PO DAILY [facility] Last Admin: 09/30/23 08:37 Dose: 65 mg Methylphenidate HCl (Methylphenidate Hcl 10 Mg Tablet) 40 mg PO DAILY [facility] Last Admin: 09/30/23 08:58 Dose: 40 mg Methylphenidate HCl (Methylphenidate Hcl 10 Mg Tablet) 20 mg PO DAILY@1300 [facility] Last Admin: 09/29/23 14:04 Dose: 20 mg Prazosin HCl (Prazosin Hcl 1 Mg Capsule) 2 mg PO BEDTIME [facility]; Protocol Last Admin: 09/29/23 21:19 Dose: 2 mg Quetiapine Fumarate (Quetiapine Fumarate 50 Mg Tablet) 50 mg PO BEDTIME PRN PRN Reason: insomnia Last Admin: 09/29/23 21:22 Dose: 50 mg Sertraline HCl (Sertraline Hcl 100 Mg Tablet) 200 mg PO DAILY [facility] Last Admin: 09/30/23 08:39 Dose: 200 mg Trazodone HCl (Trazodone Hcl 100 Mg Tablet) 100 mg PO BEDTIME PRN PRN Reason: Insomnia Last Admin: 09/29/23 21:22 Dose: 100 mg Allergies Allergies Allergy/AdvReac Type Severity Reaction Status Date / Time amoxicillin Allergy Hives Verified 12/28/22 08:17 Assessment & Plan Assessment & Plan (1) MDD (major depressive disorder), recurrent severe, without psychosis: Status: Acute Code(s): F33.2 - Major depressive disorder, recurrent severe without psychotic features (2) PTSD (post-traumatic stress disorder): Status: Acute Code(s): F43.10 - Post-traumatic stress disorder, unspecified (3) Cocaine use disorder: Status: Acute Code(s): F14.10 - Cocaine abuse, uncomplicated (4) Opioid use disorder, severe, in sustained remission, dependence: Status: Acute Code(s): F11.21 - Opioid dependence, in remission Plan Patient is a 42 year old female with hx of MDD, PTSD, Cocaine abuse, Opiate abuse with hx of multiple inpatient hospitalizations who self presented to ER d/t suicidal ideation with plan to overdose on opiates secondary to increased depression, mediation non-compliance and relapse on substances. Plan: CV 15 minute safety checks Continue home medications Possible referral to outpatient program Discharge planning 09/29: Pt reports feeling anxious and depressed today; pt stated, I'm just used to being on M5 and not down here. I'm waiting to see if I can get back into a program . pt denies SI/HI/VH/AH. Continue current tx plan. 09/30: Pt reports feeling better today; pt stated, I'm not so depressed and my anxiety went down . showered. keeping to self. Hoping to get into program. denies SI/HI/VH/AH. Continue current tx plan. Patient educated on: diagnosis, medication risk/benefits, substance abuse and therapeutic strategies Informed Consent: understands Reason for continued inpatient stay Substantial Risk for: med/psych decompensation Time Spent With Patient Time: Total time managing care of this patient today _20___ minutes.
[2023-09-30] MEDS: Methylphenidate HCl 10 MG TABLET 20 MG PO (13:17)
[2023-09-30 14:29] LABS: Estimated Average Glucose 80 mg/dL; Hemoglobin A1c % 4.4 % (<6.0)
[2023-09-30 14:40] LABS: Cholesterol 148 mg/dL (<200); HDL Cholesterol 56 mg/dL (>40); LDL Cholesterol Calculated 62 mg/dL (<100); Magnesium 1.9 mg/dL (1.6-2.6); Triglycerides 153 mg/dL (<150)
[2023-09-30 14:55] LABS: Free T4 (Free Thyroxine) 1.01 ng/dL (0.71-1.85)
[2023-09-30 15:08] LABS: Folate 7.8 ng/mL (> or = 4.0); Vitamin B12 227 pg/mL (200-900)
[2023-09-30 20:25] VITALS: BP 112/65; PULSE 76; TEMP 36.5; O2SAT 99
[2023-09-30] MEDS: QUEtiapine Fumarate 50 MG TABLET PO (20:52)
[2023-09-30] MEDS: traZODone HCL 100 MG TABLET PO (20:52)
[2023-09-30] MEDS: Prazosin HCL 1 MG CAPSULE 2 MG PO (20:52)
[2023-10-01 07:40] VITALS: BP 111/64; PULSE 74; RESP 16; TEMP 36.2; O2SAT 97
--- NOTE | 2023-10-01 08:08 | P.PNPSI_ITS ---
Subjective Subjective Date of Service: 10/01/23 Reason For Visit: PTSD, Major Depression, Polysubstance Use Disorder Subjective Notes: Conditional Voluntary Interim History: Pt drawing in side room on unit- was on phone much of afternoon- Pt reports has found a placement and is doing fine on current treatment- denies current si/hi- Asked me if we had found out the thing that helps stop cravings that they could take while on MAT...began with a b Medication Compliance: Yes Side effects from medications: No Attending Groups: Intermittent Review of Systems Acute medical concerns: No Medical Review of Systems: unchanged Mental Status Exam Mental Status Exam Patient Appearance: Unkempt Patient Orientation: Person, Place, Time and Situation Level of Consciousness: Awake and Alert Patient Behavior: Hyperactive, Cooperative (somewhat- ), Impulsive and Poor Eye Contact Mood Description: Apathetic Affect Description: Blunted Patient Cognition Impaired: No Ability to Follow Directions: Fair Speech Pattern: Clear Hallucinations: None Delusions: Not Present Thought Process: Intact and Goal Oriented Thought Content: positive for Goal Oriented and positive for Suicidal Ideation (denies) Judgement: Fair Diagnostics Vital Signs (24Hr): Vital Signs - 24 hr 09/30/23 20:25 Temperature 97.7 F Pulse Rate 76 Blood Pressure 112/65 Pulse Oximetry 99 Oxygen Delivery Method Room Air BMI result Body Mass Index 30.6 Labs 09/26/23 14:54 09/26/23 14:54 Labs: Laboratory Results - last 48 hr 09/30/23 14:12 Estimat Average Glucose 80 Hemoglobin A1c % 4.4 Magnesium 1.9 Triglycerides 153 H Cholesterol 148 LDL Cholesterol, Calc 62 HDL Cholesterol 56 Vitamin B12 227 Folate 7.8 TSH 0.80 Free T4 1.01 Medications Medications Current Medications Acetaminophen (Acetaminophen 325 Mg Tablet) 650 mg PO Q6H PRN PRN Reason: Headache/Pain Mild Scale (1-3) Al Hydroxide/Mg Hydroxide (Magnesium Hydrox/Alum Hydrox 30 Ml Oral.Susp) 30 ml PO Q6H PRN PRN Reason: Heartburn/Nausea Aripiprazole (Aripiprazole 5 Mg Tablet) 5 mg PO DAILY [facility] Last Admin: 09/30/23 08:40 Dose: 5 mg Bupropion HCl (Bupropion Hcl Xl 150 Mg Tab.Er.24h) 150 mg PO DAILY [facility] Last Admin: 09/30/23 08:40 Dose: 150 mg Buspirone HCl (Buspirone Hcl 10 Mg Tablet) 10 mg PO TID [facility] Last Admin: 09/30/23 20:52 Dose: 10 mg Clonidine HCl (Clonidine Hcl 0.1 Mg Tablet) 0.1 mg PO DAILY [facility]; Protocol Last Admin: 09/30/23 08:42 Dose: Not Given Hydroxyzine HCl (Hydroxyzine Hcl 25 Mg Tablet) 25 mg PO Q6H PRN PRN Reason: Anxiety Magnesium Hydroxide (Milk Of Magnesia 30 Ml Oral.Susp) 30 ml PO DAILY PRN PRN Reason: Constipation Methadone HCl (Methadone Hcl 20 Mg/2 Ml Oral.Conc) 65 mg PO DAILY [facility] Last Admin: 09/30/23 08:37 Dose: 65 mg Methylphenidate HCl (Methylphenidate Hcl 10 Mg Tablet) 40 mg PO DAILY [facility] Last Admin: 09/30/23 08:58 Dose: 40 mg Methylphenidate HCl (Methylphenidate Hcl 10 Mg Tablet) 20 mg PO DAILY@1300 [facility] Last Admin: 09/30/23 13:17 Dose: 20 mg Prazosin HCl (Prazosin Hcl 1 Mg Capsule) 2 mg PO BEDTIME [facility]; Protocol Last Admin: 09/30/23 20:52 Dose: 2 mg Quetiapine Fumarate (Quetiapine Fumarate 50 Mg Tablet) 50 mg PO BEDTIME PRN PRN Reason: insomnia Last Admin: 09/30/23 20:52 Dose: 50 mg Sertraline HCl (Sertraline Hcl 100 Mg Tablet) 200 mg PO DAILY [facility] Last Admin: 09/30/23 08:39 Dose: 200 mg Trazodone HCl (Trazodone Hcl 100 Mg Tablet) 100 mg PO BEDTIME PRN PRN Reason: Insomnia Last Admin: 09/30/23 20:52 Dose: 100 mg Allergies Allergies Allergy/AdvReac Type Severity Reaction Status Date / Time amoxicillin Allergy Hives Verified 12/28/22 08:17 Assessment & Plan Assessment & Plan (1) MDD (major depressive disorder), recurrent severe, without psychosis: Status: Acute Code(s): F33.2 - Major depressive disorder, recurrent severe without psychotic features (2) PTSD (post-traumatic stress disorder): Status: Acute Code(s): F43.10 - Post-traumatic stress disorder, unspecified (3) Cocaine use disorder: Status: Acute Code(s): F14.10 - Cocaine abuse, uncomplicated (4) Opioid use disorder, severe, in sustained remission, dependence: Status: Acute Code(s): F11.21 - Opioid dependence, in remission Plan Patient is a 42 year old female with hx of MDD, PTSD, Cocaine abuse, Opiate abuse with hx of multiple inpatient hospitalizations who self presented to ER d/t suicidal ideation with plan to overdose on opiates secondary to increased depression, mediation non-compliance and relapse on substances. Plan: CV 15 minute safety checks Continue home medications Possible referral to outpatient program Discharge planning 09/29: Pt reports feeling anxious and depressed today; pt stated, I'm just used to being on M5 and not down here. I'm waiting to see if I can get back into a program . pt denies SI/HI/VH/AH. Continue current tx plan. 09/30: Pt reports feeling better today; pt stated, I'm not so depressed and my anxiety went down . showered. keeping to self. Hoping to get into program. denies SI/HI/VH/AH. Continue current tx plan. 10/01 CTP reports got self into program so on the way out Patient educated on: other Informed Consent: further education needed Reason for continued inpatient stay Substantial Risk for: rapid decompensation Time Spent With Patient Time: Total time managing care of this patient today ____ minutes.
[2023-10-01] MEDS: methADONE HCl 20 MG/2 ML ORAL.CONC 65 MG PO (08:35)
[2023-10-01] MEDS: Acetaminophen 325 MG TABLET 650 MG PO ×2 (08:37→21:12)
[2023-10-01] MEDS: cloNIDine HCL 0.1 MG TABLET PO (08:38)
[2023-10-01] MEDS: Sertraline HCL 100 MG TABLET 200 MG PO (08:38)
[2023-10-01] MEDS: ARIPiprazole 5 MG TABLET PO (08:39)
[2023-10-01] MEDS: busPIRone HCl 10 MG TABLET PO ×3 (08:39→21:09)
[2023-10-01] MEDS: buPROPion HCl XL 150 MG TAB.ER.24H PO (08:39)
[2023-10-01] MEDS: Methylphenidate HCl 10 MG TABLET 40 MG PO (08:39)
[2023-10-01] MEDS: Methylphenidate HCl 10 MG TABLET 20 MG PO (12:48)
[2023-10-01 21:00] VITALS: BP 95/56; PULSE 83; RESP 16; TEMP 36.4; O2SAT 96
[2023-10-01] MEDS: Prazosin HCL 1 MG CAPSULE 2 MG PO (21:09)
[2023-10-01] MEDS: QUEtiapine Fumarate 50 MG TABLET PO (21:09)
[2023-10-01] MEDS: traZODone HCL 100 MG TABLET PO (21:09)
[2023-10-02 08:05] VITALS: BP 99/59; PULSE 83; RESP 16; TEMP 36.4; O2SAT 95
[2023-10-02] MEDS: methADONE HCl 20 MG/2 ML ORAL.CONC 65 MG PO (09:31)
[2023-10-02] MEDS: Methylphenidate HCl 10 MG TABLET 40 MG PO (09:32)
[2023-10-02] MEDS: busPIRone HCl 10 MG TABLET PO ×3 (09:33→19:59)
[2023-10-02] MEDS: buPROPion HCl XL 150 MG TAB.ER.24H PO (09:33)
[2023-10-02] MEDS: cloNIDine HCL 0.1 MG TABLET PO (09:33)
[2023-10-02] MEDS: ARIPiprazole 5 MG TABLET PO (09:33)
[2023-10-02] MEDS: Sertraline HCL 100 MG TABLET 200 MG PO (09:33)
--- NOTE | 2023-10-02 12:50 | P.PNPSI_ITS ---
Subjective Subjective Date of Service: 10/02/23 Reason For Visit: PTSD, Major Depression, Polysubstance Use Disorder Subjective Notes: Conditional Voluntary Interim History: 42 yo saying they are fine- poor eye contact- annoyed that I haven't discovered med that prevents cravings- that they could take on MAT for opiates- further discovered it was crack they were having cravings for- not for the opiate- Happy to have gotten into [facility] for further care from here. denies other symptoms at this time- Medication Compliance: Yes Side effects from medications: No Attending Groups: Intermittent Review of Systems Acute medical concerns: No Medical Review of Systems: unchanged Mental Status Exam Mental Status Exam Narrative: fairly groomed, lying in bed, decrease eye contact Patient Orientation: Person, Place and Situation Level of Consciousness: Awake and Alert Patient Behavior: Passive and Avoidant Mood Description: Withdrawn Affect Description: Blunted Patient Cognition Impaired: No Ability to Follow Directions: Fair Speech Pattern: Clear Thought Process: Goal Oriented Thought Content: positive for [place] Judgement: Fair Diagnostics Vital Signs (24Hr): Vital Signs - 24 hr 10/01/23 21:00 10/02/23 08:05 Temperature 97.6 F 97.5 F Pulse Rate 83 83 Respiratory Rate 16 16 Blood Pressure 95/56 L 99/59 L Pulse Oximetry 96 95 Oxygen Delivery Method Room Air Room Air BMI result Body Mass Index 30.6 Labs 09/26/23 14:54 09/26/23 14:54 Labs: Laboratory Results - last 48 hr 09/30/23 14:12 Estimat Average Glucose 80 Hemoglobin A1c % 4.4 Magnesium 1.9 Triglycerides 153 H Cholesterol 148 LDL Cholesterol, Calc 62 HDL Cholesterol 56 Vitamin B12 227 Folate 7.8 TSH 0.80 Free T4 1.01 Medications Medications Current Medications Acetaminophen (Acetaminophen 325 Mg Tablet) 650 mg PO Q6H PRN PRN Reason: Headache/Pain Mild Scale (1-3) Last Admin: 10/01/23 21:12 Dose: 650 mg Al Hydroxide/Mg Hydroxide (Magnesium Hydrox/Alum Hydrox 30 Ml Oral.Susp) 30 ml PO Q6H PRN PRN Reason: Heartburn/Nausea Aripiprazole (Aripiprazole 5 Mg Tablet) 5 mg PO DAILY ANGELA Last Admin: 10/02/23 09:33 Dose: 5 mg Bupropion HCl (Bupropion Hcl Xl 150 Mg Tab.Er.24h) 150 mg PO DAILY ANGELA Last Admin: 12/31/23 09:33 Dose: 150 mg Buspirone HCl (Buspirone Hcl 10 Mg Tablet) 10 mg PO TID [facility] Last Admin: 10/02/23 09:33 Dose: 10 mg Clonidine HCl (Clonidine Hcl 0.1 Mg Tablet) 0.1 mg PO DAILY [facility]; Protocol Last Admin: 10/02/23 09:33 Dose: 0.1 mg Hydroxyzine HCl (Hydroxyzine Hcl 25 Mg Tablet) 25 mg PO Q6H PRN PRN Reason: Anxiety Magnesium Hydroxide (Milk Of Magnesia 30 Ml Oral.Susp) 30 ml PO DAILY PRN PRN Reason: Constipation Methadone HCl (Methadone Hcl 20 Mg/2 Ml Oral.Conc) 65 mg PO DAILY [facility] Last Admin: 10/02/23 09:31 Dose: 65 mg Methylphenidate HCl (Methylphenidate Hcl 10 Mg Tablet) 40 mg PO DAILY [facility] Last Admin: 10/02/23 09:32 Dose: 40 mg Methylphenidate HCl (Methylphenidate Hcl 10 Mg Tablet) 20 mg PO DAILY@1300 [facility] Last Admin: 10/01/23 12:48 Dose: 20 mg Prazosin HCl (Prazosin Hcl 1 Mg Capsule) 2 mg PO BEDTIME [facility]; Protocol Last Admin: 10/01/23 21:09 Dose: 2 mg Quetiapine Fumarate (Quetiapine Fumarate 50 Mg Tablet) 50 mg PO BEDTIME PRN PRN Reason: insomnia Last Admin: 10/01/23 21:09 Dose: 50 mg Sertraline HCl (Sertraline Hcl 100 Mg Tablet) 200 mg PO DAILY [facility] Last Admin: 10/02/23 09:33 Dose: 200 mg Trazodone HCl (Trazodone Hcl 100 Mg Tablet) 100 mg PO BEDTIME PRN PRN Reason: Insomnia Last Admin: 10/01/23 21:09 Dose: 100 mg Allergies Allergies Allergy/AdvReac Type Severity Reaction Status Date / Time amoxicillin Allergy Hives Verified 12/28/22 08:17 Assessment & Plan Assessment & Plan (1) MDD (major depressive disorder), recurrent severe, without psychosis: Status: Acute Code(s): F33.2 - Major depressive disorder, recurrent severe without psychotic features (2) PTSD (post-traumatic stress disorder): Status: Acute Code(s): F43.10 - Post-traumatic stress disorder, unspecified (3) Cocaine use disorder: Status: Acute Code(s): F14.10 - Cocaine abuse, uncomplicated (4) Opioid use disorder, severe, in sustained remission, dependence: Status: Acute Code(s): F11.21 - Opioid dependence, in remission Plan Patient is a 42 year old female with hx of MDD, PTSD, Cocaine abuse, Opiate abuse with hx of multiple inpatient hospitalizations who self presented to ER d/t suicidal ideation with plan to overdose on opiates secondary to increased depression, mediation non-compliance and relapse on substances. Plan: CV 15 minute safety checks Continue home medications Possible referral to outpatient program Discharge planning 09/29: Pt reports feeling anxious and depressed today; pt stated, I'm just used to being on M5 and not down here. I'm waiting to see if I can get back into a program . pt denies SI/HI/VH/AH. Continue current tx plan. 09/30: Pt reports feeling better today; pt stated, I'm not so depressed and my anxiety went down . showered. keeping to self. Hoping to get into program. denies SI/HI/VH/AH. Continue current tx plan. 10/01 CTP reports got self into program so on the way out 10/02 still looking for medication to help cravings, otherwise pleased to have gotten into longer term care ...for substance abuse Patient educated on: substance abuse Informed Consent: further education needed Reason for continued inpatient stay Substantial Risk for: rapid decompensation Time Spent With Patient Time: Total time managing care of this patient today ____ minutes.
[2023-10-02] MEDS: Methylphenidate HCl 10 MG TABLET 20 MG PO (13:16)
[2023-10-02] MEDS: Acetaminophen 325 MG TABLET 650 MG PO (19:58)
[2023-10-02] MEDS: Prazosin HCL 1 MG CAPSULE 2 MG PO (19:58)
[2023-10-02] MEDS: QUEtiapine Fumarate 50 MG TABLET PO (19:59)
[2023-10-02] MEDS: traZODone HCL 100 MG TABLET PO (19:59)
[2023-10-02 20:01] VITALS: BP 98/70; PULSE 89; RESP 18; TEMP 36.4; O2SAT 98
[2023-10-03 06:00] VITALS: BP 91/55; PULSE 78; RESP 24; TEMP 35.9; O2SAT 96
[2023-10-03] MEDS: methADONE HCl 20 MG/2 ML ORAL.CONC 65 MG PO (08:54)
[2023-10-03] MEDS: Sertraline HCL 100 MG TABLET 200 MG PO (08:56)
[2023-10-03] MEDS: ARIPiprazole 5 MG TABLET PO (08:57)
[2023-10-03] MEDS: cloNIDine HCL 0.1 MG TABLET PO (08:57)
[2023-10-03] MEDS: buPROPion HCl XL 150 MG TAB.ER.24H PO (08:57)
[2023-10-03] MEDS: busPIRone HCl 10 MG TABLET PO ×3 (08:58→20:14)
[2023-10-03] MEDS: Methylphenidate HCl 10 MG TABLET 40 MG PO (08:58)
--- NOTE | 2023-10-03 12:40 | P.PNPSI_ITS ---
Subjective Subjective Date of Service: 10/03/23 Reason For Visit: PTSD, Major Depression, Polysubstance Use Disorder Subjective Notes: Conditional Voluntary Interim History: 42 yo relieved provider looked up and discovered baclofen for cocaine cravings is what they were hoping to start- Anxiety up over discharge to program When asked them what would be different this time given left css to use last time- says this [facility] program has more structure which she feels she needs- denies current si and would like to start baclofen, though discussed addiction medicine's suggestion they have better results with topiramate- says tried before and didn't like effects Medication Compliance: Yes Side effects from medications: No Attending Groups: Intermittent (not last 24 hrs- staying in room to manage anxiety re dc) Review of Systems Acute medical concerns: No Medical Review of Systems: unchanged Mental Status Exam Mental Status Exam Narrative: fairly groomed, lying in bed, decrease eye contact Patient Appearance: Unkempt Patient Orientation: Person, Place and Situation Level of Consciousness: Awake and Alert Patient Behavior: Passive and Avoidant Mood Description: Withdrawn Affect Description: Blunted Patient Cognition Impaired: No Ability to Follow Directions: Fair Speech Pattern: Clear Thought Process: Goal Oriented Thought Content: positive for [place] Judgement: Fair Diagnostics Vital Signs (24Hr): Vital Signs - 24 hr 10/02/23 20:01 10/03/23 06:00 Temperature 97.6 F 96.7 F L Pulse Rate 89 78 Respiratory Rate 18 24 H Blood Pressure 98/70 91/55 L Pulse Oximetry 98 96 Oxygen Delivery Method Room Air Room Air BMI result Body Mass Index 30.6 Labs 09/26/23 14:54 09/26/23 14:54 Medications Medications Current Medications Acetaminophen (Acetaminophen 325 Mg Tablet) 650 mg PO Q6H PRN PRN Reason: Headache/Pain Mild Scale (1-3) Last Admin: 10/02/23 19:58 Dose: 650 mg Al Hydroxide/Mg Hydroxide (Magnesium Hydrox/Alum Hydrox 30 Ml Oral.Susp) 30 ml PO Q6H PRN PRN Reason: Heartburn/Nausea Aripiprazole (Aripiprazole 5 Mg Tablet) 5 mg PO DAILY [facility] Last Admin: 10/03/23 08:57 Dose: 5 mg Bupropion HCl (Bupropion Hcl Xl 150 Mg Tab.Er.24h) 150 mg PO DAILY [facility] Last Admin: 01/01/24 08:57 Dose: 150 mg Buspirone HCl (Buspirone Hcl 10 Mg Tablet) 10 mg PO TID [facility] Last Admin: 10/03/23 08:58 Dose: 10 mg Clonidine HCl (Clonidine Hcl 0.1 Mg Tablet) 0.1 mg PO DAILY [facility]; Protocol Last Admin: 10/03/23 08:57 Dose: 0.1 mg Hydroxyzine HCl (Hydroxyzine Hcl 25 Mg Tablet) 25 mg PO Q6H PRN PRN Reason: Anxiety Magnesium Hydroxide (Milk Of Magnesia 30 Ml Oral.Susp) 30 ml PO DAILY PRN PRN Reason: Constipation Methadone HCl (Methadone Hcl 20 Mg/2 Ml Oral.Conc) 65 mg PO DAILY [facility] Last Admin: 10/03/23 08:54 Dose: 65 mg Methylphenidate HCl (Methylphenidate Hcl 10 Mg Tablet) 40 mg PO DAILY [facility] Last Admin: 10/03/23 08:58 Dose: 40 mg Methylphenidate HCl (Methylphenidate Hcl 10 Mg Tablet) 20 mg PO DAILY@1300 [facility] Last Admin: 10/02/23 13:16 Dose: 20 mg Prazosin HCl (Prazosin Hcl 1 Mg Capsule) 2 mg PO BEDTIME [facility]; Protocol Last Admin: 10/02/23 19:58 Dose: 2 mg Quetiapine Fumarate (Quetiapine Fumarate 50 Mg Tablet) 50 mg PO BEDTIME PRN PRN Reason: insomnia Last Admin: 10/02/23 19:59 Dose: 50 mg Sertraline HCl (Sertraline Hcl 100 Mg Tablet) 200 mg PO DAILY [facility] Last Admin: 10/03/23 08:56 Dose: 200 mg Trazodone HCl (Trazodone Hcl 100 Mg Tablet) 100 mg PO BEDTIME PRN PRN Reason: Insomnia Last Admin: 10/02/23 19:59 Dose: 100 mg Allergies Allergies Allergy/AdvReac Type Severity Reaction Status Date / Time amoxicillin Allergy Hives Verified 12/28/22 08:17 Assessment & Plan Assessment & Plan (1) MDD (major depressive disorder), recurrent severe, without psychosis: Status: Acute Code(s): F33.2 - Major depressive disorder, recurrent severe without psychotic features (2) PTSD (post-traumatic stress disorder): Status: Acute Code(s): F43.10 - Post-traumatic stress disorder, unspecified (3) Cocaine use disorder: Status: Acute Code(s): F14.10 - Cocaine abuse, uncomplicated Assessment and Plan: 10/03/23 started baclofen 10mg bid (4) Opioid use disorder, severe, in sustained remission, dependence: Status: Acute Code(s): F11.21 - Opioid dependence, in remission Assessment and Plan: on MAT Plan Patient is a 42 year old female with hx of MDD, PTSD, Cocaine abuse, Opiate abuse with hx of multiple inpatient hospitalizations who self presented to ER d/t suicidal ideation with plan to overdose on opiates secondary to increased depression, mediation non-compliance and relapse on substances. Plan: CV 15 minute safety checks Continue home medications Possible referral to outpatient program Discharge planning 09/29: Pt reports feeling anxious and depressed today; pt stated, I'm just used to being on M5 and not down here. I'm waiting to see if I can get back into a program . pt denies SI/HI/VH/AH. Continue current tx plan. 09/30: Pt reports feeling better today; pt stated, I'm not so depressed and my anxiety went down . showered. keeping to self. Hoping to get into program. denies SI/HI/VH/AH. Continue current tx plan. 10/01 CTP reports got self into program so on the way out 10/02 still looking for medication to help cravings, otherwise pleased to have gotten into longer term care ...for substance abuse 10/03/23 added baclofen, pt anxious re dc - but hoping this program will help them in more structured way. Patient educated on: medication risk/benefits and substance abuse Informed Consent: understands Reason for continued inpatient stay Substantial Risk for: rapid decompensation Time Spent With Patient Time: Total time managing care of this patient today ____ minutes.
[2023-10-03] MEDS: Methylphenidate HCl 10 MG TABLET 20 MG PO (13:16)
[2023-10-03] MEDS: Baclofen 10 MG TABLET PO ×2 (13:17→20:13)
[2023-10-03 20:00] VITALS: BP 99/56; PULSE 78; RESP 18; TEMP 36.6; O2SAT 98
[2023-10-03] MEDS: Prazosin HCL 1 MG CAPSULE 2 MG PO (20:13)
[2023-10-03] MEDS: traZODone HCL 100 MG TABLET PO (20:13)
[2023-10-03] MEDS: QUEtiapine Fumarate 50 MG TABLET PO (20:13)
[2023-10-04 07:30] VITALS: BP 99/58; PULSE 62; RESP 16; TEMP 36.2; O2SAT 96
[2023-10-04] MEDS: methADONE HCl 20 MG/2 ML ORAL.CONC 65 MG PO (09:05)
[2023-10-04] MEDS: cloNIDine HCL 0.1 MG TABLET PO (09:07)
[2023-10-04] MEDS: Methylphenidate HCl 10 MG TABLET 40 MG PO (09:07)
[2023-10-04] MEDS: buPROPion HCl XL 150 MG TAB.ER.24H PO (09:07)
[2023-10-04] MEDS: Baclofen 10 MG TABLET PO (09:07)
[2023-10-04] MEDS: ARIPiprazole 5 MG TABLET PO (09:07)
[2023-10-04] MEDS: busPIRone HCl 10 MG TABLET PO (09:07)
[2023-10-04] MEDS: Sertraline HCL 100 MG TABLET 200 MG PO (09:07)
--- NOTE | 2023-10-04 09:20 | PM.PSYDC ---
DS: Providers Provider Date of Service: 10/04/23 Date of admission: 09/27/23 18:34 Primary care physician: Unknown Physician DS: Diagnosis Discharge Diagnosis (1) MDD (major depressive disorder), recurrent severe, without psychosis: Status: Acute (2) PTSD (post-traumatic stress disorder): Status: Acute (3) Cocaine use disorder: Status: Acute (4) Opioid use disorder, severe, in sustained remission, dependence: Status: Acute DS: Medications Discharge Medications Home Medications: Home Medications Medication Instructions Recorded Confirmed methadone 10 mg/mL oral 65 mg PO DAILY 09/27/23 09/27/23 concentrate (Methadose) Previous Rx's Medication Instructions Recorded Ritalin 20 mg tablet See Rx Instructions .Route 10/04/23 (methylphenidate HCl) .COMPLEX 30 days #90 tabs aripiprazole 5 mg tablet (Abilify) 5 mg PO DAILY 30 days #30 tabs 10/04/23 baclofen 10 mg tablet 10 mg PO BID 30 days #60 tabs 10/04/23 bupropion HCl 150 mg 24 hr tablet, 150 mg PO DAILY 30 days #30 tabs 10/04/23 extended release buspirone 10 mg tablet 10 mg PO TID 30 days #90 tabs 10/04/23 clonidine HCl 0.1 mg tablet 0.1 mg PO DAILY 30 days #30 tabs 10/04/23 prazosin 2 mg capsule 2 mg PO BEDTIME 30 days #30 caps 10/04/23 quetiapine 50 mg tablet 50 mg PO BEDTIME PRN insomnia 30 10/04/23 days #30 tabs sertraline 100 mg tablet 200 mg (2 x 100 mg) PO QAM 30 days 10/04/23 #60 tabs trazodone 50 mg tablet 100 mg (2 x 50 mg) PO BEDTIME PRN 10/04/23 Insomnia 30 days #60 tabs Mental Status Exam Mental Status Exam Narrative: fairly groomed, lying in bed, decrease eye contact Patient Appearance: Unkempt Patient Orientation: Person, Place and Situation Level of Consciousness: Awake and Alert Patient Behavior: Passive and Avoidant Mood Description: Withdrawn Affect Description: Blunted Patient Cognition Impaired: No Ability to Follow Directions: Fair Speech Pattern: Clear Thought Process: Goal Oriented Thought Content: positive for [place] Judgement: Fair Data Data Completed and Pending Completed studies during hospitalization [Text1]: 09/30/23 14:12 Estimat Average Glucose 80 Hemoglobin A1c % 4.4 Magnesium 1.9 Triglycerides 153 H Cholesterol 148 LDL Cholesterol, Calc 62 HDL Cholesterol 56 Vitamin B12 227 Folate 7.8 TSH 0.80 Free T4 1.01 09/26/23 17:18 Urine clean catch - Urine gonzáles top Urine Culture - Final DS: Summary Hospital Course Hospital Course: per 09/28 admission note: Patient is a 42 year old female with hx of MDD, PTSD, Cocaine abuse, Opiate abuse with hx of multiple inpatient hospitalizations who self presented to ER d/t suicidal ideation with plan to overdose on opiates secondary to increased depression, mediation non-compliance and relapse on substances. During admission assessment, pt presents calm and cooperative. Pt reports feeling depressed ; pt stated, I was having suicidal thoughts because of the holidays. This is the first one without my mom and daughter. I just got out of [facility] and relapsed on heroin and crack. I didn't take my meds for three days and then came here . Patient reports she would like help to get back on track and would like to return to a program once discharged from hospital. pt reports suicidal ideation with no plan at this time. denies HI/VH/AH. pt denies any withdrawal symptoms. Past Psychiatric History: [facility] [place] M5-06/2023 and 03/2023 [facility]- 06/2023 Prescriber/therapist: Maria Guadalupe Steiner) [facility] program Medical Evaluation Reviewed: Yes [facility] Medical History (Updated 09/26/23 @ 20:51 by Daniel Gallego MD) Cocaine use disorder PTSD (post-traumatic stress disorder) MDD (major depressive disorder), recurrent severe, without psychosis Polysubstance (including opioids) dependence, daily use Family History: Both paternal and maternal family history mental illness and substance abuse Daughter: Substance abuse Social History: Single Daughter, November 2022 from accidental overdose Patient has 7-year-old son who lives with his father; patient remains in contact Substance History: hx of crack and heroin use. Trauma History: History of trauma; not discussed Precis: Patient is a 42 year old female with hx of MDD, PTSD, Cocaine abuse, Opiate abuse with hx of multiple inpatient hospitalizations who self presented to ER d/t suicidal ideation with plan to overdose on opiates secondary to increased depression, mediation non-compliance and relapse on substances. 09/28: Continue home medications. Possible referral to outpatient program. Discharge planning 09/29: Pt reports feeling anxious and depressed today; pt stated, I'm just used to being on M5 and not down here. I'm waiting to see if I can get back into a program . pt denies SI/HI/VH/AH. Continue current tx plan. 09/30: Pt reports feeling better today; pt stated, I'm not so depressed and my anxiety went down . showered. keeping to self. Hoping to get into program. denies SI/HI/VH/AH. Continue current tx plan. 10/01 CTP reports got self into program so on the way out 10/02 still looking for medication to help cravings, otherwise pleased to have gotten into longer term care ...for substance abuse 10/03/23 added baclofen, pt anxious re dc - but hoping this program will help them in more structured way. 10/04: meds reviewed, reconciled, prescribed. stable, discharged to [facility] as per plan. Time Spent with Patient Time attestation: Total time managing care of this patient today ____ minutes. Time spent: Greater than 30 minutes Discharge Plan Discharge Anticipated Discharge Date/Time: 10/04/23 09:13 Patient Disposition: Xfer Inpatient Rehab Fac Discharge Diagnosis: PTSD, Chronic Major Depressive Disorder, Recurrent, Severe Polysubstance Use Disorder Referrals: [facility] [Provider Group] - 1 Week (Walk In hours M-F [id number]- 4p) Discharge Medications: New baclofen 10 mg Tablet 10 mg PO BID 30 Days Qty: 60 0RF Continued methadone [Methadose] 10 mg/mL concentrate 65 mg PO DAILY Patient Comments: Pt last in clinic 09/24/23 and dosed 65mg, also given two take home bottles for 65mg. Rx Instructions: Partial Fill upon patient request. clonidine HCl 0.1 mg Tablet 0.1 mg PO DAILY 30 Days Qty: 30 1RF Protocol: Hold for SBP< HOLD for SBP < : 90 methylphenidate HCl [Ritalin] 20 mg tablet See Rx Instructions .ROUTE .COMPLEX 30 Days Qty: 90 0RF Rx Instructions: take 2 tabs in the AM and take 1 tab at 1pm buspirone 10 mg tablet 10 mg PO TID 30 Days Qty: 90 0RF aripiprazole [Abilify] 5 mg Tablet 5 mg PO DAILY 30 Days Qty: 30 1RF bupropion HCl 150 mg Tablet Extended Release 24 Hr 150 mg PO DAILY 30 Days Qty: 30 1RF trazodone 50 mg tablet 100 mg PO BEDTIME PRN (Reason: Insomnia) 30 Days Qty: 60 0RF sertraline 100 mg tablet 200 mg PO QAM 30 Days Qty: 60 1RF prazosin 2 mg capsule 2 mg PO BEDTIME 30 Days Qty: 30 1RF quetiapine 50 mg Tablet 50 mg PO BEDTIME PRN (Reason: insomnia) 30 Days Qty: 30 1RF Discharge Orders: Discharge Order (Routine); Ordered 10/04/23 Ordered By: Rell Ramos Diet: Advance to usual diet Activity on Discharge: As tolerated Stand Alone Forms: Patient Portal Discharge page, Community Support Care Plan Goals: remain safe and sober in the outpatient treatment setting Health Concerns: none Plan of Treatment: take medications as prescribed, attend appointments as scheduled, complete substance use rehabilitation program. Assessment: not at imminent risk of harm to self or others Discharge Date/Time: 10/04/23 09:59
--- NOTE | 2023-10-04 09:59 | PC.NURSE ---
Maryan is discharged by [facility] to [facility]. She denies ideation, plan or intent to harm self or others. She denies ah, vh, hi, si. She verbalizes understanding of discharge instructions including medications and appointments.
== END 2023-10-04 09:59 | DRG 751 ==
LOC: HO.ED 20:51 → HO.PADLT16 09-27 18:47
PROVIDERS: Admitting Provider Clinical Nurse Specialist Psychiatric/Mental Health, Adult; Emergency Provider Emergency Medicine; Responsible Provider Registered Nurse; Visit Provider Psychiatry & Neurology Psychiatry
DX: F33.2 Major depressive disorder, recurrent severe without psychotic features (principal); F11.20 Opioid dependence, uncomplicated; F14.10 Cocaine abuse, uncomplicated; Z91.148 Patient's other noncompliance with medication regimen for other reason; Z20.822 Contact with and (suspected) exposure to COVID-19; Z59.02 Unsheltered homelessness; Z79.899 Other long term (current) drug therapy
CPT/HCPCS: 36415; 80053; 80061; 80307; 81001; 82607; 82746; 83036; 83735; 84439; 84443; 85025; 87086; 87635; 93005; 99285; S9485

== ENCOUNTER → 2023-09-26 14:02 | Outpatient (BNV) | payer OTHER, SELFPAY | PROVIDERS: Emergency Provider Emergency Medicine; Visit Provider Internal Medicine | DX: R00.0 Tachycardia, unspecified (principal) | CPT/HCPCS: 93010 ==

== ENCOUNTER → 2023-09-27 18:34 | Outpatient (BNV) | payer OTHER, SELFPAY | PROVIDERS: Admitting Provider Clinical Nurse Specialist Psychiatric/Mental Health, Adult; Emergency Provider Emergency Medicine; Responsible Provider Registered Nurse; Visit Provider Registered Nurse | DX: F33.2 Major depressive disorder, recurrent severe without psychotic features (principal); F14.10 Cocaine abuse, uncomplicated; F11.21 Opioid dependence, in remission; F43.11 Post-traumatic stress disorder, acute | CPT/HCPCS: 99231; 99232; 99233 ==

== ENCOUNTER 2023-10-16 22:15 | Inpatient (IN) | payer OTHER, SELFPAY ==
[2023-10-16 22:16] VITALS: BP 114/76; PULSE 84; RESP 14; TEMP 36.8; O2SAT 98; BMI 32.8
[2023-10-16 22:45] LABS: MANUAL DIFF FLAG NO
[2023-10-16 22:51] LABS: Basophils Absolute Auto 0.1 X10*3/uL (0.0-0.2); Basophils Percent Auto 0.8 % (0-2); Eosinophils Absolute Auto 0.8 X10*3/uL (0.0-0.4); Eosinophils Percent Auto 8.9 % (0-4); Hematocrit 37.5 % (37.0-47.0); Hemoglobin 12.8 g/dl (12.0-16.0); Imm Gran Abs Auto 0.03 X10*3/uL (0.00-0.03); Imm Gran Pct Auto 0.3 % (0.0-0.4); Lymphocytes Absolute Auto 3.1 X10*3/uL (1.2-4.9); Lymphocytes Percent Auto 34.6 % (20-40); Mean Corpuscular HGB Conc 34.1 g/dl (31.0-35.0); Mean Corpuscular Hemoglobin 30.5 pg (27.0-33.0); Mean Corpuscular Volume 89.5 fL (80.0-98.0); Mean Platelet Volume 9.4 fL (9.4-12.3); Monocytes Absolute Auto 0.7 X10*3/uL (0.1-1.2); Monocytes Percent Auto 8.1 % (2-11); Neutrophils Absolute Auto 4.2 x10*3/uL (2.0-8.3); Neutrophils Percent Auto 47.3 % (45-73); Platelet Count 271 X10*3/uL (160-400); Red Blood Count 4.19 X10*6/uL (4.20-5.50); Red Cell Distribution Width 12.7 % (11.0-16.0); White Blood Count 8.9 X10*3/uL (4.8-10.8)
[2023-10-16 23:04] LABS: Anion Gap 12 (12-20); Blood Urea Nitrogen 19 mg/dL (9-16); Calcium 8.9 mg/dL (8.4-10.2); Carbon Dioxide 29 mmol/L (22-29); Chloride 105 mmol/L (96-108); Creatinine Clr Calc Pharmacy 74.8; Estimated Glomerular Filt Rate > 60; Ethanol < 10 mg/dL; Glucose Random 82 mg/dL (60-115); Potassium 4.3 mmol/L (3.3-5.1); Sodium 142 mmol/L (135-145)
[2023-10-16 23:05] LABS: COVID-19 Test Negative (Negative); IDNOW Serial# 9DB6401D
--- NOTE | 2023-10-17 00:18 | ED_ITS ---
HPI - General Adult General Chief complaint: Psychiatric Symptoms Stated complaint: crisis Time Seen by Provider: 10/16/23 23:55 Source: patient, RN notes reviewed and old records reviewed Mode of arrival: ambulatory Limitations: no limitations History of Present Illness HPI narrative: 42-year-old female presents for evaluation of suicidal ideation. Patient reports that she has been having increased depression and suicidal thoughts She was recently on a [facility] program and was kicked out for ?snorting BuSpar. ? Patient states that she has not use drugs approximately 25 days She also reports that her daughter last November about a year ago and her mother a few months ago. She states that she has not been able to deal with the grief of that yet. She is hoping to ?get into a program for some medication adjustments. ? She states that she has no plan for suicide but is having ?bad thoughts. ? Denies any somatic complaints Related Data Home Medications Medication Instructions Recorded Confirmed methadone 10 mg/mL oral 75 mg PO DAILY 09/27/23 10/17/23 concentrate (Methadose) clonidine HCl 0.1 mg tablet 0.1 mg PO BEDTIME PRN Anxiety 10/17/23 10/17/23 hydroxyzine HCl 25 mg tablet 25 mg PO BEDTIME 10/17/23 10/17/23 methylphenidate HCl 20 mg tablet 20 mg PO DAILY@1300 10/17/23 10/17/23 methylphenidate HCl 20 mg tablet 40 mg PO QAM 10/17/23 10/17/23 Previous Rx's Medication Instructions Recorded aripiprazole 5 mg tablet (Abilify) 5 mg PO DAILY 30 days #30 tabs 10/04/23 baclofen 10 mg tablet 10 mg PO BID 30 days #60 tabs 10/04/23 bupropion HCl 150 mg 24 hr tablet, 150 mg PO DAILY 30 days #30 tabs 10/04/23 extended release buspirone 10 mg tablet 10 mg PO TID 30 days #90 tabs 10/04/23 prazosin 2 mg capsule 2 mg PO BEDTIME 30 days #30 caps 10/04/23 quetiapine 50 mg tablet 50 mg PO BEDTIME PRN insomnia 30 10/04/23 days #30 tabs sertraline 100 mg tablet 200 mg (2 x 100 mg) PO QAM 30 days 10/04/23 #60 tabs trazodone 50 mg tablet 100 mg (2 x 50 mg) PO BEDTIME PRN 10/04/23 Insomnia 30 days #60 tabs Allergies Allergy/AdvReac Type Severity Reaction Status Date / Time amoxicillin Allergy Hives Verified 12/28/22 08:17 Review of Systems 2 Constitutional: Constitutional: Reports as per HPI, Denies chills, Denies fatigue, Denies fever(s) and Denies headache(s) ENT: Denies headache(s) Cardiovascular: Cardiovascular: Denies chest pain and Denies dyspnea Respiratory: Respiratory: Denies cough and Denies dyspnea Gastrointestinal: Gastrointestinal: Denies abdominal pain, Denies constipation and Denies vomiting Genitourinary: Genitourinary: Denies dysuria Neurologic: Denies headache(s) and Denies focal weakness Psychiatric: Psychiatric: Reports depression, Reports hopelessness, Denies tactile hallucinations and Reports suicidal ideation Endocrine: Endocrine: Denies fatigue PMFSH Past Medical History Onset Date is defined in the Problem List Problems that require an onset date and time if occurred within 24 hrs of arrival to the ED Aortic Dissection and Rupture; Neurologic impairment; Cardiopulmonary Arrest; Endotracheal Intubation; Insertion or Replacement of Mechanical Circulatory Assist Device Medical History (Updated 10/17/23 @ 00:23 by Thanh Molina) Depression Polysubstance abuse Cocaine use disorder PTSD (post-traumatic stress disorder) MDD (major depressive disorder), recurrent severe, without psychosis Polysubstance (including opioids) dependence, daily use Social History Social History Household Members: Other Household Members Other:: homeless Housing: Homeless Do you presently have visiting nurse or other home services: No Alcohol intake: current Alcohol intake frequency: does not drink Comment: prior rn admitted Patient Tobacco Use Status: Never used Tobacco Smoked in Last 30 Days: Yes e-Cigarette/Vaping Use: Never Used Second Hand Smoke Exposure: No Use of substances other than those prescribed or required for medical reasons: No Substance Use Type: Crack/Cocaine and Heroin Advance Directives: No Advance Directives Information Provided: No Healthcare Proxy: No Guardian: No Patient : No service: No Sexual orientation: Unable to collect Physical Exam ED Vital Signs: Vital Signs - 24 hr 10/18/23 14:42 10/19/23 06:18 Temperature 98.0 F Pulse Rate 88 Respiratory Rate 18 16 Blood Pressure 108/60 Pulse Oximetry 97 Oxygen Delivery Method Room Air BMI result Body Mass Index 32.8 Const General: healthy appearing, comfortable, no acute distress, alert and awake Nutritional Appearance: well nourished Orientation/consciousness: patient oriented x3 HENMT Head: Yes normocephalic and Yes atraumatic Eyes Eyelids: Yes eyelids normal Conjunctivae: conjunctivae normal Sclerae: sclerae normal Corneas: corneas normal Pupils: Equal, round and reactive pupils present EOM: EOMs intact bilaterally Neck Neck: Yes full ROM Resp Effort & Inspection: normal respiratory effort, able to speak in complete sentences and not labored Cardio Rate: regular rate Rhythm: regular rhythm Skin General skin exam: elasticity normal Neuro General: patient oriented x3 Cranial nerves: Yes Equal, round and reactive pupils present and Yes Bilaterally intact EOM present Cognition (Neuro): normal cognition Extrem Other: Moving all extremities well without any obvious deformities Psych Mental Status: mental status grossly normal Speech and movement: Normal speech and movement present Affect: normal affect Attitude: cooperative Thought process: Normal thought process present Thought content: Suicidality present Insight: Good insight present (Psych) Judgement: Good judgement present (Psych) Course Reevaluation(s) Reevaluation #1: Patient under physician observation, VSS, no events reported by nursing overnight, evaluated by care team the plan is dual diagnosis bed search. Time: 09:38 Reevaluation #2: Patient under physician observation, VSS, no events reported by nursing overnight, evaluated by care team the plan is dual diagnosis bed search. Time: 07:16 Reevaluation #3: 10/19/23 Patient under physician observation, VSS, no events reported by nursing overnight, evaluated by care team the plan is dual diagnosis bed search currently asleep and resting in bed Medications Administered Generic Name Dose Route Start Last Admin Trade Name Freq PRN Reason Stop Dose Admin Aripiprazole 5 mg 10/17/23 09:00 10/18/23 09:36 Aripiprazole 5 Mg Tablet PO 5 mg DAILY ANGELA Administration Baclofen 10 mg 10/17/23 09:00 10/18/23 20:47 Baclofen 10 Mg Tablet PO 10 mg BID ANGELA Administration Bupropion HCl 150 mg 10/17/23 09:00 10/18/23 09:36 Bupropion Hcl Xl 150 Mg Tab.Er.24h PO 150 mg DAILY ANGELA Administration Buspirone HCl 10 mg 10/17/23 09:00 10/18/23 20:47 Buspirone Hcl 10 Mg Tablet PO 10 mg TID ANGELA Administration Hydroxyzine HCl 25 mg 10/17/23 21:00 10/18/23 20:46 Hydroxyzine Hcl 25 Mg Tablet PO 25 mg BEDTIME ANGELA Administration Methadone HCl 75 mg 10/17/23 09:00 10/18/23 09:35 Methadone Hcl 20 Mg/2 Ml Oral.Conc PO 75 mg DAILY ANGELA Administration Methylphenidate HCl 20 mg 10/17/23 13:00 10/18/23 13:02 Methylphenidate Hcl 10 Mg Tablet PO 20 mg DAILY@1300 ANGELA Administration Methylphenidate HCl 40 mg 10/18/23 09:00 10/18/23 09:36 Methylphenidate Hcl 10 Mg Tablet PO 40 mg DAILY ANGELA Administration Prazosin HCl 2 mg 10/17/23 08:15 10/18/23 20:46 Prazosin Hcl 1 Mg Capsule PO 2 mg BEDTIME ANGELA Administration Protocol Quetiapine Fumarate 50 mg 10/17/23 08:10 10/18/23 20:46 Quetiapine Fumarate 50 Mg Tablet PO 50 mg BEDTIME PRN Administration insomnia Sertraline HCl 200 mg 10/17/23 08:15 10/18/23 09:36 Sertraline Hcl 100 Mg Tablet PO 200 mg DAILY ANGELA Administration Trazodone HCl 100 mg 10/17/23 08:10 10/18/23 20:46 Trazodone Hcl 100 Mg Tablet PO 100 mg BEDTIME PRN Administration Insomnia Discontinued Medications Generic Name Dose Route Start Last Admin Trade Name Freq PRN Reason Stop Dose Admin Quetiapine Fumarate 50 mg 10/17/23 02:56 10/17/23 02:58 Quetiapine Fumarate 50 Mg Tablet PO 10/17/23 02:57 50 mg ONCE ONE Administration Trazodone HCl 50 mg 10/17/23 02:56 10/17/23 03:04 Trazodone Hcl 50 Mg Tablet PO 10/17/23 02:57 50 mg ONCE ONE Administration Medical Decision Making Medical Decision Making [facility] Narrative: 42-year-old female presents for evaluation depression with suicidal ideation. She has no plan. She will require medical clearance and a care team evaluation. She has not currently on a section 12 Differential Diagnosis Differential Diagnoses: The differential diagnosis associated with the presentation includes Depression Suicidal ideation Homelessness Substance abuse Medication noncompliance Lab Data MDM Lab Attestation statement: I reviewed the patient's lab results. No leukocytosis or anemia. No electrolyte abnormalities. Patient is medically cleared for care to evaluation. Patient's UA has white cells and 1+ bacteria, possibly infection versus contamination. Given the patient has no symptoms, will await culture prior to treatment 10/16/23 22:40 10/16/23 22:40 Labs: Lab Results 10/16/23 10/17/23 Range/Units 22:40 00:30 WBC 8.9 (4.8-10.8) X10*3/uL RBC 4.19 L (4.20-5.50) X10*6/uL Hgb 12.8 (12.0-16.0) g/dl Hct 37.5 (37.0-47.0) % MCV 89.5 (80.0-98.0) fL MCH 30.5 (27.0-33.0) pg MCHC 34.1 (31.0-35.0) g/dl RDW 12.7 (11.0-16.0) % Plt Count 271 (160-400) X10*3/uL MPV 9.4 (9.4-12.3) fL Immature Gran % (Auto) 0.3 (0.0-0.4) % Neut % (Auto) 47.3 (45-73) % Lymph % (Auto) 34.6 (20-40) % Walker % (Auto) 8.1 (2-11) % Eos % (Auto) 8.9 H (0-4) % Baso % (Auto) 0.8 (0-2) % Lymph # (Auto) 3.1 (1.2-4.9) X10*3/uL Walker # (Auto) 0.7 (0.1-1.2) X10*3/uL Eos # (Auto) 0.8 H (0.0-0.4) X10*3/uL Baso # (Auto) 0.1 (0.0-0.2) X10*3/uL Abs Immat Gran (auto) 0.03 (0.00-0.03) X10*3/uL Absolute Neuts (auto) 4.2 (2.0-8.3) x10*3/uL Absolute Nucleated RBC 0.000 (0.0-0.012) X10*3/uL Nucleated RBC % (auto) 0.0 (0.0-0.2) /100WBC Sodium 142 (135-145) mmol/L Potassium 4.3 (3.3-5.1) mmol/L Chloride 105 (96-108) mmol/L Carbon Dioxide 29 (22-29) mmol/L Anion Gap 12 (12-20) BUN 19 H (9-16) mg/dL Creatinine 0.93 (0.5-1.4) mg/dL Estim Creat Clear Calc 74.8 Estimated GFR > 60 Random Glucose 82 (60-115) mg/dL Calcium 8.9 (8.4-10.2) mg/dL Urine Color Yellow Urine Appearance Cloudy Urine pH 8.0 (5.0-9.0) Ur Specific [place] >= 1.030 H (1.005-1.025) Urine Protein Negative (Neg-Trace) mg/dL Urine Glucose (UA) Negative (Negative) mg/dL Urine Ketones Negative (Negative) mg/dL Urine Blood Negative (Negative) Urine Nitrite Negative (Negative) Ur Leukocyte Esterase Moderate (2+) H (Negative) Urine RBC 0-2 (0-2) /HPF Urine WBC 21-50 H (0-5) /HPF Ur Squamous Epith Cells 11-20 (0-2) /HPF Urine Bacteria 1+ (None Seen) Hyaline Casts 0-2 (0-2) /LPF Urine Test NEGATIVE (NEGATIVE) Urine Opiates Screen Not Detected (Not Detect) Urine Fentanyl Screen POSITIVE H (Not Detect) Ur Barbiturates Screen Not Detected (Not Detect) Ur Phencyclidine Scrn Not Detected (Not Detect) Ur Amphetamines Screen Not Detected (Not Detect) U Benzodiazepines Scrn Not Detected (Not Detect) Urine Cocaine Screen Not Detected (Not Detect) U Marijuana (THC) Screen Not Detected (Not Detect) Ethyl Alcohol < 10 mg/dL COVID-19 (ESTELLA) Negative (Negative) COVID-19 Clin Com See Note Discharge Plan Discharge Clinical Impression: Suicidal ideation Patient Disposition: Still a Patient Prescriptions: No Action methadone [Methadose] 10 mg/mL concentrate 75 mg PO DAILY Patient Comments: Last dose verified by Ivonne BOWERS at [facility], 75mg on 10/16/23 at 6:13AM. Rx Instructions: Partial Fill upon patient request. baclofen 10 mg Tablet 10 mg PO BID 30 Days Qty: 60 0RF buspirone 10 mg tablet 10 mg PO TID 30 Days Qty: 90 0RF aripiprazole [Abilify] 5 mg Tablet 5 mg PO DAILY 30 Days Qty: 30 1RF bupropion HCl 150 mg Tablet Extended Release 24 Hr 150 mg PO DAILY 30 Days Qty: 30 1RF trazodone 50 mg tablet 100 mg PO BEDTIME PRN (Reason: Insomnia) 30 Days Qty: 60 0RF sertraline 100 mg tablet 200 mg PO QAM 30 Days Qty: 60 1RF prazosin 2 mg capsule 2 mg PO BEDTIME 30 Days Qty: 30 1RF quetiapine 50 mg Tablet 50 mg PO BEDTIME PRN (Reason: insomnia) 30 Days Qty: 30 1RF clonidine HCl 0.1 mg Tablet 0.1 mg PO BEDTIME PRN (Reason: Anxiety) methylphenidate HCl 20 mg tablet 40 mg PO QAM methylphenidate HCl 20 mg tablet 20 mg PO DAILY@1300 hydroxyzine HCl 25 mg tablet 25 mg PO BEDTIME Interventions: Sawyer-Suicide Risk Severity Scale Last Done: 10/19/23 06:23
[2023-10-17 00:38] LABS: Appearance Urine Cloudy; Color Urine Yellow; Glucose Urine UA Negative (Negative); Leukocyte Esterase Urine Moderate (2+) (Negative); Nitrite Urine Negative (Negative); Specific Gravity - Urine >= 1.030 (1.005-1.025); UMIC TRIGGER UACC YES; Urine Blood Negative (Negative); Urine Ketones Negative (Negative); Urine Protein Negative (Neg-Trace)
[2023-10-17 00:41] LABS: UPreg QC Valid YES; Urine Pregnancy NEGATIVE (NEGATIVE)
[2023-10-17 00:43] LABS: Bacteria Urine 1+ (None Seen); Hyaline Casts Urine 0-2 /LPF (0-2); RBC Urine 0-2 /HPF (0-2); UACC Culture Trigger YES; WBC Urine 21-50 /HPF (0-5)
[2023-10-17 00:47] LABS: Amphetamine Screen Urine Not Detected (Not Detect); Barbiturates, Urine Not Detected (Not Detect); Benzodiazepines Screen Urine Not Detected (Not Detect); Cannabinoid Screen Urine Not Detected (Not Detect); Cocaine Screen Urine Not Detected (Not Detect); Fentanyl, urine POSITIVE (Not Detect); Opiate Screen Urine Not Detected (Not Detect); Phencyclidine Screen Urine Not Detected (Not Detect)
[2023-10-17 01:07] VITALS: RESP 16
[2023-10-17] MEDS: QUEtiapine Fumarate 50 MG TABLET PO ×2 (02:58→21:23)
[2023-10-17] MEDS: traZODone HCL 50 MG TABLET PO (03:04)
--- NOTE | 2023-10-17 07:50 | PC.NURSE ---
Per overnight babysitter, EKG being held off until decision made on admission.
--- NOTE | 2023-10-17 07:55 | HE.PHANOTE ---
RE METHADONE VERIFICATION LAST DOSE 75 MG @[facility] 10/16/23 @0616
[2023-10-17 09:31] VITALS: BP 102/67; PULSE 84; RESP 18; TEMP 37.2; O2SAT 97
[2023-10-17] MEDS: Baclofen 10 MG TABLET PO ×2 (09:34→20:21)
[2023-10-17] MEDS: ARIPiprazole 5 MG TABLET PO (09:34)
[2023-10-17] MEDS: methADONE HCl 20 MG/2 ML ORAL.CONC 75 MG PO (09:34)
[2023-10-17] MEDS: busPIRone HCl 10 MG TABLET PO ×3 (09:34→20:21)
[2023-10-17] MEDS: Sertraline HCL 100 MG TABLET 200 MG PO (09:34)
[2023-10-17] MEDS: buPROPion HCl XL 150 MG TAB.ER.24H PO (09:34)
--- NOTE | 2023-10-17 09:48 | PHA.MEDREC ---
Pharmacy Consult ? Medication Reconciliation Pharmacy has completed the medication reconciliation. Spoke to patient to confirm methylphenidate, clonidine, and hydroxyzine. She reports she only takes clonidine at night because it makes her sleepy during the daytime.
--- NOTE | 2023-10-17 09:58 | ECG_ITS ---
Test Reason : qtc check,med clearance Blood Pressure : / mmHG Vent. Rate : 074 BPM Atrial Rate : 074 BPM P-R Int : 136 ms QRS Dur : 084 ms QT Int : 384 ms P-R-T Axes : 015 016 004 degrees QTc Int : 426 ms Normal sinus rhythm Low voltage QRS Borderline ECG When compared with ECG of 26-SEP-2023 14:02, No significant change was found Referred By: Jenise Samuel Electronically Signed By:LORI GONZALEZ
[2023-10-17] MEDS: Methylphenidate HCl 10 MG TABLET 20 MG PO (12:28)
--- NOTE | 2023-10-17 14:39 | MHC.CARE ---
referral made to [facility] on 10/17/23.
[2023-10-17 15:47] VITALS: BP 94/59; PULSE 84; RESP 18; TEMP 37.1; O2SAT 98
--- NOTE | 2023-10-17 16:58 | PC.NURSE ---
Methadone verified by Ivonne BOWERS at [facility], 75 mg
--- NOTE | 2023-10-17 18:04 | PC.NURSE ---
Patient resting quietly, cooperative and pleasant. Appetite good. Complaint with all meds. No behavioral concerns at this time.
--- NOTE | 2023-10-17 18:33 | MHC.CARE ---
An updated referral has been sent to [facility] and they are currently reviewing Pt for a potential bed.
[2023-10-17] MEDS: Prazosin HCL 1 MG CAPSULE 2 MG PO (20:20)
[2023-10-17] MEDS: hydrOXYzine HCL 25 MG TABLET PO (20:21)
--- NOTE | 2023-10-17 21:12 | MHC.CARE ---
Declined by [facility] due to substance use
[2023-10-17] MEDS: traZODone HCL 100 MG TABLET PO (21:23)
[2023-10-18 06:00] VITALS: BP 104/58; PULSE 77; RESP 16; TEMP 36.7; O2SAT 97
[2023-10-18] MEDS: methADONE HCl 20 MG/2 ML ORAL.CONC 75 MG PO (09:35)
[2023-10-18] MEDS: Sertraline HCL 100 MG TABLET 200 MG PO (09:36)
[2023-10-18] MEDS: Methylphenidate HCl 10 MG TABLET 40 MG PO (09:36)
[2023-10-18] MEDS: busPIRone HCl 10 MG TABLET PO ×3 (09:36→20:47)
[2023-10-18] MEDS: buPROPion HCl XL 150 MG TAB.ER.24H PO (09:36)
[2023-10-18] MEDS: ARIPiprazole 5 MG TABLET PO (09:36)
[2023-10-18] MEDS: Baclofen 10 MG TABLET PO ×2 (09:46→20:47)
[2023-10-18] MEDS: Methylphenidate HCl 10 MG TABLET 20 MG PO (13:02)
[2023-10-18 14:42] VITALS: RESP 18
--- NOTE | 2023-10-18 14:42 | MHC.CARE ---
called [facility] to inquire into patient being declined from [facility] d/t substance abuse as she alleges 25 days sobriety, aside from snorting one buspar. awaiting call back.
[2023-10-18] MEDS: Prazosin HCL 1 MG CAPSULE 2 MG PO (20:46)
[2023-10-18] MEDS: hydrOXYzine HCL 25 MG TABLET PO (20:46)
[2023-10-18] MEDS: QUEtiapine Fumarate 50 MG TABLET PO (20:46)
[2023-10-18] MEDS: traZODone HCL 100 MG TABLET PO (20:46)
--- NOTE | 2023-10-18 21:55 | MHC.CARE ---
Pt is now IPLOC.
[2023-10-19 06:18] VITALS: BP 108/60; PULSE 88; RESP 16; TEMP 36.7; O2SAT 97
[2023-10-19 08:24] LABS: COVID-19 Test Negative (Negative); IDNOW Serial# 152EDE1D
[2023-10-19] MEDS: ARIPiprazole 5 MG TABLET PO (09:00)
[2023-10-19] MEDS: Baclofen 10 MG TABLET PO ×2 (09:00→21:05)
[2023-10-19] MEDS: Sertraline HCL 100 MG TABLET 200 MG PO (09:00)
[2023-10-19] MEDS: Methylphenidate HCl 10 MG TABLET 40 MG PO (09:01)
[2023-10-19] MEDS: buPROPion HCl XL 150 MG TAB.ER.24H PO (09:02)
[2023-10-19] MEDS: busPIRone HCl 10 MG TABLET PO ×3 (09:02→21:05)
[2023-10-19] MEDS: methADONE HCl 20 MG/2 ML ORAL.CONC 75 MG PO (09:04)
--- NOTE | 2023-10-19 11:58 | P.CNPS_ITS ---
History of Present Illness Date of Service: 10/20/2023 Chief Complaint: si Requesting physician: Giselle Osorio Discussed with referring provider: Yes Sources of Information: patient interviewed, chart reviewed and crisis/core team assessment reviewed HPI Narrative: Ms. Mcgowan is a 42 year-old woman with hx of MDD, opioid use disorder on methadone, cocaine use in early remission who self presented to [facility] ED reporting increase anxious mood and suicidal ideation. She was recently dc from and stepped down to [facility]. Pt reports feeling more anxious. She reports having episodes of increased anxiety during the day, palpitation, not ongoing anxiety throughout the day. She endorses feeling depressed. She reports feeling passive suicidal no plan or intent at this time. She is awaiting bed at respite. Past Psychiatric History: [facility]-06/2023 and 03/2023 [facility]- 06/2023 Prescriber/therapist: Maria Guadalupe Steiner) TSS program [facility] Medical History (Updated 10/17/23 @ 00:23 by Thanh Molina) Depression Polysubstance abuse Cocaine use disorder PTSD (post-traumatic stress disorder) MDD (major depressive disorder), recurrent severe, without psychosis Polysubstance (including opioids) dependence, daily use Family History: Both paternal and maternal family history mental illness and substance abuse Daughter: Substance abuse Social History: Single Daughter, November 2022 from accidental overdose Patient has 7-year-old son who lives with his father; patient remains in contact Trauma History: History of trauma; not discussed Diagnostics Vital Signs (24Hr): Vital Signs - 24 hr 10/18/23 14:42 10/19/23 06:18 Temperature 98.0 F Pulse Rate 88 Respiratory Rate 18 16 Blood Pressure 108/60 Pulse Oximetry 97 Oxygen Delivery Method Room Air BMI result Body Mass Index 32.8 Labs 10/16/23 22:40 10/16/23 22:40 Labs: Laboratory Results - last 48 hr 10/19/23 07:42 COVID-19 (ESTELLA) Negative COVID-19 Clin Com See Note Mental Status Exam Mental Status Exam Narrative: Appearance: wearing hospital gown, fair hygiene, in NAD Behavior: cooperative Psychomotor: no agitation or retardation noted Speech: clear, normal rate/rhythm/volume, spontaneous TP: linear TC: feeling anxious, future oriented Mood: anxious Affect: calm, brighter SI: passive HI: none VH/AH: none Delusions: none Insight/judgment: fair x 2. Memory/cog: alert, oriented x 3. grossly intact to conversational testing. Medications Medications Current Medications Aripiprazole (Aripiprazole 5 Mg Tablet) 5 mg PO DAILY [facility] Last Admin: 10/19/23 09:00 Dose: 5 mg Baclofen (Baclofen 10 Mg Tablet) 10 mg PO BID [facility] Last Admin: 10/19/23 09:00 Dose: 10 mg Bupropion HCl (Bupropion Hcl Xl 150 Mg Tab.Er.24h) 150 mg PO DAILY [facility] Last Admin: 10/19/23 09:02 Dose: 150 mg Buspirone HCl (Buspirone Hcl 10 Mg Tablet) 10 mg PO TID [facility] Last Admin: 10/19/23 09:02 Dose: 10 mg Clonidine HCl (Clonidine Hcl 0.1 Mg Tablet) 0.1 mg PO BEDTIME PRN; Protocol PRN Reason: Anxiety Clonidine HCl (Clonidine Hcl 0.1 Mg Tablet) 0.1 mg PO BEDTIME PRN; Protocol PRN Reason: Anxiety Hydroxyzine HCl (Hydroxyzine Hcl 25 Mg Tablet) 25 mg PO BEDTIME [facility] Last Admin: 10/18/23 20:46 Dose: 25 mg Methadone HCl (Methadone Hcl 20 Mg/2 Ml Oral.Conc) 75 mg PO DAILY [facility] Last Admin: 10/19/23 09:04 Dose: 75 mg Methylphenidate HCl (Methylphenidate Hcl 10 Mg Tablet) 20 mg PO DAILY@1300 [facility] Last Admin: 10/18/23 13:02 Dose: 20 mg Methylphenidate HCl (Methylphenidate Hcl 10 Mg Tablet) 40 mg PO DAILY [facility] Last Admin: 10/19/23 09:01 Dose: 40 mg Prazosin HCl (Prazosin Hcl 1 Mg Capsule) 2 mg PO BEDTIME [facility]; Protocol Last Admin: 10/18/23 20:46 Dose: 2 mg Prazosin HCl (Prazosin Hcl 1 Mg Capsule) 1 mg PO DAILY [facility]; Protocol Quetiapine Fumarate (Quetiapine Fumarate 50 Mg Tablet) 50 mg PO BEDTIME PRN PRN Reason: insomnia Last Admin: 10/18/23 20:46 Dose: 50 mg Sertraline HCl (Sertraline Hcl 100 Mg Tablet) 200 mg PO DAILY [facility] Last Admin: 10/19/23 09:00 Dose: 200 mg Trazodone HCl (Trazodone Hcl 100 Mg Tablet) 100 mg PO BEDTIME PRN PRN Reason: Insomnia Last Admin: 10/18/23 20:46 Dose: 100 mg Allergies Allergies Allergy/AdvReac Type Severity Reaction Status Date / Time amoxicillin Allergy Hives Verified 12/28/22 08:17 Assessment & Plan Assessment & Plan (1) MDD (major depressive disorder), recurrent severe, without psychosis: Status: Acute Code(s): F33.2 - Major depressive disorder, recurrent severe without psychotic features (2) Opioid use disorder, severe, in sustained remission, dependence: Status: Acute Code(s): F11.21 - Opioid dependence, in remission (3) Cocaine use disorder: Status: Acute Code(s): F14.10 - Cocaine abuse, uncomplicated Plan Mrs. Mcgowan is a 42 year-old woman with hxo f MDD, opioid use disorder on methadone, cocaine use in early remission who self presented reporting increased anxious mood, passive suicidal ideation. Utox in ED neg for cocaine, positive for opioids. She is awaiting bed at respite. We discussed risks, benefits and alternative treatment options, pt agreed to increase prazosin adding 1mg po daily for anxiety. She also reports low dose thorazine helpful but concern of lowering her BP and over sedation. PLAN 1. Increase prazosin to 1mg po daily and 2mg po qhs. continue wellbutrin 150mg po daily, methadone. continue abilify 5mg po daily, which pt reports has been helpful for depression. She has low clonidine 0.1mg po qhs- BP tends to be on lower end. 2. Respite level of care. will reassess daily for dispo- either by psych or care team or both- if pt continues to be here in ED awaiting for bed. Total time managing care of this patient today ____ minutes.
[2023-10-19] MEDS: Methylphenidate HCl 10 MG TABLET 20 MG PO (13:14)
[2023-10-19] MEDS: Prazosin HCL 1 MG CAPSULE PO (13:14)
--- NOTE | 2023-10-19 13:15 | PC.NURSE ---
Assumed care of patient at 1100, patient ambulating with steady gait around the BH pod, offers no complaints to this RN. Calm and cooperative, respirations even and unlabored, no apparent distress. IPLOC bedsearch
[2023-10-19 14:00] VITALS: RESP 14
[2023-10-19] MEDS: hydrOXYzine HCL 25 MG TABLET PO (21:03)
[2023-10-19 21:08] VITALS: BP 112/59; PULSE 80; RESP 16; TEMP 37.1; O2SAT 97
[2023-10-19] MEDS: traZODone HCL 100 MG TABLET PO (21:08)
[2023-10-19] MEDS: QUEtiapine Fumarate 50 MG TABLET PO (21:08)
--- NOTE | 2023-10-19 21:09 | PC.NURSE ---
pt medicated with nighttime meds, blood pressure on the low side, will hold off on minipress for the time being until blood pressure is more stable
--- NOTE | 2023-10-20 00:45 | PC.NURSE ---
Maryan is a 42-year-old, single, , Belarusian speaking female who self-introduced to the [facility] ED after she was discharged from a [facility] due to snorting Buspar. She arrived reporting suicidal thoughts. She reports regret that she snorted the Buspar, and states she has otherwise been in recovery for 25 days and taking methadone 75 mg ([facility] methadone clinic). At time of MSE, patient reports SI, no current plan, but does endorse feelings of hopelessness, low energy, worthlessness, guilt/ shame about her intranasal use of buspar. She denies HI, denies AH/ VH and does not appear to be responding to internal stimuli. Her mood is described as ?depressed, confused, anxious? though denies panic attacks. Her toxicology is positive for fentanyl however, the patient denies use of this, exhibits no withdrawal sx, and it seems likely the fentanyl is a false positive, which is common with psychiatric medication such as trazodone and risperidone, among others. She has fair insight. Her judgment and impulse control are tenuous however the patient has been in adequate behavioral control while boarding. No behavioral concerns. On arrival to unit. Patient signed a CV. Patient reports anxiety 4/10 with depression 4/10 . Reports SI, but has no active plan. Patient denies HI or AH/VH. Patient cooperative during assessment but requested to go to bed and asked if she could sign paperwork tomorrow. Patient is A&O x 4. Patient placed on 15 minute visual safety checks. Patient UTOX positive for fentyl - but patient reports no use and being sober for 24-25 days. Patient reporting chronic lower back pain, stated she uses Motrin 600mg as needed and is requesting a lidocaine patch.
[2023-10-20 07:00] VITALS: BMI 31.7
[2023-10-20] MEDS: methADONE HCl 20 MG/2 ML ORAL.CONC 75 MG PO (08:58)
[2023-10-20] MEDS: ARIPiprazole 5 MG TABLET PO (09:00)
[2023-10-20] MEDS: Sertraline HCL 100 MG TABLET 200 MG PO (09:00)
[2023-10-20] MEDS: Baclofen 10 MG TABLET PO ×2 (09:00→20:02)
[2023-10-20] MEDS: buPROPion HCl XL 150 MG TAB.ER.24H PO (09:00)
[2023-10-20 09:27] VITALS: BP 110/71; PULSE 89; RESP 18; O2SAT 100
[2023-10-20] MEDS: Prazosin HCL 1 MG CAPSULE PO (09:28)
[2023-10-20] MEDS: Methylphenidate HCl 10 MG TABLET 40 MG PO (09:28)
[2023-10-20] MEDS: busPIRone HCl 10 MG TABLET PO ×3 (09:34→20:02)
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
[2023-10-20] MEDS: Methylphenidate HCl 10 MG TABLET 20 MG PO (13:35)
[2023-10-20 19:55] VITALS: BP 112/73; PULSE 77; RESP 18; TEMP 36.9; O2SAT 96
[2023-10-20] MEDS: hydrOXYzine HCL 25 MG TABLET PO (20:01)
[2023-10-20] MEDS: QUEtiapine Fumarate 50 MG TABLET PO (20:01)
[2023-10-20] MEDS: traZODone HCL 100 MG TABLET PO (20:01)
[2023-10-20] MEDS: Prazosin HCL 1 MG CAPSULE 2 MG PO (20:02)
[2023-10-21 08:05] VITALS: BP 101/70; PULSE 82; RESP 16; TEMP 36.7; O2SAT 95
[2023-10-21] MEDS: methADONE HCl 20 MG/2 ML ORAL.CONC 75 MG PO (09:30)
[2023-10-21] MEDS: Methylphenidate HCl 10 MG TABLET 40 MG PO (09:32)
[2023-10-21] MEDS: Baclofen 10 MG TABLET PO ×2 (09:34→20:37)
[2023-10-21] MEDS: buPROPion HCl XL 150 MG TAB.ER.24H PO (09:34)
[2023-10-21] MEDS: ARIPiprazole 5 MG TABLET PO (09:34)
[2023-10-21] MEDS: Prazosin HCL 1 MG CAPSULE PO (09:34)
[2023-10-21] MEDS: busPIRone HCl 10 MG TABLET PO ×3 (09:35→20:38)
[2023-10-21] MEDS: Sertraline HCL 100 MG TABLET 200 MG PO (09:35)
[2023-10-21] MEDS: Acetaminophen 325 MG TABLET 650 MG PO (09:52)
[2023-10-21] MEDS: Methylphenidate HCl 10 MG TABLET 20 MG PO (13:31)
--- NOTE | 2023-10-21 13:38 | P.PNPSI_ITS ---
Subjective Subjective Date of Service: 10/21/23 Reason For Visit: si Interim History: calm, cooperative. c/o MANZANO. states she recently received tylenol from RN. reports MANZANO of this nature are a known occurrence for her. awaiting word from respite. per staff, feeling better. slept 8 hours. Mental Status Exam Mental Status Exam Narrative: Appearance: wearing hospital gown, fair hygiene, in NAD Behavior: cooperative Psychomotor: no agitation or retardation noted Speech: clear, normal rate/rhythm/volume, spontaneous TP: linear TC: future oriented Mood: not assessed Affect: constricted, normo-intense, non-labile SI: none expressed HI: none expressed VH/AH: none expressed Delusions: none Insight/judgment: fair x 2. Memory/cog: alert, oriented x 3. grossly intact to conversational testing. Diagnostics Vital Signs (24Hr): Vital Signs - 24 hr 10/20/23 19:55 10/21/23 08:05 Temperature 98.5 F 98.0 F Pulse Rate 77 82 Respiratory Rate 18 16 Blood Pressure 112/73 101/70 Pulse Oximetry 96 95 Oxygen Delivery Method Room Air Room Air BMI result Body Mass Index 31.7 Labs 10/16/23 22:40 10/16/23 22:40 Medications Medications Current Medications Acetaminophen (Acetaminophen 325 Mg Tablet) 650 mg PO Q6H PRN PRN Reason: Headache/Pain Mild Scale (1-3) Last Admin: 10/21/23 09:52 Dose: 650 mg Al Hydroxide/Mg Hydroxide (Magnesium Hydrox/Alum Hydrox 30 Ml Oral.Susp) 30 ml PO Q6H PRN PRN Reason: Heartburn/Nausea Aripiprazole (Aripiprazole 5 Mg Tablet) 5 mg PO DAILY [facility] Last Admin: 10/21/23 09:34 Dose: 5 mg Baclofen (Baclofen 10 Mg Tablet) 10 mg PO BID [facility] Last Admin: 10/21/23 09:34 Dose: 10 mg Bupropion HCl (Bupropion Hcl Xl 150 Mg Tab.Er.24h) 150 mg PO DAILY [facility] Last Admin: 10/21/23 09:34 Dose: 150 mg Buspirone HCl (Buspirone Hcl 10 Mg Tablet) 10 mg PO TID [facility] Last Admin: 10/21/23 09:35 Dose: 10 mg Clonidine HCl (Clonidine Hcl 0.1 Mg Tablet) 0.1 mg PO BEDTIME PRN; Protocol PRN Reason: Anxiety Hydroxyzine HCl (Hydroxyzine Hcl 25 Mg Tablet) 25 mg PO BEDTIME [facility] Last Admin: 10/20/23 20:01 Dose: 25 mg Hydroxyzine HCl (Hydroxyzine Hcl 25 Mg Tablet) 25 mg PO Q6H PRN PRN Reason: Anxiety Ibuprofen (Ibuprofen 600 Mg Tablet) 600 mg PO Q6H PRN PRN Reason: moderate pain Lidocaine (Lidocaine 4 % Patch Adh..Patch) 1 patch TRANSDERMA DAILY PRN; Protocol PRN Reason: low back pain Magnesium Hydroxide (Milk Of Magnesia 30 Ml Oral.Susp) 30 ml PO DAILY PRN PRN Reason: Constipation Methadone HCl (Methadone Hcl 20 Mg/2 Ml Oral.Conc) 75 mg PO DAILY [facility] Last Admin: 10/21/23 09:30 Dose: 75 mg Methylphenidate HCl (Methylphenidate Hcl 10 Mg Tablet) 20 mg PO DAILY@1300 [facility] Last Admin: 10/21/23 13:31 Dose: 20 mg Methylphenidate HCl (Methylphenidate Hcl 10 Mg Tablet) 40 mg PO DAILY [facility] Last Admin: 10/21/23 09:32 Dose: 40 mg Prazosin HCl (Prazosin Hcl 1 Mg Capsule) 2 mg PO BEDTIME [facility]; Protocol Last Admin: 10/20/23 20:02 Dose: 2 mg Prazosin HCl (Prazosin Hcl 1 Mg Capsule) 1 mg PO DAILY [facility]; Protocol Last Admin: 10/21/23 09:34 Dose: 1 mg Quetiapine Fumarate (Quetiapine Fumarate 50 Mg Tablet) 50 mg PO BEDTIME PRN PRN Reason: insomnia Last Admin: 10/20/23 20:01 Dose: 50 mg Sertraline HCl (Sertraline Hcl 100 Mg Tablet) 200 mg PO DAILY [facility] Last Admin: 10/21/23 09:35 Dose: 200 mg Trazodone HCl (Trazodone Hcl 100 Mg Tablet) 100 mg PO BEDTIME PRN PRN Reason: Insomnia Last Admin: 10/20/23 20:01 Dose: 100 mg Allergies Allergies Allergy/AdvReac Type Severity Reaction Status Date / Time amoxicillin Allergy Hives Verified 12/28/22 08:17 Assessment & Plan Assessment & Plan (1) Suicidal ideation: Status: Acute Code(s): R45.851 - Suicidal ideations (2) Opioid use disorder, severe, in sustained remission, dependence: Status: Acute Code(s): F11.21 - Opioid dependence, in remission (3) Cocaine use disorder: Status: Acute Code(s): F14.10 - Cocaine abuse, uncomplicated (4) PTSD (post-traumatic stress disorder): Status: Acute Code(s): F43.10 - Post-traumatic stress disorder, unspecified (5) MDD (major depressive disorder), recurrent severe, without psychosis: Status: Acute Code(s): F33.2 - Major depressive disorder, recurrent severe without psychotic features Plan 10/20: continue most recently prescribed medications. referring to respite per pt preference. 10/21: continue current mgmt. awaiting word from respite. likely to be mid next week. Reason for continued inpatient stay Substantial Risk for: harm to self, inability to function and rapid decompensation Time Spent With Patient Time: Total time managing care of this patient today ____ minutes.
[2023-10-21 19:40] VITALS: BP 110/76; PULSE 96; RESP 16; TEMP 36.2; O2SAT 97
[2023-10-21] MEDS: hydrOXYzine HCL 25 MG TABLET PO (20:37)
[2023-10-21] MEDS: QUEtiapine Fumarate 50 MG TABLET PO (20:37)
[2023-10-21] MEDS: Prazosin HCL 1 MG CAPSULE 2 MG PO (20:38)
[2023-10-21] MEDS: traZODone HCL 100 MG TABLET PO (20:38)
[2023-10-22 08:00] VITALS: BP 100/62; PULSE 61; RESP 16; TEMP 36.5; O2SAT 95
[2023-10-22] MEDS: Methylphenidate HCl 10 MG TABLET 40 MG PO (08:52)
[2023-10-22] MEDS: buPROPion HCl XL 150 MG TAB.ER.24H PO (08:53)
[2023-10-22] MEDS: busPIRone HCl 10 MG TABLET PO ×3 (08:53→20:08)
[2023-10-22] MEDS: Prazosin HCL 1 MG CAPSULE PO (08:53)
[2023-10-22] MEDS: ARIPiprazole 5 MG TABLET PO (08:53)
[2023-10-22] MEDS: Sertraline HCL 100 MG TABLET 200 MG PO (08:53)
[2023-10-22] MEDS: methADONE HCl 20 MG/2 ML ORAL.CONC 75 MG PO (08:54)
[2023-10-22] MEDS: Baclofen 10 MG TABLET PO ×2 (08:54→20:08)
--- NOTE | 2023-10-22 12:10 | P.PNPSI_ITS ---
Subjective Subjective Date of Service: 10/22/23 Reason For Visit: si Subjective Notes: Conditional Voluntary Interim History: Pt slept throught the night. She reports feeling somewhat jittery . She reports does not think prazosin in morning helping much. NO SI/HI. social with select peers. No behavioral concerns. Medication Compliance: Yes Review of Systems Constitutional: Reports as per HPI, Denies chills, Denies fatigue, Denies fever(s) and Denies headache(s) Denies headache(s) Cardiovascular: Denies chest pain and Denies dyspnea Respiratory: Denies cough and Denies dyspnea Gastrointestinal: Denies abdominal pain, Denies constipation and Denies vomiting Denies headache(s) and Denies focal weakness Psychiatric: Reports depression, Reports hopelessness, Denies tactile hallucinations and Reports suicidal ideation Endocrine: Denies fatigue Mental Status Exam Mental Status Exam Narrative: Appearance: wearing hospital gown, fair hygiene, in NAD Behavior: cooperative Psychomotor: no agitation or retardation noted Speech: clear, normal rate/rhythm/volume, spontaneous TP: linear TC: future oriented Mood: not assessed Affect: constricted, normo-intense, non-labile SI: none expressed HI: none expressed VH/AH: none expressed Delusions: none Insight/judgment: fair x 2. Memory/cog: alert, oriented x 3. grossly intact to conversational testing. Diagnostics Vital Signs (24Hr): Vital Signs - 24 hr 10/21/23 19:40 10/22/23 08:00 Temperature 97.2 F 97.7 F Pulse Rate 96 61 Respiratory Rate 16 16 Blood Pressure 110/76 100/62 Pulse Oximetry 97 95 Oxygen Delivery Method Room Air Room Air BMI result Body Mass Index 31.7 Labs 10/16/23 22:40 10/16/23 22:40 Medications Medications Current Medications Acetaminophen (Acetaminophen 325 Mg Tablet) 650 mg PO Q6H PRN PRN Reason: Headache/Pain Mild Scale (1-3) Last Admin: 10/21/23 09:52 Dose: 650 mg Al Hydroxide/Mg Hydroxide (Magnesium Hydrox/Alum Hydrox 30 Ml Oral.Susp) 30 ml PO Q6H PRN PRN Reason: Heartburn/Nausea Aripiprazole (Aripiprazole 5 Mg Tablet) 5 mg PO DAILY [facility] Last Admin: 10/22/23 08:53 Dose: 5 mg Baclofen (Baclofen 10 Mg Tablet) 10 mg PO BID [facility] Last Admin: 10/22/23 08:54 Dose: 10 mg Bupropion HCl (Bupropion Hcl Xl 150 Mg Tab.Er.24h) 150 mg PO DAILY [facility] Last Admin: 10/22/23 08:53 Dose: 150 mg Buspirone HCl (Buspirone Hcl 10 Mg Tablet) 10 mg PO TID [facility] Last Admin: 10/22/23 08:53 Dose: 10 mg Clonidine HCl (Clonidine Hcl 0.1 Mg Tablet) 0.1 mg PO BEDTIME PRN; Protocol PRN Reason: Anxiety Hydroxyzine HCl (Hydroxyzine Hcl 25 Mg Tablet) 25 mg PO BEDTIME [facility] Last Admin: 10/21/23 20:37 Dose: 25 mg Hydroxyzine HCl (Hydroxyzine Hcl 25 Mg Tablet) 25 mg PO Q6H PRN PRN Reason: Anxiety Ibuprofen (Ibuprofen 600 Mg Tablet) 600 mg PO Q6H PRN PRN Reason: moderate pain Lidocaine (Lidocaine 4 % Patch Adh..Patch) 1 patch TRANSDERMA DAILY PRN; Protocol PRN Reason: low back pain Magnesium Hydroxide (Milk Of Magnesia 30 Ml Oral.Susp) 30 ml PO DAILY PRN PRN Reason: Constipation Methadone HCl (Methadone Hcl 20 Mg/2 Ml Oral.Conc) 75 mg PO DAILY [facility] Last Admin: 10/22/23 08:54 Dose: 75 mg Methylphenidate HCl (Methylphenidate Hcl 10 Mg Tablet) 20 mg PO DAILY@1300 [facility] Last Admin: 10/21/23 13:31 Dose: 20 mg Methylphenidate HCl (Methylphenidate Hcl 10 Mg Tablet) 40 mg PO DAILY [facility] Last Admin: 10/22/23 08:52 Dose: 40 mg Prazosin HCl (Prazosin Hcl 1 Mg Capsule) 2 mg PO BEDTIME [facility]; Protocol Last Admin: 10/21/23 20:38 Dose: 2 mg Prazosin HCl (Prazosin Hcl 1 Mg Capsule) 1 mg PO DAILY [facility]; Protocol Last Admin: 10/22/23 08:53 Dose: 1 mg Quetiapine Fumarate (Quetiapine Fumarate 50 Mg Tablet) 50 mg PO BEDTIME PRN PRN Reason: insomnia Last Admin: 10/21/23 20:37 Dose: 50 mg Sertraline HCl (Sertraline Hcl 100 Mg Tablet) 200 mg PO DAILY [facility] Last Admin: 10/22/23 08:53 Dose: 200 mg Trazodone HCl (Trazodone Hcl 100 Mg Tablet) 100 mg PO BEDTIME PRN PRN Reason: Insomnia Last Admin: 10/21/23 20:38 Dose: 100 mg Allergies Allergies Allergy/AdvReac Type Severity Reaction Status Date / Time amoxicillin Allergy Hives Verified 12/28/22 08:17 Assessment & Plan Assessment & Plan (1) Suicidal ideation: Status: Acute Code(s): R45.851 - Suicidal ideations (2) Opioid use disorder, severe, in sustained remission, dependence: Status: Acute Code(s): F11.21 - Opioid dependence, in remission (3) Cocaine use disorder: Status: Acute Code(s): F14.10 - Cocaine abuse, uncomplicated (4) PTSD (post-traumatic stress disorder): Status: Acute Code(s): F43.10 - Post-traumatic stress disorder, unspecified (5) MDD (major depressive disorder), recurrent severe, without psychosis: Status: Acute Code(s): F33.2 - Major depressive disorder, recurrent severe without psychotic features Plan 10/20: continue most recently prescribed medications. referring to respite per pt preference. 10/21: continue current mgmt. awaiting word from respite. likely to be mid next week. 10/22 continue tx. d/c prazosin in AM Reason for continued inpatient stay Substantial Risk for: stable for discharge Time Spent With Patient Time: Total time managing care of this patient today ____ minutes.
[2023-10-22] MEDS: Methylphenidate HCl 10 MG TABLET 20 MG PO (14:00)
[2023-10-22] MEDS: Fluticasone Propionate Nasal 16 GM SPRAY 1 SPRAY NOSTRIL-B (14:34)
[2023-10-22 19:41] VITALS: BP 109/73; PULSE 84; RESP 18; TEMP 36.2; O2SAT 97
[2023-10-22] MEDS: Prazosin HCL 1 MG CAPSULE 2 MG PO (20:08)
[2023-10-22] MEDS: traZODone HCL 100 MG TABLET PO (20:09)
[2023-10-22] MEDS: QUEtiapine Fumarate 50 MG TABLET PO (20:09)
[2023-10-22] MEDS: hydrOXYzine HCL 25 MG TABLET PO (20:09)
[2023-10-22] MEDS: Lidocaine 4 % Patch ADH..PATCH 1 PATCH TRANSDERMA (20:10)
[2023-10-23 07:40] VITALS: BP 84/52; PULSE 73; RESP 18; TEMP 37.2; O2SAT 98
[2023-10-23] MEDS: methADONE HCl 20 MG/2 ML ORAL.CONC 75 MG PO (08:34)
[2023-10-23] MEDS: busPIRone HCl 10 MG TABLET PO ×3 (08:35→20:48)
[2023-10-23] MEDS: Baclofen 10 MG TABLET PO ×2 (08:35→20:47)
[2023-10-23] MEDS: Sertraline HCL 100 MG TABLET 200 MG PO (08:35)
[2023-10-23] MEDS: ARIPiprazole 5 MG TABLET PO (08:36)
[2023-10-23] MEDS: buPROPion HCl XL 150 MG TAB.ER.24H PO (08:37)
[2023-10-23] MEDS: Methylphenidate HCl 10 MG TABLET 40 MG PO (08:37)
[2023-10-23 09:00] VITALS: BP 102/62
[2023-10-23] MEDS: Methylphenidate HCl 10 MG TABLET 20 MG PO (13:15)
[2023-10-23] MEDS: Fluticasone Propionate Nasal 16 GM SPRAY 1 SPRAY NOSTRIL-B (13:17)
--- NOTE | 2023-10-23 15:06 | P.PNPSI_ITS ---
Subjective Subjective Date of Service: 10/23/23 Reason For Visit: si Subjective Notes: Conditional Voluntary Interim History: Pt slept throught the night. She less jittery without prazosin. She reports does not think prazosin in morning helping much. NO SI/HI. social with select peers. No behavioral concerns. Review of Systems Constitutional: Reports as per HPI, Denies chills, Denies fatigue, Denies fever(s) and Denies headache(s) Denies headache(s) Cardiovascular: Denies chest pain and Denies dyspnea Respiratory: Denies cough and Denies dyspnea Gastrointestinal: Denies abdominal pain, Denies constipation and Denies vomiting Denies headache(s) and Denies focal weakness Psychiatric: Reports depression, Reports hopelessness, Denies tactile hallucinations and Reports suicidal ideation Endocrine: Denies fatigue Mental Status Exam Mental Status Exam Narrative: Appearance: wearing hospital gown, fair hygiene, in NAD Behavior: cooperative Psychomotor: no agitation or retardation noted Speech: clear, normal rate/rhythm/volume, spontaneous TP: linear TC: future oriented Mood: not assessed Affect: constricted, normo-intense, non-labile SI: none expressed HI: none expressed VH/AH: none expressed Delusions: none Insight/judgment: fair x 2. Memory/cog: alert, oriented x 3. grossly intact to conversational testing. Diagnostics Vital Signs (24Hr): Vital Signs - 24 hr 10/22/23 19:41 10/23/23 07:40 10/23/23 09:00 Temperature 97.2 F 99.0 F Pulse Rate 84 73 Respiratory Rate 18 18 Blood Pressure 109/73 84/52 L 102/62 Pulse Oximetry 97 98 Oxygen Delivery Method Room Air Room Air BMI result Body Mass Index 31.7 Labs 10/16/23 22:40 10/16/23 22:40 Medications Medications Current Medications Acetaminophen (Acetaminophen 325 Mg Tablet) 650 mg PO Q6H PRN PRN Reason: Headache/Pain Mild Scale (1-3) Last Admin: 10/21/23 09:52 Dose: 650 mg Al Hydroxide/Mg Hydroxide (Magnesium Hydrox/Alum Hydrox 30 Ml Oral.Susp) 30 ml PO Q6H PRN PRN Reason: Heartburn/Nausea Aripiprazole (Aripiprazole 5 Mg Tablet) 5 mg PO DAILY [facility] Last Admin: 10/23/23 08:36 Dose: 5 mg Baclofen (Baclofen 10 Mg Tablet) 10 mg PO BID [facility] Last Admin: 10/23/23 08:35 Dose: 10 mg Bupropion HCl (Bupropion Hcl Xl 150 Mg Tab.Er.24h) 150 mg PO DAILY [facility] Last Admin: 10/23/23 08:37 Dose: 150 mg Buspirone HCl (Buspirone Hcl 10 Mg Tablet) 10 mg PO TID [facility] Last Admin: 10/23/23 08:35 Dose: 10 mg Clonidine HCl (Clonidine Hcl 0.1 Mg Tablet) 0.1 mg PO BEDTIME PRN; Protocol PRN Reason: Anxiety Fluticasone Propionate (Fluticasone Propionate Nasal 16 Gm [place]) 1 spray NOSTRIL-B DAILY [facility] Last Admin: 10/23/23 13:17 Dose: 1 spray Hydroxyzine HCl (Hydroxyzine Hcl 25 Mg Tablet) 25 mg PO BEDTIME [facility] Last Admin: 10/22/23 20:09 Dose: 25 mg Hydroxyzine HCl (Hydroxyzine Hcl 25 Mg Tablet) 25 mg PO Q6H PRN PRN Reason: Anxiety Ibuprofen (Ibuprofen 600 Mg Tablet) 600 mg PO Q6H PRN PRN Reason: moderate pain Lidocaine (Lidocaine 4 % Patch Adh..Patch) 1 patch TRANSDERMA DAILY PRN; Protocol PRN Reason: low back pain Last Admin: 10/22/23 20:10 Dose: 1 patch Magnesium Hydroxide (Milk Of Magnesia 30 Ml Oral.Susp) 30 ml PO DAILY PRN PRN Reason: Constipation Methadone HCl (Methadone Hcl 20 Mg/2 Ml Oral.Conc) 75 mg PO DAILY [facility] Last Admin: 10/23/23 08:34 Dose: 75 mg Methylphenidate HCl (Methylphenidate Hcl 10 Mg Tablet) 20 mg PO DAILY@1300 [facility] Last Admin: 10/23/23 13:15 Dose: 20 mg Methylphenidate HCl (Methylphenidate Hcl 10 Mg Tablet) 40 mg PO DAILY [facility] Last Admin: 10/23/23 08:37 Dose: 40 mg Prazosin HCl (Prazosin Hcl 1 Mg Capsule) 2 mg PO BEDTIME [facility]; Protocol Last Admin: 10/22/23 20:08 Dose: 2 mg Quetiapine Fumarate (Quetiapine Fumarate 50 Mg Tablet) 50 mg PO BEDTIME PRN PRN Reason: insomnia Last Admin: 10/22/23 20:09 Dose: 50 mg Sertraline HCl (Sertraline Hcl 100 Mg Tablet) 200 mg PO DAILY [facility] Last Admin: 10/23/23 08:35 Dose: 200 mg Trazodone HCl (Trazodone Hcl 100 Mg Tablet) 100 mg PO BEDTIME PRN PRN Reason: Insomnia Last Admin: 10/22/23 20:09 Dose: 100 mg Allergies Allergies Allergy/AdvReac Type Severity Reaction Status Date / Time amoxicillin Allergy Hives Verified 12/28/22 08:17 Assessment & Plan Assessment & Plan (1) Suicidal ideation: Status: Acute Code(s): R45.851 - Suicidal ideations (2) Opioid use disorder, severe, in sustained remission, dependence: Status: Acute Code(s): F11.21 - Opioid dependence, in remission (3) Cocaine use disorder: Status: Acute Code(s): F14.10 - Cocaine abuse, uncomplicated (4) PTSD (post-traumatic stress disorder): Status: Acute Code(s): F43.10 - Post-traumatic stress disorder, unspecified (5) MDD (major depressive disorder), recurrent severe, without psychosis: Status: Acute Code(s): F33.2 - Major depressive disorder, recurrent severe without psychotic features Plan 10/20: continue most recently prescribed medications. referring to respite per pt preference. 10/21: continue current mgmt. awaiting word from respite. likely to be mid next week. 10/22 continue tx. d/c prazosin in AM 10/23 continue tx. Reason for continued inpatient stay Substantial Risk for: stable for discharge Time Spent With Patient Time: Total time managing care of this patient today ____ minutes.
[2023-10-23 19:20] VITALS: BP 112/64; PULSE 79; RESP 18; TEMP 36.3; O2SAT 100
[2023-10-23] MEDS: QUEtiapine Fumarate 50 MG TABLET PO (20:47)
[2023-10-23] MEDS: hydrOXYzine HCL 25 MG TABLET PO (20:48)
[2023-10-23] MEDS: Prazosin HCL 1 MG CAPSULE 2 MG PO (20:48)
[2023-10-23] MEDS: traZODone HCL 100 MG TABLET PO (20:48)
[2023-10-24 07:20] VITALS: BP 90/53; PULSE 70; RESP 16; TEMP 36.4; O2SAT 95
[2023-10-24] MEDS: Methylphenidate HCl 10 MG TABLET 40 MG PO (08:15)
[2023-10-24] MEDS: Sertraline HCL 100 MG TABLET 200 MG PO (08:15)
[2023-10-24] MEDS: Baclofen 10 MG TABLET PO ×2 (08:16→21:19)
[2023-10-24] MEDS: ARIPiprazole 5 MG TABLET PO (08:16)
[2023-10-24] MEDS: buPROPion HCl XL 150 MG TAB.ER.24H PO (08:16)
[2023-10-24] MEDS: methADONE HCl 20 MG/2 ML ORAL.CONC 75 MG PO (08:16)
[2023-10-24] MEDS: busPIRone HCl 10 MG TABLET PO ×3 (08:16→21:18)
[2023-10-24] MEDS: Fluticasone Propionate Nasal 16 GM SPRAY 1 SPRAY NOSTRIL-B (13:37)
[2023-10-24] MEDS: Methylphenidate HCl 10 MG TABLET 20 MG PO (13:38)
--- NOTE | 2023-10-24 14:55 | HO.PSYCHPN ---
Subjective Subjective Date of Service: 10/24/23 Reason For Visit: si Interim History: calm, cooperative. feeling improved, awaiting bed at respite. depression is down from when i came in, making calls to get into [facility]. re SI, a little more safe, not so many thoughts. per staff, attending groups. dep/anx. declined contact mtg. PRNs for anxiety and insomnia. no behavioral issues. slept well. Mental Status Exam Mental Status Exam Narrative: Appearance: wearing hospital gown, fair hygiene, in NAD Behavior: cooperative Psychomotor: no agitation or retardation noted Speech: clear, normal rate/rhythm/volume, spontaneous TP: linear TC: future oriented Mood: less depressed Affect: flexible, normo-intense, non-labile SI: less than at admission HI: none expressed VH/AH: none expressed Delusions: none Insight/judgment: fair x 2. Memory/cog: alert, oriented x 3. grossly intact to conversational testing. Diagnostics Vital Signs (24Hr): Vital Signs - 24 hr 10/23/23 19:20 10/24/23 07:20 Temperature 97.4 F 97.6 F Pulse Rate 79 70 Respiratory Rate 18 16 Blood Pressure 112/64 90/53 L Pulse Oximetry 100 95 Oxygen Delivery Method Room Air Room Air BMI result Body Mass Index 31.7 Labs 10/16/23 22:40 10/16/23 22:40 Medications Medications Current Medications Acetaminophen (Acetaminophen 325 Mg Tablet) 650 mg PO Q6H PRN PRN Reason: Headache/Pain Mild Scale (1-3) Last Admin: 10/21/23 09:52 Dose: 650 mg Al Hydroxide/Mg Hydroxide (Magnesium Hydrox/Alum Hydrox 30 Ml Oral.Susp) 30 ml PO Q6H PRN PRN Reason: Heartburn/Nausea Aripiprazole (Aripiprazole 5 Mg Tablet) 5 mg PO DAILY [facility] Last Admin: 10/24/23 08:16 Dose: 5 mg Baclofen (Baclofen 10 Mg Tablet) 10 mg PO BID [facility] Last Admin: 10/24/23 08:16 Dose: 10 mg Bupropion HCl (Bupropion Hcl Xl 150 Mg Tab.Er.24h) 150 mg PO DAILY [facility] Last Admin: 10/24/23 08:16 Dose: 150 mg Buspirone HCl (Buspirone Hcl 10 Mg Tablet) 10 mg PO TID [facility] Last Admin: 10/24/23 08:16 Dose: 10 mg Clonidine HCl (Clonidine Hcl 0.1 Mg Tablet) 0.1 mg PO BEDTIME PRN; Protocol PRN Reason: Anxiety Fluticasone Propionate (Fluticasone Propionate Nasal 16 Gm [place]) 1 spray NOSTRIL-B DAILY [facility] Last Admin: 10/24/23 13:37 Dose: 1 spray Hydroxyzine HCl (Hydroxyzine Hcl 25 Mg Tablet) 25 mg PO BEDTIME [facility] Last Admin: 10/23/23 20:48 Dose: 25 mg Hydroxyzine HCl (Hydroxyzine Hcl 25 Mg Tablet) 25 mg PO Q6H PRN PRN Reason: Anxiety Ibuprofen (Ibuprofen 600 Mg Tablet) 600 mg PO Q6H PRN PRN Reason: moderate pain Lidocaine (Lidocaine 4 % Patch Adh..Patch) 1 patch TRANSDERMA DAILY PRN; Protocol PRN Reason: low back pain Last Admin: 10/22/23 20:10 Dose: 1 patch Magnesium Hydroxide (Milk Of Magnesia 30 Ml Oral.Susp) 30 ml PO DAILY PRN PRN Reason: Constipation Methadone HCl (Methadone Hcl 20 Mg/2 Ml Oral.Conc) 75 mg PO DAILY [facility] Last Admin: 10/24/23 08:16 Dose: 75 mg Methylphenidate HCl (Methylphenidate Hcl 10 Mg Tablet) 20 mg PO DAILY@1300 [facility] Last Admin: 10/24/23 13:38 Dose: 20 mg Methylphenidate HCl (Methylphenidate Hcl 10 Mg Tablet) 40 mg PO DAILY [facility] Last Admin: 10/24/23 08:15 Dose: 40 mg Prazosin HCl (Prazosin Hcl 1 Mg Capsule) 2 mg PO BEDTIME [facility]; Protocol Last Admin: 10/23/23 20:48 Dose: 2 mg Quetiapine Fumarate (Quetiapine Fumarate 50 Mg Tablet) 50 mg PO BEDTIME PRN PRN Reason: insomnia Last Admin: 10/23/23 20:47 Dose: 50 mg Sertraline HCl (Sertraline Hcl 100 Mg Tablet) 200 mg PO DAILY [facility] Last Admin: 10/24/23 08:15 Dose: 200 mg Trazodone HCl (Trazodone Hcl 100 Mg Tablet) 100 mg PO BEDTIME PRN PRN Reason: Insomnia Last Admin: 10/23/23 20:48 Dose: 100 mg Allergies Allergies Allergy/AdvReac Type Severity Reaction Status Date / Time amoxicillin Allergy Hives Verified 12/28/22 08:17 Assessment & Plan Assessment & Plan (1) Suicidal ideation: Status: Acute Code(s): R45.851 - Suicidal ideations (2) Opioid use disorder, severe, in sustained remission, dependence: Status: Acute Code(s): F11.21 - Opioid dependence, in remission (3) Cocaine use disorder: Status: Acute Code(s): F14.10 - Cocaine abuse, uncomplicated (4) PTSD (post-traumatic stress disorder): Status: Acute Code(s): F43.10 - Post-traumatic stress disorder, unspecified (5) MDD (major depressive disorder), recurrent severe, without psychosis: Status: Acute Code(s): F33.2 - Major depressive disorder, recurrent severe without psychotic features Plan 10/20: continue most recently prescribed medications. referring to respite per pt preference. 10/21: continue current mgmt. awaiting word from respite. likely to be mid next week. 10/22 continue tx. d/c prazosin in AM 10/23 continue tx. 10/24: continue current mgmt. improved mood and decreased SI since admission. continue current mgmt. Reason for continued inpatient stay Substantial Risk for: inability to function and rapid decompensation Time Spent With Patient Time: Total time managing care of this patient today __25__ minutes.
[2023-10-24] MEDS: hydrOXYzine HCL 25 MG TABLET PO (21:18)
[2023-10-24] MEDS: traZODone HCL 100 MG TABLET PO (21:19)
[2023-10-24] MEDS: QUEtiapine Fumarate 50 MG TABLET PO (21:19)
[2023-10-24] MEDS: Prazosin HCL 1 MG CAPSULE 2 MG PO (21:19)
[2023-10-24 21:22] VITALS: BP 125/65; PULSE 67; RESP 14; TEMP 36.3; O2SAT 96
[2023-10-24] MEDS: Lidocaine 4 % Patch ADH..PATCH 1 PATCH TRANSDERMA (21:28)
[2023-10-24] MEDS: Milk of Magnesia 30 ML ORAL.SUSP PO (21:28)
[2023-10-25 08:10] VITALS: BP 110/59; PULSE 61; RESP 24; TEMP 36.6; O2SAT 97
[2023-10-25] MEDS: methADONE HCl 20 MG/2 ML ORAL.CONC 75 MG PO (08:31)
[2023-10-25] MEDS: Methylphenidate HCl 10 MG TABLET 40 MG PO (08:31)
[2023-10-25] MEDS: Sertraline HCL 100 MG TABLET 200 MG PO (08:32)
[2023-10-25] MEDS: buPROPion HCl XL 150 MG TAB.ER.24H PO (08:32)
[2023-10-25] MEDS: ARIPiprazole 5 MG TABLET PO (08:32)
[2023-10-25] MEDS: busPIRone HCl 10 MG TABLET PO ×3 (08:32→20:39)
[2023-10-25] MEDS: Baclofen 10 MG TABLET PO ×2 (08:32→20:41)
[2023-10-25] MEDS: Methylphenidate HCl 10 MG TABLET 20 MG PO (12:59)
--- NOTE | 2023-10-25 14:59 | P.PNPSI_ITS ---
Subjective Subjective Date of Service: 10/25/23 Reason For Visit: si Interim History: calm, cooperative. c/p panic attacks, asking for something to help. reports hydroxyzine inadequate. agrees to trial of low-dose seroquel. per staff, dep/anx 5. +meds. no issues. no SI. drug dreams. slept about 8 hours. Mental Status Exam Mental Status Exam Narrative: Appearance: wearing hospital gown, fair hygiene, in NAD Behavior: cooperative Psychomotor: no agitation or retardation noted Speech: clear, normal rate/rhythm/volume, spontaneous TP: linear TC: future oriented Mood: euthymic Affect: flexible, normo-intense, non-labile SI: none expressed HI: none expressed VH/AH: none expressed Delusions: none Insight/judgment: fair x 2. Memory/cog: alert, oriented x 3. grossly intact to conversational testing. Diagnostics Vital Signs (24Hr): Vital Signs - 24 hr 10/24/23 21:22 10/25/23 08:10 Temperature 97.4 F 97.8 F Pulse Rate 67 61 Respiratory Rate 14 24 H Blood Pressure 125/65 110/59 L Pulse Oximetry 96 97 Oxygen Delivery Method Room Air Room Air BMI result Body Mass Index 31.7 Labs 10/16/23 22:40 10/16/23 22:40 Medications Medications Current Medications Acetaminophen (Acetaminophen 325 Mg Tablet) 650 mg PO Q6H PRN PRN Reason: Headache/Pain Mild Scale (1-3) Last Admin: 10/21/23 09:52 Dose: 650 mg Al Hydroxide/Mg Hydroxide (Magnesium Hydrox/Alum Hydrox 30 Ml Oral.Susp) 30 ml PO Q6H PRN PRN Reason: Heartburn/Nausea Aripiprazole (Aripiprazole 5 Mg Tablet) 5 mg PO DAILY [facility] Last Admin: 10/25/23 08:32 Dose: 5 mg Baclofen (Baclofen 10 Mg Tablet) 10 mg PO BID [facility] Last Admin: 10/25/23 08:32 Dose: 10 mg Bupropion HCl (Bupropion Hcl Xl 150 Mg Tab.Er.24h) 150 mg PO DAILY [facility] Last Admin: 10/25/23 08:32 Dose: 150 mg Buspirone HCl (Buspirone Hcl 10 Mg Tablet) 10 mg PO TID [facility] Last Admin: 10/25/23 08:32 Dose: 10 mg Clonidine HCl (Clonidine Hcl 0.1 Mg Tablet) 0.1 mg PO BEDTIME PRN; Protocol PRN Reason: Anxiety Fluticasone Propionate (Fluticasone Propionate Nasal 16 Gm [place]) 1 spray NOSTRIL-B DAILY [facility] Last Admin: 10/25/23 08:36 Dose: Not Given Hydroxyzine HCl (Hydroxyzine Hcl 25 Mg Tablet) 25 mg PO BEDTIME [facility] Last Admin: 10/24/23 21:18 Dose: 25 mg Hydroxyzine HCl (Hydroxyzine Hcl 25 Mg Tablet) 25 mg PO Q6H PRN PRN Reason: Anxiety Ibuprofen (Ibuprofen 600 Mg Tablet) 600 mg PO Q6H PRN PRN Reason: moderate pain Lidocaine (Lidocaine 4 % Patch Adh..Patch) 1 patch TRANSDERMA BEDTIME PRN; Protocol PRN Reason: low back pain Magnesium Hydroxide (Milk Of Magnesia 30 Ml Oral.Susp) 30 ml PO DAILY PRN PRN Reason: Constipation Last Admin: 10/24/23 21:28 Dose: 30 ml Methadone HCl (Methadone Hcl 20 Mg/2 Ml Oral.Conc) 75 mg PO DAILY [facility] Last Admin: 10/25/23 08:31 Dose: 75 mg Methylphenidate HCl (Methylphenidate Hcl 10 Mg Tablet) 20 mg PO DAILY@1300 [facility] Last Admin: 10/25/23 12:59 Dose: 20 mg Methylphenidate HCl (Methylphenidate Hcl 10 Mg Tablet) 40 mg PO DAILY [facility] Last Admin: 10/25/23 08:31 Dose: 40 mg Prazosin HCl (Prazosin Hcl 1 Mg Capsule) 2 mg PO BEDTIME [facility]; Protocol Last Admin: 10/24/23 21:19 Dose: 2 mg Quetiapine Fumarate (Quetiapine Fumarate 50 Mg Tablet) 50 mg PO BEDTIME PRN PRN Reason: insomnia Last Admin: 10/24/23 21:19 Dose: 50 mg Quetiapine Fumarate (Quetiapine Fumarate 25 Mg Tablet) 12.5 mg PO Q4H PRN PRN Reason: panic attack Sertraline HCl (Sertraline Hcl 100 Mg Tablet) 200 mg PO DAILY [facility] Last Admin: 10/25/23 08:32 Dose: 200 mg Trazodone HCl (Trazodone Hcl 100 Mg Tablet) 100 mg PO BEDTIME PRN PRN Reason: Insomnia Last Admin: 10/24/23 21:19 Dose: 100 mg Allergies Allergies Allergy/AdvReac Type Severity Reaction Status Date / Time amoxicillin Allergy Hives Verified 12/28/22 08:17 Assessment & Plan Assessment & Plan (1) Suicidal ideation: Status: Acute Code(s): R45.851 - Suicidal ideations (2) Opioid use disorder, severe, in sustained remission, dependence: Status: Acute Code(s): F11.21 - Opioid dependence, in remission (3) Cocaine use disorder: Status: Acute Code(s): F14.10 - Cocaine abuse, uncomplicated (4) PTSD (post-traumatic stress disorder): Status: Acute Code(s): F43.10 - Post-traumatic stress disorder, unspecified (5) MDD (major depressive disorder), recurrent severe, without psychosis: Status: Acute Code(s): F33.2 - Major depressive disorder, recurrent severe without psychotic features Plan 10/20: continue most recently prescribed medications. referring to respite per pt preference. 10/21: continue current mgmt. awaiting word from respite. likely to be mid next week. 10/22 continue tx. d/c prazosin in AM 10/23 continue tx. 10/24: continue current mgmt. improved mood and decreased SI since admission. continue current mgmt. 10/25: add seroquel 12.5 mg Q4H PRN panic, per pt request. otherwise continue current mgmt. Reason for continued inpatient stay Substantial Risk for: inability to function and rapid decompensation Time Spent With Patient Time: Total time managing care of this patient today _25___ minutes.
[2023-10-25] MEDS: QUEtiapine Fumarate 25 MG TABLET 12.5 MG PO (16:54)
[2023-10-25 19:30] VITALS: BP 107/61; PULSE 76; RESP 16; TEMP 37.1; O2SAT 97
[2023-10-25] MEDS: Prazosin HCL 1 MG CAPSULE 2 MG PO (20:38)
[2023-10-25] MEDS: hydrOXYzine HCL 25 MG TABLET PO (20:39)
[2023-10-25] MEDS: QUEtiapine Fumarate 50 MG TABLET PO (20:41)
[2023-10-25] MEDS: cloNIDine HCL 0.1 MG TABLET PO (20:42)
[2023-10-25] MEDS: traZODone HCL 100 MG TABLET PO (20:42)
[2023-10-26 06:00] VITALS: BP 90/53; PULSE 64; RESP 16; TEMP 36.7; O2SAT 96
[2023-10-26] MEDS: Sertraline HCL 100 MG TABLET 200 MG PO (08:41)
[2023-10-26] MEDS: methADONE HCl 20 MG/2 ML ORAL.CONC 75 MG PO (08:41)
[2023-10-26] MEDS: ARIPiprazole 5 MG TABLET PO (08:42)
[2023-10-26] MEDS: buPROPion HCl XL 150 MG TAB.ER.24H PO (08:42)
[2023-10-26] MEDS: Baclofen 10 MG TABLET PO ×2 (08:42→20:30)
[2023-10-26] MEDS: Methylphenidate HCl 10 MG TABLET 40 MG PO (08:42)
[2023-10-26] MEDS: busPIRone HCl 10 MG TABLET PO ×3 (08:42→20:30)
--- NOTE | 2023-10-26 08:59 | P.PNPSI_ITS ---
Subjective Subjective Date of Service: 10/26/23 Reason For Visit: si Subjective Notes: 3 Day Interim History: Reviewed with . social with peers, attending groups. Pt reports feeling better today; pt stated, I woke up in a good mood. I only had two thoughts of hurting myself yesterday which is really good for me . signed 3 day. denies SI/HI/AH/VH. Medication Compliance: Yes Attending Groups: Yes Review of Systems Constitutional: Reports as per HPI Eyes: Reports as per HPI Reports as per HPI Cardiovascular: Reports as per HPI Respiratory: Reports as per HPI Gastrointestinal: Reports as per HPI Genitourinary: Reports as per HPI Musculoskeletal: Reports as per HPI Skin/Breast: Reports as per HPI Reports as per HPI Psychiatric: Reports as per HPI Endocrine: Reports as per HPI Hematologic/Lymphatic: Reports as per HPI Allergic/Immunologic: Reports as per HPI Mental Status Exam Mental Status Exam Narrative: Pt is alert and oriented; behavior is cooperative and calm; dressed in casual attire; mood is described as better ; eye contact appropriate; Speech is normal rate, volume and prosody and not pressured; thought process is organized; denies SI/HI/VH/AH. Diagnostics Vital Signs (24Hr): Vital Signs - 24 hr 10/25/23 19:30 10/26/23 06:00 Temperature 98.8 F 98.1 F Pulse Rate 76 64 Respiratory Rate 16 16 Blood Pressure 107/61 90/53 L Pulse Oximetry 97 96 Oxygen Delivery Method Room Air Room Air BMI result Body Mass Index 31.7 Labs 10/16/23 22:40 10/16/23 22:40 Medications Medications Current Medications Acetaminophen (Acetaminophen 325 Mg Tablet) 650 mg PO Q6H PRN PRN Reason: Headache/Pain Mild Scale (1-3) Last Admin: 10/21/23 09:52 Dose: 650 mg Al Hydroxide/Mg Hydroxide (Magnesium Hydrox/Alum Hydrox 30 Ml Oral.Susp) 30 ml PO Q6H PRN PRN Reason: Heartburn/Nausea Aripiprazole (Aripiprazole 5 Mg Tablet) [address] [facility] Last Admin: 10/26/23 08:42 Dose: 5 mg Baclofen (Baclofen 10 Mg Tablet) [address] [facility] Last Admin: 10/26/23 08:42 Dose: 10 mg Bupropion HCl (Bupropion Hcl Xl 150 Mg Tab.Er.24h) [address] [facility] Last Admin: 10/26/23 08:42 Dose: 150 mg Buspirone HCl (Buspirone Hcl 10 Mg Tablet) [address] [facility] Last Admin: 10/26/23 08:42 Dose: 10 mg Clonidine HCl (Clonidine Hcl 0.1 Mg Tablet) 0.1 mg PO BEDTIME PRN; Protocol PRN Reason: Anxiety Last Admin: 10/25/23 20:42 Dose: 0.1 mg Fluticasone Propionate (Fluticasone Propionate Nasal 16 Gm [place]) 1 spray NOSTRIL-B DAILY [facility] Last Admin: 10/26/23 08:48 Dose: Not Given Hydroxyzine HCl (Hydroxyzine Hcl 25 Mg Tablet) [address] [facility] Last Admin: 10/25/23 20:39 Dose: 25 mg Hydroxyzine HCl (Hydroxyzine Hcl 25 Mg Tablet) 25 mg PO Q6H PRN PRN Reason: Anxiety Ibuprofen (Ibuprofen 600 Mg Tablet) 600 mg PO Q6H PRN PRN Reason: moderate pain Lidocaine (Lidocaine 4 % Patch Adh..Patch) 1 patch TRANSDERMA BEDTIME PRN; Protocol PRN Reason: low back pain Magnesium Hydroxide (Milk Of Magnesia 30 Ml Oral.Susp) 30 ml PO DAILY PRN PRN Reason: Constipation Last Admin: 10/24/23 21:28 Dose: 30 ml Methadone HCl (Methadone Hcl 20 Mg/2 Ml Oral.Conc) [address] [facility] Last Admin: 10/26/23 08:41 Dose: 75 mg Methylphenidate HCl (Methylphenidate Hcl 10 Mg Tablet) 20 mg PO DAILY@1300 [facility] Last Admin: 10/25/23 12:59 Dose: 20 mg Methylphenidate HCl (Methylphenidate Hcl 10 Mg Tablet) [address] [facility] Last Admin: 10/26/23 08:42 Dose: 40 mg Prazosin HCl (Prazosin Hcl 1 Mg Capsule) [address] [facility]; Protocol Last Admin: 10/25/23 20:38 Dose: 2 mg Quetiapine Fumarate (Quetiapine Fumarate 50 Mg Tablet) 50 mg PO BEDTIME PRN PRN Reason: insomnia Last Admin: 10/25/23 20:41 Dose: 50 mg Quetiapine Fumarate (Quetiapine Fumarate 25 Mg Tablet) 12.5 mg PO Q4H PRN PRN Reason: panic attack Last Admin: 10/25/23 16:54 Dose: 12.5 mg Sertraline HCl (Sertraline Hcl 100 Mg Tablet) 200 mg PO DAILY [facility] Last Admin: 10/26/23 08:41 Dose: 200 mg Trazodone HCl (Trazodone Hcl 100 Mg Tablet) 100 mg PO BEDTIME PRN PRN Reason: Insomnia Last Admin: 10/25/23 20:42 Dose: 100 mg Allergies Allergies Allergy/AdvReac Type Severity Reaction Status Date / Time amoxicillin Allergy Hives Verified 12/28/22 08:17 Assessment & Plan Assessment & Plan (1) Suicidal ideation: Status: Acute Code(s): R45.851 - Suicidal ideations (2) Opioid use disorder, severe, in sustained remission, dependence: Status: Acute Code(s): F11.21 - Opioid dependence, in remission (3) Cocaine use disorder: Status: Acute Code(s): F14.10 - Cocaine abuse, uncomplicated (4) PTSD (post-traumatic stress disorder): Status: Acute Code(s): F43.10 - Post-traumatic stress disorder, unspecified (5) MDD (major depressive disorder), recurrent severe, without psychosis: Status: Acute Code(s): F33.2 - Major depressive disorder, recurrent severe without psychotic features Plan 10/20: continue most recently prescribed medications. referring to respite per pt preference. 10/21: continue current mgmt. awaiting word from respite. likely to be mid next week. 10/22 continue tx. d/c prazosin in AM 10/23 continue tx. 10/24: continue current mgmt. improved mood and decreased SI since admission. continue current mgmt. 10/25: add seroquel 12.5 mg Q4H PRN panic, per pt request. otherwise continue current mgmt. 10/26: continue current tx plan. Patient educated on: diagnosis and medication risk/benefits Informed Consent: understands Reason for continued inpatient stay Substantial Risk for: med/psych decompensation Time Spent With Patient Time: Total time managing care of this patient today _20___ minutes.
[2023-10-26] MEDS: Methylphenidate HCl 10 MG TABLET 20 MG PO (14:13)
[2023-10-26 19:42] VITALS: BP 115/80; PULSE 82; RESP 18; TEMP 36.6; O2SAT 98
[2023-10-26] MEDS: Prazosin HCL 1 MG CAPSULE 2 MG PO (20:30)
[2023-10-26] MEDS: hydrOXYzine HCL 25 MG TABLET PO (20:30)
[2023-10-26] MEDS: QUEtiapine Fumarate 50 MG TABLET PO (20:31)
[2023-10-26] MEDS: traZODone HCL 100 MG TABLET PO (20:31)
[2023-10-26] MEDS: Lidocaine 4 % Patch ADH..PATCH 1 PATCH TRANSDERMA (20:33)
[2023-10-27] MEDS: ARIPiprazole 5 MG TABLET PO (08:46)
[2023-10-27] MEDS: Baclofen 10 MG TABLET PO ×2 (08:46→20:17)
[2023-10-27] MEDS: Methylphenidate HCl 10 MG TABLET 40 MG PO (08:46)
[2023-10-27] MEDS: busPIRone HCl 10 MG TABLET PO ×3 (08:46→20:17)
[2023-10-27] MEDS: Sertraline HCL 100 MG TABLET 200 MG PO (08:46)
[2023-10-27] MEDS: methADONE HCl 20 MG/2 ML ORAL.CONC 75 MG PO (08:46)
[2023-10-27] MEDS: buPROPion HCl XL 150 MG TAB.ER.24H PO (08:47)
[2023-10-27 09:04] VITALS: BP 114/64; PULSE 92; TEMP 36.4; O2SAT 100
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
[2023-10-27] MEDS: Methylphenidate HCl 10 MG TABLET 20 MG PO (14:12)
[2023-10-27 19:50] VITALS: BP 119/70; PULSE 88; RESP 18; TEMP 36.6; O2SAT 96
[2023-10-27] MEDS: traZODone HCL 100 MG TABLET PO (20:17)
[2023-10-27] MEDS: QUEtiapine Fumarate 50 MG TABLET PO (20:17)
[2023-10-27] MEDS: hydrOXYzine HCL 25 MG TABLET PO (20:17)
[2023-10-27] MEDS: Prazosin HCL 1 MG CAPSULE 2 MG PO (20:17)
[2023-10-28 09:30] VITALS: BP 114/64; PULSE 71; RESP 16; TEMP 36.3; O2SAT 98
[2023-10-28] MEDS: methADONE HCl 20 MG/2 ML ORAL.CONC 75 MG PO (09:47)
[2023-10-28] MEDS: Methylphenidate HCl 10 MG TABLET 40 MG PO (09:48)
[2023-10-28] MEDS: buPROPion HCl XL 150 MG TAB.ER.24H PO (09:49)
[2023-10-28] MEDS: Sertraline HCL 100 MG TABLET 200 MG PO (09:49)
[2023-10-28] MEDS: ARIPiprazole 5 MG TABLET PO (09:49)
[2023-10-28] MEDS: Baclofen 10 MG TABLET PO (09:49)
[2023-10-28] MEDS: busPIRone HCl 10 MG TABLET PO (09:49)
[2023-10-28] MEDS: Methylphenidate HCl 10 MG TABLET 20 MG PO (12:32)
[2023-10-28] MEDS: Fluticasone Propionate Nasal 16 GM SPRAY 1 SPRAY NOSTRIL-B (12:33)
== END 2023-10-28 13:25 | disposition home or self-care (01) | DRG 751 ==
LOC: HO.ED 10-17 14:31 → HO.PADLT16 10-19 22:14
PROVIDERS: Admitting Provider Psychiatry & Neurology Psychiatry; Emergency Provider Internal Medicine; Visit Provider Psychiatry & Neurology Psychiatry
DX: F33.2 Major depressive disorder, recurrent severe without psychotic features (principal); R45.851 Suicidal ideations; F11.20 Opioid dependence, uncomplicated; F14.10 Cocaine abuse, uncomplicated; F43.10 Post-traumatic stress disorder, unspecified; Z20.822 Contact with and (suspected) exposure to COVID-19; Z59.02 Unsheltered homelessness; Z79.899 Other long term (current) drug therapy
CPT/HCPCS: 80048; 80307; 81001; 81025; 85025; 87086; 87635; 93005; 99285; S9485

== ENCOUNTER → 2023-10-17 09:58 | Outpatient (BNV) | payer OTHER, SELFPAY | PROVIDERS: Emergency Provider Internal Medicine; Visit Provider Internal Medicine | DX: R45.851 Suicidal ideations (principal); F33.2 Major depressive disorder, recurrent severe without psychotic features | CPT/HCPCS: 93010 ==

== ENCOUNTER → 2023-10-19 22:09 | Outpatient (BNV) | payer OTHER, SELFPAY | PROVIDERS: Admitting Provider Psychiatry & Neurology Psychiatry; Emergency Provider Internal Medicine; Visit Provider Social Worker | DX: F33.2 Major depressive disorder, recurrent severe without psychotic features (principal); R45.851 Suicidal ideations; F14.10 Cocaine abuse, uncomplicated; F11.21 Opioid dependence, in remission; F43.10 Post-traumatic stress disorder, unspecified | CPT/HCPCS: 99231; 99232; 99233 ==

== ENCOUNTER 2023-12-10 00:21 | Emergency (ER) | payer OTHER, SELFPAY ==
--- NOTE | 2023-12-10 | ECG_ITS ---
Test Reason : MEDICAL CLEARANCE Blood Pressure : / mmHG Vent. Rate : 061 BPM Atrial Rate : 061 BPM P-R Int : 102 ms QRS Dur : 084 ms QT Int : 478 ms P-R-T Axes : -08 047 019 degrees QTc Int : 481 ms Sinus rhythm with short MI Prolonged QT Abnormal ECG When compared with ECG of 17-OCT-2023 10:03, MI interval has decreased QT has lengthened Referred By: Etta Zacarias Electronically Signed By:MATT CASAS MD
[2023-12-10 00:30] VITALS: BP 116/70; PULSE 74; O2SAT 98
[2023-12-10 00:39] VITALS: BP 127/78; PULSE 79; RESP 17; TEMP 37.1; O2SAT 98
[2023-12-10 00:51] VITALS: BP 127/78; PULSE 79; RESP 17; TEMP 37.1; O2SAT 98; BMI 31.2
--- NOTE | 2023-12-10 00:56 | PC.NURSE ---
PT freddy from [employer]. Reported to EMS SI with a plan. During assessment pt denies SI/HI at this time. Reports being off methadone for 3days, and relapsing recently. PT does not recall events but told EMS she last used 1 hour ago and told charge she last used at 2pm on 12/09/23. PT alert and oriented but drowsy and in no acute distress. Vitals stable, skin pwd, respirations even and unlabored. PT changed over, belonging secured by security and placed in decon as heroin was found in her bag. Orders placed. PT unable to provide urine at this time. audiovisual tech to draw labs. Plan of care ongoing
--- NOTE | 2023-12-10 01:09 | PC.NURSE ---
Attempted to completed med list. PT medications have not been filled since 10/13 with only 30 day supply.
[2023-12-10 01:31] LABS: MANUAL DIFF FLAG NO
[2023-12-10 01:32] LABS: Eosinophils Absolute Auto 0.1 X10*3/uL (0.0-0.4); Eosinophils Percent Auto 0.6 % (0-4); Hemoglobin 13.4 g/dl (12.0-16.0); Mean Corpuscular Volume 85.5 fL (80.0-98.0); Red Cell Distribution Width 11.9 % (11.0-16.0)
[2023-12-10 01:34] LABS: Basophils Absolute Auto 0.1 X10*3/uL (0.0-0.2); Basophils Percent Auto 0.7 % (0-2); Hematocrit 37.7 % (37.0-47.0); Imm Gran Abs Auto 0.02 X10*3/uL (0.00-0.03); Imm Gran Pct Auto 0.2 % (0.0-0.4); Mean Corpuscular HGB Conc 35.5 g/dl (31.0-35.0); Mean Corpuscular Hemoglobin 30.4 pg (27.0-33.0); Mean Platelet Volume 10.3 fL (9.4-12.3); Monocytes Absolute Auto 0.6 X10*3/uL (0.1-1.2); Monocytes Percent Auto 6.6 % (2-11); Neutrophils Absolute Auto 6.3 x10*3/uL (2.0-8.3); Neutrophils Percent Auto 69.9 % (45-73); Red Blood Count 4.41 X10*6/uL (4.20-5.50)
[2023-12-10 01:38] LABS: Platelet Count 277 X10*3/uL (160-400); White Blood Count 8.9 X10*3/uL (4.8-10.8)
[2023-12-10 01:48] LABS: Alanine Aminotransferase 15 U/L (0-31); Albumin Level 4.5 g/dL (3.5-5.0); Alkaline Phosphatase 47 U/L (39-117); Anion Gap 17 (12-20); Aspartate Amino Transferase 29 U/L (5-31); Bilirubin Total 1.1 mg/dL (0.0-1.0); Blood Urea Nitrogen 19 mg/dL (9-16); Carbon Dioxide 22 mmol/L (22-29); Chloride 106 mmol/L (96-108); Creatinine Clr Calc Pharmacy 73.7; Estimated Glomerular Filt Rate > 60; Ethanol < 10 mg/dL; Glucose Random 103 mg/dL (60-115); Potassium 3.9 mmol/L (3.3-5.1); Sodium 141 mmol/L (135-145); Total Protein 8.2 g/dL (6.5-8.0)
--- NOTE | 2023-12-10 01:51 | ED.PSYCH ---
HPI - Psych General Chief Complaint: Psychiatric Symptoms Stated Complaint: OVERDOSE Time Seen by Provider: 12/10/23 01:17 Source: patient Mode of arrival: EMS Limitations: no limitations History of Present Illness HPI Narrative: Patient comes to the emergency room via ambulance complaining of suicidal ideation. Patient states that yesterday she was dismissed from a detox program in [place]. Patient states she is homeless, now feels suicidal, when I spoke with the patient she said that she has no plan. Patient told her nurse that she is planning to gentleman front of a car. Patient denies recent alcohol abuse. Patient states that yesterday she accidentally overdosed, then she switched her story that she did this earlier today. Patient states that she does not remember much what happened. Patient states that she started and would like to sleep. Related Data Home Medications Medication Instructions Recorded Confirmed methadone 10 mg/mL oral 75 mg PO DAILY 09/27/23 10/17/23 concentrate (Methadose) Previous Rx's Medication Instructions Recorded aripiprazole 5 mg tablet (Abilify) 5 mg PO DAILY 30 days #30 tabs 10/27/23 baclofen 10 mg tablet 10 mg PO BID 30 days #60 tabs 10/27/23 bupropion HCl 150 mg 24 hr tablet, 150 mg PO DAILY 30 days #30 tabs 10/27/23 extended release buspirone 10 mg tablet 10 mg PO TID 30 days #90 tabs 10/27/23 fluticasone propionate 50 1 spray intranasal DAILY 30 days 10/27/23 mcg/actuation nasal #16 grams spray,suspension hydroxyzine HCl 25 mg tablet 25 mg PO BEDTIME 30 days #30 tabs 10/27/23 lidocaine 4 % topical patch 1 patch transdermal BEDTIME low 10/27/23 (Lidocaine Pain Relief) back pain 30 days #30 ea methylphenidate HCl 20 mg tablet 20 mg PO DAILY@1300 30 days #30 10/27/23 tabs methylphenidate HCl 20 mg tablet 40 mg (2 x 20 mg) PO QAM 30 days 10/27/23 #60 tabs prazosin 2 mg capsule 2 mg PO BEDTIME 30 days #30 caps 10/27/23 quetiapine 25 mg tablet 12.5 mg (1/2 x 25 mg) PO BID PRN 10/27/23 panic attack 30 days #30 tabs quetiapine 50 mg tablet 50 mg PO BEDTIME insomnia 30 days 10/27/23 #30 tabs sertraline 100 mg tablet 200 mg (2 x 100 mg) PO QAM 30 days 10/27/23 #60 tabs trazodone 50 mg tablet 100 mg (2 x 50 mg) PO BEDTIME 10/27/23 Insomnia 30 days #60 tabs Allergies Allergy/AdvReac Type Severity Reaction Status Date / Time amoxicillin Allergy Hives Verified 12/28/22 08:17 Review of Systems Review of Systems: Constitutional : No Weight loss, No Fever, No Chills, No Night Sweats, No Fatigue, No Malaise ENT/Mouth : No Hearing loss, No Ear Pain, No Nasal Congestion, No Sinus Pain, No Hoarseness, No sore throat, No Rhinorrhea, No Swallowing Difficulty Eyes: No Eye Pain, No Swelling, No Redness, No Foreign Body, No Discharge, No Vision Changes Cardiovascular : No Chest Pain, No SOB, No Dyspnea on Exertion, No Orthopnea, No Edema, No Palpitations Respiratory : No Cough, No Sputum, No Wheezing, No Smoke Exposure, No Dyspnea Gastrointestinal : No Nausea, No Vomiting, No Diarrhea, No Constipation, No abdominal Pain, No Hematochezia, No Melena Genitourinary : no irregular bleeding, No Dysuria, No Urinary Frequency, No Hematuria, No Urinary Incontinence, No Urgency, No Flank Pain, No Urinary Flow Changes, No Hesitancy Musculoskeletal : No joint pain, No Myalgias, No Joint Swelling Skin : No Skin Lesions, No rash Neuro : No Weakness, No Numbness, No Paresthesias, No Loss of Consciousness, No Dizziness, No Headache Psych : Complaining of depression, suicidal ideation, no homicidal ideation, admits to using heroin/cocaine yesterday Heme/Lymph: No Bruising, No Bleeding,No Lymphadenopathy Endocrine : No Polyuria, No Polydipsia, No Temperature Intolerance [facility] Past Medical History Medical History (Updated 12/10/23 @ 01:57 by Etta Zacarias MD) Depression Polysubstance abuse Cocaine use disorder PTSD (post-traumatic stress disorder) MDD (major depressive disorder), recurrent severe, without psychosis Polysubstance (including opioids) dependence, daily use Social History Social History Household Members: None Household Members Other:: homeless Housing: Homeless Do you presently have visiting nurse or other home services: No Alcohol intake: current Alcohol intake frequency: does not drink Comment: prior rn admitted Patient Tobacco Use Status: Never used Tobacco Smoked in Last 30 Days: No e-Cigarette/Vaping Use: Never Used Second Hand Smoke Exposure: Yes Use of substances other than those prescribed or required for medical reasons: Yes Substance Use Type: Crack/Cocaine and Heroin Advance Directives: No Advance Directives Information Provided: Yes service: No Sexual orientation: Did not discuss Physical Exam Vital Signs: Vital Signs: Last Vital Signs Temp 98.7 F 12/10/23 00:51 Pulse 79 12/10/23 00:51 Resp 17 12/10/23 00:51 BP 127/78 12/10/23 00:51 Pulse Ox 98 12/10/23 00:51 O2 Del Method Room Air 12/10/23 00:51 BMI result Body Mass Index 31.2 Const: Other: Appearance: Alert. Oriented X3. No acute distress. Eyes: Pupils equal, round and reactive to light. ENT: Pharynx normal. Neck: Normal inspection. Neck supple. No lymph nodes noted. No crepitus CVS: Normal heart rate and rhythm. Pulses normal. Normal S1 and S2 Respiratory: No respiratory distress. Breath sounds normal. No Wheezing. No rales Abdomen: Soft and nontender. No rigidity. No distention. Skin: Skin warm and dry. Normal skin color. Normal skin turgor. Extremities: No lower extremity edema. No Lacerations. No Rash Neuro: Oriented X 3. No motor deficit. No sensory deficit. Moving all extremities. No slurred speech. CN 2 through 12 grossly intact Psych: calm, cooperative, normal affect Medical Decision Making Medical Decision Making [facility] Narrative: My interpretation of labs, chemistry normal, urinalysis shows leukocyte esterase, chronic for the patient. Patient has had several urinalysis that seem to be positive for UTI, but the cultures grew mixed ed. Patient has no UTI symptoms. ETOH level negative. Care team consult pending Physician observation started at 01:55 Differential Diagnosis Differential Diagnoses: The differential diagnosis associated with the presentation includes (Anxiety, depression, polysubstance abuse, malingering) Lab Data [facility] Lab Attestation statement: I reviewed the patient's lab results. 12/10/23 01:27 12/10/23 01:27 Labs: Lab Results 12/10/23 Range/Units 01:27 WBC 8.9 (4.8-10.8) X10*3/uL RBC 4.41 (4.20-5.50) X10*6/uL Hgb 13.4 (12.0-16.0) g/dl Hct 37.7 (37.0-47.0) % MCV 85.5 (80.0-98.0) fL MCH 30.4 (27.0-33.0) pg MCHC 35.5 H (31.0-35.0) g/dl RDW 11.9 (11.0-16.0) % Plt Count 277 (160-400) X10*3/uL MPV 10.3 (9.4-12.3) fL Immature Gran % (Auto) 0.2 (0.0-0.4) % Neut % (Auto) 69.9 (45-73) % Lymph % (Auto) 22.0 (20-40) % Cole % (Auto) 6.6 (2-11) % Eos % (Auto) 0.6 (0-4) % Baso % (Auto) 0.7 (0-2) % Lymph # (Auto) 2.0 (1.2-4.9) X10*3/uL Cole # (Auto) 0.6 (0.1-1.2) X10*3/uL Eos # (Auto) 0.1 (0.0-0.4) X10*3/uL Baso # (Auto) 0.1 (0.0-0.2) X10*3/uL Abs Immat Gran (auto) 0.02 (0.00-0.03) X10*3/uL Absolute Neuts (auto) 6.3 (2.0-8.3) x10*3/uL Absolute Nucleated RBC 0.000 (0.0-0.012) X10*3/uL Nucleated RBC % (auto) 0.0 (0.0-0.2) /100WBC Sodium 141 (135-145) mmol/L Potassium 3.9 (3.3-5.1) mmol/L Chloride 106 (96-108) mmol/L Carbon Dioxide 22 (22-29) mmol/L Anion Gap 17 (12-20) BUN 19 H (9-16) mg/dL Creatinine 0.92 (0.5-1.4) mg/dL Estim Creat Clear Calc 73.7 Estimated GFR > 60 Random Glucose 103 (60-115) mg/dL Calcium 9.0 (8.4-10.2) mg/dL Total Bilirubin 1.1 H (0.0-1.0) mg/dL AST 29 (5-31) U/L ALT 15 (0-31) U/L Alkaline Phosphatase 47 (39-117) U/L Total Protein 8.2 H (6.5-8.0) g/dL Albumin 4.5 (3.5-5.0) g/dL Ethyl Alcohol < 10 mg/dL Discharge Plan Discharge Clinical Impression: Suicidal ideation, Substance use disorder Patient Disposition: Still a Patient Prescriptions: No Action methadone [Methadose] 10 mg/mL concentrate 75 mg PO DAILY Patient Comments: Last dose verified by Ivonne BOWERS at [facility], 75mg on 10/16/23 at 6:13AM. Rx Instructions: Partial Fill upon patient request. quetiapine 25 mg Tablet 12.5 mg PO BID PRN (Reason: panic attack) 30 Days Qty: 30 0RF fluticasone propionate 50 mcg/actuation [place],Suspension 1 spray intranasal DAILY 30 Days Qty: 16 0RF lidocaine [Lidocaine Pain Relief] 4 % Adhesive Patch,Medicated 1 patch transdermal BEDTIME 30 Days Qty: 30 0RF Protocol: Apply to: Apply to: low back trazodone 50 mg tablet 100 mg PO BEDTIME 30 Days Qty: 60 0RF methylphenidate HCl 20 mg tablet 40 mg PO QAM 30 Days Qty: 60 0RF methylphenidate HCl 20 mg tablet 20 mg PO DAILY@1300 30 Days Qty: 30 0RF sertraline 100 mg tablet 200 mg PO QAM 30 Days Qty: 60 1RF baclofen 10 mg Tablet 10 mg PO BID 30 Days Qty: 60 0RF buspirone 10 mg tablet 10 mg PO TID 30 Days Qty: 90 0RF hydroxyzine HCl 25 mg tablet 25 mg PO BEDTIME 30 Days Qty: 30 0RF prazosin 2 mg capsule 2 mg PO BEDTIME 30 Days Qty: 30 1RF aripiprazole [Abilify] 5 mg Tablet 5 mg PO DAILY 30 Days Qty: 30 1RF bupropion HCl 150 mg Tablet Extended Release 24 Hr 150 mg PO DAILY 30 Days Qty: 30 1RF quetiapine 50 mg Tablet 50 mg PO BEDTIME 30 Days Qty: 30 1RF Interventions: [place]-Suicide Risk Severity Scale Last Done: 12/10/23 00:52
[2023-12-10 02:09] LABS: Influenza A PCR NEGATIVE (Negative); Influenza B PCR NEGATIVE (Negative); Resp Syncy Virus RNA Qual PCR NEGATIVE (Negative); SARS COV2 PCR INHOUSE NEGATIVE (Negative)
--- NOTE | 2023-12-10 06:10 | PC.NURSE ---
External pharmacy list updated. Med list completed to the best of t/w ability. Recent refill with provider mike william on 12/05/23. Provider also submit scripts on 11/04/23. Provider did not appear to refill some medications from that date on most recent refill on 12/05/23, and no recent refill from provider Ariadna william. T/w did not include medications that were not recently refilled as t/w did not feel information was accurate.
--- NOTE | 2023-12-10 07:03 | PC.NURSE ---
Assumed care of patient at 0700, patient appears to be sleeping, respirations even and unlabored, no apparent distress. Continue plan of care for medical clearance then CARE team evaluation
--- NOTE | 2023-12-10 07:42 | PC.NURSE ---
Attempted to verify methadone dosing with N. Per Flory RN at the [facility] clinic in [place], the last time Maryan dosed was October 17 at the [place] office. Will wait till patient wakes up to determine if she has dosed elsewhere more recently
[2023-12-10] MEDS: buPROPion HCl XL 150 MG TAB.ER.24H PO (08:01)
[2023-12-10] MEDS: Sertraline HCL 100 MG TABLET PO ×2 (08:01→20:47)
[2023-12-10] MEDS: ARIPiprazole 5 MG TABLET PO (08:01)
[2023-12-10] MEDS: Methylphenidate HCl 10 MG TABLET 20 MG PO ×2 (08:01→13:01)
--- NOTE | 2023-12-10 08:19 | PC.NURSE ---
Addendum entered by Mariia Beard 12/10/23 12:32: Patient received Methadone from [facility] Methadone clinic (phone [phone]). Clinic closed, plan to call tomorrow am when open at 6am Addendum entered by Mariia Beard 12/10/23 08:43: [facility] declines seeing patient at their clinic Original Note: Attempted to reach out to [facility] methadone clinics. Ok [facility] and [facility] decline having patient at their Methadone Clinic. [facility] unable to answer calls at this time, will attempt at a later time
[2023-12-10 11:28] LABS: Appearance Urine Clear; Color Urine Dark Yellow; Glucose Urine UA Negative (Negative); Leukocyte Esterase Urine Negative (Negative); Nitrite Urine Negative (Negative); PH 5.5 (5.0-9.0); Specific Gravity - Urine >= 1.030 (1.005-1.025); UMIC TRIGGER UACC YES; Urine Blood Negative (Negative); Urine Ketones 15 mg/dL (Negative); Urine Protein 30 (1+) mg/dL (Neg-Trace)
[2023-12-10 11:29] LABS: Urine Pregnancy NEGATIVE (NEGATIVE)
[2023-12-10 11:30] LABS: UPreg QC Valid YES
[2023-12-10 11:33] LABS: Bacteria Urine None Seen (None Seen); Hyaline Casts Urine 0-2 /LPF (0-2); RBC Urine 0-2 /HPF (0-2); WBC Urine 0-5 /HPF (0-5)
[2023-12-10 11:41] LABS: Amphetamine Screen Urine Not Detected (Not Detect); Barbiturates, Urine Not Detected (Not Detect); Benzodiazepines Screen Urine POSITIVE (Not Detect); Cannabinoid Screen Urine POSITIVE (Not Detect); Cocaine Screen Urine POSITIVE (Not Detect); Fentanyl, urine POSITIVE (Not Detect); Opiate Screen Urine POSITIVE (Not Detect); Phencyclidine Screen Urine Not Detected (Not Detect)
--- NOTE | 2023-12-10 12:29 | PC.NURSE ---
RE: Ritalin (med rec) patient approached this RN stating that she did not get the right amount of Ritalin this am. She reports that she receives 4 tablets in am and 2 tablets at 1pm. This RN called [facility] and verified the dose with the pharmacist. Pts currently prescription is for 40mg in am and 20mg at 1pm. Med rec refugio, aware and pharmacy also aware
--- NOTE | 2023-12-10 12:48 | MHC.CARE ---
Care team Sw went to meet with Pt for initial assessment. Pt was laying on her bed, covered by the sheets and blanket. Pt refused to discuss anything at this time, saying that she was not ready to talk and asked that this Sw come back in a bit.
[2023-12-10 14:00] VITALS: RESP 14
--- NOTE | 2023-12-10 16:17 | MHC.CARE ---
RAD Team conducted a state wide Dual Dx bed search for this pt. Referral was sent to [facility] and [facility] for review. RAD Team will follow up tomorrow for results.
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
--- NOTE | 2023-12-10 20:20 | PC.NURSE ---
Pt moved back to pod from main ED.
[2023-12-10] MEDS: Prazosin HCL 1 MG CAPSULE 2 MG PO (20:47)
[2023-12-10 20:53] VITALS: BP 116/69; PULSE 76; RESP 18; TEMP 37; O2SAT 98
[2023-12-10] MEDS: QUEtiapine Fumarate 25 MG TABLET 50 MG PO (22:48)
[2023-12-11 06:29] VITALS: BP 115/61; PULSE 67; RESP 16; TEMP 37.4; O2SAT 96
--- NOTE | 2023-12-11 06:39 | PC.NURSE ---
This RN spoke with Ry at [facility] (phone [phone]). They report that Maryan is not a patient of theirs.
--- NOTE | 2023-12-11 07:33 | PC.NURSE ---
Assumed care of patient at 0650, patient appears to be sleeping, respirations even and unlabored, no apparent distress is noted. Continue plan of care for inpatient bedsearch at this time
--- NOTE | 2023-12-11 07:38 | PC.NURSE ---
RE: methadone this RN called MAT program at [facility]. currently methadone dose 75 mg. Methadone verification form sent over to pharmacy
--- NOTE | 2023-12-11 07:57 | HE.PHANOTE ---
Methadone Verification Methadone verification form received on 12/11/23 from Mariia Beard. Methadone dose is 75 mg last given on 12/06/23 @8142 by [facility] per Asha)
[2023-12-11] MEDS: ARIPiprazole 5 MG TABLET PO (08:32)
[2023-12-11] MEDS: buPROPion HCl XL 150 MG TAB.ER.24H PO (08:32)
[2023-12-11] MEDS: Sertraline HCL 100 MG TABLET PO (08:32)
[2023-12-11] MEDS: Methylphenidate HCl 10 MG TABLET 40 MG PO (08:32)
--- NOTE | 2023-12-11 09:19 | PC.NURSE ---
Received call from [facility], plan is for patient to be accepted there and transported today. nurse stated she will call back with accepting doctor and requested time of arrival
--- NOTE | 2023-12-11 09:22 | MHC.CARE ---
Pt has been accepted to @ [address] [facility], [id number] for today 12/11/23. Accepting is Dr. Martins. ETA for 1pm arrival. no N2N required. Pod Nurse has been notified.
[2023-12-11] MEDS: methADONE HCl 20 MG/2 ML ORAL.CONC 75 MG PO (10:16)
== END 2023-12-11 12:02 ==
PROVIDERS: Emergency Provider Emergency Medicine
DX: R45.851 Suicidal ideations (principal); F19.90 Other psychoactive substance use, unspecified, uncomplicated; F11.90 Opioid use, unspecified, uncomplicated; Z59.00 Homelessness unspecified; Z11.52 Encounter for screening for COVID-19; Z20.828 Contact with and (suspected) exposure to other viral communicable diseases
CPT/HCPCS: 0241U; 80053; 80307; 81001; 81025; 85025; 93005; 99285; S9485

== ENCOUNTER → 2023-12-10 14:15 | Outpatient (BNV) | payer OTHER, SELFPAY | PROVIDERS: Emergency Provider Emergency Medicine; Visit Provider Internal Medicine Cardiovascular Disease | DX: I45.81 Long QT syndrome (principal) | CPT/HCPCS: 93010 ==

== ENCOUNTER 2023-12-22 07:38 | Emergency (ER) | payer OTHER, SELFPAY ==
[2023-12-22 07:49] VITALS: BP 114/69; BP 126/86; PULSE 72; PULSE 75; RESP 17; TEMP 37.1; O2SAT 96; O2SAT 98; BMI 31.2
--- NOTE | 2023-12-22 09:04 | ED_ITS ---
HPI - Back Pain/Injury General Chief Complaint: Back Pain/Injury Stated Complaint: BACK PAIN Time Seen by Provider: 12/22/23 09:04 Source: patient Mode of arrival: ambulatory Limitations: no limitations History of Present Illness HPI Narrative: 42-year-old female with a history of substance abuse disorder on methadone, currently still using intravenous drugs, PTSD, depression who presents to the ER for evaluation of low back pain and neck pain that started yesterday after lifting heavy objects. She states she was lifting a bed when she developed low back pain. The pain is constant in the low lumbar area, worse with ambulation and bending. She also reports a pressure-like pain in her neck with pain upon range of motion. She reports subjective fever at this time. She denies any numbness, weakness, tingling. she does report difficulty ambulating due to the low back pain. last injected drugs yesterday. MD elicited complaint: back pain and back injury Pertinent past history: prior back pain Onset (ago): day(s) (1) Timing: constant Severity: moderate Similar Symptoms Previously: Yes Quality: aching Location: lumbar spine Radiation: left upper leg Exacerbating factors: movement Relieving factors: immobilization Context: while lifting Associated symptoms: parasthesias, arthralgias and myalgias Work related injury: No Related Data Home Medications Medication Instructions Recorded Confirmed methadone 10 mg/mL oral 75 mg PO DAILY 09/27/23 12/11/23 concentrate (Methadose) aripiprazole 5 mg tablet 5 mg PO DAILY 12/10/23 12/10/23 bupropion HCl 150 mg 24 hr tablet, 150 mg PO QAM 12/10/23 12/10/23 extended release methylphenidate HCl 20 mg tablet See Rx Instructions .Route .COMPLEX 12/10/23 12/10/23 prazosin 2 mg capsule 2 mg PO BEDTIME 12/10/23 12/10/23 sertraline 100 mg tablet 100 mg PO BID 12/10/23 12/10/23 Previous Rx's Medication Instructions Recorded cyclobenzaprine 5 mg tablet 5 mg PO BID PRN muscle spasm #7 12/22/23 tabs ibuprofen 600 mg tablet 600 mg PO Q8H PRN pain #14 tabs 12/22/23 Allergies Allergy/AdvReac Type Severity Reaction Status Date / Time amoxicillin Allergy Hives Verified 12/22/23 07:49 Review of Systems 2 Review of Systems: Yes all other systems are reviewed and are negative [facility] Past Medical History Medical History (Updated 12/22/23 @ 10:34 by AMY Rashid) Depression Polysubstance abuse Cocaine use disorder PTSD (post-traumatic stress disorder) MDD (major depressive disorder), recurrent severe, without psychosis Polysubstance (including opioids) dependence, daily use Social History Social History Household Members: None Household Members Other:: homeless Housing: Homeless Do you presently have visiting nurse or other home services: No Alcohol intake: current Alcohol intake frequency: does not drink Comment: prior rn admitted Patient Tobacco Use Status: Never used Tobacco e-Cigarette/Vaping Use: Never Used Second Hand Smoke Exposure: Yes Substance Use Type: Crack/Cocaine and Heroin Advance Directives: No service: No Sexual orientation: Did not discuss Physical Exam 2 Vital Signs: Vital Signs: Last Vital Signs Temp 98.2 F 12/22/23 10:19 Pulse 77 12/22/23 10:19 Resp 18 12/22/23 10:19 BP 118/72 12/22/23 10:19 Pulse Ox 96 12/22/23 10:19 O2 Del Method Room Air 12/22/23 10:19 BMI result Body Mass Index 31.2 Appearance: Alert. Oriented X3. No acute distress. Head: normocephalic, atraumatic. Eyes: Pupils equal, round and reactive to light. ENT: Pharynx w/ moist mucus membranes. dentition absent. No tonsillar swelling or exudate. Neck: Normal inspection. Neck supple without point tenderness. there is soft tissue tenderness diffusely w/ palpable spasm. normal ROM. CVS: Normal heart rate and rhythm. Pulses normal. Respiratory: No respiratory distress. Breath sounds normal. Abdomen: Soft and nontender. +BS x4 Back: normal inspection. limited flexion due to pain. normal rotation. tenderness of the lower lumbar area centrally and laterally w/ palpable spasm and soft tissue tenderness. no point tenderness. Skin: Skin warm and dry. Normal skin color. Normal skin turgor. No rashes. Extremities: No lower extremity edema. No joint swelling. Track mayorga on upper extremities. Neuro/psych: Oriented X 3. No motor deficit. No sensory deficit. CN II-XII intact. Normal speech and cognition. Antalgic gait. Equal diploma medical assistant strength bilaterally. DTRs normal. Medications Administered Discontinued Medications Generic Name Dose Route Start Last Admin Trade Name Lilly PRN Reason Stop Dose Admin Cyclobenzaprine HCl 10 mg 12/22/23 10:07 12/22/23 10:18 Cyclobenzaprine Hcl 10 Mg Tablet PO 12/22/23 10:08 10 mg ONCE ONE Administration Ketorolac Tromethamine 30 mg 12/22/23 10:07 12/22/23 10:18 Ketorolac Tromethamine 30 Mg/Ml Vial IM 12/22/23 10:08 30 mg ONCE ONE Administration Medical Decision Making Medical Decision Making MDM Narrative: 42-year-old female with a history of substance use disorder who was just discharged from [facility] yesterday, received her last dose of methadone yesterday as well as injected drugs yesterday presents to the ER for evaluation of low back pain and neck pain after lifting heavy beds yesterday. Her exam is reassuring and is nonfocal. She is neurologically intact. She has no point tenderness along her spine or neck, she does have soft tissue tenderness and palpable spasm throughout. Basic labs were performed which are reassuring, no evidence of leukocytosis and inflammatory markers are normal. Low clinical suspicion for diskitis, epidural abscess, other infectious process. Patient was given IM Toradol and Flexeril in the emergency department. She was also given her dose of methadone. She reports improvement in her symptoms. At this time she is stable for discharge home with NSAID, short course of muscle relaxer and following up with her methadone clinic. Patient agrees with plan all questions were answered. Differential Diagnosis Differential Diagnoses: The differential diagnosis associated with the presentation includes Inflammatory disorders, malignancy, trauma, osteoporosis, nerve root compression, radiculopathy, plexopathy, degenerative disc disease, disc herniation, spinal stenosis, sacroiliac joint dysfunction, facet joint injury, and less likely infection?like abscess or diskitis given benign exam and reassuring labs Admission/Observation Consideration of admission/observation: Escalation of care including admission/observation considered considered obs given reports of 10/10 pain as well as hx with inital concern for infection, however improved and labs normal Lab Data [facility] Lab Attestation statement: I reviewed the patient's lab results. No leukocytosis, normal CRP 12/22/23 09:52 12/22/23 09:41 Labs: Lab Results 12/22/23 12/22/23 Range/Units 09:41 09:52 WBC 9.8 (4.8-10.8) X10*3/uL RBC 4.78 (4.20-5.50) X10*6/uL Hgb 14.4 (12.0-16.0) g/dl Hct 42.2 (37.0-47.0) % MCV 88.3 (80.0-98.0) fL MCH 30.1 (27.0-33.0) pg MCHC 34.1 (31.0-35.0) g/dl RDW 12.7 (11.0-16.0) % Plt Count 245 (160-400) X10*3/uL MPV 9.7 (9.4-12.3) fL Immature Gran % (Auto) 0.3 (0.0-0.4) % Neut % (Auto) 70.8 (45-73) % Lymph % (Auto) 18.9 L (20-40) % Simpson % (Auto) 5.8 (2-11) % Eos % (Auto) 3.7 (0-4) % Baso % (Auto) 0.5 (0-2) % Lymph # (Auto) 1.8 (1.2-4.9) X10*3/uL Simpson # (Auto) 0.6 (0.1-1.2) X10*3/uL Eos # (Auto) 0.4 (0.0-0.4) X10*3/uL Baso # (Auto) 0.1 (0.0-0.2) X10*3/uL Abs Immat Gran (auto) 0.03 (0.00-0.03) X10*3/uL Absolute Neuts (auto) 6.9 (2.0-8.3) x10*3/uL Absolute Nucleated RBC 0.000 (0.0-0.012) X10*3/uL Nucleated RBC % (auto) 0.0 (0.0-0.2) /100WBC Sodium 141 (135-145) mmol/L Potassium 3.8 (3.3-5.1) mmol/L Chloride 106 (96-108) mmol/L Carbon Dioxide 23 (22-29) mmol/L Anion Gap 16 (12-20) BUN 11 (9-16) mg/dL Creatinine 0.74 (0.5-1.4) mg/dL Estim Creat Clear Calc 91.6 Estimated GFR > 60 Random Glucose 66 (60-115) mg/dL Calcium 8.8 (8.4-10.2) mg/dL C-Reactive Protein 0.13 (< or = 0.50) mg/dL External Record Review External record reviewed: Office record, Outpatient record, Prior outpatient labs and Prior outpatient radiology Prescription Management I considered prescription management with: Pain Medication Chronic Conditions Patient?s care impacted by: Other ( substance abuse disorder) Social Determinants Patient?s care significantly limited by Social Determinants of Health including: Alcoholism and drug addiction in family, Problems related to primary support group and Other Social Determinant of Health Critical Care Time Critical Care Time Critical Care Time: No Discharge Plan Discharge Clinical Impression: Neck pain Strain of lumbar region Qualifiers: Encounter type: initial encounter Qualified Code(s): S39.012A - Strain of muscle, fascia and tendon of lower back, initial encounter Patient Disposition: Home, Self-Care Instructions: Low Back Strain (ED) Additional Instructions: Your lab workup and examination today were reassuring. Your pain is most likely due to muscle strain and spasm. No bending, lifting or twisting. Use ice several times per day for 20 minutes at a time for the next 48 hours and then change to heat. Take medications as prescribed to help with pain and discomfort. You were given Methadone 75mg today 12/22/23. Follow up with your clinic tomorrow for future dosing. Follow up with your Primary Care Doctor this week. If your pain worsens, if you develop new numbness, tingling, weakness, loss of function or incontinence call 911 or come back to the ER right away for evaluation. Prescriptions: New cyclobenzaprine 5 mg tablet 5 mg PO BID PRN (Reason: muscle spasm) Qty: 7 0RF ibuprofen 600 mg tablet 600 mg PO Q8H PRN (Reason: pain) Qty: 14 0RF No Action sertraline 100 mg tablet 100 mg PO BID prazosin 2 mg capsule 2 mg PO BEDTIME aripiprazole 5 mg tablet 5 mg PO DAILY bupropion HCl 150 mg tablet extended release 24 hr 150 mg PO QAM methylphenidate HCl 20 mg tablet See Rx Instructions .ROUTE .COMPLEX Rx Instructions: Per [facility]: Two 20mg tablets in am, One 20mg tablet at 1pm methadone [Methadose] 10 mg/mL concentrate 75 mg PO DAILY Patient Comments: Last dose verified by Ivonne BOWERS at [facility], 75mg on 10/16/23 at 6:13AM. Rx Instructions: Partial Fill upon patient request.
[2023-12-22 09:57] LABS: MANUAL DIFF FLAG NO
--- NOTE | 2023-12-22 09:59 | PC.NURSE ---
labs drawn by tech
[2023-12-22 10:01] LABS: Anion Gap 16 (12-20); Blood Urea Nitrogen 11 mg/dL (9-16); C Reactive Protein 0.13 mg/dL (< or = 0.50); Calcium 8.8 mg/dL (8.4-10.2); Carbon Dioxide 23 mmol/L (22-29); Chloride 106 mmol/L (96-108); Creatinine Clr Calc Pharmacy 91.6; Estimated Glomerular Filt Rate > 60; Glucose Random 66 mg/dL (60-115); Potassium 3.8 mmol/L (3.3-5.1); Sodium 141 mmol/L (135-145)
[2023-12-22 10:03] LABS: Basophils Absolute Auto 0.1 X10*3/uL (0.0-0.2); Basophils Percent Auto 0.5 % (0-2); Eosinophils Absolute Auto 0.4 X10*3/uL (0.0-0.4); Eosinophils Percent Auto 3.7 % (0-4); Hematocrit 42.2 % (37.0-47.0); Hemoglobin 14.4 g/dl (12.0-16.0); Imm Gran Abs Auto 0.03 X10*3/uL (0.00-0.03); Imm Gran Pct Auto 0.3 % (0.0-0.4); Lymphocytes Absolute Auto 1.8 X10*3/uL (1.2-4.9); Lymphocytes Percent Auto 18.9 % (20-40); Mean Corpuscular HGB Conc 34.1 g/dl (31.0-35.0); Mean Corpuscular Hemoglobin 30.1 pg (27.0-33.0); Mean Corpuscular Volume 88.3 fL (80.0-98.0); Mean Platelet Volume 9.7 fL (9.4-12.3); Monocytes Absolute Auto 0.6 X10*3/uL (0.1-1.2); Monocytes Percent Auto 5.8 % (2-11); Neutrophils Absolute Auto 6.9 x10*3/uL (2.0-8.3); Neutrophils Percent Auto 70.8 % (45-73); Platelet Count 245 X10*3/uL (160-400); Red Blood Count 4.78 X10*6/uL (4.20-5.50); Red Cell Distribution Width 12.7 % (11.0-16.0); White Blood Count 9.8 X10*3/uL (4.8-10.8)
[2023-12-22] MEDS: Cyclobenzaprine HCl 10 MG TABLET PO (10:18)
[2023-12-22] MEDS: Ketorolac Tromethamine 30 MG/ML VIAL IM (10:18)
[2023-12-22 10:19] VITALS: BP 118/72; PULSE 77; RESP 18; TEMP 36.8; O2SAT 96
--- NOTE | 2023-12-22 11:15 | HE.PHANOTE ---
METHADONE Verification Patient receives daily dose of 75mg. Last received 75mg at [facility] on 12/21/23 prior to discharge. Attending prescriber a facility: Matheus Griffith.
[2023-12-22] MEDS: methADONE HCl 20 MG/2 ML ORAL.CONC 75 MG PO (11:53)
--- NOTE | 2023-12-22 12:00 | PC.NURSE ---
pt asking for bus pass/taxi voucher this nurse has messaged gareth to see if there is one
[2023-12-22 12:07] VITALS: BP 118/78; PULSE 77; RESP 18; TEMP 36.8; O2SAT 96
[2023-12-22 13:21] LABS: Erythrocyte Sedimentation Rate 14 MM/HR (0-20)
== END 2023-12-22 12:08 | disposition home or self-care (01) ==
PROVIDERS: Physician Assistant; Emergency Provider Emergency Medicine
DX: S39.012A Strain of muscle, fascia and tendon of lower back, initial encounter (principal); M54.2 Cervicalgia; R20.2 Paresthesia of skin; M79.10 Myalgia, unspecified site; X50.0XXA Overexertion from strenuous movement or load, initial encounter; Y93.9 Activity, unspecified; Y92.9 Unspecified place or not applicable; Y99.8 Other external cause status; Z79.899 Other long term (current) drug therapy
CPT/HCPCS: 36415; 80048; 85025; 85652; 86140; 96372; 99284; J1885

== ENCOUNTER 2024-01-17 14:33 | Inpatient (IN) | payer OTHER, SELFPAY ==
--- NOTE | ~2024-01-17 | XR_ITS ---
EXAMINATION: Left great toe CLINICAL INFORMATION: Pain in the great toe COMPARISON: None available. TECHNIQUE: Frontal view of the foot. 2 cone-down views of the great toe FINDINGS: No fracture. No dislocation. Joint spaces are normal. No focal bone lesion or abnormal periosteal reaction. No soft tissue abnormality. XR/XR toe LT min 2V IMPRESSION: Normal toe.
[2024-01-17 14:38] VITALS: BP 121/82; BP 99/66; PULSE 89; PULSE 94; RESP 17; TEMP 36.4; O2SAT 100; O2SAT 97; BMI 38.4
--- NOTE | 2024-01-17 14:50 | ED.PSYCH ---
HPI - Psych General Chief Complaint: Psychiatric Symptoms Stated Complaint: si Time Seen by Provider: 01/17/24 14:36 Source: patient and EMS Mode of arrival: EMS Limitations: no limitations History of Present Illness HPI Narrative: 43 y/o female with history of MANJEET, PTSD, MDD reports today for evaluation of suicidal ideation and L great toe pain. She was recently discharged from [facility] 2 days ago for depression and substance use. She states that she last used cocaine about 4 hours ago via inhalation and injected heroin last night. She reports that she is grieving the lost of her girlfriend about 1 month ago. States that she is suicidal and plans to overdose. Reports prior history of suicidal ideation and attempt. Per patient, all history of suicide relates to losses. She last felt suicidal with the loss of her mother a few months ago and the loss of her daughter a year ago. Previously tried to run into traffic and overdose. On further questioning ,patient now reports last injecting heroin in her L hand 1 hr ago. Reports anxiety and depression. Has not taken meds in 2 days, says the prescriptions were sent to wrong pharmacy. Also reporting chronic left great toe pain that acutely worsened this morning. Today, now is painful with walking. Reports redness and swelling to medial aspect of the L great toe. MD complaint: suicidal ideation Onset (ago): unknown Duration: constant History of same: Yes Relieving factors: none Exacerbating factors: none Context: recent drug abuse Associated psychiatric symptoms: depression and suicidal ideation Associated symptoms: denies other symptoms Treatments prior to arrival: none If self harm: admits thoughts of self harm and has plan Related Data Home Medications ?Medication ?Instructions ?Recorded ?Confirmed methadone 10 mg/mL oral 70 mg PO DAILY 09/27/23 01/17/24 concentrate (Methadose) aripiprazole 5 mg tablet 5 mg PO DAILY 12/10/23 01/17/24 bupropion HCl 150 mg 24 hr tablet, 150 mg PO QAM 12/10/23 01/17/24 extended release methylphenidate HCl 20 mg tablet 20 mg PO BID 12/10/23 01/17/24 prazosin 2 mg capsule 2 mg PO BEDTIME 12/10/23 01/17/24 sertraline 100 mg tablet 100 mg PO BID 12/10/23 01/17/24 quetiapine 50 mg tablet 50 mg PO BEDTIME 01/17/24 01/17/24 Previous Rx's ?Medication ?Instructions ?Recorded cyclobenzaprine 5 mg tablet 5 mg PO BID PRN muscle spasm #7 12/22/23 tabs ibuprofen 600 mg tablet 600 mg PO Q8H PRN pain #14 tabs 12/22/23 Allergies Allergy/AdvReac Type Severity Reaction Status Date / Time amoxicillin Allergy Hives Verified 01/17/24 14:40 Review of Systems Review of Systems: Yes all other systems are reviewed and are negative [facility] Past Medical History Medical History (Updated 01/17/24 @ 15:02 by AMY Rashid) Depression Polysubstance abuse Cocaine use disorder PTSD (post-traumatic stress disorder) MDD (major depressive disorder), recurrent severe, without psychosis Polysubstance (including opioids) dependence, daily use Social History Social History Household Members: None Household Members Other:: homeless Housing: Homeless Do you presently have visiting nurse or other home services: No Alcohol intake: current Alcohol intake frequency: does not drink Comment: prior rn admitted Patient Tobacco Use Status: Never used Tobacco Smoked in Last 30 Days: No e-Cigarette/Vaping Use: Never Used Second Hand Smoke Exposure: Yes Use of substances other than those prescribed or required for medical reasons: Yes Substance Use Type: Crack/Cocaine and Heroin Substance Use Frequency: Recent Binge Advance Directives: No Advance Directives Information Provided: Yes Patient : No service: No Sexual orientation: Did not discuss Physical Exam Vital Signs: Vital Signs: Last Vital Signs Temp 98.3 F 01/18/24 06:32 Pulse 72 01/18/24 06:32 Resp 17 01/18/24 06:32 BP 93/54 L 01/18/24 06:32 Pulse Ox 97 01/18/24 06:32 O2 Del Method Room Air 01/18/24 06:32 BMI result Body Mass Index 38.4 Appearance: Alert. Oriented X3. No acute distress. Head: normocephalic, atraumatic. Eyes: Pupils equal, round with confrotation. Neck: Normal inspection. Neck supple. CVS: Normal heart rate and rhythm. Pulses normal. Respiratory: No respiratory distress. Breath sounds normal. Abdomen: Soft and nontender. Skin: Skin warm and dry. Normal skin color. Normal skin turgor. No rashes. Small, linear scarring noted on bilateral hands. Mild erythema and callousing of medial L great toe. Extremities: No lower extremity edema. No joint swelling. Neuro/psych: Oriented X 3. Nonfocal. Course Reevaluation(s) Reevaluation #1: Physician observation started at 16:51. Patient placed in physician observation because patient is awaiting CARE team evaluation for the possible need of inpatient psych admission. At the time observation was started patient's vital signs were stable. Patient is alert and oriented. Neuro exam is non-focal. CV: RRR and lungs are clear. Will continue to monitor. Time: 16:51 Reevaluation #2: Physician observation continued The care team clinician went to interview however she declined interview at this time and would not talk to the clinician. She states that she prefers to sleep in will talk to the clinician later. The patient will be kept in the emergency department Behavioral Health Unit until she the assessed and disposition can be determined. Time: 22:23 Reevaluation #3: Physician observation continued. No acute events overnight. VS BP low but asymptomatic hx of same in past. Currently up and walking around pod normal gait. inpatient bed search in place. Time: 14:33 Additional Reevaluation(s): observation care revealed that the patient does meet medical necessity for inpatient psychiatric hospitalization. final disposition discussed with the patient. The patient completed observation care at 3pm. Total time in observation care was 23 hours. Medications Administered Generic Name Dose Route Start Last Admin Trade Name Freq PRN Reason Stop Dose Admin Aripiprazole 5 mg 01/17/24 18:45 01/18/24 09:08 Aripiprazole 5 Mg Tablet PO 5 mg DAILY ANGELA Administration Bupropion HCl 150 mg 01/18/24 09:00 01/18/24 09:08 Bupropion Hcl Xl 150 Mg Tab.Er.24h PO 150 mg DAILY ANGELA Administration Methadone HCl 70 mg 01/17/24 19:00 01/18/24 09:08 Methadone Hcl 20 Mg/2 Ml Oral.Conc PO 70 mg DAILY ANGELA Administration Methylphenidate HCl 20 mg 01/18/24 09:00 01/18/24 13:40 Methylphenidate Hcl 10 Mg Tablet PO 20 mg BID@0900,1300 ANGELA Administration Prazosin HCl 2 mg 01/17/24 21:00 01/17/24 20:40 Prazosin Hcl 1 Mg Capsule PO 2 mg BEDTIME ANGELA Administration Protocol Quetiapine Fumarate 50 mg 01/17/24 21:00 01/17/24 20:39 Quetiapine Fumarate 50 Mg Tablet PO 50 mg BEDTIME ANGELA Administration Sertraline HCl 100 mg 01/17/24 21:00 01/18/24 09:08 Sertraline Hcl 100 Mg Tablet PO 100 mg BID ANGELA Administration Medical Decision Making Medical Decision Making MDM Narrative: 43 y/o female with history of MANJEET, PTSD, MDD reports today for evaluation of suicidal ideation and L great toe pain. On exam, patient is calm and cooperative, she acknowledges active suicidal ideation with plan. Will order X ray of L great toe as she complained of acute worsening of pain this morning. Will medically clear for CARE team evaluation. Differential Diagnosis Differential Diagnoses: The differential diagnosis associated with the presentation includes SI ideation, SI attempt, anxiety, depression, PTSD Lab Data 01/17/24 15:11 01/17/24 15:11 Labs: Lab Results 01/17/24 01/17/24 01/18/24 Range/Units 15:11 18:49 08:04 WBC 12.7 H (4.8-10.8) X10*3/uL RBC 3.85 L (4.20-5.50) X10*6/uL Hgb 11.5 L D (12.0-16.0) g/dl Hct 33.4 L D (37.0-47.0) % MCV 86.8 (80.0-98.0) fL MCH 29.9 (27.0-33.0) pg MCHC 34.4 (31.0-35.0) g/dl RDW 12.8 (11.0-16.0) % Plt Count 240 (160-400) X10*3/uL MPV 9.6 (9.4-12.3) fL Immature Gran % (Auto) 0.5 H (0.0-0.4) % Neut % (Auto) 72.6 (45-73) % Lymph % (Auto) 16.7 L (20-40) % Gregory % (Auto) 5.7 (2-11) % Eos % (Auto) 3.9 (0-4) % Baso % (Auto) 0.6 (0-2) % Lymph # (Auto) 2.1 (1.2-4.9) X10*3/uL Gregory # (Auto) 0.7 (0.1-1.2) X10*3/uL Eos # (Auto) 0.5 H (0.0-0.4) X10*3/uL Baso # (Auto) 0.1 (0.0-0.2) X10*3/uL Abs Immat Gran (auto) 0.06 H (0.00-0.03) X10*3/uL Absolute Neuts (auto) 9.3 H (2.0-8.3) x10*3/uL Absolute Nucleated RBC 0.000 (0.0-0.012) X10*3/uL Nucleated RBC % (auto) 0.0 (0.0-0.2) /100WBC Sodium 137 (135-145) mmol/L Potassium 3.8 (3.3-5.1) mmol/L Chloride 109 H (96-108) mmol/L Carbon Dioxide 20 L (22-29) mmol/L Anion Gap 12 (12-20) BUN 18 H (9-16) mg/dL Creatinine 0.94 (0.5-1.4) mg/dL Estim Creat Clear Calc 79.9 Estimated GFR > 60 Random Glucose 105 (60-115) mg/dL Calcium 8.4 (8.4-10.2) mg/dL Total Bilirubin 0.8 (0.0-1.0) mg/dL Direct Bilirubin 0.3 (0.0-0.5) mg/dL AST 30 (5-31) U/L ALT 13 (0-31) U/L Alkaline Phosphatase 44 (39-117) U/L Total Protein 6.7 (6.5-8.0) g/dL Albumin 3.7 (3.5-5.0) g/dL Urine Color Yellow Urine Appearance Cloudy Urine pH 5.5 (5.0-9.0) Ur Specific [place] 1.025 (1.005-1.025) Urine Protein Trace (Neg-Trace) mg/dL Urine Glucose (UA) Negative (Negative) mg/dL Urine Ketones Negative (Negative) mg/dL Urine Blood Large (3+) H (Negative) Urine Nitrite Negative (Negative) Ur Leukocyte Esterase Moderate (2+) H (Negative) Urine RBC 3-5 H (0-2) /HPF Urine WBC 21-50 (0-5) /HPF Ur Squamous Epith Cells 11-20 (0-2) /HPF Urine Bacteria 2+ (None Seen) Hyaline Casts 0-2 (0-2) /LPF Urine Test NEGATIVE (NEGATIVE) Urine Opiates Screen POSITIVE H (Not Detect) Urine Fentanyl Screen POSITIVE H (Not Detect) Ur Barbiturates Screen Not Detected (Not Detect) Ur Phencyclidine Scrn Not Detected (Not Detect) Ur Amphetamines Screen Not Detected (Not Detect) U Benzodiazepines Scrn Not Detected (Not Detect) Urine Cocaine Screen POSITIVE H (Not Detect) U Marijuana (THC) Screen Not Detected (Not Detect) Ethyl Alcohol < 10 mg/dL COVID-19 (ESTELLA) Negative (Negative) COVID-19 Clin Com See Note Discharge Plan Discharge Clinical Impression: Suicidal ideation, Polysubstance abuse Patient Disposition: Admitted As Inpatient Interventions: [place]-Suicide Risk Severity Scale Last Done: 01/17/24 14:41
[2024-01-17 15:16] LABS: MANUAL DIFF FLAG NO
[2024-01-17 15:19] LABS: Basophils Absolute Auto 0.1 X10*3/uL (0.0-0.2); Basophils Percent Auto 0.6 % (0-2); Eosinophils Absolute Auto 0.5 X10*3/uL (0.0-0.4); Eosinophils Percent Auto 3.9 % (0-4); Hematocrit 33.4 % (37.0-47.0); Hemoglobin 11.5 g/dl (12.0-16.0); Imm Gran Abs Auto 0.06 X10*3/uL (0.00-0.03); Imm Gran Pct Auto 0.5 % (0.0-0.4); Lymphocytes Absolute Auto 2.1 X10*3/uL (1.2-4.9); Lymphocytes Percent Auto 16.7 % (20-40); Mean Corpuscular HGB Conc 34.4 g/dl (31.0-35.0); Mean Corpuscular Hemoglobin 29.9 pg (27.0-33.0); Mean Corpuscular Volume 86.8 fL (80.0-98.0); Mean Platelet Volume 9.6 fL (9.4-12.3); Monocytes Absolute Auto 0.7 X10*3/uL (0.1-1.2); Monocytes Percent Auto 5.7 % (2-11); Neutrophils Absolute Auto 9.3 x10*3/uL (2.0-8.3); Neutrophils Percent Auto 72.6 % (45-73); Platelet Count 240 X10*3/uL (160-400); Red Blood Count 3.85 X10*6/uL (4.20-5.50); Red Cell Distribution Width 12.8 % (11.0-16.0); White Blood Count 12.7 X10*3/uL (4.8-10.8)
--- NOTE | 2024-01-17 15:19 | PC.NURSE ---
patient a&ox3, 1:1 sitter at bedside, pt changed over by security, last dose letter of methadone obtained and given to pharmacy, labs obtained, pt currently calm/compliant and aware we need a urine, call powell within reach, will continue to monitor
--- NOTE | 2024-01-17 15:20 | HE.PHANOTE ---
Methadone Verification Pharmacy has received the methadone last dose letter from [facility]. Patient last received methadone 70 mg on 01/16/24 @ 0810 from [facility], letter signed by Marcus Maria RN. Elizabeth Bailey, DaryD
[2024-01-17 15:34] LABS: Alanine Aminotransferase 13 U/L (0-31); Albumin Level 3.7 g/dL (3.5-5.0); Alkaline Phosphatase 44 U/L (39-117); Anion Gap 12 (12-20); Aspartate Amino Transferase 30 U/L (5-31); Bilirubin Direct 0.3 mg/dL (0.0-0.5); Bilirubin Total 0.8 mg/dL (0.0-1.0); Blood Urea Nitrogen 18 mg/dL (9-16); Calcium 8.4 mg/dL (8.4-10.2); Carbon Dioxide 20 mmol/L (22-29); Chloride 109 mmol/L (96-108); Creatinine Clr Calc Pharmacy 79.9; Estimated Glomerular Filt Rate > 60; Ethanol < 10 mg/dL; Glucose Random 105 mg/dL (60-115); Potassium 3.8 mmol/L (3.3-5.1); Sodium 137 mmol/L (135-145); Total Protein 6.7 g/dL (6.5-8.0)
--- NOTE | 2024-01-17 18:44 | PC.NURSE ---
patient requesting todays methadone dose, provider notified of patients request and patients last dose at [facility]
[2024-01-17 19:02] LABS: Amphetamine Screen Urine Not Detected (Not Detect); Barbiturates, Urine Not Detected (Not Detect); Benzodiazepines Screen Urine Not Detected (Not Detect); Cannabinoid Screen Urine Not Detected (Not Detect); Cocaine Screen Urine POSITIVE (Not Detect); Fentanyl, urine POSITIVE (Not Detect); Opiate Screen Urine POSITIVE (Not Detect); Phencyclidine Screen Urine Not Detected (Not Detect)
[2024-01-17 19:03] LABS: Appearance Urine Cloudy; Color Urine Yellow; Glucose Urine UA Negative (Negative); Leukocyte Esterase Urine Moderate (2+) (Negative); Nitrite Urine Negative (Negative); PH 5.5 (5.0-9.0); Specific Gravity - Urine 1.025 (1.005-1.025); UMIC TRIGGER UACC YES; Urine Blood Large (3+) (Negative); Urine Ketones Negative (Negative); Urine Protein Trace mg/dL (Neg-Trace)
[2024-01-17 19:05] LABS: UPreg QC Valid YES; Urine Pregnancy NEGATIVE (NEGATIVE)
[2024-01-17] MEDS: methADONE HCl 20 MG/2 ML ORAL.CONC 70 MG PO (19:13)
[2024-01-17] MEDS: ARIPiprazole 5 MG TABLET PO (19:15)
[2024-01-17 19:43] LABS: Bacteria Urine 2+ (None Seen); Hyaline Casts Urine 0-2 /LPF (0-2); UACC Culture Trigger YES; WBC Urine 21-50 /HPF (0-5)
[2024-01-17] MEDS: QUEtiapine Fumarate 50 MG TABLET PO (20:39)
[2024-01-17] MEDS: Sertraline HCL 100 MG TABLET PO (20:39)
[2024-01-17] MEDS: Prazosin HCL 1 MG CAPSULE 2 MG PO (20:40)
--- NOTE | 2024-01-17 20:42 | PC.NURSE ---
Pt resting in bed, medicated per DEC. Pt went back to sleep.
--- NOTE | 2024-01-17 20:44 | PC.NURSE ---
Pt refusing vital signs at this time. Pt respiratory status WNL, no signs of distress or shortness of breath. Pt is A&Ox4, GCS 15.
--- NOTE | 2024-01-17 22:16 | MHC.CARE ---
Late Entry* At approx 21:00 CARE Team attempted to meet with the pt who declined to meet with them. Pt stated that she was trying to sleep and asked CARE Team to come back after she got some rest. RN notified and the provider will be notified now.
--- NOTE | 2024-01-18 | ECG_ITS ---
Test Reason : QT INTERVAL Blood Pressure : / mmHG Vent. Rate : 074 BPM Atrial Rate : 074 BPM P-R Int : 126 ms QRS Dur : 074 ms QT Int : 422 ms P-R-T Axes : 036 033 011 degrees QTc Int : 468 ms Normal sinus rhythm Low voltage QRS Borderline ECG When compared with ECG of 10-DEC-2023 14:15, No significant change was found Referred By: Geeta Waller Electronically Signed By:LORI GONZALEZ
[2024-01-18 06:32] VITALS: BP 93/54; PULSE 72; RESP 17; TEMP 36.8; O2SAT 97
--- NOTE | 2024-01-18 07:14 | PC.NURSE ---
Assumed care of patient at 0645, patient appears to be in no apparent distress, ambulating independently around BH pod. Continue plan of care for CARE team assessment
[2024-01-18 08:43] LABS: COVID-19 Test Negative (Negative); IDNOW Serial# 08D9AD1C
--- NOTE | 2024-01-18 08:45 | MHC.CARE ---
Attempted to meet with pt to conduct an assessment. Pt refused to engage in the assessment stating she wants to wake up first. When asked when she thought she would awaken for the day she said Later.
[2024-01-18] MEDS: Sertraline HCL 100 MG TABLET PO (09:08)
[2024-01-18] MEDS: ARIPiprazole 5 MG TABLET PO (09:08)
[2024-01-18] MEDS: methADONE HCl 20 MG/2 ML ORAL.CONC 70 MG PO (09:08)
[2024-01-18] MEDS: Methylphenidate HCl 10 MG TABLET 20 MG PO ×2 (09:08→13:40)
[2024-01-18] MEDS: buPROPion HCl XL 150 MG TAB.ER.24H PO (09:08)
[2024-01-18 15:50] VITALS: BP 99/60; PULSE 88; RESP 16; TEMP 37.1; O2SAT 97
[2024-01-18 15:55] VITALS: BMI 33.2
--- NOTE | 2024-01-18 16:53 | PC.NURSE ---
01/18/24 pt refused flu vaccine.
--- NOTE | 2024-01-18 17:29 | PC.ADMIT ---
Maryan is a 43 year old female admitted to [facility] on 01/18/24 at 1545 from the Pod on a CV for tx of opioid use d/o, unspecified depressive d/o, and cocaine use d/o. Pt did not want to participate in admission process at this time. Pt was discharged from [facility] 2 days prior. When pt d/c she reports using 400+ dollars on worth of crack and heroin over a few days to as an suicide attempt. Pt reports two days ago finding out her girlfriend of one year . Pt attempted to commit suicide via overdose at a [employer]. Pt daughter last year from an overdose. Pt arrived to the ED via ambulance d/t L great toe pain, depression, SI, and poly substance use. Pt last used prior to ED admission. No reported weight loss or loss of appetite. Pt reports trouble sleeping. Pt is currently homeless. Pt has prior incarceration hx for battery on an elder and shoplifting. Pt has bilat abrasions/chaffing on inner thigh. Pt was placed on 15 minute checks for safety. Pt is A&O x4. U-tox positive for opiates, fentayl and cocaine. COVID screen was negative. pt was cooperative and pleasant with skin check and clothing pattern changer.
[2024-01-18] MEDS: QUEtiapine Fumarate 50 MG TABLET PO (21:22)
[2024-01-18] MEDS: Prazosin HCL 1 MG CAPSULE 2 MG PO (21:23)
[2024-01-18] MEDS: Cyclobenzaprine HCl 5 MG TABLET PO (21:42)
[2024-01-18] MEDS: Ibuprofen 600 MG TABLET PO (21:42)
[2024-01-19 07:00] VITALS: BMI 33.1
[2024-01-19 08:00] VITALS: BP 126/76; PULSE 63; RESP 20; TEMP 36.9; O2SAT 99
--- NOTE | 2024-01-19 08:00 | ECG_ITS ---
Test Reason : qtc check Blood Pressure : / mmHG Vent. Rate : 073 BPM Atrial Rate : 073 BPM P-R Int : 112 ms QRS Dur : 078 ms QT Int : 424 ms P-R-T Axes : 023 032 010 degrees QTc Int : 467 ms Normal sinus rhythm Low voltage QRS Borderline ECG When compared with ECG of 18-JAN-2024 14:07, Nonspecific T wave abnormality no longer evident in Anterior leads Referred By: Geeta Waller Electronically Signed By:LORI GONZALEZ
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
[2024-01-19] MEDS: methADONE HCl 20 MG/2 ML ORAL.CONC 70 MG PO (09:04)
[2024-01-19] MEDS: Methylphenidate HCl 10 MG TABLET 20 MG PO ×2 (09:05→13:21)
[2024-01-19] MEDS: Sertraline HCL 100 MG TABLET PO (09:05)
[2024-01-19] MEDS: buPROPion HCl XL 150 MG TAB.ER.24H PO (09:06)
[2024-01-19] MEDS: ARIPiprazole 5 MG TABLET PO (09:06)
[2024-01-19] MEDS: Baclofen 10 MG TABLET PO (21:08)
[2024-01-19] MEDS: busPIRone HCl 10 MG TABLET PO (21:09)
[2024-01-19] MEDS: Ibuprofen 600 MG TABLET PO (21:09)
[2024-01-19] MEDS: Melatonin 3 MG TABLET 6 MG PO (21:09)
[2024-01-19] MEDS: Cyclobenzaprine HCl 5 MG TABLET PO (21:09)
[2024-01-19] MEDS: QUEtiapine Fumarate 100 MG TABLET PO (21:09)
--- NOTE | 2024-01-20 09:07 | P.PNPSI_ITS ---
Subjective Subjective Date of Service: 01/20/24 Reason For Visit: Suicidal ideation Subjective Notes: Conditional Voluntary Interim History: Reviewed with Dr. Sarmiento. Keeping to self. guarded. Pt reports feeling anxious and depressed today; pt stated, I slept well last night. I'm going to try to go to some groups today . Pt denies SI/HI/VH/AH. Medication Compliance: Yes Side effects from medications: No Attending Groups: No Review of Systems Constitutional: Reports as per HPI Eyes: Reports as per HPI Reports as per HPI Cardiovascular: Reports as per HPI Respiratory: Reports as per HPI Gastrointestinal: Reports as per HPI Musculoskeletal: Reports as per HPI Skin/Breast: Reports as per HPI Reports as per HPI Psychiatric: Reports as per HPI Endocrine: Reports as per HPI Hematologic/Lymphatic: Reports as per HPI Allergic/Immunologic: Reports as per HPI Mental Status Exam Mental Status Exam Narrative: Pt is alert and oriented; behavior is cooperative and calm; dressed in hospital attire; mood is described as depressed ; eye contact appropriate; Speech is normal rate, volume and prosody and not pressured; thought process is organized and goal directed; Thought content is on tx; otherwise pertinent to relevant topics and without any delusional content, paranoid ideations or grandiosity; denies SI/HI/VH/AH Diagnostics Vital Signs (24Hr): BMI result Body Mass Index 33.1 Labs 01/17/24 15:11 01/17/24 15:11 Imaging Radiology Impressions: ITS Impressions Toe X-Ray 01/17/24 15:38 IMPRESSION: Normal toe. Medications Medications Current Medications Acetaminophen (Acetaminophen 325 Mg Tablet) 650 mg PO Q6H PRN PRN Reason: Headache/Pain Mild Scale (1-3) Al Hydroxide/Mg Hydroxide (Magnesium Hydrox/Alum Hydrox 30 Ml Oral.Susp) 30 ml PO Q6H PRN PRN Reason: Heartburn/Nausea Aripiprazole (Aripiprazole 5 Mg Tablet) 5 mg PO DAILY [facility] Last Admin: 01/19/24 09:06 Dose: 5 mg Baclofen (Baclofen 10 Mg Tablet) 10 mg PO BID [facility] Last Admin: 01/19/24 21:08 Dose: 10 mg Bupropion HCl (Bupropion Hcl Xl 150 Mg Tab.Er.24h) 150 mg PO DAILY [facility] Last Admin: 01/19/24 09:06 Dose: 150 mg Buspirone HCl (Buspirone Hcl 10 Mg Tablet) 10 mg PO TID [facility] Last Admin: 01/19/24 21:09 Dose: 10 mg Cyclobenzaprine HCl (Cyclobenzaprine Hcl 5 Mg Tablet) 5 mg PO BID PRN PRN Reason: muscle spasm Last Admin: 01/19/24 21:09 Dose: 5 mg Hydroxyzine HCl (Hydroxyzine Hcl 50 Mg Tablet) 50 mg PO Q6H PRN PRN Reason: Anxiety Ibuprofen (Ibuprofen 600 Mg Tablet) 600 mg PO Q8H PRN PRN Reason: Pain, Moderate(Pain Scale 4-6) Last Admin: 01/19/24 21:09 Dose: 600 mg Magnesium Hydroxide (Milk Of Magnesia 30 Ml Oral.Susp) 30 ml PO DAILY PRN PRN Reason: Constipation Melatonin (Melatonin 3 Mg Tablet) 6 mg PO BEDTIME PRN PRN Reason: Insomnia Last Admin: 01/19/24 21:09 Dose: 6 mg Methadone HCl (Methadone Hcl 20 Mg/2 Ml Oral.Conc) 70 mg PO DAILY [facility] Last Admin: 01/19/24 09:04 Dose: 70 mg Methylphenidate HCl (Methylphenidate Hcl 10 Mg Tablet) 20 mg PO BID@0900,1300 [facility] Last Admin: 01/19/24 13:21 Dose: 20 mg Nicotine Polacrilex (Nicotine Polacrilex 2 Mg Gum) 2 mg BUCCAL Q2H PRN PRN Reason: Nicotine Cravings Prazosin HCl (Prazosin Hcl 1 Mg Capsule) 2 mg PO BEDTIME [facility]; Protocol Last Admin: 01/19/24 21:12 Dose: Not Given Quetiapine Fumarate (Quetiapine Fumarate 100 Mg Tablet) 100 mg PO BEDTIME [facility] Last Admin: 01/19/24 21:09 Dose: 100 mg Sertraline HCl (Sertraline Hcl 100 Mg Tablet) 200 mg PO DAILY [facility] Allergies Allergies Allergy/AdvReac Type Severity Reaction Status Date / Time amoxicillin Allergy Hives Verified 01/17/24 14:40 Assessment & Plan Assessment & Plan (1) MDD (major depressive disorder), recurrent severe, without psychosis: Status: Acute Code(s): F33.2 - Major depressive disorder, recurrent severe without psychotic features (2) PTSD (post-traumatic stress disorder): Status: Acute Code(s): F43.10 - Post-traumatic stress disorder, unspecified (3) Cocaine use disorder: Status: Acute Code(s): F14.10 - Cocaine abuse, uncomplicated (4) Opioid use disorder, severe, in sustained remission, dependence: Status: Acute Code(s): F11.21 - Opioid dependence, in remission Plan Patient is a 43 year old female with hx of MDD, PTSD, cocaine use d/o and opioid use d/o who presented to ER via ambulance d/t suicidal ideation d/t increased depressive symptoms and substance abuse. Plan: CV 15 minute safety checks continue home medications referral to substance abuse program referral to outpatient therapist and prescriber encourage groups 01/19: Keeping to self. guarded. Pt reports feeling anxious and depressed today; pt stated, I slept well last night. I'm going to try to go to some groups today . Pt denies SI/HI/VH/AH. continue current tx plan. Patient educated on: diagnosis, medication risk/benefits, substance abuse and therapeutic strategies Informed Consent: understands Reason for continued inpatient stay Substantial Risk for: med/psych decompensation Time Spent With Patient Time: Total time managing care of this patient today _20___ minutes.
[2024-01-20 09:12] VITALS: BP 115/58; PULSE 65; RESP 16; TEMP 36.8; O2SAT 97
[2024-01-20] MEDS: methADONE HCl 20 MG/2 ML ORAL.CONC 70 MG PO (09:15)
[2024-01-20] MEDS: buPROPion HCl XL 150 MG TAB.ER.24H PO (09:17)
[2024-01-20] MEDS: Methylphenidate HCl 10 MG TABLET 20 MG PO ×2 (09:18→12:59)
[2024-01-20] MEDS: busPIRone HCl 10 MG TABLET PO ×3 (09:18→20:43)
[2024-01-20] MEDS: ARIPiprazole 5 MG TABLET PO (09:18)
[2024-01-20] MEDS: Melatonin 3 MG TABLET 6 MG PO (20:42)
[2024-01-20] MEDS: Baclofen 10 MG TABLET PO (20:43)
[2024-01-20] MEDS: Prazosin HCL 1 MG CAPSULE 2 MG PO (20:43)
[2024-01-20] MEDS: QUEtiapine Fumarate 100 MG TABLET PO (20:43)
[2024-01-20] MEDS: Cyclobenzaprine HCl 5 MG TABLET PO (20:53)
[2024-01-20] MEDS: Ibuprofen 600 MG TABLET PO (20:54)
[2024-01-21 07:50] VITALS: BP 101/61; PULSE 66; RESP 16; TEMP 36.3; O2SAT 97
[2024-01-21] MEDS: methADONE HCl 20 MG/2 ML ORAL.CONC 70 MG PO (08:22)
[2024-01-21] MEDS: buPROPion HCl XL 150 MG TAB.ER.24H PO (08:23)
[2024-01-21] MEDS: busPIRone HCl 10 MG TABLET PO ×3 (08:23→20:12)
[2024-01-21] MEDS: ARIPiprazole 5 MG TABLET PO (08:23)
[2024-01-21] MEDS: Methylphenidate HCl 10 MG TABLET 20 MG PO ×2 (08:23→13:18)
[2024-01-21] MEDS: Baclofen 10 MG TABLET PO ×2 (08:23→20:12)
--- NOTE | 2024-01-21 09:37 | P.PNPSI_ITS ---
Subjective Subjective Date of Service: 01/21/24 Reason For Visit: Suicidal ideation Subjective Notes: Conditional Voluntary and 3 Day Interim History: Patient was seen and discussed in rounds today. Records and plans were reviewed. She continues to be guarded and isolative. Continues to feel depressed. Eating and sleeping well. No SI/AVH. No complaints or side effects. No changes were made today Review of Systems Review of Systems Yes all other systems are reviewed and are negative Mental Status Exam Mental Status Exam Narrative: In today's visit she is alert, oriented and pleasant. Normal speech. Moderate eye contact. Affect is subdued. Moderate anxiety present. No signs of psychosis. No AVH/delusions. No active SI. Cognitively intact. Able to move all limbs. No abnormalities of gait. Judgment is intact Diagnostics Vital Signs (24Hr): Vital Signs - 24 hr 01/21/24 07:50 Temperature 97.4 F Pulse Rate 66 Respiratory Rate 16 Blood Pressure 101/61 Pulse Oximetry 97 Oxygen Delivery Method Room Air BMI result Body Mass Index 33.1 Labs 01/17/24 15:11 01/17/24 15:11 Imaging Radiology Impressions: ITS Impressions Toe X-Ray 01/17/24 15:38 IMPRESSION: Normal toe. Medications Medications Current Medications Acetaminophen (Acetaminophen 325 Mg Tablet) 650 mg PO Q6H PRN PRN Reason: Headache/Pain Mild Scale (1-3) Al Hydroxide/Mg Hydroxide (Magnesium Hydrox/Alum Hydrox 30 Ml Oral.Susp) 30 ml PO Q6H PRN PRN Reason: Heartburn/Nausea Aripiprazole (Aripiprazole 5 Mg Tablet) 5 mg PO DAILY [facility] Last Admin: 01/21/24 08:23 Dose: 5 mg Baclofen (Baclofen 10 Mg Tablet) 10 mg PO BID [facility] Last Admin: 01/21/24 08:23 Dose: 10 mg Bupropion HCl (Bupropion Hcl Xl 150 Mg Tab.Er.24h) 150 mg PO DAILY [facility] Last Admin: 01/21/24 08:23 Dose: 150 mg Buspirone HCl (Buspirone Hcl 10 Mg Tablet) 10 mg PO TID [facility] Last Admin: 01/21/24 08:23 Dose: 10 mg Cyclobenzaprine HCl (Cyclobenzaprine Hcl 5 Mg Tablet) 5 mg PO BID PRN PRN Reason: muscle spasm Last Admin: 01/20/24 20:53 Dose: 5 mg Hydroxyzine HCl (Hydroxyzine Hcl 50 Mg Tablet) 50 mg PO Q6H PRN PRN Reason: Anxiety Ibuprofen (Ibuprofen 600 Mg Tablet) 600 mg PO Q8H PRN PRN Reason: Pain, Moderate(Pain Scale 4-6) Last Admin: 01/20/24 20:54 Dose: 600 mg Magnesium Hydroxide (Milk Of Magnesia 30 Ml Oral.Susp) 30 ml PO DAILY PRN PRN Reason: Constipation Melatonin (Melatonin 3 Mg Tablet) 6 mg PO BEDTIME PRN PRN Reason: Insomnia Last Admin: 01/20/24 20:42 Dose: 6 mg Methadone HCl (Methadone Hcl 20 Mg/2 Ml Oral.Conc) 70 mg PO DAILY [facility] Last Admin: 01/21/24 08:22 Dose: 70 mg Methylphenidate HCl (Methylphenidate Hcl 10 Mg Tablet) 20 mg PO BID@0900,1300 [facility] Last Admin: 01/21/24 08:23 Dose: 20 mg Nicotine Polacrilex (Nicotine Polacrilex 2 Mg Gum) 2 mg BUCCAL Q2H PRN PRN Reason: Nicotine Cravings Prazosin HCl (Prazosin Hcl 1 Mg Capsule) 2 mg PO BEDTIME [facility]; Protocol Last Admin: 01/20/24 20:43 Dose: 2 mg Quetiapine Fumarate (Quetiapine Fumarate 100 Mg Tablet) 100 mg PO BEDTIME [facility] Last Admin: 01/20/24 20:43 Dose: 100 mg Sertraline HCl (Sertraline Hcl 100 Mg Tablet) 200 mg PO DAILY [facility] Last Admin: 01/21/24 08:24 Dose: Not Given Allergies Allergies Allergy/AdvReac Type Severity Reaction Status Date / Time amoxicillin Allergy Hives Verified 01/17/24 14:40 Assessment & Plan Assessment & Plan (1) MDD (major depressive disorder), recurrent severe, without psychosis: Status: Acute Code(s): F33.2 - Major depressive disorder, recurrent severe without psychotic features (2) PTSD (post-traumatic stress disorder): Status: Acute Code(s): F43.10 - Post-traumatic stress disorder, unspecified (3) Cocaine use disorder: Status: Acute Code(s): F14.10 - Cocaine abuse, uncomplicated (4) Opioid use disorder, severe, in sustained remission, dependence: Status: Acute Code(s): F11.21 - Opioid dependence, in remission Plan Patient is a 43 year old female with hx of MDD, PTSD, cocaine use d/o and opioid use d/o who presented to ER via ambulance d/t suicidal ideation d/t increased depressive symptoms and substance abuse. Plan: CV 15 minute safety checks continue home medications referral to substance abuse program referral to outpatient therapist and prescriber encourage groups 01/19: Keeping to self. guarded. Pt reports feeling anxious and depressed today; pt stated, I slept well last night. I'm going to try to go to some groups today . Pt denies SI/HI/VH/AH. continue current tx plan. 01/21/2024: Continue current regimen and plans Reason for continued inpatient stay Substantial Risk for: med/psych decompensation Time Spent With Patient Time: Total time managing care of this patient today ____ minutes.
[2024-01-21] MEDS: hydrOXYzine HCL 50 MG TABLET PO (16:18)
[2024-01-21] MEDS: Melatonin 3 MG TABLET 6 MG PO (20:09)
[2024-01-21] MEDS: QUEtiapine Fumarate 100 MG TABLET PO (20:12)
[2024-01-21] MEDS: Prazosin HCL 1 MG CAPSULE 2 MG PO (20:12)
[2024-01-22 08:00] VITALS: BP 105/58; PULSE 70; RESP 14; TEMP 36.4; O2SAT 99
[2024-01-22] MEDS: buPROPion HCl XL 150 MG TAB.ER.24H PO (08:55)
[2024-01-22] MEDS: methADONE HCl 20 MG/2 ML ORAL.CONC 70 MG PO (08:56)
[2024-01-22] MEDS: busPIRone HCl 10 MG TABLET PO (08:58)
[2024-01-22] MEDS: ARIPiprazole 5 MG TABLET PO (08:58)
[2024-01-22] MEDS: Baclofen 10 MG TABLET PO ×2 (08:58→20:35)
[2024-01-22] MEDS: Methylphenidate HCl 10 MG TABLET 20 MG PO ×2 (09:39→13:05)
--- NOTE | 2024-01-22 09:40 | P.PNPSI_ITS ---
Subjective Subjective Date of Service: 01/22/24 Reason For Visit: Suicidal ideation Subjective Notes: Conditional Voluntary and 3 Day Interim History: Patient was seen and discussed in rounds today. Records and plans were reviewed. She continues to be isolative, in bed a lot. She states that her medications are not helpful with her anxiety. I and reviewed them and raise the BuSpar to 15 mg t.i.d.. No complaints or side effects otherwise. Eating and sleeping adequately. No other changes were made Review of Systems Review of Systems Yes all other systems are reviewed and are negative Mental Status Exam Mental Status Exam Narrative: In today's visit she is alert, oriented and pleasant. Normal speech. Moderate eye contact. Affect is subdued. Moderate anxiety present. No signs of psychosis. No AVH/delusions. No active SI. Cognitively intact. Able to move all limbs. No abnormalities of gait. Judgment is intact Diagnostics Vital Signs (24Hr): Vital Signs - 24 hr 01/22/24 08:00 Temperature 97.6 F Pulse Rate 70 Respiratory Rate 14 Blood Pressure 105/58 L Pulse Oximetry 99 Oxygen Delivery Method Room Air BMI result Body Mass Index 33.1 Labs 01/17/24 15:11 01/17/24 15:11 Imaging Radiology Impressions: ITS Impressions Toe X-Ray 01/17/24 15:38 IMPRESSION: Normal toe. Medications Medications Current Medications Acetaminophen (Acetaminophen 325 Mg Tablet) 650 mg PO Q6H PRN PRN Reason: Headache/Pain Mild Scale (1-3) Al Hydroxide/Mg Hydroxide (Magnesium Hydrox/Alum Hydrox 30 Ml Oral.Susp) 30 ml PO Q6H PRN PRN Reason: Heartburn/Nausea Aripiprazole (Aripiprazole 5 Mg Tablet) 5 mg PO DAILY [facility] Last Admin: 01/22/24 08:58 Dose: 5 mg Baclofen (Baclofen 10 Mg Tablet) 10 mg PO BID [facility] Last Admin: 01/22/24 08:58 Dose: 10 mg Bupropion HCl (Bupropion Hcl Xl 150 Mg Tab.Er.24h) 150 mg PO DAILY [facility] Last Admin: 01/22/24 08:55 Dose: 150 mg Buspirone HCl (Buspirone Hcl 10 Mg Tablet) 10 mg PO TID [facility] Last Admin: 01/22/24 08:58 Dose: 10 mg Cyclobenzaprine HCl (Cyclobenzaprine Hcl 5 Mg Tablet) 5 mg PO BID PRN PRN Reason: muscle spasm Last Admin: 01/20/24 20:53 Dose: 5 mg Hydroxyzine HCl (Hydroxyzine Hcl 50 Mg Tablet) 50 mg PO Q6H PRN PRN Reason: Anxiety Last Admin: 01/21/24 16:18 Dose: 50 mg Ibuprofen (Ibuprofen 600 Mg Tablet) 600 mg PO Q8H PRN PRN Reason: Pain, Moderate(Pain Scale 4-6) Last Admin: 01/20/24 20:54 Dose: 600 mg Magnesium Hydroxide (Milk Of Magnesia 30 Ml Oral.Susp) 30 ml PO DAILY PRN PRN Reason: Constipation Melatonin (Melatonin 3 Mg Tablet) 6 mg PO BEDTIME PRN PRN Reason: Insomnia Last Admin: 01/21/24 20:09 Dose: 6 mg Methadone HCl (Methadone Hcl 20 Mg/2 Ml Oral.Conc) 70 mg PO DAILY [facility] Last Admin: 01/22/24 08:56 Dose: 70 mg Methylphenidate HCl (Methylphenidate Hcl 10 Mg Tablet) 20 mg PO BID@0900,1300 [facility] Last Admin: 01/22/24 09:39 Dose: 20 mg Nicotine Polacrilex (Nicotine Polacrilex 2 Mg Gum) 2 mg BUCCAL Q2H PRN PRN Reason: Nicotine Cravings Prazosin HCl (Prazosin Hcl 1 Mg Capsule) 2 mg PO BEDTIME [facility]; Protocol Last Admin: 01/21/24 20:12 Dose: 2 mg Quetiapine Fumarate (Quetiapine Fumarate 100 Mg Tablet) 100 mg PO BEDTIME [facility] Last Admin: 01/21/24 20:12 Dose: 100 mg Sertraline HCl (Sertraline Hcl 100 Mg Tablet) 200 mg PO DAILY [facility] Last Admin: 01/22/24 08:59 Dose: Not Given Allergies Allergies Allergy/AdvReac Type Severity Reaction Status Date / Time amoxicillin Allergy Hives Verified 01/17/24 14:40 Assessment & Plan Assessment & Plan (1) MDD (major depressive disorder), recurrent severe, without psychosis: Status: Acute Code(s): F33.2 - Major depressive disorder, recurrent severe without psychotic features (2) PTSD (post-traumatic stress disorder): Status: Acute Code(s): F43.10 - Post-traumatic stress disorder, unspecified (3) Cocaine use disorder: Status: Acute Code(s): F14.10 - Cocaine abuse, uncomplicated (4) Opioid use disorder, severe, in sustained remission, dependence: Status: Acute Code(s): F11.21 - Opioid dependence, in remission Plan Patient is a 43 year old female with hx of MDD, PTSD, cocaine use d/o and opioid use d/o who presented to ER via ambulance d/t suicidal ideation d/t increased depressive symptoms and substance abuse. Plan: CV 15 minute safety checks continue home medications referral to substance abuse program referral to outpatient therapist and prescriber encourage groups 01/19: Keeping to self. guarded. Pt reports feeling anxious and depressed today; pt stated, I slept well last night. I'm going to try to go to some groups today . Pt denies SI/HI/VH/AH. continue current tx plan. 01/21/2024: Continue current regimen and plans 01/22/2024: Continue current regimen and plans. Increase BuSpar to 15 mg t.i.d. Patient educated on: medication risk/benefits Reason for continued inpatient stay Substantial Risk for: med/psych decompensation Time Spent With Patient Time: Total time managing care of this patient today ____ minutes.
[2024-01-22] MEDS: busPIRone HCl 5 MG TABLET 15 MG PO ×2 (14:50→20:33)
[2024-01-22 19:55] VITALS: BP 105/70; PULSE 79; RESP 16; TEMP 36.3; O2SAT 96
[2024-01-22] MEDS: Cyclobenzaprine HCl 5 MG TABLET PO (20:33)
[2024-01-22 20:34] VITALS: BP 105/70
[2024-01-22] MEDS: Prazosin HCL 1 MG CAPSULE 2 MG PO (20:34)
[2024-01-22] MEDS: QUEtiapine Fumarate 100 MG TABLET PO (20:35)
[2024-01-22] MEDS: Melatonin 3 MG TABLET 6 MG PO (20:35)
[2024-01-23 07:40] VITALS: BP 102/63; PULSE 72; RESP 16; TEMP 36.4; O2SAT 96
[2024-01-23] MEDS: methADONE HCl 20 MG/2 ML ORAL.CONC 70 MG PO (08:57)
[2024-01-23] MEDS: ARIPiprazole 5 MG TABLET PO (09:00)
[2024-01-23] MEDS: Methylphenidate HCl 10 MG TABLET 20 MG PO ×2 (09:00→13:05)
[2024-01-23] MEDS: busPIRone HCl 5 MG TABLET 15 MG PO ×3 (09:01→20:56)
[2024-01-23] MEDS: buPROPion HCl XL 150 MG TAB.ER.24H PO (09:01)
[2024-01-23] MEDS: Baclofen 10 MG TABLET PO ×2 (09:02→20:56)
[2024-01-23] MEDS: hydrOXYzine HCL 50 MG TABLET PO ×2 (14:26→20:56)
--- NOTE | 2024-01-23 16:04 | HO.PSYCHPN ---
Subjective Subjective Date of Service: 01/23/24 Reason For Visit: Suicidal ideation Interim History: asking for increase in stimulant back to prior dosing, which is accommodated. does c/o insomnia but no nightmares, agrees to have PRN of seroquel added at HS. otherwise no complaints or requests, hoping to get into a program. per staff, dep 6 anx 8. no SI. showered, eating, visible. meds and groups. refusing morening zoloft bcse it's not working. c/o racing thoughts, hyperverbal. slept about 7 hours. Mental Status Exam Mental Status Exam Narrative: alert, oriented and pleasant. Normal speech. Moderate eye contact. Affect is subdued. Moderate anxiety present. No signs of psychosis. No AVH/delusions. No active SI. Cognitively intact. Able to move all limbs. Judgment is intact Diagnostics Vital Signs (24Hr): Vital Signs - 24 hr 01/22/24 19:55 01/22/24 20:34 01/23/24 07:40 Temperature 97.3 F 97.5 F Pulse Rate 79 72 Respiratory Rate 16 16 Blood Pressure 105/70 105/70 102/63 Pulse Oximetry 96 96 Oxygen Delivery Method Room Air Room Air BMI result Body Mass Index 33.1 Labs 01/17/24 15:11 01/17/24 15:11 Imaging Radiology Impressions: ITS Impressions Toe X-Ray 01/17/24 15:38 IMPRESSION: Normal toe. Medications Medications Current Medications Acetaminophen (Acetaminophen 325 Mg Tablet) 650 mg PO Q6H PRN PRN Reason: Headache/Pain Mild Scale (1-3) Al Hydroxide/Mg Hydroxide (Magnesium Hydrox/Alum Hydrox 30 Ml Oral.Susp) 30 ml PO Q6H PRN PRN Reason: Heartburn/Nausea Aripiprazole (Aripiprazole 5 Mg Tablet) 5 mg PO DAILY [facility] Last Admin: 01/23/24 09:00 Dose: 5 mg Baclofen (Baclofen 10 Mg Tablet) 10 mg PO BID [facility] Last Admin: 01/23/24 09:02 Dose: 10 mg Bupropion HCl (Bupropion Hcl Xl 150 Mg Tab.Er.24h) 150 mg PO DAILY [facility] Last Admin: 01/23/24 09:01 Dose: 150 mg Buspirone HCl (Buspirone Hcl 5 Mg Tablet) 15 mg PO TID [facility] Last Admin: 01/23/24 14:20 Dose: 15 mg Cyclobenzaprine HCl (Cyclobenzaprine Hcl 5 Mg Tablet) 5 mg PO BID PRN PRN Reason: muscle spasm Last Admin: 01/22/24 20:33 Dose: 5 mg Hydroxyzine HCl (Hydroxyzine Hcl 50 Mg Tablet) 50 mg PO Q6H PRN PRN Reason: Anxiety Last Admin: 01/23/24 14:26 Dose: 50 mg Ibuprofen (Ibuprofen 600 Mg Tablet) 600 mg PO Q8H PRN PRN Reason: Pain, Moderate(Pain Scale 4-6) Last Admin: 01/20/24 20:54 Dose: 600 mg Magnesium Hydroxide (Milk Of Magnesia 30 Ml Oral.Susp) 30 ml PO DAILY PRN PRN Reason: Constipation Melatonin (Melatonin 3 Mg Tablet) 6 mg PO BEDTIME PRN PRN Reason: Insomnia Last Admin: 01/22/24 20:35 Dose: 6 mg Methadone HCl (Methadone Hcl 20 Mg/2 Ml Oral.Conc) 70 mg PO DAILY [facility] Last Admin: 01/23/24 08:57 Dose: 70 mg Methylphenidate HCl (Methylphenidate Hcl 10 Mg Tablet) 20 mg PO DAILY@1300 [facility] Methylphenidate HCl (Methylphenidate Hcl 10 Mg Tablet) 40 mg PO DAILY [facility] Nicotine Polacrilex (Nicotine Polacrilex 2 Mg Gum) 2 mg BUCCAL Q2H PRN PRN Reason: Nicotine Cravings Prazosin HCl (Prazosin Hcl 1 Mg Capsule) 2 mg PO BEDTIME [facility]; Protocol Last Admin: 01/22/24 20:34 Dose: 2 mg Quetiapine Fumarate (Quetiapine Fumarate 100 Mg Tablet) 100 mg PO BEDTIME [facility] Last Admin: 01/22/24 20:35 Dose: 100 mg Quetiapine Fumarate (Quetiapine Fumarate 25 Mg Tablet) 25 mg PO BEDTIME PRN PRN Reason: insomnia Sertraline HCl (Sertraline Hcl 100 Mg Tablet) 200 mg PO DAILY [facility] Last Admin: 01/23/24 09:27 Dose: Not Given Allergies Allergies Allergy/AdvReac Type Severity Reaction Status Date / Time amoxicillin Allergy Hives Verified 01/17/24 14:40 Assessment & Plan Assessment & Plan (1) MDD (major depressive disorder), recurrent severe, without psychosis: Status: Acute Code(s): F33.2 - Major depressive disorder, recurrent severe without psychotic features (2) PTSD (post-traumatic stress disorder): Status: Acute Code(s): F43.10 - Post-traumatic stress disorder, unspecified (3) Cocaine use disorder: Status: Acute Code(s): F14.10 - Cocaine abuse, uncomplicated (4) Opioid use disorder, severe, in sustained remission, dependence: Status: Acute Code(s): F11.21 - Opioid dependence, in remission Plan Patient is a 43 year old female with hx of MDD, PTSD, cocaine use d/o and opioid use d/o who presented to ER via ambulance d/t suicidal ideation d/t increased depressive symptoms and substance abuse. Plan: CV 15 minute safety checks continue home medications referral to substance abuse program referral to outpatient therapist and prescriber encourage groups 01/19: Keeping to self. guarded. Pt reports feeling anxious and depressed today; pt stated, I slept well last night. I'm going to try to go to some groups today . Pt denies SI/HI/VH/AH. continue current tx plan. 01/21/2024: Continue current regimen and plans 01/22/2024: Continue current regimen and plans. Increase BuSpar to 15 mg t.i.d. 01/22: increase ritalin from 20 BID to 40/20, a regimen pt had been on in the past after c/o racing thoughts, per pt request. also add seroquel 25 mg QHS PRN insomnia. otherwise continue current mgmt. awaiting acceptance to rehab. Reason for continued inpatient stay Substantial Risk for: inability to function and rapid decompensation Time Spent With Patient Time: Total time managing care of this patient today __25__ minutes.
[2024-01-23 20:00] VITALS: BP 103/57; PULSE 74; RESP 16; TEMP 36.7; O2SAT 96
[2024-01-23 20:55] VITALS: BP 103/57
[2024-01-23] MEDS: Prazosin HCL 1 MG CAPSULE 2 MG PO (20:55)
[2024-01-23] MEDS: QUEtiapine Fumarate 100 MG TABLET PO (20:56)
[2024-01-23] MEDS: Melatonin 3 MG TABLET 6 MG PO (20:56)
[2024-01-24 08:00] VITALS: BP 100/59; PULSE 70; RESP 14; TEMP 37.3; O2SAT 97
[2024-01-24] MEDS: methADONE HCl 20 MG/2 ML ORAL.CONC 70 MG PO (08:11)
[2024-01-24] MEDS: ARIPiprazole 5 MG TABLET PO (08:12)
[2024-01-24] MEDS: Methylphenidate HCl 10 MG TABLET 40 MG PO (08:13)
[2024-01-24] MEDS: Baclofen 10 MG TABLET PO ×2 (08:13→20:22)
[2024-01-24] MEDS: buPROPion HCl XL 150 MG TAB.ER.24H PO (08:13)
[2024-01-24] MEDS: busPIRone HCl 5 MG TABLET 15 MG PO ×3 (08:13→20:21)
[2024-01-24 10:48] LABS: COVID-19 Test Negative (Negative); IDNOW Serial# 08D9AD1C
[2024-01-24] MEDS: Methylphenidate HCl 10 MG TABLET 20 MG PO (13:59)
--- NOTE | 2024-01-24 16:18 | P.PNPSI_ITS ---
Subjective Subjective Date of Service: 01/24/24 Reason For Visit: Suicidal ideation Interim History: feeling improved. up and about, showered. feeling more energy, motivation. less anxiety. still c/o depression, feels zoloft not helping, wants to DC and increase wellbutrin to 300. per staff, dep 6, anx 7. guarded. no SI/HI/AVH. irritable, withdrawn. Mental Status Exam Mental Status Exam Narrative: alert, oriented and pleasant. Normal speech. Moderate eye contact. Affect is subdued. Moderate depression present. No signs of psychosis. No AVH/delusions. No active SI. Cognitively intact. Able to move all limbs. Judgment is intact Diagnostics Vital Signs (24Hr): Vital Signs - 24 hr 01/23/24 20:00 01/23/24 20:55 01/24/24 08:00 Temperature 98.1 F 99.2 F Pulse Rate 74 70 Respiratory Rate 16 14 Blood Pressure 103/57 L 103/57 L 100/59 L Pulse Oximetry 96 97 Oxygen Delivery Method Room Air Room Air BMI result Body Mass Index 33.1 Labs 01/17/24 15:11 01/17/24 15:11 Labs: Laboratory Results - last 48 hr 01/24/24 10:15 COVID-19 ([facility]) Negative COVID-19 Clin Com See Note Imaging Radiology Impressions: ITS Impressions Toe X-Ray 01/17/24 15:38 IMPRESSION: Normal toe. Medications Medications Current Medications Acetaminophen (Acetaminophen 325 Mg Tablet) 650 mg PO Q6H PRN PRN Reason: Headache/Pain Mild Scale (1-3) Al Hydroxide/Mg Hydroxide (Magnesium Hydrox/Alum Hydrox 30 Ml Oral.Susp) 30 ml PO Q6H PRN PRN Reason: Heartburn/Nausea Aripiprazole (Aripiprazole 5 Mg Tablet) 5 mg PO DAILY [facility] Last Admin: 01/24/24 08:12 Dose: 5 mg Baclofen (Baclofen 10 Mg Tablet) 10 mg PO BID [facility] Last Admin: 01/24/24 08:13 Dose: 10 mg Bupropion HCl (Bupropion Hcl Xl 300 Mg Tab.Er.24h) 300 mg PO DAILY [facility] Buspirone HCl (Buspirone Hcl 5 Mg Tablet) 15 mg PO TID [facility] Last Admin: 01/24/24 15:46 Dose: 15 mg Cyclobenzaprine HCl (Cyclobenzaprine Hcl 5 Mg Tablet) 5 mg PO BID PRN PRN Reason: muscle spasm Last Admin: 01/22/24 20:33 Dose: 5 mg Hydroxyzine HCl (Hydroxyzine Hcl 50 Mg Tablet) 50 mg PO Q6H PRN PRN Reason: Anxiety Last Admin: 01/23/24 20:56 Dose: 50 mg Ibuprofen (Ibuprofen 600 Mg Tablet) 600 mg PO Q8H PRN PRN Reason: Pain, Moderate(Pain Scale 4-6) Last Admin: 01/20/24 20:54 Dose: 600 mg Magnesium Hydroxide (Milk Of Magnesia 30 Ml Oral.Susp) 30 ml PO DAILY PRN PRN Reason: Constipation Melatonin (Melatonin 3 Mg Tablet) 6 mg PO BEDTIME PRN PRN Reason: Insomnia Last Admin: 01/23/24 20:56 Dose: 6 mg Methadone HCl (Methadone Hcl 20 Mg/2 Ml Oral.Conc) 70 mg PO DAILY [facility] Last Admin: 01/24/24 08:11 Dose: 70 mg Methylphenidate HCl (Methylphenidate Hcl 10 Mg Tablet) 20 mg PO DAILY@1300 [facility] Last Admin: 01/24/24 13:59 Dose: 20 mg Methylphenidate HCl (Methylphenidate Hcl 10 Mg Tablet) 40 mg PO DAILY [facility] Last Admin: 01/24/24 08:13 Dose: 40 mg Nicotine Polacrilex (Nicotine Polacrilex 2 Mg Gum) 2 mg BUCCAL Q2H PRN PRN Reason: Nicotine Cravings Prazosin HCl (Prazosin Hcl 1 Mg Capsule) 2 mg PO BEDTIME [facility]; Protocol Last Admin: 01/23/24 20:55 Dose: 2 mg Quetiapine Fumarate (Quetiapine Fumarate 100 Mg Tablet) 100 mg PO BEDTIME [facility] Last Admin: 01/23/24 20:56 Dose: 100 mg Quetiapine Fumarate (Quetiapine Fumarate 25 Mg Tablet) 25 mg PO BEDTIME PRN PRN Reason: insomnia Allergies Allergies Allergy/AdvReac Type Severity Reaction Status Date / Time amoxicillin Allergy Hives Verified 01/17/24 14:40 Assessment & Plan Assessment & Plan (1) MDD (major depressive disorder), recurrent severe, without psychosis: Status: Acute Code(s): F33.2 - Major depressive disorder, recurrent severe without psychotic features (2) PTSD (post-traumatic stress disorder): Status: Acute Code(s): F43.10 - Post-traumatic stress disorder, unspecified (3) Cocaine use disorder: Status: Acute Code(s): F14.10 - Cocaine abuse, uncomplicated (4) Opioid use disorder, severe, in sustained remission, dependence: Status: Acute Code(s): F11.21 - Opioid dependence, in remission Plan Patient is a 43 year old female with hx of MDD, PTSD, cocaine use d/o and opioid use d/o who presented to ER via ambulance d/t suicidal ideation d/t increased depressive symptoms and substance abuse. Plan: CV 15 minute safety checks continue home medications referral to substance abuse program referral to outpatient therapist and prescriber encourage groups 01/19: Keeping to self. guarded. Pt reports feeling anxious and depressed today; pt stated, I slept well last night. I'm going to try to go to some groups today . Pt denies SI/HI/VH/AH. continue current tx plan. 01/21/2024: Continue current regimen and plans 01/22/2024: Continue current regimen and plans. Increase BuSpar to 15 mg t.i.d. 01/22: increase ritalin from 20 BID to 40/20, a regimen pt had been on in the past after c/o racing thoughts, per pt request. also add seroquel 25 mg QHS PRN insomnia. otherwise continue current mgmt. awaiting acceptance to rehab. 01/23: improved today, up and about doing ADLs. reports improved energy, motivation, anxiety. still depressed. agrees to DC sertraline, increase wellbutrin to 300. feeling she will be ready for rehab in a couple of days. Reason for continued inpatient stay Substantial Risk for: harm to self, inability to function and rapid decompensation Time Spent With Patient Time: Total time managing care of this patient today __25__ minutes.
[2024-01-24] MEDS: Acetaminophen 325 MG TABLET 650 MG PO (17:45)
[2024-01-24 20:00] VITALS: BP 116/73; PULSE 83; RESP 18; TEMP 37; O2SAT 98
[2024-01-24 20:20] VITALS: BP 116/73
[2024-01-24] MEDS: Prazosin HCL 1 MG CAPSULE 2 MG PO (20:20)
[2024-01-24] MEDS: Melatonin 3 MG TABLET 6 MG PO (20:22)
[2024-01-24] MEDS: QUEtiapine Fumarate 100 MG TABLET PO (20:22)
[2024-01-24] MEDS: Ibuprofen 600 MG TABLET PO (20:36)
[2024-01-24] MEDS: Cyclobenzaprine HCl 5 MG TABLET PO (20:37)
[2024-01-25 07:52] VITALS: BP 98/64; PULSE 68; RESP 14; TEMP 37.2; O2SAT 95
[2024-01-25] MEDS: methADONE HCl 20 MG/2 ML ORAL.CONC 70 MG PO (08:23)
[2024-01-25] MEDS: busPIRone HCl 5 MG TABLET 15 MG PO (08:24)
[2024-01-25] MEDS: Methylphenidate HCl 10 MG TABLET 40 MG PO (08:25)
[2024-01-25] MEDS: buPROPion HCl XL 300 MG TAB.ER.24H PO (08:25)
[2024-01-25] MEDS: ARIPiprazole 5 MG TABLET PO (08:25)
[2024-01-25] MEDS: Baclofen 10 MG TABLET PO ×2 (08:25→20:40)
[2024-01-25] MEDS: Methylphenidate HCl 10 MG TABLET 20 MG PO (14:28)
[2024-01-25] MEDS: busPIRone HCl 10 MG TABLET 20 MG PO ×2 (14:28→20:39)
--- NOTE | 2024-01-25 15:25 | HO.PSYCHPN ---
Subjective Subjective Date of Service: 01/25/24 Reason For Visit: Suicidal ideation Interim History: out and about more. pleasant. reviewed med changes of zoloft DC and wellbutrin increase today. pt also requested increase in buspar today as well, which was done. per collateral from , [facility] looking for clinical update next tuesday and will have bed early next week for her. Mental Status Exam Mental Status Exam Narrative: alert, oriented and pleasant. well dressed and groomed. Normal speech. Moderate eye contact. Affect is constricted. linear and logical, No signs of psychosis. no SI/SIBI/HI/AVH expressed. Cognitively intact. Able to move all limbs. Judgment is intact Diagnostics Vital Signs (24Hr): Vital Signs - 24 hr 01/24/24 20:00 01/24/24 20:20 01/25/24 07:52 Temperature 98.6 F 99.0 F Pulse Rate 83 68 Respiratory Rate 18 14 Blood Pressure 116/73 116/73 98/64 Pulse Oximetry 98 95 Oxygen Delivery Method Room Air Room Air BMI result Body Mass Index 33.1 Labs 01/17/24 15:11 01/17/24 15:11 Labs: Laboratory Results - last 48 hr 01/24/24 10:15 COVID-19 ([facility]) Negative COVID-19 Clin Com See Note Imaging Radiology Impressions: ITS Impressions Toe X-Ray 01/17/24 15:38 IMPRESSION: Normal toe. Medications Medications Current Medications Acetaminophen (Acetaminophen 325 Mg Tablet) 650 mg PO Q6H PRN PRN Reason: Headache/Pain Mild Scale (1-3) Last Admin: 01/24/24 17:45 Dose: 650 mg Al Hydroxide/Mg Hydroxide (Magnesium Hydrox/Alum Hydrox 30 Ml Oral.Susp) 30 ml PO Q6H PRN PRN Reason: Heartburn/Nausea Aripiprazole (Aripiprazole 5 Mg Tablet) 5 mg PO DAILY [facility] Last Admin: 01/25/24 08:25 Dose: 5 mg Baclofen (Baclofen 10 Mg Tablet) 10 mg PO BID [facility] Last Admin: 01/25/24 08:25 Dose: 10 mg Bupropion HCl (Bupropion Hcl Xl 300 Mg Tab.Er.24h) 300 mg PO DAILY [facility] Last Admin: 01/25/24 08:25 Dose: 300 mg Buspirone HCl (Buspirone Hcl 10 Mg Tablet) 20 mg PO TID [facility] Last Admin: 01/25/24 14:28 Dose: 20 mg Cyclobenzaprine HCl (Cyclobenzaprine Hcl 5 Mg Tablet) 5 mg PO BID PRN PRN Reason: muscle spasm Last Admin: 01/24/24 20:37 Dose: 5 mg Hydroxyzine HCl (Hydroxyzine Hcl 50 Mg Tablet) 50 mg PO Q6H PRN PRN Reason: Anxiety Last Admin: 01/23/24 20:56 Dose: 50 mg Ibuprofen (Ibuprofen 600 Mg Tablet) 600 mg PO Q8H PRN PRN Reason: Pain, Moderate(Pain Scale 4-6) Last Admin: 01/24/24 20:36 Dose: 600 mg Magnesium Hydroxide (Milk Of Magnesia 30 Ml Oral.Susp) 30 ml PO DAILY PRN PRN Reason: Constipation Melatonin (Melatonin 3 Mg Tablet) 6 mg PO BEDTIME PRN PRN Reason: Insomnia Last Admin: 01/24/24 20:22 Dose: 6 mg Methadone HCl (Methadone Hcl 20 Mg/2 Ml Oral.Conc) 70 mg PO DAILY [facility] Last Admin: 01/25/24 08:23 Dose: 70 mg Methylphenidate HCl (Methylphenidate Hcl 10 Mg Tablet) 20 mg PO DAILY@1300 [facility] Last Admin: 01/25/24 14:28 Dose: 20 mg Methylphenidate HCl (Methylphenidate Hcl 10 Mg Tablet) 40 mg PO DAILY [facility] Last Admin: 01/25/24 08:25 Dose: 40 mg Nicotine Polacrilex (Nicotine Polacrilex 2 Mg Gum) 2 mg BUCCAL Q2H PRN PRN Reason: Nicotine Cravings Prazosin HCl (Prazosin Hcl 1 Mg Capsule) 2 mg PO BEDTIME [facility]; Protocol Last Admin: 01/24/24 20:20 Dose: 2 mg Quetiapine Fumarate (Quetiapine Fumarate 100 Mg Tablet) 100 mg PO BEDTIME [facility] Last Admin: 01/24/24 20:22 Dose: 100 mg Quetiapine Fumarate (Quetiapine Fumarate 25 Mg Tablet) 25 mg PO BEDTIME PRN PRN Reason: insomnia Allergies Allergies Allergy/AdvReac Type Severity Reaction Status Date / Time amoxicillin Allergy Hives Verified 01/17/24 14:40 Assessment & Plan Assessment & Plan (1) MDD (major depressive disorder), recurrent severe, without psychosis: Status: Acute Code(s): F33.2 - Major depressive disorder, recurrent severe without psychotic features (2) PTSD (post-traumatic stress disorder): Status: Acute Code(s): F43.10 - Post-traumatic stress disorder, unspecified (3) Cocaine use disorder: Status: Acute Code(s): F14.10 - Cocaine abuse, uncomplicated (4) Opioid use disorder, severe, in sustained remission, dependence: Status: Acute Code(s): F11.21 - Opioid dependence, in remission Plan Patient is a 43 year old female with hx of MDD, PTSD, cocaine use d/o and opioid use d/o who presented to ER via ambulance d/t suicidal ideation d/t increased depressive symptoms and substance abuse. Plan: CV 15 minute safety checks continue home medications referral to substance abuse program referral to outpatient therapist and prescriber encourage groups 01/19: Keeping to self. guarded. Pt reports feeling anxious and depressed today; pt stated, I slept well last night. I'm going to try to go to some groups today . Pt denies SI/HI/VH/AH. continue current tx plan. 01/21/2024: Continue current regimen and plans 01/22/2024: Continue current regimen and plans. Increase BuSpar to 15 mg t.i.d. 01/22: increase ritalin from 20 BID to 40/20, a regimen pt had been on in the past after c/o racing thoughts, per pt request. also add seroquel 25 mg QHS PRN insomnia. otherwise continue current mgmt. awaiting acceptance to rehab. 01/23: improved today, up and about doing ADLs. reports improved energy, motivation, anxiety. still depressed. agrees to DC sertraline, increase wellbutrin to 300. feeling she will be ready for rehab in a couple of days. 01/24: wellbutrin dosing increased to 300 mg as of today. buspar also increased today, from 15 TID to 20 TID, per pt request. per , [facility] will have a bed early next week for patient. Reason for continued inpatient stay Substantial Risk for: inability to function and rapid decompensation Time Spent With Patient Time: Total time managing care of this patient today __25__ minutes.
[2024-01-25 20:00] VITALS: BP 97/60; PULSE 83; RESP 16; TEMP 37; O2SAT 97
[2024-01-25 20:38] VITALS: BP 97/58
[2024-01-25] MEDS: Prazosin HCL 1 MG CAPSULE 2 MG PO (20:38)
[2024-01-25] MEDS: Melatonin 3 MG TABLET 6 MG PO (20:39)
[2024-01-25] MEDS: QUEtiapine Fumarate 100 MG TABLET PO (20:40)
[2024-01-26 08:00] VITALS: BP 94/56; PULSE 74; RESP 18; TEMP 36.3; O2SAT 95
[2024-01-26 08:09] VITALS: BP 112/69; PULSE 69
[2024-01-26] MEDS: methADONE HCl 20 MG/2 ML ORAL.CONC 70 MG PO (10:08)
[2024-01-26] MEDS: busPIRone HCl 10 MG TABLET 20 MG PO ×3 (10:09→20:03)
[2024-01-26] MEDS: Methylphenidate HCl 10 MG TABLET 40 MG PO (10:09)
[2024-01-26] MEDS: Baclofen 10 MG TABLET PO ×2 (10:09→20:04)
[2024-01-26] MEDS: buPROPion HCl XL 300 MG TAB.ER.24H PO (10:09)
[2024-01-26] MEDS: ARIPiprazole 5 MG TABLET PO (10:10)
[2024-01-26] MEDS: Methylphenidate HCl 10 MG TABLET 20 MG PO (14:30)
--- NOTE | 2024-01-26 14:54 | HO.PSYCHPN ---
Subjective Subjective Date of Service: 01/26/24 Reason For Visit: Suicidal ideation Interim History: continues to feel well. slept well, decreased anxiety. mood improved but still depressed. per ataff, dep/anx 5. taking meals and meds. attending groups. slept 8 hours. Mental Status Exam Mental Status Exam Narrative: alert, oriented and pleasant. well dressed and groomed. Normal speech. Moderate eye contact. Affect is more flexible. linear and logical, No signs of psychosis. mood a little depressed. no SI/SIBI/HI/AVH expressed. Cognitively intact. Able to move all limbs. Judgment is intact Diagnostics Vital Signs (24Hr): Vital Signs - 24 hr 01/25/24 20:00 01/25/24 20:38 01/26/24 08:00 Temperature 98.6 F 97.3 F Pulse Rate 83 74 Respiratory Rate 16 18 Blood Pressure 97/60 97/58 L 94/56 L Pulse Oximetry 97 95 Oxygen Delivery Method Room Air Room Air 01/26/24 08:09 Temperature Pulse Rate 69 Respiratory Rate Blood Pressure 112/69 Pulse Oximetry Oxygen Delivery Method BMI result Body Mass Index 33.1 Labs 01/17/24 15:11 01/17/24 15:11 Imaging Radiology Impressions: ITS Impressions Toe X-Ray 01/17/24 15:38 IMPRESSION: Normal toe. Medications Medications Current Medications Acetaminophen (Acetaminophen 325 Mg Tablet) 650 mg PO Q6H PRN PRN Reason: Headache/Pain Mild Scale (1-3) Last Admin: 01/24/24 17:45 Dose: 650 mg Al Hydroxide/Mg Hydroxide (Magnesium Hydrox/Alum Hydrox 30 Ml Oral.Susp) 30 ml PO Q6H PRN PRN Reason: Heartburn/Nausea Aripiprazole (Aripiprazole 5 Mg Tablet) 5 mg PO DAILY ON LICENSE OF [facility] Last Admin: 01/26/24 10:10 Dose: 5 mg Baclofen (Baclofen 10 Mg Tablet) 10 mg PO BID ON LICENSE OF [facility] Last Admin: 01/26/24 10:09 Dose: 10 mg Bupropion HCl (Bupropion Hcl Xl 300 Mg Tab.Er.24h) 300 mg PO DAILY ON LICENSE OF [facility] Last Admin: 01/26/24 10:09 Dose: 300 mg Buspirone HCl (Buspirone Hcl 10 Mg Tablet) 20 mg PO TID ON LICENSE OF [facility] Last Admin: 01/26/24 10:09 Dose: 20 mg Cyclobenzaprine HCl (Cyclobenzaprine Hcl 5 Mg Tablet) 5 mg PO BID PRN PRN Reason: muscle spasm Last Admin: 01/24/24 20:37 Dose: 5 mg Hydroxyzine HCl (Hydroxyzine Hcl 50 Mg Tablet) 50 mg PO Q6H PRN PRN Reason: Anxiety Last Admin: 01/23/24 20:56 Dose: 50 mg Ibuprofen (Ibuprofen 600 Mg Tablet) 600 mg PO Q8H PRN PRN Reason: Pain, Moderate(Pain Scale 4-6) Last Admin: 01/24/24 20:36 Dose: 600 mg Magnesium Hydroxide (Milk Of Magnesia 30 Ml Oral.Susp) 30 ml PO DAILY PRN PRN Reason: Constipation Melatonin (Melatonin 3 Mg Tablet) 6 mg PO BEDTIME PRN PRN Reason: Insomnia Last Admin: 01/25/24 20:39 Dose: 6 mg Methadone HCl (Methadone Hcl 20 Mg/2 Ml Oral.Conc) 70 mg PO DAILY ON LICENSE OF [facility] Last Admin: 01/26/24 10:08 Dose: 70 mg Methylphenidate HCl (Methylphenidate Hcl 10 Mg Tablet) 20 mg PO DAILY@1300 ON LICENSE OF [facility] Last Admin: 01/26/24 14:30 Dose: 20 mg Methylphenidate HCl (Methylphenidate Hcl 10 Mg Tablet) 40 mg PO DAILY ON LICENSE OF [facility] Last Admin: 01/26/24 10:09 Dose: 40 mg Nicotine Polacrilex (Nicotine Polacrilex 2 Mg Gum) 2 mg BUCCAL Q2H PRN PRN Reason: Nicotine Cravings Prazosin HCl (Prazosin Hcl 1 Mg Capsule) 2 mg PO BEDTIME [facility]; Protocol Last Admin: 01/25/24 20:38 Dose: 2 mg Quetiapine Fumarate (Quetiapine Fumarate 100 Mg Tablet) 100 mg PO BEDTIME ON LICENSE OF [facility] Last Admin: 01/25/24 20:40 Dose: 100 mg Quetiapine Fumarate (Quetiapine Fumarate 25 Mg Tablet) 25 mg PO BEDTIME PRN PRN Reason: insomnia Allergies Allergies Allergy/AdvReac Type Severity Reaction Status Date / Time amoxicillin Allergy Hives Verified 01/17/24 14:40 Assessment & Plan Assessment & Plan (1) MDD (major depressive disorder), recurrent severe, without psychosis: Status: Acute Code(s): F33.2 - Major depressive disorder, recurrent severe without psychotic features (2) PTSD (post-traumatic stress disorder): Status: Acute Code(s): F43.10 - Post-traumatic stress disorder, unspecified (3) Cocaine use disorder: Status: Acute Code(s): F14.10 - Cocaine abuse, uncomplicated (4) Opioid use disorder, severe, in sustained remission, dependence: Status: Acute Code(s): F11.21 - Opioid dependence, in remission Plan Patient is a 43 year old female with hx of MDD, PTSD, cocaine use d/o and opioid use d/o who presented to ER via ambulance d/t suicidal ideation d/t increased depressive symptoms and substance abuse. Plan: CV 15 minute safety checks continue home medications referral to substance abuse program referral to outpatient therapist and prescriber encourage groups 01/19: Keeping to self. guarded. Pt reports feeling anxious and depressed today; pt stated, I slept well last night. I'm going to try to go to some groups today . Pt denies SI/HI/VH/AH. continue current tx plan. 01/21/2024: Continue current regimen and plans 01/22/2024: Continue current regimen and plans. Increase BuSpar to 15 mg t.i.d. 01/22: increase ritalin from 20 BID to 40/20, a regimen pt had been on in the past after c/o racing thoughts, per pt request. also add seroquel 25 mg QHS PRN insomnia. otherwise continue current mgmt. awaiting acceptance to rehab. 01/23: improved today, up and about doing ADLs. reports improved energy, motivation, anxiety. still depressed. agrees to DC sertraline, increase wellbutrin to 300. feeling she will be ready for rehab in a couple of days. 01/24: wellbutrin dosing increased to 300 mg as of today. buspar also increased today, from 15 TID to 20 TID, per pt request. per SW, [facility] will have a bed early next week for patient. 01/25: improving. continue current mgmt. awaiting bed at [facility]. Reason for continued inpatient stay Substantial Risk for: inability to function and rapid decompensation Time Spent With Patient Time: Total time managing care of this patient today __25__ minutes.
[2024-01-26 15:17] LABS: COVID-19 Test Negative (Negative); IDNOW Serial# 08D9AD1C
[2024-01-26 20:04] VITALS: BP 108/75
[2024-01-26] MEDS: QUEtiapine Fumarate 100 MG TABLET PO (20:04)
[2024-01-26] MEDS: Prazosin HCL 1 MG CAPSULE 2 MG PO (20:04)
[2024-01-26] MEDS: Cyclobenzaprine HCl 5 MG TABLET PO (20:04)
[2024-01-26 20:06] VITALS: BP 108/75; PULSE 80; RESP 16; TEMP 36.4; O2SAT 98
[2024-01-26] MEDS: Ibuprofen 600 MG TABLET PO (21:06)
[2024-01-26] MEDS: Melatonin 3 MG TABLET 6 MG PO (21:06)
[2024-01-27 07:50] VITALS: BP 106/62; PULSE 74; RESP 16; TEMP 36.4; O2SAT 96
[2024-01-27] MEDS: Baclofen 10 MG TABLET PO ×2 (09:18→20:35)
[2024-01-27] MEDS: Methylphenidate HCl 10 MG TABLET 40 MG PO (09:18)
[2024-01-27] MEDS: ARIPiprazole 5 MG TABLET PO (09:18)
[2024-01-27] MEDS: busPIRone HCl 10 MG TABLET 20 MG PO ×3 (09:18→20:35)
[2024-01-27] MEDS: buPROPion HCl XL 300 MG TAB.ER.24H PO (09:18)
[2024-01-27] MEDS: methADONE HCl 20 MG/2 ML ORAL.CONC 70 MG PO (09:21)
[2024-01-27] MEDS: Methylphenidate HCl 10 MG TABLET 20 MG PO (14:24)
--- NOTE | 2024-01-27 16:16 | P.PNPSI_ITS ---
Subjective Subjective Date of Service: 01/27/24 Reason For Visit: Suicidal ideation Interim History: stable, feeling improved. awaiting bed at rehab. per staff, attending groups. dep 3 anx 3. more energy. slept well. brighter. Mental Status Exam Mental Status Exam Narrative: alert, oriented and pleasant. well dressed and groomed. Normal speech. Moderate eye contact. Affect is more flexible. linear and logical, No signs of psychosis. mood improved. no SI/SIBI/HI/AVH expressed. Cognitively intact. Able to move all limbs. Judgment is intact Diagnostics Vital Signs (24Hr): Vital Signs - 24 hr 01/26/24 20:04 01/26/24 20:06 01/27/24 07:50 Temperature 97.5 F 97.6 F Pulse Rate 80 74 Respiratory Rate 16 16 Blood Pressure 108/75 108/75 106/62 Pulse Oximetry 98 96 Oxygen Delivery Method Room Air Room Air BMI result Body Mass Index 33.1 Labs 01/17/24 15:11 01/17/24 15:11 Labs: Laboratory Results - last 48 hr 01/26/24 14:34 COVID-19 ([facility]) Negative COVID-19 Clin Com See Note Imaging Radiology Impressions: ITS Impressions Toe X-Ray 01/17/24 15:38 IMPRESSION: Normal toe. Medications Medications Current Medications Acetaminophen (Acetaminophen 325 Mg Tablet) 650 mg PO Q6H PRN PRN Reason: Headache/Pain Mild Scale (1-3) Last Admin: 01/24/24 17:45 Dose: 650 mg Al Hydroxide/Mg Hydroxide (Magnesium Hydrox/Alum Hydrox 30 Ml Oral.Susp) 30 ml PO Q6H PRN PRN Reason: Heartburn/Nausea Aripiprazole (Aripiprazole 5 Mg Tablet) 5 mg PO DAILY [facility] Last Admin: 01/27/24 09:18 Dose: 5 mg Baclofen (Baclofen 10 Mg Tablet) 10 mg PO BID [facility] Last Admin: 01/27/24 09:18 Dose: 10 mg Bupropion HCl (Bupropion Hcl Xl 300 Mg Tab.Er.24h) 300 mg PO DAILY [facility] Last Admin: 01/27/24 09:18 Dose: 300 mg Buspirone HCl (Buspirone Hcl 10 Mg Tablet) 20 mg PO TID [facility] Last Admin: 01/27/24 14:24 Dose: 20 mg Cyclobenzaprine HCl (Cyclobenzaprine Hcl 5 Mg Tablet) 5 mg PO BID PRN PRN Reason: muscle spasm Last Admin: 01/26/24 20:04 Dose: 5 mg Hydroxyzine HCl (Hydroxyzine Hcl 50 Mg Tablet) 50 mg PO Q6H PRN PRN Reason: Anxiety Last Admin: 01/23/24 20:56 Dose: 50 mg Ibuprofen (Ibuprofen 600 Mg Tablet) 600 mg PO Q8H PRN PRN Reason: Pain, Moderate(Pain Scale 4-6) Last Admin: 01/26/24 21:06 Dose: 600 mg Magnesium Hydroxide (Milk Of Magnesia 30 Ml Oral.Susp) 30 ml PO DAILY PRN PRN Reason: Constipation Melatonin (Melatonin 3 Mg Tablet) 6 mg PO BEDTIME PRN PRN Reason: Insomnia Last Admin: 01/26/24 21:06 Dose: 6 mg Methadone HCl (Methadone Hcl 20 Mg/2 Ml Oral.Conc) 70 mg PO DAILY [facility] Last Admin: 01/27/24 09:21 Dose: 70 mg Methylphenidate HCl (Methylphenidate Hcl 10 Mg Tablet) 20 mg PO DAILY@1300 [facility] Last Admin: 01/27/24 14:24 Dose: 20 mg Methylphenidate HCl (Methylphenidate Hcl 10 Mg Tablet) 40 mg PO DAILY [facility] Last Admin: 01/27/24 09:18 Dose: 40 mg Nicotine Polacrilex (Nicotine Polacrilex 2 Mg Gum) 2 mg BUCCAL Q2H PRN PRN Reason: Nicotine Cravings Prazosin HCl (Prazosin Hcl 1 Mg Capsule) 2 mg PO BEDTIME [facility]; Protocol Last Admin: 01/26/24 20:04 Dose: 2 mg Quetiapine Fumarate (Quetiapine Fumarate 100 Mg Tablet) 100 mg PO BEDTIME [facility] Last Admin: 01/26/24 20:04 Dose: 100 mg Quetiapine Fumarate (Quetiapine Fumarate 25 Mg Tablet) 25 mg PO BEDTIME PRN PRN Reason: insomnia Allergies Allergies Allergy/AdvReac Type Severity Reaction Status Date / Time amoxicillin Allergy Hives Verified 01/17/24 14:40 Assessment & Plan Assessment & Plan (1) MDD (major depressive disorder), recurrent severe, without psychosis: Status: Acute Code(s): F33.2 - Major depressive disorder, recurrent severe without psychotic features (2) PTSD (post-traumatic stress disorder): Status: Acute Code(s): F43.10 - Post-traumatic stress disorder, unspecified (3) Cocaine use disorder: Status: Acute Code(s): F14.10 - Cocaine abuse, uncomplicated (4) Opioid use disorder, severe, in sustained remission, dependence: Status: Acute Code(s): F11.21 - Opioid dependence, in remission Plan Patient is a 43 year old female with hx of MDD, PTSD, cocaine use d/o and opioid use d/o who presented to ER via ambulance d/t suicidal ideation d/t increased depressive symptoms and substance abuse. Plan: CV 15 minute safety checks continue home medications referral to substance abuse program referral to outpatient therapist and prescriber encourage groups 01/19: Keeping to self. guarded. Pt reports feeling anxious and depressed today; pt stated, I slept well last night. I'm going to try to go to some groups today . Pt denies SI/HI/VH/AH. continue current tx plan. 01/21/2024: Continue current regimen and plans 01/22/2024: Continue current regimen and plans. Increase BuSpar to 15 mg t.i.d. 01/22: increase ritalin from 20 BID to 40/20, a regimen pt had been on in the past after c/o racing thoughts, per pt request. also add seroquel 25 mg QHS PRN insomnia. otherwise continue current mgmt. awaiting acceptance to rehab. 01/23: improved today, up and about doing ADLs. reports improved energy, motivation, anxiety. still depressed. agrees to DC sertraline, increase wellbutrin to 300. feeling she will be ready for rehab in a couple of days. 01/24: wellbutrin dosing increased to 300 mg as of today. buspar also increased today, from 15 TID to 20 TID, per pt request. per , [facility] will have a bed early next week for patient. 01/25: improving. continue current mgmt. awaiting bed at [facility]. 01/26: continues improved. awaiting bed at rehab. continue current mgmt. Reason for continued inpatient stay Substantial Risk for: inability to function and rapid decompensation Time Spent With Patient Time: Total time managing care of this patient today ____ minutes.
[2024-01-27 20:26] VITALS: BP 118/82; PULSE 80; RESP 18; TEMP 37.1; O2SAT 99
[2024-01-27 20:35] VITALS: BP 118/82
[2024-01-27] MEDS: QUEtiapine Fumarate 100 MG TABLET PO (20:35)
[2024-01-27] MEDS: Prazosin HCL 1 MG CAPSULE 2 MG PO (20:35)
[2024-01-27] MEDS: Melatonin 3 MG TABLET 6 MG PO (20:48)
[2024-01-27] MEDS: Cyclobenzaprine HCl 5 MG TABLET PO (20:48)
[2024-01-28 08:00] VITALS: BP 104/64; PULSE 85; RESP 16; TEMP 37.1; O2SAT 98
[2024-01-28] MEDS: methADONE HCl 20 MG/2 ML ORAL.CONC 70 MG PO (09:23)
[2024-01-28] MEDS: busPIRone HCl 10 MG TABLET 20 MG PO ×3 (09:24→20:42)
[2024-01-28] MEDS: Methylphenidate HCl 10 MG TABLET 40 MG PO (09:25)
[2024-01-28] MEDS: ARIPiprazole 5 MG TABLET PO (09:25)
[2024-01-28] MEDS: Baclofen 10 MG TABLET PO ×2 (09:25→20:42)
[2024-01-28] MEDS: buPROPion HCl XL 300 MG TAB.ER.24H PO (09:25)
[2024-01-28] MEDS: Ibuprofen 600 MG TABLET PO ×2 (12:40→20:43)
[2024-01-28] MEDS: Methylphenidate HCl 10 MG TABLET 20 MG PO (12:41)
[2024-01-28 20:35] VITALS: BP 123/82; PULSE 101; RESP 16; TEMP 36.3; O2SAT 95
[2024-01-28] MEDS: Melatonin 3 MG TABLET 6 MG PO (20:42)
[2024-01-28] MEDS: QUEtiapine Fumarate 100 MG TABLET PO (20:42)
[2024-01-28] MEDS: Cyclobenzaprine HCl 5 MG TABLET PO (20:42)
[2024-01-28] MEDS: Prazosin HCL 1 MG CAPSULE 2 MG PO (20:42)
--- NOTE | 2024-01-28 21:04 | P.PNPSI_ITS ---
Subjective Subjective Date of Service: 01/28/24 Reason For Visit: Suicidal ideation Interim History: stable, feeling improved. awaiting bed at rehab. per staff, attending groups. dep 3 anx 3. more energy. slept well. brighter. Review of Systems Review of Systems Yes all other systems are reviewed and are negative Constitutional: Reports as per HPI Eyes: Reports as per HPI Reports as per HPI Cardiovascular: Reports as per HPI Respiratory: Reports as per HPI Gastrointestinal: Reports as per HPI Musculoskeletal: Reports as per HPI Skin/Breast: Reports as per HPI Reports as per HPI Psychiatric: Reports as per HPI Endocrine: Reports as per HPI Hematologic/Lymphatic: Reports as per HPI Allergic/Immunologic: Reports as per HPI Mental Status Exam Mental Status Exam Narrative: alert, oriented and pleasant. well dressed and groomed. Normal speech. Moderate eye contact. Affect is more flexible. linear and logical, No signs of psychosis. mood improved. no SI/SIBI/HI/AVH expressed. Cognitively intact. Able to move all limbs. Judgment is intact Diagnostics Vital Signs (24Hr): Vital Signs - 24 hr 01/28/24 08:00 01/28/24 20:35 Temperature 98.8 F 97.4 F Pulse Rate 85 101 H Respiratory Rate 16 16 Blood Pressure 104/64 123/82 Pulse Oximetry 98 95 Oxygen Delivery Method Room Air Room Air BMI result Body Mass Index 33.1 Labs 01/17/24 15:11 01/17/24 15:11 Imaging Radiology Impressions: ITS Impressions Toe X-Ray 01/17/24 15:38 IMPRESSION: Normal toe. Medications Medications Current Medications Acetaminophen (Acetaminophen 325 Mg Tablet) 650 mg PO Q6H PRN PRN Reason: Headache/Pain Mild Scale (1-3) Last Admin: 01/24/24 17:45 Dose: 650 mg Al Hydroxide/Mg Hydroxide (Magnesium Hydrox/Alum Hydrox 30 Ml Oral.Susp) 30 ml PO Q6H PRN PRN Reason: Heartburn/Nausea Aripiprazole (Aripiprazole 5 Mg Tablet) 5 mg PO DAILY [facility] Last Admin: 01/28/24 09:25 Dose: 5 mg Baclofen (Baclofen 10 Mg Tablet) 10 mg PO BID [facility] Last Admin: 01/28/24 20:42 Dose: 10 mg Bupropion HCl (Bupropion Hcl Xl 300 Mg Tab.Er.24h) 300 mg PO DAILY [facility] Last Admin: 01/28/24 09:25 Dose: 300 mg Buspirone HCl (Buspirone Hcl 10 Mg Tablet) 20 mg PO TID [facility] Last Admin: 01/28/24 20:42 Dose: 20 mg Cyclobenzaprine HCl (Cyclobenzaprine Hcl 5 Mg Tablet) 5 mg PO BID PRN PRN Reason: muscle spasm Last Admin: 01/28/24 20:42 Dose: 5 mg Hydroxyzine HCl (Hydroxyzine Hcl 50 Mg Tablet) 50 mg PO Q6H PRN PRN Reason: Anxiety Last Admin: 01/23/24 20:56 Dose: 50 mg Ibuprofen (Ibuprofen 600 Mg Tablet) 600 mg PO Q8H PRN PRN Reason: Pain, Moderate(Pain Scale 4-6) Last Admin: 01/28/24 20:43 Dose: 600 mg Magnesium Hydroxide (Milk Of Magnesia 30 Ml Oral.Susp) 30 ml PO DAILY PRN PRN Reason: Constipation Melatonin (Melatonin 3 Mg Tablet) 6 mg PO BEDTIME PRN PRN Reason: Insomnia Last Admin: 01/28/24 20:42 Dose: 6 mg Methadone HCl (Methadone Hcl 20 Mg/2 Ml Oral.Conc) 70 mg PO DAILY [facility] Last Admin: 01/28/24 09:23 Dose: 70 mg Methylphenidate HCl (Methylphenidate Hcl 10 Mg Tablet) 20 mg PO DAILY@1300 [facility] Last Admin: 01/28/24 12:41 Dose: 20 mg Methylphenidate HCl (Methylphenidate Hcl 10 Mg Tablet) 40 mg PO DAILY [facility] Last Admin: 01/28/24 09:25 Dose: 40 mg Nicotine Polacrilex (Nicotine Polacrilex 2 Mg Gum) 2 mg BUCCAL Q2H PRN PRN Reason: Nicotine Cravings Prazosin HCl (Prazosin Hcl 1 Mg Capsule) 2 mg PO BEDTIME [facility]; Protocol Last Admin: 01/28/24 20:42 Dose: 2 mg Quetiapine Fumarate (Quetiapine Fumarate 100 Mg Tablet) 100 mg PO BEDTIME [facility] Last Admin: 01/28/24 20:42 Dose: 100 mg Quetiapine Fumarate (Quetiapine Fumarate 25 Mg Tablet) 25 mg PO BEDTIME PRN PRN Reason: insomnia Allergies Allergies Allergy/AdvReac Type Severity Reaction Status Date / Time amoxicillin Allergy Hives Verified 01/17/24 14:40 Assessment & Plan Assessment & Plan (1) MDD (major depressive disorder), recurrent severe, without psychosis: Status: Acute Code(s): F33.2 - Major depressive disorder, recurrent severe without psychotic features (2) PTSD (post-traumatic stress disorder): Status: Acute Code(s): F43.10 - Post-traumatic stress disorder, unspecified (3) Cocaine use disorder: Status: Acute Code(s): F14.10 - Cocaine abuse, uncomplicated (4) Opioid use disorder, severe, in sustained remission, dependence: Status: Acute Code(s): F11.21 - Opioid dependence, in remission Plan Patient is a 43 year old female with hx of MDD, PTSD, cocaine use d/o and opioid use d/o who presented to ER via ambulance d/t suicidal ideation d/t increased depressive symptoms and substance abuse. Plan: CV 15 minute safety checks continue home medications referral to substance abuse program referral to outpatient therapist and prescriber encourage groups 01/19: Keeping to self. guarded. Pt reports feeling anxious and depressed today; pt stated, I slept well last night. I'm going to try to go to some groups today . Pt denies SI/HI/VH/AH. continue current tx plan. 01/21/2024: Continue current regimen and plans 01/22/2024: Continue current regimen and plans. Increase BuSpar to 15 mg t.i.d. 01/22: increase ritalin from 20 BID to 40/20, a regimen pt had been on in the past after c/o racing thoughts, per pt request. also add seroquel 25 mg QHS PRN insomnia. otherwise continue current mgmt. awaiting acceptance to rehab. 01/23: improved today, up and about doing ADLs. reports improved energy, motivation, anxiety. still depressed. agrees to DC sertraline, increase wellbutrin to 300. feeling she will be ready for rehab in a couple of days. 01/24: wellbutrin dosing increased to 300 mg as of today. buspar also increased today, from 15 TID to 20 TID, per pt request. per , [facility] will have a bed early next week for patient. 01/25: improving. continue current mgmt. awaiting bed at [facility]. 01/26: continues improved. awaiting bed at rehab. continue current mgmt. 01/27: continue current management and treatment plan. Reason for continued inpatient stay Substantial Risk for: harm to self and rapid decompensation Time Spent With Patient Time: Total time managing care of this patient today ____ minutes.
[2024-01-29 08:25] VITALS: BP 96/56; PULSE 77; RESP 16; TEMP 36.4; O2SAT 95
[2024-01-29] MEDS: methADONE HCl 20 MG/2 ML ORAL.CONC 70 MG PO (09:22)
[2024-01-29] MEDS: ARIPiprazole 5 MG TABLET PO (09:25)
[2024-01-29] MEDS: busPIRone HCl 10 MG TABLET 20 MG PO ×3 (09:25→20:18)
--- NOTE | 2024-01-29 09:25 | HO.PSYCHPN ---
Subjective Subjective Date of Service: 01/29/24 Reason For Visit: Suicidal ideation Interim History: stable, feeling a little depressed today but improved since admission. awaiting bed at rehab. per staff, attending groups. more energy. slept well. brighter. Review of Systems Review of Systems Yes all other systems are reviewed and are negative Constitutional: Reports as per HPI Eyes: Reports as per HPI Reports as per HPI Cardiovascular: Reports as per HPI Respiratory: Reports as per HPI Gastrointestinal: Reports as per HPI Musculoskeletal: Reports as per HPI Skin/Breast: Reports as per HPI Reports as per HPI Psychiatric: Reports as per HPI Endocrine: Reports as per HPI Hematologic/Lymphatic: Reports as per HPI Allergic/Immunologic: Reports as per HPI Mental Status Exam Mental Status Exam Narrative: alert, oriented and pleasant. well dressed and groomed. Normal speech. Moderate eye contact. Affect is more flexible. linear and logical, No signs of psychosis. mood improved. no SI/SIBI/HI/AVH expressed. Cognitively intact. Able to move all limbs. Judgment is intact Diagnostics Vital Signs (24Hr): Vital Signs - 24 hr 01/28/24 20:35 01/29/24 08:25 Temperature 97.4 F 97.6 F Pulse Rate 101 H 77 Respiratory Rate 16 16 Blood Pressure 123/82 96/56 L Pulse Oximetry 95 95 Oxygen Delivery Method Room Air Room Air BMI result Body Mass Index 33.1 Labs 01/17/24 15:11 01/17/24 15:11 Imaging Radiology Impressions: ITS Impressions Toe X-Ray 01/17/24 15:38 IMPRESSION: Normal toe. Medications Medications Current Medications Acetaminophen (Acetaminophen 325 Mg Tablet) 650 mg PO Q6H PRN PRN Reason: Headache/Pain Mild Scale (1-3) Last Admin: 01/24/24 17:45 Dose: 650 mg Al Hydroxide/Mg Hydroxide (Magnesium Hydrox/Alum Hydrox 30 Ml Oral.Susp) 30 ml PO Q6H PRN PRN Reason: Heartburn/Nausea Aripiprazole (Aripiprazole 5 Mg Tablet) 5 mg PO DAILY [facility] Last Admin: 01/28/24 09:25 Dose: 5 mg Baclofen (Baclofen 10 Mg Tablet) 10 mg PO BID [facility] Last Admin: 01/28/24 20:42 Dose: 10 mg Bupropion HCl (Bupropion Hcl Xl 300 Mg Tab.Er.24h) 300 mg PO DAILY [facility] Last Admin: 01/28/24 09:25 Dose: 300 mg Buspirone HCl (Buspirone Hcl 10 Mg Tablet) 20 mg PO TID [facility] Last Admin: 01/28/24 20:42 Dose: 20 mg Cyclobenzaprine HCl (Cyclobenzaprine Hcl 5 Mg Tablet) 5 mg PO BID PRN PRN Reason: muscle spasm Last Admin: 01/28/24 20:42 Dose: 5 mg Hydroxyzine HCl (Hydroxyzine Hcl 50 Mg Tablet) 50 mg PO Q6H PRN PRN Reason: Anxiety Last Admin: 01/23/24 20:56 Dose: 50 mg Ibuprofen (Ibuprofen 600 Mg Tablet) 600 mg PO Q8H PRN PRN Reason: Pain, Moderate(Pain Scale 4-6) Last Admin: 01/28/24 20:43 Dose: 600 mg Magnesium Hydroxide (Milk Of Magnesia 30 Ml Oral.Susp) 30 ml PO DAILY PRN PRN Reason: Constipation Melatonin (Melatonin 3 Mg Tablet) 6 mg PO BEDTIME PRN PRN Reason: Insomnia Last Admin: 01/28/24 20:42 Dose: 6 mg Methadone HCl (Methadone Hcl 20 Mg/2 Ml Oral.Conc) 70 mg PO DAILY [facility] Last Admin: 01/28/24 09:23 Dose: 70 mg Methylphenidate HCl (Methylphenidate Hcl 10 Mg Tablet) 20 mg PO DAILY@1300 [facility] Last Admin: 01/28/24 12:41 Dose: 20 mg Methylphenidate HCl (Methylphenidate Hcl 10 Mg Tablet) 40 mg PO DAILY [facility] Last Admin: 01/28/24 09:25 Dose: 40 mg Nicotine Polacrilex (Nicotine Polacrilex 2 Mg Gum) 2 mg BUCCAL Q2H PRN PRN Reason: Nicotine Cravings Prazosin HCl (Prazosin Hcl 1 Mg Capsule) 2 mg PO BEDTIME [facility]; Protocol Last Admin: 01/28/24 20:42 Dose: 2 mg Quetiapine Fumarate (Quetiapine Fumarate 100 Mg Tablet) 100 mg PO BEDTIME [facility] Last Admin: 01/28/24 20:42 Dose: 100 mg Quetiapine Fumarate (Quetiapine Fumarate 25 Mg Tablet) 25 mg PO BEDTIME PRN PRN Reason: insomnia Allergies Allergies Allergy/AdvReac Type Severity Reaction Status Date / Time amoxicillin Allergy Hives Verified 01/17/24 14:40 Assessment & Plan Assessment & Plan (1) MDD (major depressive disorder), recurrent severe, without psychosis: Status: Acute Code(s): F33.2 - Major depressive disorder, recurrent severe without psychotic features (2) PTSD (post-traumatic stress disorder): Status: Acute Code(s): F43.10 - Post-traumatic stress disorder, unspecified (3) Cocaine use disorder: Status: Acute Code(s): F14.10 - Cocaine abuse, uncomplicated (4) Opioid use disorder, severe, in sustained remission, dependence: Status: Acute Code(s): F11.21 - Opioid dependence, in remission Plan Patient is a 43 year old female with hx of MDD, PTSD, cocaine use d/o and opioid use d/o who presented to ER via ambulance d/t suicidal ideation d/t increased depressive symptoms and substance abuse. Plan: CV 15 minute safety checks continue home medications referral to substance abuse program referral to outpatient therapist and prescriber encourage groups 01/19: Keeping to self. guarded. Pt reports feeling anxious and depressed today; pt stated, I slept well last night. I'm going to try to go to some groups today . Pt denies SI/HI/VH/AH. continue current tx plan. 01/21/2024: Continue current regimen and plans 01/22/2024: Continue current regimen and plans. Increase BuSpar to 15 mg t.i.d. 01/22: increase ritalin from 20 BID to 40/20, a regimen pt had been on in the past after c/o racing thoughts, per pt request. also add seroquel 25 mg QHS PRN insomnia. otherwise continue current mgmt. awaiting acceptance to rehab. 01/23: improved today, up and about doing ADLs. reports improved energy, motivation, anxiety. still depressed. agrees to DC sertraline, increase wellbutrin to 300. feeling she will be ready for rehab in a couple of days. 01/24: wellbutrin dosing increased to 300 mg as of today. buspar also increased today, from 15 TID to 20 TID, per pt request. per , [facility] will have a bed early next week for patient. 01/25: improving. continue current mgmt. awaiting bed at [facility]. 01/26: continues improved. awaiting bed at rehab. continue current mgmt. 01/27: continue current management and treatment plan. 01/28: continue current management and treatment plan. Reason for continued inpatient stay Substantial Risk for: harm to self and inability to function Time Spent With Patient Time: Total time managing care of this patient today ____ minutes.
[2024-01-29] MEDS: Methylphenidate HCl 10 MG TABLET 40 MG PO (09:26)
[2024-01-29] MEDS: buPROPion HCl XL 300 MG TAB.ER.24H PO (09:26)
[2024-01-29] MEDS: Baclofen 10 MG TABLET PO ×2 (09:26→20:19)
[2024-01-29] MEDS: Methylphenidate HCl 10 MG TABLET 20 MG PO (13:19)
[2024-01-29 20:10] VITALS: BP 111/68; PULSE 97; RESP 16; TEMP 36.8; O2SAT 96
[2024-01-29] MEDS: Prazosin HCL 1 MG CAPSULE 2 MG PO (20:18)
[2024-01-29] MEDS: Melatonin 3 MG TABLET 6 MG PO (20:18)
[2024-01-29] MEDS: QUEtiapine Fumarate 100 MG TABLET PO (20:19)
[2024-01-29] MEDS: Ibuprofen 600 MG TABLET PO (20:19)
[2024-01-29] MEDS: Cyclobenzaprine HCl 5 MG TABLET PO (20:19)
--- NOTE | 2024-01-29 20:25 | PC.NURSE ---
Patient given flexiril PO prn and Motrin PO prn for back pain 6-04/11, patient also given Melatonin PO prn for sleep.
[2024-01-30 07:52] VITALS: BP 104/56; PULSE 75; RESP 14; TEMP 36.7; O2SAT 96
[2024-01-30] MEDS: busPIRone HCl 10 MG TABLET 20 MG PO ×3 (09:35→20:38)
[2024-01-30] MEDS: Baclofen 10 MG TABLET PO ×2 (09:36→20:39)
[2024-01-30] MEDS: buPROPion HCl XL 300 MG TAB.ER.24H PO (09:36)
[2024-01-30] MEDS: methADONE HCl 20 MG/2 ML ORAL.CONC 70 MG PO (09:36)
[2024-01-30] MEDS: ARIPiprazole 5 MG TABLET PO (09:36)
[2024-01-30] MEDS: Methylphenidate HCl 10 MG TABLET 40 MG PO (09:36)
[2024-01-30] MEDS: Methylphenidate HCl 10 MG TABLET 20 MG PO (13:25)
--- NOTE | 2024-01-30 16:42 | P.PNPSI_ITS ---
Subjective Subjective Date of Service: 01/30/24 Reason For Visit: Suicidal ideation Interim History: calm, cooperative, stable. no questions or complaints. waiting for a bed at [facility]. per staff, calmly pleasant, cooperative. attending groups. dep 4 anx 6. social with roommate. slept well. Mental Status Exam Mental Status Exam Narrative: alert, oriented and pleasant. well dressed and groomed. Normal speech. Moderate eye contact. Affect is more flexible. linear and logical, No signs of psychosis. mood improved. no SI/SIBI/HI/AVH expressed. Cognitively intact. Able to move all limbs. Judgment is intact Diagnostics Vital Signs (24Hr): Vital Signs - 24 hr 01/29/24 20:10 01/30/24 07:52 Temperature 98.3 F 98.1 F Pulse Rate 97 75 Respiratory Rate 16 14 Blood Pressure 111/68 104/56 L Pulse Oximetry 96 96 Oxygen Delivery Method Room Air Room Air BMI result Body Mass Index 33.1 Labs 01/17/24 15:11 01/17/24 15:11 Imaging Radiology Impressions: ITS Impressions Toe X-Ray 01/17/24 15:38 IMPRESSION: Normal toe. Medications Medications Current Medications Acetaminophen (Acetaminophen 325 Mg Tablet) 650 mg PO Q6H PRN PRN Reason: Headache/Pain Mild Scale (1-3) Last Admin: 01/24/24 17:45 Dose: 650 mg Al Hydroxide/Mg Hydroxide (Magnesium Hydrox/Alum Hydrox 30 Ml Oral.Susp) 30 ml PO Q6H PRN PRN Reason: Heartburn/Nausea Aripiprazole (Aripiprazole 5 Mg Tablet) 5 mg PO DAILY [facility] Last Admin: 01/30/24 09:36 Dose: 5 mg Baclofen (Baclofen 10 Mg Tablet) 10 mg PO BID [facility] Last Admin: 01/30/24 09:36 Dose: 10 mg Bupropion HCl (Bupropion Hcl Xl 300 Mg Tab.Er.24h) 300 mg PO DAILY [facility] Last Admin: 01/30/24 09:36 Dose: 300 mg Buspirone HCl (Buspirone Hcl 10 Mg Tablet) 20 mg PO TID [facility] Last Admin: 01/30/24 15:38 Dose: 20 mg Cyclobenzaprine HCl (Cyclobenzaprine Hcl 5 Mg Tablet) 5 mg PO BID PRN PRN Reason: muscle spasm Last Admin: 01/29/24 20:19 Dose: 5 mg Hydroxyzine HCl (Hydroxyzine Hcl 50 Mg Tablet) 50 mg PO Q6H PRN PRN Reason: Anxiety Last Admin: 01/23/24 20:56 Dose: 50 mg Ibuprofen (Ibuprofen 600 Mg Tablet) 600 mg PO Q8H PRN PRN Reason: Pain, Moderate(Pain Scale 4-6) Last Admin: 01/29/24 20:19 Dose: 600 mg Magnesium Hydroxide (Milk Of Magnesia 30 Ml Oral.Susp) 30 ml PO DAILY PRN PRN Reason: Constipation Melatonin (Melatonin 3 Mg Tablet) 6 mg PO BEDTIME PRN PRN Reason: Insomnia Last Admin: 01/29/24 20:18 Dose: 6 mg Methadone HCl (Methadone Hcl 20 Mg/2 Ml Oral.Conc) 70 mg PO DAILY [facility] Last Admin: 01/30/24 09:36 Dose: 70 mg Methylphenidate HCl (Methylphenidate Hcl 10 Mg Tablet) 20 mg PO DAILY@1300 [facility] Last Admin: 01/30/24 13:25 Dose: 20 mg Methylphenidate HCl (Methylphenidate Hcl 10 Mg Tablet) 40 mg PO DAILY [facility] Last Admin: 01/30/24 09:36 Dose: 40 mg Nicotine Polacrilex (Nicotine Polacrilex 2 Mg Gum) 2 mg BUCCAL Q2H PRN PRN Reason: Nicotine Cravings Prazosin HCl (Prazosin Hcl 1 Mg Capsule) 2 mg PO BEDTIME [facility]; Protocol Last Admin: 01/29/24 20:18 Dose: 2 mg Quetiapine Fumarate (Quetiapine Fumarate 100 Mg Tablet) 100 mg PO BEDTIME [facility] Last Admin: 01/29/24 20:19 Dose: 100 mg Quetiapine Fumarate (Quetiapine Fumarate 25 Mg Tablet) 25 mg PO BEDTIME PRN PRN Reason: insomnia Allergies Allergies Allergy/AdvReac Type Severity Reaction Status Date / Time amoxicillin Allergy Hives Verified 01/17/24 14:40 Assessment & Plan Assessment & Plan (1) MDD (major depressive disorder), recurrent severe, without psychosis: Status: Acute Code(s): F33.2 - Major depressive disorder, recurrent severe without psychotic features (2) PTSD (post-traumatic stress disorder): Status: Acute Code(s): F43.10 - Post-traumatic stress disorder, unspecified (3) Cocaine use disorder: Status: Acute Code(s): F14.10 - Cocaine abuse, uncomplicated (4) Opioid use disorder, severe, in sustained remission, dependence: Status: Acute Code(s): F11.21 - Opioid dependence, in remission Plan Patient is a 43 year old female with hx of MDD, PTSD, cocaine use d/o and opioid use d/o who presented to ER via ambulance d/t suicidal ideation d/t increased depressive symptoms and substance abuse. Plan: CV 15 minute safety checks continue home medications referral to substance abuse program referral to outpatient therapist and prescriber encourage groups 01/19: Keeping to self. guarded. Pt reports feeling anxious and depressed today; pt stated, I slept well last night. I'm going to try to go to some groups today . Pt denies SI/HI/VH/AH. continue current tx plan. 01/21/2024: Continue current regimen and plans 01/22/2024: Continue current regimen and plans. Increase BuSpar to 15 mg t.i.d. 01/22: increase ritalin from 20 BID to 40/20, a regimen pt had been on in the past after c/o racing thoughts, per pt request. also add seroquel 25 mg QHS PRN insomnia. otherwise continue current mgmt. awaiting acceptance to rehab. 01/23: improved today, up and about doing ADLs. reports improved energy, motivation, anxiety. still depressed. agrees to DC sertraline, increase wellbutrin to 300. feeling she will be ready for rehab in a couple of days. 01/24: wellbutrin dosing increased to 300 mg as of today. buspar also increased today, from 15 TID to 20 TID, per pt request. per , [facility] will have a bed early next week for patient. 01/25: improving. continue current mgmt. awaiting bed at [facility]. 01/26: continues improved. awaiting bed at rehab. continue current mgmt. 01/27: continue current management and treatment plan. 01/28: continue current management and treatment plan. 01/29: continue current mgmt. will discharge to [facility] on . stable safe. Reason for continued inpatient stay Substantial Risk for: inability to function and rapid decompensation Time Spent With Patient Time: Total time managing care of this patient today ____ minutes.
[2024-01-30 20:30] VITALS: BP 118/84; PULSE 102; RESP 16; TEMP 36.9; O2SAT 97
[2024-01-30] MEDS: Ibuprofen 600 MG TABLET PO (20:38)
[2024-01-30] MEDS: Prazosin HCL 1 MG CAPSULE 2 MG PO (20:38)
[2024-01-30] MEDS: Melatonin 3 MG TABLET 6 MG PO (20:39)
[2024-01-30] MEDS: QUEtiapine Fumarate 100 MG TABLET PO (20:39)
[2024-01-30] MEDS: Cyclobenzaprine HCl 5 MG TABLET PO (20:39)
[2024-01-31 08:00] VITALS: BP 83/51; PULSE 75; RESP 18; TEMP 36.9; O2SAT 91
[2024-01-31] MEDS: methADONE HCl 20 MG/2 ML ORAL.CONC 70 MG PO (08:29)
[2024-01-31 08:30] VITALS: BP 97/62; O2SAT 98
[2024-01-31] MEDS: Methylphenidate HCl 10 MG TABLET 40 MG PO (08:32)
[2024-01-31] MEDS: buPROPion HCl XL 300 MG TAB.ER.24H PO (08:34)
[2024-01-31] MEDS: ARIPiprazole 5 MG TABLET PO (08:34)
[2024-01-31] MEDS: busPIRone HCl 10 MG TABLET 20 MG PO ×3 (08:34→20:08)
[2024-01-31] MEDS: Baclofen 10 MG TABLET PO ×2 (08:35→20:06)
[2024-01-31] MEDS: Ibuprofen 600 MG TABLET PO ×2 (11:46→20:07)
[2024-01-31] MEDS: Docusate Sodium 100 MG CAPSULE PO ×2 (12:47→20:07)
[2024-01-31] MEDS: Methylphenidate HCl 10 MG TABLET 20 MG PO (12:48)
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
[2024-01-31 20:00] VITALS: BP 111/70; PULSE 88; RESP 18; TEMP 36.8; O2SAT 96
[2024-01-31] MEDS: QUEtiapine Fumarate 100 MG TABLET PO (20:06)
[2024-01-31] MEDS: Prazosin HCL 1 MG CAPSULE 2 MG PO (20:07)
[2024-01-31] MEDS: Cyclobenzaprine HCl 5 MG TABLET PO (20:08)
[2024-01-31] MEDS: Melatonin 3 MG TABLET 6 MG PO (20:08)
[2024-02-01 07:35] VITALS: BP 86/50; PULSE 73; RESP 16; TEMP 36.1; O2SAT 95
[2024-02-01 09:10] VITALS: BP 117/72; PULSE 100
[2024-02-01] MEDS: methADONE HCl 20 MG/2 ML ORAL.CONC 70 MG PO (09:11)
[2024-02-01] MEDS: busPIRone HCl 10 MG TABLET 20 MG PO (09:13)
[2024-02-01] MEDS: Methylphenidate HCl 10 MG TABLET 40 MG PO (09:13)
[2024-02-01] MEDS: ARIPiprazole 5 MG TABLET PO (09:13)
[2024-02-01] MEDS: Docusate Sodium 100 MG CAPSULE PO (09:14)
[2024-02-01] MEDS: Baclofen 10 MG TABLET PO (09:14)
[2024-02-01] MEDS: buPROPion HCl XL 300 MG TAB.ER.24H PO (09:14)
== END 2024-02-01 11:37 | DRG 751 ==
LOC: HO.ED 16:42 → HO.PADLT16 01-18 14:39
PROVIDERS: Emergency Medicine; Physician Assistant; Admitting Provider Clinical Nurse Specialist Psychiatric/Mental Health; Emergency Provider Emergency Medicine; Visit Provider Psychiatry & Neurology Psychiatry
DX: F33.2 Major depressive disorder, recurrent severe without psychotic features (principal); R45.851 Suicidal ideations; F14.10 Cocaine abuse, uncomplicated; F43.12 Post-traumatic stress disorder, chronic; F19.10 Other psychoactive substance abuse, uncomplicated; F11.20 Opioid dependence, uncomplicated; Z20.822 Contact with and (suspected) exposure to COVID-19; Z59.02 Unsheltered homelessness; Z79.899 Other long term (current) drug therapy
CPT/HCPCS: 36415; 73660; 80048; 80076; 80307; 81001; 81003; 81025; 85025; 87086; 87635; 93005; 99285; S9485

== ENCOUNTER → 2024-01-18 14:07 | Outpatient (BNV) | payer OTHER, SELFPAY | PROVIDERS: Admitting Provider Clinical Nurse Specialist Psychiatric/Mental Health; Emergency Provider Emergency Medicine; Visit Provider Internal Medicine | DX: R94.31 Abnormal electrocardiogram [ECG] [EKG] (principal) | CPT/HCPCS: 93010 ==

== ENCOUNTER 2024-01-18 14:33 | Outpatient (BNV) | payer OTHER, SELFPAY | END 2024-01-19 08:00 | PROVIDERS: Admitting Provider Clinical Nurse Specialist Psychiatric/Mental Health; Emergency Provider Emergency Medicine; Visit Provider Internal Medicine | DX: I45.81 Long QT syndrome (principal) | CPT/HCPCS: 93010 ==

== ENCOUNTER → 2024-01-18 14:33 | Outpatient (BNV) | payer OTHER, SELFPAY | PROVIDERS: Admitting Provider Clinical Nurse Specialist Psychiatric/Mental Health; Emergency Provider Emergency Medicine; Visit Provider Registered Nurse | DX: F33.2 Major depressive disorder, recurrent severe without psychotic features (principal); F14.10 Cocaine abuse, uncomplicated; F11.21 Opioid dependence, in remission; F43.11 Post-traumatic stress disorder, acute | CPT/HCPCS: 99231; 99232; 99233 ==

== ENCOUNTER 2024-02-25 08:52 | Emergency (ER) | payer OTHER, SELFPAY ==
[2024-02-25 09:04] VITALS: RESP 18; BMI 28.3
[2024-02-25 09:19] VITALS: BP 111/70; PULSE 68; RESP 17; TEMP 36.4; O2SAT 97
--- NOTE | 2024-02-25 09:23 | ED_ITS ---
HPI - Psych General Chief Complaint: Psychiatric Symptoms Stated Complaint: SI WITH ATTEMPTED OD Time Seen by Provider: 02/25/24 09:13 Source: patient and EMS Mode of arrival: EMS Limitations: no limitations History of Present Illness ED Provider: Elizabeth Morales APRN HPI Narrative: 43-year-old female with a history of bipolar disorder, PTSD, polysubstance use here with complaints of feeling suicidal. Patient reports she took several bags of heroin last night and attempt to kill herself. Patient reports she was just discharged from inpatient psych yesterday. Denies any HI, hallucinations, physical complaints Related Data Home Medications ?Medication ?Instructions ?Recorded ?Confirmed methadone 10 mg/mL oral 70 mg PO DAILY 09/27/23 02/25/24 concentrate (Methadose) Previous Rx's ?Medication ?Instructions ?Recorded aripiprazole 5 mg tablet 5 mg PO DAILY 30 days #30 tabs 01/31/24 baclofen 10 mg tablet 10 mg PO BID 30 days #60 tabs 01/31/24 bupropion HCl 300 mg 24 hr tablet, 300 mg PO DAILY 30 days #30 tabs 01/31/24 extended release buspirone 10 mg tablet 20 mg (2 x 10 mg) PO TID 30 days 01/31/24 #180 tabs cyclobenzaprine 5 mg tablet 5 mg PO BID PRN muscle spasm 30 01/31/24 days #60 tabs docusate sodium 100 mg capsule 100 mg PO BID 30 days #60 caps 01/31/24 hydroxyzine HCl 50 mg tablet 50 mg PO BID PRN Anxiety 30 days 01/31/24 #60 tabs ibuprofen 600 mg tablet 600 mg PO Q8H PRN pain 30 days #90 01/31/24 tabs melatonin 3 mg tablet 6 mg (2 x 3 mg) PO BEDTIME PRN 01/31/24 Insomnia 30 days #60 tabs prazosin 2 mg capsule 2 mg PO BEDTIME 30 days #30 caps 01/31/24 quetiapine 100 mg tablet 100 mg PO BEDTIME 30 days #30 tabs 01/31/24 methylphenidate HCl 20 mg tablet See Rx Instructions .Route 02/01/24 .COMPLEX 30 days #90 tabs Allergies Allergy/AdvReac Type Severity Reaction Status Date / Time amoxicillin Allergy Mild Hives Verified 02/25/24 09:07 [facility] Past Medical History Medical History (Updated 02/25/24 @ 15:52 by Elizabeth Morales NP) Depression Polysubstance abuse Cocaine use disorder PTSD (post-traumatic stress disorder) MDD (major depressive disorder), recurrent severe, without psychosis Polysubstance (including opioids) dependence, daily use Social History Social History Household Members: None Household Members Other:: homeless Housing: Homeless Do you presently have visiting nurse or other home services: No Alcohol intake: current Alcohol intake frequency: does not drink Comment: prior rn admitted Patient Tobacco Use Status: Never used Tobacco e-Cigarette/Vaping Use: Never Used Second Hand Smoke Exposure: Yes Substance Use Type: Crack/Cocaine, Heroin, Opiates and Other Advance Directives: No Advance Directives Information Provided: No Do you have a plan to hurt others: No Plan service: No Sexual orientation: Did not discuss Physical Exam 2 Vital Signs: Vital Signs: Last Vital Signs Temp 97.6 F 02/25/24 09:19 Pulse 68 02/25/24 09:19 Resp 18 02/25/24 13:54 BP 111/70 02/25/24 09:19 Pulse Ox 97 02/25/24 09:19 O2 Del Method Room Air 02/25/24 09:19 BMI result Body Mass Index 28.3 Course Course Course Narrative: 6480-patient placed in physician observation pending disposition Medications Administered Discontinued Medications Generic Name Dose Route Start Last Admin Trade Name Freq PRN Reason Stop Dose Admin Methadone HCl 70 mg 02/25/24 09:29 02/25/24 10:47 Methadone Hcl 20 Mg/2 Ml Oral.Conc PO 02/25/24 09:30 70 mg ONCE ONE Administration Medical Decision Making Medical Decision Making [facility] Narrative: 43-year-old female with a history of bipolar disorder, PTSD, polysubstance use here with complaints of feeling suicidal.? Patient reports she took several bags of heroin last night and attempt to kill herself.? Patient reports she was just discharged from inpatient psych yesterday.? Denies any HI, hallucinations, physical complaints. No concern for acute ingestion or trauma Patient is alert and oriented with stable vital signs Will obtain labs, drug screen, crisis consultation Differential Diagnosis Differential Diagnoses: The differential diagnosis associated with the presentation includes Polysubstance, bipolar disorder Admission/Observation Consideration of admission/observation: Escalation of care including admission/observation considered Consult Healthcare Provider Management of the patient was discussed with: Behavioral Health Provider Lab Data MDM Lab Attestation statement: I reviewed the patient's lab results. 02/25/24 09:47 02/25/24 09:47 Labs: Lab Results 02/25/24 02/25/24 Range/Units 09:47 13:09 WBC 8.9 (4.8-10.8) X10*3/uL RBC 4.66 D (4.20-5.50) X10*6/uL Hgb 14.1 D (12.0-16.0) g/dl Hct 41.2 D (37.0-47.0) % MCV 88.4 (80.0-98.0) fL MCH 30.3 (27.0-33.0) pg MCHC 34.2 (31.0-35.0) g/dl RDW 12.9 (11.0-16.0) % Plt Count 292 (160-400) X10*3/uL MPV 9.9 (9.4-12.3) fL Immature Gran % (Auto) 0.5 H (0.0-0.4) % Neut % (Auto) 71.3 (45-73) % Lymph % (Auto) 22.0 (20-40) % [place] % (Auto) 4.6 (2-11) % Eos % (Auto) 0.9 (0-4) % Baso % (Auto) 0.7 (0-2) % Lymph # (Auto) 2.0 (1.2-4.9) X10*3/uL [place] # (Auto) 0.4 (0.1-1.2) X10*3/uL Eos # (Auto) 0.1 (0.0-0.4) X10*3/uL Baso # (Auto) 0.1 (0.0-0.2) X10*3/uL Abs Immat Gran (auto) 0.04 H (0.00-0.03) X10*3/uL Absolute Neuts (auto) 6.3 (2.0-8.3) x10*3/uL Absolute Nucleated RBC 0.000 (0.0-0.012) X10*3/uL Nucleated RBC % (auto) 0.0 (0.0-0.2) /100WBC Sodium 141 (135-145) mmol/L Potassium 3.5 (3.3-5.1) mmol/L Chloride 104 (96-108) mmol/L Carbon Dioxide 23 (22-29) mmol/L Anion Gap 18 (12-20) BUN 22 H (9-16) mg/dL Creatinine 0.98 (0.5-1.4) mg/dL Estim Creat Clear Calc 65.3 Estimated GFR > 60 Random Glucose 96 (60-115) mg/dL Calcium 9.5 D (8.4-10.2) mg/dL Total Bilirubin 0.9 (0.0-1.0) mg/dL AST 19 (5-31) U/L ALT 11 (0-31) U/L Alkaline Phosphatase 45 (39-117) U/L Total Protein 8.2 H (6.5-8.0) g/dL Albumin 4.5 (3.5-5.0) g/dL Urine Color Dark Yellow Urine Appearance Turbid Urine pH 5.5 (5.0-9.0) Ur Specific [place] >= 1.030 H (1.005-1.025) Urine Protein 30 (1+) H (Neg-Trace) mg/dL Urine Glucose (UA) Negative (Negative) mg/dL Urine Ketones Negative (Negative) mg/dL Urine Blood Large (3+) H (Negative) Urine Nitrite Negative (Negative) Ur Leukocyte Esterase Moderate (2+) H (Negative) Urine RBC >20 H (0-2) /HPF Urine WBC 6-10 (0-5) /HPF Ur Squamous Epith Cells 11-20 (0-2) /HPF Urine Bacteria 2+ (None Seen) Hyaline Casts 0-2 (0-2) /LPF Urine Test NEGATIVE (NEGATIVE) Salicylates < 5.0 L (15-30) mg/dL Urine Opiates Screen Not Detected (Not Detect) Ur Buprenorphine Scrn Not Detected (Not Detect) ng/mL Ur Oxycodone Screen Not Detected (Not Detect) ng/mL Urine Methadone Screen Positive H (Not Detect) ng/mL Urine Fentanyl Screen POSITIVE H (Not Detect) Acetaminophen < 3 (<30) mcg/mL Ur Barbiturates Screen Not Detected (Not Detect) Ur Phencyclidine Scrn Not Detected (Not Detect) Ur Amphetamines Screen Not Detected (Not Detect) U Benzodiazepines Scrn Not Detected (Not Detect) Urine Cocaine Screen POSITIVE H (Not Detect) U Marijuana (THC) Screen Not Detected (Not Detect) Ethyl Alcohol < 10 mg/dL Independent Historian Clinical information obtained from an independent historian. History obtained from or confirmed by: EMS Discharge Plan Discharge Clinical Impression: Depression, Substance use disorder Patient Disposition: Still a Patient Prescriptions: No Action methadone [Methadose] 10 mg/mL concentrate 70 mg PO DAILY Rx Instructions: Partial Fill upon patient request. hydroxyzine HCl 50 mg Tablet 50 mg PO BID PRN (Reason: Anxiety) 30 Days Qty: 60 0RF melatonin 3 mg Tablet 6 mg PO BEDTIME PRN (Reason: Insomnia) 30 Days Qty: 60 0RF quetiapine 100 mg Tablet 100 mg PO BEDTIME 30 Days Qty: 30 0RF baclofen 10 mg Tablet 10 mg PO BID 30 Days Qty: 60 0RF buspirone 10 mg Tablet 20 mg PO TID 30 Days Qty: 180 0RF docusate sodium 100 mg Capsule 100 mg PO BID 30 Days Qty: 60 0RF bupropion HCl 300 mg Tablet Extended Release 24 Hr 300 mg PO DAILY 30 Days Qty: 30 0RF ibuprofen 600 mg tablet 600 mg PO Q8H PRN (Reason: pain) 30 Days Qty: 90 0RF prazosin 2 mg capsule 2 mg PO BEDTIME 30 Days Qty: 30 0RF cyclobenzaprine 5 mg tablet 5 mg PO BID PRN (Reason: muscle spasm) 30 Days Qty: 60 0RF aripiprazole 5 mg tablet 5 mg PO DAILY 30 Days Qty: 30 0RF methylphenidate HCl 20 mg tablet See Rx Instructions .ROUTE .COMPLEX 30 Days Qty: 90 0RF Rx Instructions: take 2 tablets (40 mg) in the morning and one tablet (20 mg) at 1 pm. Interventions: [place]-Suicide Risk Severity Scale Last Done: 02/25/24 09:09 Print Language: French
--- NOTE | 2024-02-25 09:35 | PC.NURSE ---
PT BIBA after calling to report SI with plan to OD. PT discharged from [facility] psychiatric floor 01/31 and was then at [facility] inpatient until yesterday. LDL form [facility] faxed to pharmacy stating PT received 70mg Methadone 02/24/24.
[2024-02-25 09:52] LABS: MANUAL DIFF FLAG NO
--- NOTE | 2024-02-25 09:52 | HE.PHANOTE ---
RE METHADONE Pharmacy received last dose confirmation. Patient is doses with [facility]. Last dosed 02/24/24 @70 mg.
[2024-02-25 09:53] LABS: Basophils Absolute Auto 0.1 X10*3/uL (0.0-0.2); Basophils Percent Auto 0.7 % (0-2); Eosinophils Absolute Auto 0.1 X10*3/uL (0.0-0.4); Eosinophils Percent Auto 0.9 % (0-4); Hematocrit 41.2 % (37.0-47.0); Hemoglobin 14.1 g/dl (12.0-16.0); Imm Gran Abs Auto 0.04 X10*3/uL (0.00-0.03); Imm Gran Pct Auto 0.5 % (0.0-0.4); Mean Corpuscular HGB Conc 34.2 g/dl (31.0-35.0); Mean Corpuscular Hemoglobin 30.3 pg (27.0-33.0); Mean Corpuscular Volume 88.4 fL (80.0-98.0); Mean Platelet Volume 9.9 fL (9.4-12.3); Monocytes Absolute Auto 0.4 X10*3/uL (0.1-1.2); Monocytes Percent Auto 4.6 % (2-11); Neutrophils Absolute Auto 6.3 x10*3/uL (2.0-8.3); Neutrophils Percent Auto 71.3 % (45-73); Platelet Count 292 X10*3/uL (160-400); Red Blood Count 4.66 X10*6/uL (4.20-5.50); Red Cell Distribution Width 12.9 % (11.0-16.0); White Blood Count 8.9 X10*3/uL (4.8-10.8)
[2024-02-25 10:09] LABS: Acetaminophen LAB < 3 mcg/mL (<30); Ethanol < 10 mg/dL; Salicylate < 5.0 mg/dL (15-30)
[2024-02-25 10:10] LABS: Alanine Aminotransferase 11 U/L (0-31); Albumin Level 4.5 g/dL (3.5-5.0); Alkaline Phosphatase 45 U/L (39-117); Anion Gap 18 (12-20); Aspartate Amino Transferase 19 U/L (5-31); Bilirubin Total 0.9 mg/dL (0.0-1.0); Blood Urea Nitrogen 22 mg/dL (9-16); Calcium 9.5 mg/dL (8.4-10.2); Carbon Dioxide 23 mmol/L (22-29); Chloride 104 mmol/L (96-108); Creatinine Clr Calc Pharmacy 65.3; Estimated Glomerular Filt Rate > 60; Glucose Random 96 mg/dL (60-115); Potassium 3.5 mmol/L (3.3-5.1); Sodium 141 mmol/L (135-145); Total Protein 8.2 g/dL (6.5-8.0)
[2024-02-25] MEDS: methADONE HCl 20 MG/2 ML ORAL.CONC 70 MG PO (10:47)
[2024-02-25 13:19] LABS: UPreg QC Valid YES; Urine Pregnancy NEGATIVE (NEGATIVE)
[2024-02-25 13:20] LABS: Appearance Urine Turbid; Color Urine Dark Yellow; Glucose Urine UA Negative (Negative); Leukocyte Esterase Urine Moderate (2+) (Negative); Nitrite Urine Negative (Negative); PH 5.5 (5.0-9.0); Specific Gravity - Urine >= 1.030 (1.005-1.025); UMIC TRIGGER UACC YES; Urine Blood Large (3+) (Negative); Urine Ketones Negative (Negative); Urine Protein 30 (1+) mg/dL (Neg-Trace)
[2024-02-25 13:29] LABS: Amphetamine Screen Urine Not Detected (Not Detect); Barbiturates, Urine Not Detected (Not Detect); Benzodiazepines Screen Urine Not Detected (Not Detect); Buprenorphine Scr Not Detected (Not Detect); Cannabinoid Screen Urine Not Detected (Not Detect); Cocaine Screen Urine POSITIVE (Not Detect); Fentanyl, urine POSITIVE (Not Detect); Methadone Screen, Urine Positive (Not Detect); Opiate Screen Urine Not Detected (Not Detect); Oxycodone Screen Urine Not Detected (Not Detect); Phencyclidine Screen Urine Not Detected (Not Detect)
[2024-02-25 13:31] LABS: Bacteria Urine 2+ (None Seen); Hyaline Casts Urine 0-2 /LPF (0-2); RBC Urine >20 /HPF (0-2); UACC Culture Trigger YES
[2024-02-25 13:54] VITALS: RESP 18
[2024-02-25 17:13] VITALS: BP 106/69; PULSE 82; RESP 16; TEMP 36.7; O2SAT 99
--- NOTE | 2024-02-25 18:43 | MHC.CARE ---
Pt was accepted to [facility] in [facility] for after midnight tonight, 02/25/24. The accepting doc is Dr. Sim. If the pt can come before midnight, the RN will call the CARE Team and let them know. For the Rn Diabetes: [address], [place] [employer] It's a big white building behind the flag pole Call [phone] when you arrive for intake/admissions.
--- NOTE | 2024-02-25 19:45 | MHC.CARE ---
*Please note that the pt has declined her bed at [facility] due to her discharging from there yesterday. Pt stated that they discontinued all of her medications and that is why she is here now. Pt is stating that she would got to [facility] now.
--- NOTE | 2024-02-25 19:49 | MHC.CARE ---
Pt was accepted to [facility] in [place], [place] for before midnight on 02/25/24. Accepting doc is Dr. Montgomery [address] [place] [id number]
[2024-02-25 22:09] VITALS: BP 118/78; PULSE 80; RESP 16; TEMP 36.6; O2SAT 98
== END 2024-02-25 22:12 | disposition short-term general hospital (02) ==
PROVIDERS: Emergency Provider Student in an Organized Health Care Education/Training Program
DX: F33.2 Major depressive disorder, recurrent severe without psychotic features (principal); F19.10 Other psychoactive substance abuse, uncomplicated; R45.851 Suicidal ideations; F14.10 Cocaine abuse, uncomplicated; F11.20 Opioid dependence, uncomplicated; F43.10 Post-traumatic stress disorder, unspecified; Z79.899 Other long term (current) drug therapy
CPT/HCPCS: 36415; 80053; 80143; 80179; 80307; 81001; 81025; 85025; 87086; 99285; S9485

== ENCOUNTER 2024-07-18 10:14 | Emergency (ER) | payer OTHER, SELFPAY ==
[2024-07-18 10:23] VITALS: BP 126/81; PULSE 115; RESP 16; TEMP 36; O2SAT 95; BMI 28.3
--- NOTE | 2024-07-18 10:50 | ECG_ITS ---
Test Reason : OD Blood Pressure : / mmHG Vent. Rate : 091 BPM Atrial Rate : 091 BPM P-R Int : 142 ms QRS Dur : 080 ms QT Int : 408 ms P-R-T Axes : 035 007 003 degrees QTc Int : 501 ms Normal sinus rhythm Nonspecific T wave abnormality Abnormal ECG When compared with ECG of 19-JAN-2024 11:19, Nonspecific T wave abnormality now evident in Anterior leads Referred By: Emelia Iyer Electronically Signed By:LORI GONZALEZ
--- NOTE | 2024-07-18 11:34 | PC.NURSE ---
Per poison control, ekg every 2 hours, then every 4. Treat abnormal potassium and magnesium per protocol, benzos as needed for aggitation
--- NOTE | 2024-07-18 11:39 | ECG_ITS ---
Test Reason : REPEAT Blood Pressure : / mmHG Vent. Rate : 092 BPM Atrial Rate : 092 BPM P-R Int : 154 ms QRS Dur : 086 ms QT Int : 382 ms P-R-T Axes : 040 009 008 degrees QTc Int : 472 ms Normal sinus rhythm Nonspecific T wave abnormality Prolonged QT Abnormal ECG When compared with ECG of 18-JUL-2024 10:53, No significant change was found Referred By: Emelia Iyer Electronically Signed By:LORI GONZALEZ
--- NOTE | 2024-07-18 11:39 | ED.PSYCH ---
HPI - Psych General Chief Complaint: Psychiatric Symptoms Stated Complaint: crisis Time Seen by Provider: 07/18/24 10:38 Source: patient, EMS, RN notes reviewed and old records reviewed Mode of arrival: EMS History of Present Illness ED Provider: Emelia Iyer PA-C HPI Narrative: 43-year-old female with past medical history depression, polysubstance use disorder, PTSD, depression, presenting to the ED complaining of relapsed on crack/heroin, with 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 Denies ETOH use. Denies HI, auditory or visual hallucinations. Denies head injury Related Data Home Medications ?Medication ?Instructions ?Recorded ?Confirmed methadone 10 mg/mL oral 70 mg PO DAILY 09/27/23 02/25/24 concentrate (Methadose) Previous Rx's ?Medication ?Instructions ?Recorded aripiprazole 5 mg tablet 5 mg PO DAILY 30 days #30 tabs 01/31/24 baclofen 10 mg tablet 10 mg PO BID 30 days #60 tabs 01/31/24 bupropion HCl 300 mg 24 hr tablet, 300 mg PO DAILY 30 days #30 tabs 01/31/24 extended release buspirone 10 mg tablet 20 mg (2 x 10 mg) PO TID 30 days 01/31/24 #180 tabs cyclobenzaprine 5 mg tablet 5 mg PO BID PRN muscle spasm 30 01/31/24 days #60 tabs docusate sodium 100 mg capsule 100 mg PO BID 30 days #60 caps 01/31/24 hydroxyzine HCl 50 mg tablet 50 mg PO BID PRN Anxiety 30 days 01/31/24 #60 tabs ibuprofen 600 mg tablet 600 mg PO Q8H PRN pain 30 days #90 01/31/24 tabs melatonin 3 mg tablet 6 mg (2 x 3 mg) PO BEDTIME PRN 01/31/24 Insomnia 30 days #60 tabs prazosin 2 mg capsule 2 mg PO BEDTIME 30 days #30 caps 01/31/24 quetiapine 100 mg tablet 100 mg PO BEDTIME 30 days #30 tabs 01/31/24 methylphenidate HCl 20 mg tablet See Rx Instructions .Route 02/01/24 .COMPLEX 30 days #90 tabs Allergies Allergy/AdvReac Type Severity Reaction Status Date / Time amoxicillin Allergy Mild Hives Verified 10/16/24 10:25 Review of Systems Review of Systems: Yes all other systems are reviewed and are negative Constitutional: Constitutional: Reports as per [facility] Past Medical History Attestation statement: The following information was validated with the patient. Source: old records reviewed Medical History Depression Polysubstance abuse Cocaine use disorder PTSD (post-traumatic stress disorder) MDD (major depressive disorder), recurrent severe, without psychosis Polysubstance (including opioids) dependence, daily use Social History Social History Household Members: None Household Members Other:: homeless Housing: Homeless Do you presently have visiting nurse or other home services: No Alcohol intake: current Alcohol intake frequency: does not drink Comment: prior rn admitted Patient Tobacco Use Status: Never used Tobacco Smoked in Last 30 Days: Yes e-Cigarette/Vaping Use: Never Used Second Hand Smoke Exposure: Yes Use of substances other than those prescribed or required for medical reasons: Yes Substance Use Type: Crack/Cocaine and Heroin Advance Directives: No Do you have a plan to hurt others: No Plan service: No Sexual orientation: Did not discuss Physical Exam Vital Signs: Vital Signs: Last Vital Signs Temp 98.4 F 07/18/24 15:13 Pulse 64 07/18/24 15:13 Resp 18 07/18/24 15:13 BP 102/65 07/18/24 15:13 Pulse Ox 95 07/18/24 15:13 O2 Del Method Room Air 07/18/24 15:13 BMI result Body Mass Index 28.3 Const: General: cooperative, healthy appearing and no acute distress Orientation/consciousness: patient oriented x3 Limitations: no limitations HEENT: Head: Yes normal to inspection and Yes atraumatic Ears: hearing grossly normal bilaterally General nose exam: Normal external nose present Face and sinus: Yes normal facial exam Eyes: General: appearance normal, both eyes and all related structures EOM: EOMs intact bilaterally Neck: Neck: Yes normal visual inspection and Yes no meningeal signs Resp: Effort & Inspection: normal respiratory effort and no respiratory distress Auscultation: clear to auscultation bilaterally Cardio: Rate: regular rate Heart sounds: S1 normal heart sound present and S2 normal heart sound present GI: Inspection: Yes normal to inspection Palpation (GI): Soft to palpation, nontender, no guarding and not rigid Skin: Rashes: no rashes Wounds: no wounds Neuro: General: patient oriented x3, gait normal, tone normal, moves all extremities, no meningeal signs, no focal motor deficits and CN's II-XI intact bilaterally Cranial nerves: Yes CN's II-XII intact bilaterally Gait exam (Neuro): Normal gait present Extrem: General: Yes normal to inspection Psych: Appearance: grossly normal Speech and movement: Normal speech and movement present Affect: Sad affect present Thought content: Suicidality present and no homicidality Course Course Course Narrative: -Poison control recommended EKG q.2 hours, then switch to q.4 hours. Treat abnormal potassium/magnesium per protocol, and benzos p.r.n. for agitation. -labs reassuring. Viral studies negative -physician observation initiated at 13:32 as patient needs more time to be monitored after overdose for serial EKGs and CARE team eval -1630--JOSHI and UA pending. ED care transferred to [facility] pending CARE team consult. Medications Administered Discontinued Medications Generic Name Dose Route Start Last Admin Trade Name Freq PRN Reason Stop Dose Admin Acetaminophen 650 mg 07/18/24 13:31 07/18/24 13:36 Acetaminophen 325 Mg Tablet PO 07/18/24 13:32 650 mg ONCE ONE Administration Potassium Chloride 60 meq 07/18/24 14:23 07/18/24 14:39 Potassium Chloride Packet 20 Meq Packet PO 07/18/24 14:24 60 meq ONCE ONE Administration Medical Decision Making Medical Decision Making [facility] Narrative: 43-year-old female with past medical history depression, polysubstance use disorder, PTSD, depression, presenting to the ED complaining of relapsed on crack/heroin, with 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 On exam tachycardic, NAD, +SI, sad, depressed. Concern for overdose vs polysubstance use. Rule out organic causes. Rule out metabolic abnormalities Plan: EKG, labs, UA, tox screen, contact poison control Please refer to course for remaining clinical decision making, interpretation of labs/imaging results, and discussions with consultants and/or family members. Differential Diagnosis Differential Diagnoses: The differential diagnosis associated with the presentation includes As above Admission/Observation Consideration of admission/observation: Escalation of care including admission/observation considered Lab Data MDM Lab Attestation statement: I reviewed the patient's lab results. 07/18/24 11:45 07/18/24 11:45 Labs: Lab Results 07/18/24 Range/Units 11:45 WBC 9.9 (4.8-10.8) X10*3/uL RBC 4.03 L (4.20-5.50) X10*6/uL Hgb 12.0 (12.0-16.0) g/dl Hct 34.2 L (37.0-47.0) % MCV 84.9 (80.0-98.0) fL MCH 29.8 (27.0-33.0) pg MCHC 35.1 H (31.0-35.0) g/dl RDW 12.5 (11.0-16.0) % Plt Count 234 (160-400) X10*3/uL MPV 8.8 L (9.4-12.3) fL Immature Gran % (Auto) 0.4 (0.0-0.4) % Neut % (Auto) 72.0 (45-73) % Lymph % (Auto) 20.7 (20-40) % [place] % (Auto) 5.6 (2-11) % Eos % (Auto) 0.8 (0-4) % Baso % (Auto) 0.5 (0-2) % Lymph # (Auto) 2.1 (1.2-4.9) X10*3/uL [place] # (Auto) 0.6 (0.1-1.2) X10*3/uL Eos # (Auto) 0.1 (0.0-0.4) X10*3/uL Baso # (Auto) 0.1 (0.0-0.2) X10*3/uL Abs Immat Gran (auto) 0.04 H (0.00-0.03) X10*3/uL Absolute Neuts (auto) 7.1 (2.0-8.3) x10*3/uL Absolute Nucleated RBC 0.000 (0.0-0.012) X10*3/uL Nucleated RBC % (auto) 0.0 (0.0-0.2) /100WBC PT 13.7 H (10.9-12.4) SEC INR 1.2 H (0.9-1.1) Sodium 140 (135-145) mmol/L Potassium 3.5 (3.3-5.1) mmol/L Chloride 106 (96-108) mmol/L Carbon Dioxide 25 (22-29) mmol/L Anion Gap 13 (12-20) BUN 16 (9-16) mg/dL Creatinine 0.85 (0.5-1.4) mg/dL Estim Creat Clear Calc 75.2 Estimated GFR > 60 Random Glucose 112 (60-115) mg/dL Calcium 9.3 (8.4-10.2) mg/dL Magnesium 2.2 (1.6-2.6) mg/dL Total Bilirubin 1.1 H (0.0-1.0) mg/dL Direct Bilirubin 0.4 (0.0-0.5) mg/dL AST 19 (5-31) U/L ALT 15 (0-31) U/L Alkaline Phosphatase 42 (39-117) U/L Total Protein 7.5 (6.5-8.0) g/dL Albumin 4.5 (3.5-5.0) g/dL Salicylates < 5.0 L (15-30) mg/dL Acetaminophen < 3 (<30) mcg/mL Ethyl Alcohol < 10 mg/dL Influenza Type A (PCR) NEGATIVE (Negative) Influenza Type B (PCR) NEGATIVE (Negative) RSV RNA Qual (PCR) NEGATIVE (Negative) SARS-CoV-2 RNA (RT-PCR) NEGATIVE (Negative) Independent Interpretation I performed an independent interpretation of an: EKG (My interpretation EKG normal sinus rhythm rate of 91. AR interval 142. Nonspecific T-wave abnormality in anterior leads. No STEMI) Interpretation: EKG 2. Normal sinus rhythm rate of 92. QRS 86. QTC 471. No STEMI. No significant change when compared to prior Radiology Impression Discussion of test interpretation with radiology: I have reviewed the radiologist's reading. External Record Review External record reviewed: Inpatient record, Office record, Outpatient record, Prior outpatient labs, Prior outpatient radiology, Primary care record and Outside ED record Tests considered The following testing was considered but not selected: As above Chronic Conditions Patient?s care impacted by: Other Social Determinants Patient?s care significantly limited by Social Determinants of Health including: Inadequate housing, Low income, Alcoholism and drug addiction in family, Problems related to primary support group, Unemployment, Problems related to employment and Other Social Determinant of Health Discharge Plan Discharge Clinical Impression: Intentional overdose of trazodone, Polysubstance abuse Patient Disposition: Still a Patient Prescriptions: No Action methadone [Methadose] 10 mg/mL concentrate 70 mg PO DAILY Rx Instructions: Partial Fill upon patient request. hydroxyzine HCl 50 mg Tablet 50 mg PO BID PRN (Reason: Anxiety) 30 Days Qty: 60 0RF melatonin 3 mg Tablet 6 mg PO BEDTIME PRN (Reason: Insomnia) 30 Days Qty: 60 0RF quetiapine 100 mg Tablet 100 mg PO BEDTIME 30 Days Qty: 30 0RF baclofen 10 mg Tablet 10 mg PO BID 30 Days Qty: 60 0RF buspirone 10 mg Tablet 20 mg PO TID 30 Days Qty: 180 0RF docusate sodium 100 mg Capsule 100 mg PO BID 30 Days Qty: 60 0RF bupropion HCl 300 mg Tablet Extended Release 24 Hr 300 mg PO DAILY 30 Days Qty: 30 0RF ibuprofen 600 mg tablet 600 mg PO Q8H PRN (Reason: pain) 30 Days Qty: 90 0RF prazosin 2 mg capsule 2 mg PO BEDTIME 30 Days Qty: 30 0RF cyclobenzaprine 5 mg tablet 5 mg PO BID PRN (Reason: muscle spasm) 30 Days Qty: 60 0RF aripiprazole 5 mg tablet 5 mg PO DAILY 30 Days Qty: 30 0RF methylphenidate HCl 20 mg tablet See Rx Instructions .ROUTE .COMPLEX 30 Days Qty: 90 0RF Rx Instructions: take 2 tablets (40 mg) in the morning and one tablet (20 mg) at 1 pm. Interventions: [place]-Suicide Risk Severity Scale Last Done: 07/18/24 14:03 Print Language: Amharic
[2024-07-18 11:52] LABS: MANUAL DIFF FLAG NO
[2024-07-18 11:54] LABS: Basophils Absolute Auto 0.1 X10*3/uL (0.0-0.2); Basophils Percent Auto 0.5 % (0-2); Eosinophils Absolute Auto 0.1 X10*3/uL (0.0-0.4); Eosinophils Percent Auto 0.8 % (0-4); Hematocrit 34.2 % (37.0-47.0); Imm Gran Abs Auto 0.04 X10*3/uL (0.00-0.03); Imm Gran Pct Auto 0.4 % (0.0-0.4); Lymphocytes Absolute Auto 2.1 X10*3/uL (1.2-4.9); Lymphocytes Percent Auto 20.7 % (20-40); Mean Corpuscular HGB Conc 35.1 g/dl (31.0-35.0); Mean Corpuscular Hemoglobin 29.8 pg (27.0-33.0); Mean Corpuscular Volume 84.9 fL (80.0-98.0); Mean Platelet Volume 8.8 fL (9.4-12.3); Monocytes Absolute Auto 0.6 X10*3/uL (0.1-1.2); Monocytes Percent Auto 5.6 % (2-11); Neutrophils Absolute Auto 7.1 x10*3/uL (2.0-8.3); Platelet Count 234 X10*3/uL (160-400); Red Blood Count 4.03 X10*6/uL (4.20-5.50); Red Cell Distribution Width 12.5 % (11.0-16.0); White Blood Count 9.9 X10*3/uL (4.8-10.8)
[2024-07-18 12:02] LABS: INTERNATIONAL NORM RATIO 1.2 (0.9-1.1); Prothrombin Time 13.7 SEC (10.9-12.4)
[2024-07-18 12:09] LABS: Acetaminophen LAB < 3 mcg/mL (<30); Salicylate < 5.0 mg/dL (15-30)
[2024-07-18 12:10] LABS: Alanine Aminotransferase 15 U/L (0-31); Albumin Level 4.5 g/dL (3.5-5.0); Alkaline Phosphatase 42 U/L (39-117); Anion Gap 13 (12-20); Aspartate Amino Transferase 19 U/L (5-31); Bilirubin Direct 0.4 mg/dL (0.0-0.5); Bilirubin Total 1.1 mg/dL (0.0-1.0); Blood Urea Nitrogen 16 mg/dL (9-16); Calcium 9.3 mg/dL (8.4-10.2); Carbon Dioxide 25 mmol/L (22-29); Chloride 106 mmol/L (96-108); Creatinine Clr Calc Pharmacy 75.2; Estimated Glomerular Filt Rate > 60; Ethanol < 10 mg/dL; Glucose Random 112 mg/dL (60-115); Magnesium 2.2 mg/dL (1.6-2.6); Potassium 3.5 mmol/L (3.3-5.1); Sodium 140 mmol/L (135-145); Total Protein 7.5 g/dL (6.5-8.0)
[2024-07-18 12:31] LABS: Influenza A PCR NEGATIVE (Negative); Influenza B PCR NEGATIVE (Negative); Resp Syncy Virus RNA Qual PCR NEGATIVE (Negative); SARS COV2 PCR INHOUSE NEGATIVE (Negative)
[2024-07-18] MEDS: Acetaminophen 325 MG TABLET 650 MG PO (13:36)
--- NOTE | 2024-07-18 13:42 | PC.NURSE ---
Repeat EKG done after q2 hr and signed by .
[2024-07-18] MEDS: Potassium Chloride Packet 20 MEQ PACKET 60 MEQ PO (14:39)
[2024-07-18 15:13] VITALS: BP 102/65; PULSE 64; RESP 18; TEMP 36.9; O2SAT 95
[2024-07-18 16:29] LABS: Appearance Urine Cloudy; Color Urine Dark Yellow; Glucose Urine UA Negative (Negative); Leukocyte Esterase Urine Trace (Negative); Nitrite Urine Negative (Negative); Specific Gravity - Urine >= 1.030 (1.005-1.025); UMIC TRIGGER UACC YES; Urine Blood Moderate (2+) (Negative); Urine Ketones 15 mg/dL (Negative); Urine Protein Trace mg/dL (Neg-Trace)
[2024-07-18 16:31] LABS: UPreg QC Valid YES; Urine Pregnancy NEGATIVE (NEGATIVE)
[2024-07-18] MEDS: Ibuprofen 600 MG TABLET PO (16:34)
[2024-07-18 16:35] LABS: Amphetamine Screen Urine Not Detected (Not Detect); Barbiturates, Urine Not Detected (Not Detect); Benzodiazepines Screen Urine Not Detected (Not Detect); Buprenorphine Scr Not Detected (Not Detect); Cannabinoid Screen Urine Not Detected (Not Detect); Cocaine Screen Urine POSITIVE (Not Detect); Fentanyl, urine POSITIVE (Not Detect); Methadone Screen, Urine Positive (Not Detect); Opiate Screen Urine POSITIVE (Not Detect); Oxycodone Screen Urine Not Detected (Not Detect); Phencyclidine Screen Urine Not Detected (Not Detect)
--- NOTE | 2024-07-18 16:39 | PC.NURSE ---
PT Refused medication Klor-Con 40mEq. PT did agree to drink a container of orange juice which contains 150mg of potassium per container (according to ingredients on packaging).
--- NOTE | 2024-07-18 16:57 | PC.NURSE ---
Methadone Verification Last dosed at [facility] in [place], [place]. 40mg on 07/17/24 @ 0510. Verified by Candido BOWERS at the facility. Faxed to pharmacy
[2024-07-18 17:13] LABS: Bacteria Urine 3+ (None Seen); Hyaline Casts Urine 0-2 /LPF (0-2); Squamous Epithelial Cell Urine >20 /HPF (0-2); WBC Urine 0-5 /HPF (0-5)
--- NOTE | 2024-07-18 17:35 | HE.PHANOTE ---
METHADONE [facility] RECIEVED PATIENTS METHADONE VERIFICATION SHEET. PATIENT CONFIRMED TO BE GETTING 40 MG FROM [facility] [phone], CONFIRMED TO HAVE LAST BEEN DOSED 07/17/24
--- NOTE | 2024-07-18 18:18 | MHC.CARE ---
Patient evaluate by the CARE Team, disposition dual diagnosis inpatient psychiatric treatment, ED provider Dr. Hilton update with plan.
--- NOTE | 2024-07-18 19:49 | ECG_ITS ---
Test Reason : SSQT INT Blood Pressure : / mmHG Vent. Rate : 084 BPM Atrial Rate : 084 BPM P-R Int : 154 ms QRS Dur : 074 ms QT Int : 398 ms P-R-T Axes : 055 029 014 degrees QTc Int : 470 ms Normal sinus rhythm Low voltage QRS Borderline ECG When compared with ECG of 18-JUL-2024 13:30, No significant change was found Referred By: Emelia Iyer Electronically Signed By:LORI GONZALEZ
[2024-07-18 21:16] VITALS: BP 99/64; PULSE 73; RESP 16; TEMP 36.6; O2SAT 97
--- NOTE | 2024-07-18 23:17 | MHC.EDTECH ---
EKG done 23:04 per RN Eliana.
--- NOTE | 2024-07-18 23:49 | ECG_ITS ---
Test Reason : CHECK QT Blood Pressure : / mmHG Vent. Rate : 075 BPM Atrial Rate : 075 BPM P-R Int : 134 ms QRS Dur : 072 ms QT Int : 396 ms P-R-T Axes : 013 028 024 degrees QTc Int : 442 ms Artifact in tracing Normal sinus rhythm Low voltage QRS Borderline ECG When compared with ECG of 18-JUL-2024 20:16, No significant change was found Referred By: Emelia Iyer Electronically Signed By:LORI GONZALEZ
--- NOTE | 2024-07-18 23:51 | PC.NURSE ---
updated provider a few times since 1900 regarding initiating outpatient meds, however we still were conducting serial ekg's in compliance w recommendations of poison control.
--- NOTE | 2024-07-18 23:54 | PC.NURSE ---
requests for meds made 2100 hour and 2300 hour.
[2024-07-19 01:36] VITALS: BP 99/64
[2024-07-19] MEDS: busPIRone HCl 10 MG TABLET PO (01:36)
[2024-07-19] MEDS: Prazosin HCL 1 MG CAPSULE 4 MG PO (01:36)
[2024-07-19] MEDS: QUEtiapine Fumarate 200 MG TABLET PO (01:36)
[2024-07-19] MEDS: methADONE HCl 20 MG/2 ML ORAL.CONC 40 MG PO (09:12)
--- NOTE | 2024-07-19 09:46 | MHC.CARE ---
Pt was accepted to [facility] for today 07/19/24 by Amilcar. The accepting provider is Dr. Martins and the ETA is 12p/1p. The address is [address] [place] [address]. CARE Team and Pod RN Rashard have been notified of placement.
[2024-07-19 11:25] VITALS: BP 99/64; PULSE 73; RESP 16; TEMP 36.6; O2SAT 97
--- NOTE | 2024-07-19 11:39 | ECG_ITS ---
Test Reason : CHECK FOR OD Blood Pressure : / mmHG Vent. Rate : 070 BPM Atrial Rate : 070 BPM P-R Int : 108 ms QRS Dur : 074 ms QT Int : 414 ms P-R-T Axes : 049 049 018 degrees QTc Int : 447 ms Artifact in tracing Sinus rhythm with sinus arrhythmia with short [place] Cannot rule out Anterior infarct , age undetermined Abnormal ECG No significant changes when compared with the previous EKG of 18 jul 2024 Referred By: Emelia Iyer Electronically Signed By:LORI GONZALEZ
== END 2024-07-19 11:26 ==
PROVIDERS: Physician Assistant; Emergency Provider Emergency Medicine
DX: T43.212A Poisoning by selective serotonin and norepinephrine reuptake inhibitors, intentional self-harm, initial encounter (principal); F19.10 Other psychoactive substance abuse, uncomplicated; Y92.9 Unspecified place or not applicable; F33.2 Major depressive disorder, recurrent severe without psychotic features; F14.10 Cocaine abuse, uncomplicated; F11.20 Opioid dependence, uncomplicated; F43.10 Post-traumatic stress disorder, unspecified; Z79.899 Other long term (current) drug therapy; Z03.818 Encounter for observation for suspected exposure to other biological agents ruled out
CPT/HCPCS: 0241U; 36415; 80048; 80076; 80143; 80179; 80307; 81001; 81025; 83735; 85025; 85610; 93005; 99285; S9485

== ENCOUNTER → 2024-07-18 10:50 | Outpatient (BNV) | payer OTHER, SELFPAY | PROVIDERS: Emergency Provider Emergency Medicine; Visit Provider Internal Medicine | DX: R94.31 Abnormal electrocardiogram [ECG] [EKG] (principal) | CPT/HCPCS: 93010 ==

== ENCOUNTER → 2024-07-19 11:39 | Outpatient (BNV) | payer OTHER, SELFPAY | PROVIDERS: Emergency Provider Emergency Medicine; Visit Provider Internal Medicine | DX: R94.31 Abnormal electrocardiogram [ECG] [EKG] (principal) | CPT/HCPCS: 93010 ==